=== PATIENT | female | born 2000 | race Caucasian/White ===

== ENCOUNTER 2023-08-06 16:26 | Emergency (ER) | payer SELFPAY ==
[2023-08-06 16:30] VITALS: BP 117/66; PULSE 103; RESP 18; TEMP 37.1; O2SAT 97; BMI 21.5
--- NOTE | 2023-08-06 16:36 | XR_ITS ---
PROCEDURE INFORMATION: Exam: XR Right Hand Exam date and time: 08/06/2023 4:33 PM Age: 23 years old Clinical indication: Injury or trauma; Other: Metal in anterior pad of thumb-distal phalanx; Other: Metal in thumb; Additional info: Metal in thumb. Pain, swelling, discoloration. TECHNIQUE: Imaging protocol: Radiologic exam of the right hand. Views: 3 or more views. COMPARISON: CR [id number] XR hand RT min 3V 11/26/2018 8:42 PM FINDINGS: Bones/joints: Normal. Soft tissues: Normal. IMPRESSION: 1. No acute findings. 2. No radiopaque foreign bodies in the hand.
--- NOTE | 2023-08-06 16:40 | PC.NURSE ---
Pt went to RAD
--- NOTE | 2023-08-06 16:47 | ED_ITS ---
Discharge Plan Disposition Patient Disposition: Home, Self-Care Condition: Good Prescriptions Prescriptions: New cephalexin [cephalexin] 500 mg tablet 500 mg PO BID 7 Days Qty: 14 0RF Referrals Follow up/Referrals: Provider,Referral, MD [Primary Care Provider] - See instructions Activity Restrictions/Add. Instructions Additional Instructions/Restrictions: keep area clean and dry antibiotics as ordered return if no improvement follow up with pcp Clinical Impressions Clinical Impression: Cellulitis Qualifiers: Site of cellulitis: extremity Site of cellulitis of extremity: finger Laterality: right Qualified Code(s): L03.011 - Cellulitis of right finger Instructions Patient Instructions: Cellulitis Discharge ED Provider: Amarjit ([facility] [place] Stated complaint: poss metal shard in RT thumb Mode of Arrival: Ambulatory Source of Information: Patient Limitations: No Limitations Time Seen by Provider: 08/06/23 16:47 Description of Symptoms (Recalled from Triage Doc. by RN): Pt stated that she was working on her bike. She stated that 2 weeks ago a metal shard in her right thumb. HEENT Symptoms (Recalled from RN notes): No Resp Symptoms (Recalled from RN notes): No Skin Symptoms (Recalled from RN notes): Yes MS Symptoms (Recalled from RN notes): No Functional Status (Recalled from RN notes): n/a History of Present Illness Provider Complaint: 23 yr old female presents for pain and swelling to rt thumb. pt states she was working on her bike and thinks it might have metal in it. Related Data Previous Rx's Medication Instructions Recorded cephalexin 500 mg tablet 500 mg PO BID 7 days #14 tabs 08/06/23 Allergies Allergy/AdvReac Type Severity Reaction Status Date / Time No Known Allergies Allergy Verified 08/06/23 16:45 Worker's Comp Is this a Worker's Comp case?: No [facility] Disclaimer: The information contained in this section may have been updated after the patient was seen, as this information can be updated by other users. Social History , BUSINESS ANALYST CONSULTANT) Smoking Status: Smoker, status unknown alcohol intake: never current occupational status: student Travel in the last 8 weeks: None ROS Obtained: Yes All systems reviewed & no additional complaints except as documented Constitutional Constitutional: Reports system reviewed and no additional complaints, except as documented Eyes Eyes: Reports system reviewed and no additional complaints, except as documented ENT Ears, Nose, Mouth, and Throat: Reports system reviewed and no additional complaints, except as documented Cardiovascular Cardiovascular: Reports system reviewed and no additional complaints, except as documented Respiratory Respiratory: Reports system reviewed and no additional complaints, except as documented Gastrointestinal Gastrointestingal: Reports system reviewed and no additional complaints, except as documented Musculoskeletal Musculoskeletal: Reports system reviewed and no additional complaints, except as documented Integumentary/Breasts Skin/Breast: Reports system reviewed and no additional complaints, except as documented, Reports as per HPI and Reports other (fb) Neurologic Neurologic: Reports system reviewed and no additional complaints, except as documented Endocrine Endocrine: Reports system reviewed and no additional complaints, except as documented Hematologic/Lymphatic Henatologic/Lymphatic: Reports system reviewed and no additional complaints, except as documented Physical Exam General General appearance: alert and in no apparent distress Head Head exam: atraumatic Eye Eye exam: Present normal appearance and PERRL ENT ENT exam: Present normal exam, normal oropharynx, mucous membranes moist and TM's normal bilaterally Respiratory Respiratory exam: Present normal lung sounds bilaterally Cardiovascular Cardiovascular exam: Present regular rate and normal rhythm Expanded Upper Extremity Exam Right: Hand L/R front image: 1. foreign body Neurological Exam Neurological exam: Present alert Skin Skin exam: Present warm Medical Decision Making Medical Records Medical records reviewed: Yes I reviewed the patient's medical records. Shawn Inquiry Pt receiving controlled substance: No Shawn was queried for this patient: No Vital Signs: 08/06/23 16:30 Temperature 98.7 F Temperature Source Oral Pulse Rate [Right Radial] 103 H Respiratory Rate 18 Blood Pressure [Right Arm] 117/66 Blood Pressure Mean [Right Arm] 83 Blood Pressure Source [Right Arm] Automatic Cuff Blood Pressure Position [Right Arm] Sitting 02 Sat by Pulse Oximetry 97 Oxygen Delivery Method Room Air Orders (Tests/Meds): ORDERS Category Date Time Status Hand XR right minimum 3 views [XR hand RT min 3V] Stat Exams 08/06/23 16:36 Taken
[2023-08-06] MEDS: TET/DIPHTH/PERT-ADULT 0.5ML SYRINGE 0.5 ML IM (17:05)
[2023-08-06 17:21] VITALS: BP 117/66; PULSE 103; RESP 18; TEMP 37.1; O2SAT 97
== END 2023-08-06 17:21 | disposition home or self-care (01) ==
PROVIDERS: Emergency Provider Nurse Practitioner Family
DX: L03.011 Cellulitis of right finger (principal); M79.644 Pain in right finger(s); Z23 Encounter for immunization
CPT/HCPCS: 73130; 90471; 90715; 99204; 99212; G0463

== ENCOUNTER 2023-09-18 14:31 | Emergency (ER) | payer MEDICAID, SELFPAY ==
[2023-09-18 14:34] VITALS: BP 107/65; PULSE 74; RESP 16; TEMP 36.7; O2SAT 98; BMI 23.1
--- NOTE | 2023-09-18 14:54 | ED_ITS ---
<Statement entered by Leigh Cooper MD - 09/18/23 18:08> I was consulted by the ERICA, and we discussed the complexity of the problems being addressed. I approved the treatment and management plan for this patient's care in the emergency department, thus performing a substantive portion of the medical decision making. Leigh Cooper MD, TUAN, FACEP Discharge Plan Disposition Patient Disposition: Home, Self-Care Prescriptions Prescriptions: New amoxicillin-pot clavulanate 875-125 mg tablet 1 tab PO BID Qty: 20 0RF No Action cephalexin [cephalexin] 500 mg tablet 500 mg PO BID 7 Days Qty: 14 0RF Referrals Follow up/Referrals: Provider,Vesna, [Primary Care Provider] - See instructions Clinical Impressions Clinical Impression: Infected dental caries Headache Qualifiers: Headache type: unspecified Discharge ED Provider: Leigh Cooper General Adult HPI General Chief complaint: Headache Stated complaint: migrane 4days jaw pain fever vomiting Time Seen by Provider: 09/18/23 14:40 History of Present Illness HPI narrative: Patient presents for headache for more than 24 hours sore throat neck and back pain and a fever of 102. Patient reportedly has a history of migraines but has never been formally diagnosed and is prescribed propranolol for her headaches. Patient states that she is taken Tylenol and Aleve in the last 24 hours with no relief of her headache. Patient reports that she started having constitutional symptoms of myalgias and malaise along with a fever of 102 last night. Patient denies vision or sensory changes but does report photophobia and nausea with 1 episode of vomiting. Patient has been exposed to a family member who is diagnosed with strep. Related Data Previous Rx's Medication Instructions Recorded cephalexin 500 mg tablet 500 mg PO BID 7 days #14 tabs 08/06/23 amoxicillin 875 mg-potassium 1 tab PO BID #20 tabs 09/18/23 clavulanate 125 mg tablet Allergies Allergy/AdvReac Type Severity Reaction Status Date / Time No Known Allergies Allergy Verified 08/06/23 16:45 [facility] Disclaimer: The information contained in this section may have been updated after the patient was seen, as this information can be updated by other users. Social History (Updated 08/06/23 @ 17:00 by Atif Ocasio ([facility]), [employer]) Smoking Status: Current every day smoker alcohol intake: never current occupational status: student Travel in the last 8 weeks: None ROS Obtained: Yes Systems reviewed as appropriate & no additional complaints except as documented Physical Exam General General appearance: alert and in no apparent distress Head Head exam: atraumatic and normal inspection Eye Eye exam: Present normal appearance, PERRL and EOMI ENT ENT exam: Present normal oropharynx, mucous membranes moist and other (Patient has significant dental caries in the molars left side worse than right with dental necrosis visible however no evidence of visible abscess or palpable abscess on exam along with no cervical lymphadenopathy.) Neck Neck exam: Present normal inspection, full ROM, trachea midline and tenderness (Tender to palpation in the posterior cervical musculature however she has no meningeal signs no nuchal rigidity.); Absent lymphadenopathy Chest Chest inspection: Present normal inspection and symmetric chest wall rise Respiratory Respiratory exam: Present normal lung sounds bilaterally; Absent respiratory distress, wheezes or accessory muscle use Cardiovascular Cardiovascular exam: Present regular rate, normal rhythm, normal heart sounds, +S1 and +S2 Abdominal Exam Abdominal exam: Present soft and normal bowel sounds; Absent tenderness, guarding or rebound Extremities Exam Extremities exam: Present normal inspection and full ROM Back Exam Back exam: Present normal inspection and full ROM Neurological Exam Neurological exam: Present alert, oriented X3, CN II-XII intact, normal gait and reflexes normal; Absent motor sensory deficit Psychiatric Psychiatric exam: Present normal affect and normal mood Skin Skin exam: Present warm, dry and normal color Medical Decision Making Medical Records Medical records reviewed: Yes I reviewed the patient's medical records. Shawn Inquiry Pt receiving controlled substance: No Vital Signs: 09/18/23 14:34 09/18/23 15:00 09/18/23 15:31 Temperature 98.1 F Temperature Source Oral Pulse Rate 63 69 Pulse Rate [Right] 74 Respiratory Rate 16 18 16 Blood Pressure 93/49 L 98/47 L Blood Pressure [Right Arm] 107/65 L Blood Pressure Mean 63 59 Blood Pressure Mean [Right Arm] 79 Blood Pressure Source [Right Arm] Automatic Cuff 02 Sat by Pulse Oximetry 98 97 98 Oxygen Delivery Method Room Air 09/18/23 15:45 Temperature Temperature Source Pulse Rate 66 Pulse Rate [Right] Respiratory Rate 18 Blood Pressure 94/55 L Blood Pressure [Right Arm] Blood Pressure Mean 66 Blood Pressure Mean [Right Arm] Blood Pressure Source [Right Arm] 02 Sat by Pulse Oximetry 98 Oxygen Delivery Method Lab Data Lab results reviewed: Yes I reviewed the patient's lab results. Lab Results 09/18/23 14:50: Group A Strep Rapid Negative Orders (Tests/Meds): ED MEDICATIONS Discontinued Medications Generic Name Dose Route Start Last Admin Trade Name Kathy PRN Reason Stop Dose Admin Acetaminophen 1,000 mg 09/18/23 14:50 09/18/23 15:22 Acetaminophen 500mg Tab PO 09/18/23 14:51 1,000 mg ONCE ONE Administration Lactated Ringer's 1,000 mls @ 999 mls/hr 09/18/23 15:08 09/18/23 15:22 Lactated Ringer's 1000 Ml Bag IV 09/18/23 16:08 999 mls/hr .Q1H1M ONE Administration Ketorolac Tromethamine 30 mg 09/18/23 14:50 09/18/23 15:22 Ketorolac 30mg/Ml Vial IM 09/18/23 14:51 30 mg ONCE ONE Administration Ondansetron HCl 4 mg 09/18/23 14:57 09/18/23 15:23 Ondansetron 4mg Odt SL 09/18/23 14:58 4 mg ONCE ONE Administration ORDERS Category Date Time Status Full Resp Panel w/COVID ([facility]) Routine Lab 09/18/23 15:30 Received Rapid Strep Scrn Group A [Strep Scrn Group A (Rapid)] Lab 09/18/23 14:50 Completed Stat Strep Screen Confirmation Stat Micro 09/18/23 14:50 Received Medical Decision Narrative: In summary patient is a 23-year-old female who presents to the emergency department for evaluation of headache and fever. Patient is hemodynamically stable upon arrival, and afebrile on arrival here. Physical exam shows tender posterior cervical musculature but no evidence of neurologic signs, meningiomas or nuchal rigidity.. Differential diagnosis includes daily headache versus infectious upper respiratory tract infection versus dental infection with dental abscess versus possible intracranial abnormality. Initial workup will be conducted with respiratory swab flu COVID and strep. Initial interventions include crystalloid bolus Toradol and Tylenol. Initial workup reviewed by me shows that she is group A strep negative. Upon repeat evaluation patient reports some resolution of her symptoms after fluid and anti-inflammatories specifically her headache and nausea however her teeth pain persists. Given this she is appropriate for discharge home with a prescription for this Augmentin and continue taking alternating Tylenol alternating with Motrin [id number] and following up with her dentist as soon as possible for evaluation. Critical Care Critical Care Time Critical Care Time: No
[2023-09-18 15:00] VITALS: BP 93/49; PULSE 63; RESP 18; O2SAT 97
[2023-09-18 15:13] LABS: Strep Scrn Group A (Rapid) Negative (Negative)
[2023-09-18] MEDS: LACTATED RINGERS 1000ML 1,000 ML 999 ML IV (15:22)
[2023-09-18] MEDS: KETOROLAC 30MG/ML VIAL 30 MG IM (15:22)
[2023-09-18] MEDS: ACETAMINOPHEN 500MG TAB 1000 MG PO (15:22)
[2023-09-18] MEDS: ONDANSETRON 4MG ODT 4 MG SL (15:23)
[2023-09-18 15:31] VITALS: BP 98/47; PULSE 69; RESP 16; O2SAT 98
[2023-09-18 15:45] VITALS: BP 94/55; PULSE 66; RESP 18; O2SAT 98
[2023-09-18 15:58] LABS: Adenovirus,PCR Not Detected (NotDetected); Coronavirus 19, PCR Not Detected (NotDetected); Coronavirus 229E Not Detected (NotDetected); Coronavirus NL63 Not Detected (NotDetected); Coronavirus OC43 Not Detected (NotDetected); Coronovirus HKU1,PCR Not Detected (NotDetected); Human Metapneumovirus Not Detected (NotDetected); Influenza A, PCR Not Detected (NotDetected); Influenza AH1, 2009 Not Detected (NotDetected); Influenza AH1, PCR Not Detected (NotDetected); Influenza AH3,PCR Not Detected (NotDetected); Influenza B, PCR Not Detected (NotDetected); Parainfluenza 1, PCR Not Detected (NotDetected); Parainfluenza 2, PCR Not Detected (NotDetected); Parainfluenza 3, PCR Not Detected (NotDetected); Parainfluenza 4, PCR Not Detected (NotDetected); Respiratory Syncytial Virus Not Detected (NotDetected); Rhinovirus/Enterovirus Not Detected (NotDetected)
[2023-09-18 16:00] VITALS: BP 94/55; PULSE 77; RESP 18; O2SAT 98
[2023-09-18 16:38] VITALS: BP 100/63; PULSE 74; RESP 16; TEMP 37; O2SAT 99
== END 2023-09-18 16:46 | disposition home or self-care (01) ==
PROVIDERS: Physician Assistant; Emergency Provider Student in an Organized Health Care Education/Training Program
DX: R51.9 Headache, unspecified (principal); R68.84 Jaw pain; R11.2 Nausea with vomiting, unspecified; K02.9 Dental caries, unspecified; F17.210 Nicotine dependence, cigarettes, uncomplicated
CPT/HCPCS: 87430; 87632; 87635; 96360; 96372; 99284

== ENCOUNTER 2023-09-23 10:49 | Emergency (ER) | payer SELFPAY ==
[2023-09-23] VITALS (10 sets, daily range): BP systolic 91–131; BP diastolic 51–78; PULSE 39–67; RESP 16–17; TEMP 36.7–36.9; O2SAT 97–100; BMI 23.3
--- NOTE | 2023-09-23 11:08 | ED_ITS ---
Discharge Plan Disposition Patient Disposition: Home, Self-Care Condition: Good Prescriptions Prescriptions: No Action cephalexin [cephalexin] 500 mg tablet 500 mg PO BID 7 Days Qty: 14 0RF amoxicillin-pot clavulanate 875-125 mg tablet 1 tab PO BID Qty: 20 0RF Referrals Follow up/Referrals: Provider,Referral, [Primary Care Provider] - See instructions Clinical Impressions Clinical Impression: Headache Qualifiers: Headache type: unspecified Headache chronicity pattern: acute headache I ntractability: not intractable Qualified Code(s): R51.9 - Headache, unspecified Instructions Patient Instructions: DI for Diarrhea and Traveler's Diarrhea -- Adult, DI for Diarrhea and Traveler's Diarrhea -- Child, DI for Nausea -- Adult, DI for Nausea -- Child Discharge ED Provider: Piter Davis Adult HPI General Chief complaint: Nausea/Vomiting/Diarrhea Stated complaint: headache, lower back pain vomiting Time Seen by Provider: 09/23/23 10:55 Mode of Arrival: Ambulatory Source of Information: Patient Limitations: No Limitations Description of Symptoms (Recalled from ER Triage Doc. by RN): pt presents to ED with c/o nausea, vomitting, headache. pt reports symptoms ongoing for 1 week. History of Present Illness HPI narrative: Patient presents with severe diffuse nonradiating headache, reports history of migraine but states symptoms are different than in the past, is unable to describe further how symptoms are different, associated symptoms include nausea and vomiting, denies any vision changes, denies any recreational drug use, reports recent antibiotics for dental caries and has been compliant with this therapy. She does describe dental pain in her mandibular molars bilaterally. Denies any chronic medical issues, denies any nuchal rigidity, denies any personal or family history of DVT or other thrombotic risk factors. Denies any pain elsewhere. Of note, history difficult to obtain due to limited recollection of HPI, severity of patient's symptoms. Symptoms were gradual in onset starting 1 week ago however worsening over the past 24 hours. Previous therapies include [id number] analgesia with minimal effect. Please note that above description of symptoms, in this electronic medical record under categorization of recalled from ER triage doctor by RN are reflective of an initial nursing assessment, however, is not reflective of my full history and physical exam that was personally taken and clarified. Consequentially, this preceding description of symptoms, which may include the patient's categorized chief complaint in the EMR, do not reflect my personal clinical impression, and the ultimate description of history of present illness and patient stated complaints should be deferred to this section of the note. Unless stated otherwise or congruent with this section of the note, additional signs, symptoms, or incongruence should be interpreted as inaccurate with my clinical impression. Related Data Previous Rx's Medication Instructions Recorded cephalexin 500 mg tablet 500 mg PO BID 7 days #14 tabs 08/06/23 amoxicillin 875 mg-potassium 1 tab PO BID #20 tabs 09/18/23 clavulanate 125 mg tablet Allergies Allergy/AdvReac Type Severity Reaction Status Date / Time No Known Allergies Allergy Verified 08/06/23 16:45 [facility] Disclaimer: The information contained in this section may have been updated after the patient was seen, as this information can be updated by other users. Social History (Updated 08/06/23 @ 17:00 by Atif Ocasio ([facility]), TELETYPEWR[employer]ST[employer]ER) Smoking Status: Current every day smoker alcohol intake: never current occupational status: student Travel in the last 8 weeks: None ROS Obtained: Yes Systems reviewed as appropriate & no additional complaints except as documented As per HPI Physical Exam General General appearance: alert and in distress Head Head exam: atraumatic and normocephalic Eye Eye exam: Present normal appearance Neck Neck exam: Present normal inspection Chest Chest inspection: Present normal inspection and symmetric chest wall rise Respiratory Respiratory exam: Present normal lung sounds bilaterally; Absent respiratory distress Cardiovascular Cardiovascular exam: Present regular rate and normal rhythm Abdominal Exam Abdominal exam: Present soft Neurological Exam Neurological exam: Present alert, oriented X3 and CN II-XII intact Psychiatric Psychiatric exam: Present agitated and anxious Skin Skin exam: Present warm and dry Medical Decision Making Medical Records Medical records reviewed: Yes I reviewed the patient's medical records. Shawn Inquiry Pt receiving controlled substance: No Vital Signs: 09/23/23 10:50 09/23/23 11:30 09/23/23 11:45 Temperature 98.4 F Temperature Source Oral Pulse Rate 64 39 L Pulse Rate [Left Radial] 67 Respiratory Rate 16 Blood Pressure 115/73 101/60 L Blood Pressure [Right Arm] 131/71 Blood Pressure Mean Blood Pressure Mean [Right Arm] 91 02 Sat by Pulse Oximetry 100 99 98 Oxygen Delivery Method Room Air Room Air 09/23/23 12:01 09/23/23 12:30 09/23/23 12:45 Temperature Temperature Source Pulse Rate 53 L 52 L 55 L Pulse Rate [Left Radial] Respiratory Rate Blood Pressure 96/62 L 98/78 L 101/62 L Blood Pressure [Right Arm] Blood Pressure Mean Blood Pressure Mean [Right Arm] 02 Sat by Pulse Oximetry 100 99 99 Oxygen Delivery Method Room Air 09/23/23 13:14 09/23/23 13:30 09/23/23 13:45 Temperature Temperature Source Pulse Rate 55 L 66 65 Pulse Rate [Left Radial] Respiratory Rate Blood Pressure 98/55 L 92/55 L 91/51 L Blood Pressure [Right Arm] Blood Pressure Mean 65 60 Blood Pressure Mean [Right Arm] 02 Sat by Pulse Oximetry 100 98 100 Oxygen Delivery Method Room Air Room Air Room Air 09/23/23 14:03 Temperature 98.0 F Temperature Source Pulse Rate 67 Pulse Rate [Left Radial] Respiratory Rate 17 Blood Pressure 101/57 L Blood Pressure [Right Arm] Blood Pressure Mean Blood Pressure Mean [Right Arm] 02 Sat by Pulse Oximetry Oxygen Delivery Method Room Air Lab Data Lab Results 09/23/23 10:54: Urine Opiates Screen Negative, Urine Methadone Screen Negative, Ur Barbituates Screen Negative, Ur Phencyclidine Scrn Negative, Ur Amphetamines Screen Negative, U Benzodiazepines Scrn Negative, Urine Cocaine Screen Negative, U Marijuana (THC) Screen Negative 09/23/23 10:55: WBC 6.4, RBC 4.59, Hgb 13.7, Hct 42.3, MCV 92.2, MCH 29.9, MCHC 32.4, RDW 13.6, Plt Count 240, MPV 9.0, Neut % (Auto) 73.6, Lymph % (Auto) 20.3, [place] % (Auto) 4.7, Eos % (Auto) 0.6, Baso % (Auto) 0.8, Neut # (Auto) 4.7, Lymph # (Auto) 1.3, [place] # (Auto) 0.3, Eos # (Auto) 0.0, Baso # (Auto) 0.1, Sodium 138, Potassium 3.8, Chloride 107, Carbon Dioxide 27, Anion Gap 7.8, BUN 21 H, Creatinine 0.70, Estimated Creat Clear 123, Estimated GFR 105, Est GFR ( Amer) 127, Glucose 114 H, Calcium 8.8, Total Bilirubin 0.4, AST 23, ALT 16, Alkaline Phosphatase 60, Total Protein 7.2, Albumin 4.4, Globulin 2.8, Albumin/Globulin Ratio 1.6, Serum HCG, Qual Negative, Plasma/Serum Alcohol < 10, SARS-CoV-2 (PCR) Not detected, Influenza A Untype (PCR) Not detected, Influenza Type B (PCR) Not detected 09/23/23 10:55 09/23/23 10:55 Orders (Tests/Meds): ED MEDICATIONS Discontinued Medications Generic Name Dose Route Start Last Admin Trade Name Davidq PRN Reason Stop Dose Admin Dexamethasone 10 mg 09/23/23 11:24 09/23/23 11:44 Dexamethasone 4mg Tablet PO 09/23/23 11:25 10 mg ONCE ONE Administration Diphenhydramine HCl 25 mg 09/23/23 11:24 09/23/23 11:43 Diphenhydramine 50mg/Ml Vial IV 09/23/23 11:25 25 mg ONCE ONE Administration Sodium Chloride 1,000 mls @ 999 mls/hr 09/23/23 11:24 09/23/23 11:44 Sod Chlor 0.9% 1000ml Bag IV 09/23/23 12:24 999 mls/hr .Q1H1M ONE Administration Iopamidol 100 ml 09/23/23 12:13 09/23/23 12:14 Iopamidol-370 (76%);100ml Bottle IV 09/23/23 12:14 100 ml ONCE ONE Administration Ketorolac Tromethamine 15 mg 09/23/23 11:24 09/23/23 11:43 Ketorolac 30mg/Ml Vial IV 09/23/23 11:25 15 mg ONCE ONE Administration Prochlorperazine Edisylate 10 mg 09/23/23 11:24 09/23/23 11:43 Prochlorperazine 10mg/2ml Vial IM 09/23/23 11:25 10 mg ONCE ONE Administration Sodium Chloride 10 ml 09/23/23 12:13 09/23/23 12:14 Sodium Chloride 0.9% 10ml Syr (Rad Only) IV 09/23/23 12:14 10 ml ONCE ONE Administration ORDERS Category Date Time Status CT head/brain wo con Stat Cat Scan 09/23/23 11:[address] sinus w con Stat Cat Scan 09/23/23 11:33 Completed CBC w/Auto Diff [Complete Blood Count Auto Diff] Stat Lab 09/23/23 10:55 Completed CMP [Comprehensive Metabolic Panel] Stat Lab 09/23/23 10:55 Completed Drug Screen,Urine Stat Lab 09/23/23 10:54 Completed Ethanol [Ethyl Alcohol] Stat Lab 09/23/23 10:55 Completed HCG Qualitative, Serum Stat Lab 09/23/23 10:55 Completed Rapid PCR Covid and Flu A/B Stat Lab 09/23/23 10:55 Completed Medical Decision Narrative: Patient with history and exam per above presenting for evaluation of headache, nausea, vomiting Diagnoses considered include Meningitis, encephalitis, sinusitis, venous sinus thrombosis, IIH,, migraine, tension headache, cluster headache, trigeminal neuralgia, posttraumatic, hypertension, referred pain from dental caries. Due to acuity of patient's condition, limited information patient provides, and reported history of migraines although different from today differential diagnosis remains broad, although patient exhibits minimal evidence suggestive of meningitis, no reported trauma, and no VTE risk factors, no thunderclap onset to suggest subarachnoid hemorrhage ED workup and treatment included: ED MEDICATIONS Discontinued Medications Generic Name Dose Route Start Last Admin Trade Name Freq PRN Reason Stop Dose Admin Dexamethasone 10 mg 09/23/23 11:24 09/23/23 11:44 Dexamethasone 4mg Tablet PO 09/23/23 11:25 10 mg ONCE ONE Administration Diphenhydramine HCl 25 mg 09/23/23 11:24 09/23/23 11:43 Diphenhydramine 50mg/Ml Vial IV 09/23/23 11:25 25 mg ONCE ONE Administration Sodium Chloride 1,000 mls @ 999 mls/hr 09/23/23 11:24 09/23/23 11:44 Sod Chlor 0.9% 1000ml Bag IV 09/23/23 12:24 999 mls/hr .Q1H1M ONE Administration Iopamidol 100 ml 09/23/23 12:13 09/23/23 12:14 Iopamidol-370 (76%);100ml Bottle IV 09/23/23 12:14 100 ml ONCE ONE Administration Ketorolac Tromethamine 15 mg 09/23/23 11:24 09/23/23 11:43 Ketorolac 30mg/Ml Vial IV 09/23/23 11:25 15 mg ONCE ONE Administration Prochlorperazine Edisylate 10 mg 09/23/23 11:24 09/23/23 11:43 Prochlorperazine 10mg/2ml Vial IM 09/23/23 11:25 10 mg ONCE ONE Administration Sodium Chloride 10 ml 09/23/23 12:13 09/23/23 12:14 Sodium Chloride 0.9% 10ml Syr (Rad Only) IV 09/23/23 12:14 10 ml ONCE ONE Administration ORDERS Category Date Time Status CT head/brain wo con Stat Cat Scan 09/23/23 11:[address] sinus w con Stat Cat Scan 09/23/23 11:33 Completed CBC w/Auto Diff [Complete Blood Count Auto Diff] Stat Lab 09/23/23 10:55 Completed CMP [Comprehensive Metabolic Panel] Stat Lab 09/23/23 10:55 Completed Drug Screen,Urine Stat Lab 09/23/23 10:54 Completed Ethanol [Ethyl Alcohol] Stat Lab 09/23/23 10:55 Completed HCG Qualitative, Serum Stat Lab 09/23/23 10:55 Completed Rapid PCR Covid and Flu A/B Stat Lab 09/23/23 10:55 Completed Labs were independently interpreted by me, significant for no acute findings Imaging was independently visualized and interpreted by me, significant for multiple dental caries however no. intracranial abnormality Please refer to radiology report for full details. Patient reports marked improvement of symptoms upon repeat evaluation, is alert oriented and in much less distress and is requesting to be discharged at this time. My clinical impression at this time is most consistent with likely complicated migrainous headache that is not intractable I discussed my clinical impression with patient and answered all questions. At this time, the evidence for any other entities in the differential is insufficient to warrant any further testing or ED observation. This was explained to the patient. The patient was advised that persistent or worsening symptoms require further evaluation. I confirmed the patient's understanding of this discussion. Critical Care Critical Care Time Critical Care Time: No
--- NOTE | 2023-09-23 11:33 | CT_ITS ---
FINAL REPORT TECHNIQUE: Multiple axial CT sections were performed through the face with IV contrast. Coronal and sagittal reconstruction images were performed. This study was performed with techniques to keep radiation doses as low as reasonably achievable (ALARA). Individualized dose reduction techniques using automated exposure control or adjustment of mA and/or kV according to the patient's size were employed. CLINICAL HISTORY: dental pain, TELLO, ams COMPARISON: None FINDINGS: CT FACIAL BONES/SINUSES WITH CONTRAST: There is mild mucosal thickening of the floors of the maxillary sinuses. The remainder of the paranasal sinuses are unremarkable in appearance. There are multiple carious teeth noted. There is lucency around the root of the second molar, right maxillary, that may represent a periapical abscess. No acute fracture or dislocation is identified. There are several small erosions in the left mandibular condyle, a finding of uncertain chronicity. The tonsils and adenoids are prominent, likely related to the patient's age. IMPRESSION: Multiple carious teeth, with a lucency around the root of the right maxillary second molar that may represent a periapical abscess. There is soft tissue thickening in the floor of the adjacent right maxillary sinus as well as in the left maxillary sinus. There are several small erosions in the left mandibular condyle, of uncertain chronicity.. Tonsils and adenoids are prominent, likely related to the patient's age. Reviewed, Interpreted and Dictated by Huey Ayers III, MD Transcribed by Claudette Lucero Authenticated and [facility]
--- NOTE | 2023-09-23 11:34 | CT_ITS ---
FINAL REPORT CLINICAL HISTORY: headache, ams COMPARISON: None FINDINGS: Axial images of the head were obtained without contrast. Coronal and sagittal reformatted images were also obtained.This study was performed with techniques to keep radiation doses as low as reasonably achievable (ALARA). Individualized dose reduction techniques using automated exposure control or adjustment of mA and/or kV according to the patient's size were employed. There is no evidence of intracranial hemorrhage or mass. The ventricular size is within normal limits. There is no evidence of shift of the midline structures. No abnormal extra axial fluid collection is identified. No skull abnormality is seen on the bone window images. IMPRESSION: No acute intracranial abnormality. Reviewed, Interpreted and Dictated by Huey Ayers III, MD Transcribed by Claudette Lucero Authenticated and [facility]
[2023-09-23 11:42] LABS: Basophils # 0.1 K/mm3 (0-0.2); Basophils % 0.8 % (0.1-2.0); Eosinophils % 0.6 % (0.1-12.0); Hematocrit 42.3 % (37.0-47.0); Hemoglobin 13.7 g/dL (12.2-16.2); Lymphocytes # 1.3 K/mm3 (0.7-4.5); Lymphocytes % 20.3 % (10-50); Mean Corpuscular HGB Conc 32.4 g/dL (31.8-35.4); Mean Corpuscular Hemoglobin 29.9 pg (27.0-31.2); Mean Corpuscular Volume 92.2 fl (81-99); Monocytes # 0.3 K/mm3 (0.1-1.0); Monocytes % 4.7 % (1.7-9.3); Neutrophils # 4.7 K/mm3 (1.8-7.8); Neutrophils % 73.6 % (37.0-80.0); Platelet Count 240 K/mm3 (142-424); Red Blood Count 4.59 M/mm3 (4.20-5.40); Red Cell Distribution Width 13.6 % (11.5-17.5); White Blood Count 6.4 K/mm3 (4.8-10.8)
[2023-09-23] MEDS: KETOROLAC 30MG/ML VIAL 15 MG IV (11:43)
[2023-09-23] MEDS: PROCHLORPERAZINE 10MG/2ML VIAL 10 MG IM (11:43)
[2023-09-23] MEDS: diphenhydrAMINE 50MG/ML VIAL 25 MG IV (11:43)
[2023-09-23] MEDS: DEXAMETHASONE 4MG TABLET 10 MG PO (11:44)
[2023-09-23] MEDS: 0.9 % SODIUM CHLORIDE 1000ML 1,000 ML 999 ML IV (11:44)
[2023-09-23 11:56] LABS: HCG Qualitative, Serum Negative (Negative)
[2023-09-23 12:06] LABS: Alanine Aminotransferase 16 U/L (12-78); Albumin Level 4.4 g/dl (3.5-5.0); Albumin/Globulin Ratio 1.6 (1.1-1.8); Alkaline Phosphatase 60 U/L (38-126); Anion Gap 7.8 mEq/L (5-15); Aspartate Amino Transferase 23 U/L (14-36); Bilirubin,Total 0.4 mg/dl (0.2-1.3); Blood Urea Nitrogen 21 mg/dl (7-17); Calcium 8.8 mg/dl (8.4-10.2); Carbon Dioxide 27 mmol/L (22.0-30.0); Chloride 107 mmol/L (98-107); Creatinine Clearance Estimated 123 mL/min (50-200); Estimated Glomerular Filt Rate 105 ml/min (>60); GFR (African American) 127 ML/MIN (>60); Globulin 2.8 g/dL (1.3-3.2); Glucose 114 mg/dl (74-100); Potassium 3.8 mmoL/L (3.5-5.1); Sodium 138 mmol/L (136-145); Total Protein,Serum 7.2 g/dl (6.3-8.2)
[2023-09-23] MEDS: SODIUM CHLORIDE 0.9% 10ML SYR (RAD ONLY) 10 ML IV (12:14)
[2023-09-23] MEDS: IOPAMIDOL-370 (76%);100ML BOTTLE 100 ML IV (12:14)
[2023-09-23 12:15] LABS: Amphetamine/Metha Screen,Urine Negative ng/ml (<1000)
[2023-09-23 12:16] LABS: Barbiturates Screen,Urine Negative ng/ml (<200)
[2023-09-23 12:17] LABS: Benzodiazepines Screen,Urine Negative ng/ml (<200); Cannabinoid Screen,Urine Negative ng/ml (<50)
[2023-09-23 12:18] LABS: Cocaine Screen,Urine Negative ng/ml (<300); Methadone Screen,Urine Negative ng/ml (<300)
[2023-09-23 12:19] LABS: Opiate Screen,Urine Negative ng/ml (<300)
[2023-09-23 12:20] LABS: Phencyclidine Screen,Urine Negative ng/ml (<25)
[2023-09-23 12:23] LABS: Ethyl Alcohol < 10 mg/dl (0-10)
[2023-09-23 12:26] LABS: Coronavirus 19, PCR Not Detected (NotDetected); Influenza A, PCR Not Detected (NotDetected); Influenza B, PCR Not Detected (NotDetected)
--- NOTE | 2023-09-23 13:15 | PC.NURSE ---
PT IS SLEEPING IN BED NO NEEDS AND CALL LIGHT IN REACH
== END 2023-09-23 14:05 | disposition home or self-care (01) ==
PROVIDERS: Emergency Provider Emergency Medicine
DX: R51.9 Headache, unspecified (principal); M54.50 Low back pain, unspecified; R11.2 Nausea with vomiting, unspecified; F17.200 Nicotine dependence, unspecified, uncomplicated
CPT/HCPCS: 70450; 70487; 80053; 80307; 84703; 85025; 87636; 96361; 96372; 96374; 96375; 99285; Q9967

== ENCOUNTER 2023-12-26 18:00 | Outpatient (CLI) | payer OTHER, SELFPAY ==
[2023-12-26 18:23] LABS: Chol/HDL Ratio 3.4 (1-3.5); Cholesterol 151 mg/dl (140-200); HDL Cholesterol 44 mg/dl (40-60); Triglycerides 75 mg/dl (30-150); VLDL Cholesterol 15 mg/dL (0-40)
[2023-12-26 18:34] LABS: Direct LDL Cholesterol 87.97 mg/dL (100-129)
[2023-12-26 18:45] LABS: 25-OH Vitamin D, Total 23.7 ng/mL (30-100)
[2023-12-26 18:57] LABS: Thyroid Stimulating Hormone 2.55 uIU/mL (0.465-4.68)
[2023-12-27 08:47] LABS: HIV (1&2) Antibody Rapid NON REACTIVE
[2023-12-28 08:56] LABS: HCV Ab Non Reactive (Non Reactive)
== END 2023-12-26 23:59 | disposition home or self-care (01) ==
LOC: LAB.DROPOF 12-27 08:19
PROVIDERS: Visit Provider Family Medicine
DX: F19.11 Other psychoactive substance abuse, in remission (principal); Z68.22 Body mass index [BMI] 22.0-22.9, adult; E55.9 Vitamin D deficiency, unspecified; G40.509 Epileptic seizures related to external causes, not intractable, without status epilepticus
CPT/HCPCS: 80061; 82306; 84443

== ENCOUNTER 2024-03-02 20:58 | Emergency (ER) | payer OTHER, SELFPAY ==
[2024-03-02 21:00] VITALS: BP 113/65; PULSE 69; RESP 20; TEMP 37.1; O2SAT 100; BMI 26.2
[2024-03-02 21:34] LABS: Microscopic, Urine URINE MICROSCOPIC (MICROSCOPIC)
[2024-03-02 21:36] LABS: Appearance,Urine CLEAR (Clear); Bilirubin,Urine Negative (Negative); Blood, Urine 2+ (Negative); Color,Urine YELLOW (Yellow); Glucose,Urine (UA) Negative (Negative); Ketones,Urine Negative (Negative); Leukocyte Esterase,Urine Negative (Negative); Nitrate,Urine Negative (Negative); PH,Urine 6.5 (5.0-8.5); Protein,Urine Negative (Negative); Urobilinogen,Urine 0.2 EU/dl (0.2)
[2024-03-02 21:41] LABS: Squamous Epithelial Cell,Urine Occasional #/hpf (0-5)
--- NOTE | 2024-03-02 22:07 | CT_ITS ---
PROCEDURE INFORMATION: Exam: CT Abdomen And Pelvis With Contrast Exam date and time: 03/02/2024 11:02 PM Age: 23 years old Clinical indication: Abdominal pain; Additional info: Severe llq pain TECHNIQUE: Imaging protocol: Computed tomography of the abdomen and pelvis with contrast. Radiation optimization: All CT scans at this facility use at least one of these dose optimization techniques: automated exposure control; mA and/or kV adjustment per patient size (includes targeted exams where dose is matched to clinical indication); or iterative reconstruction. Contrast material: ISOVUE; Contrast volume: 75 ml; Contrast route: IV; COMPARISON: CT ABDOMEN PELVIS W CON 02/17/2024 9:19 PM FINDINGS: Liver: Normal. Gallbladder and biliary ducts: No acute process. Pancreas: Normal. Spleen: Normal. Adrenal glands: The adrenal glands appear normal. Kidneys and ureters: There are no soft tissue renal masses or hydronephrosis. Stomach and bowel: The stomach, small bowel, and colon are well-distended and show no evidence of wall thickening, masses, or obstruction. Appendix: No evidence of appendicitis. Intraperitoneal space: Unremarkable. Vasculature: The abdominal aorta and its major branches appear normal without evidence of aneurysm or stenosis. There are pelvic phleboliths. Lymph nodes: No lymphadenopathy. Urinary bladder: There is moderate distention of the urinary bladder. Reproductive: 1 cm left adnexal cyst may reflect a dominant follicle. Bones/joints: The visualized osseous structures of the abdomen and pelvis appear normal for patient age. Soft tissues: There is a small fat containing umbilical hernia. IMPRESSION: No acute inflammatory or obstructive process is identified. Incidental findings are described within the findings section.
--- NOTE | 2024-03-02 22:16 | HMH.EDGENADL ---
Discharge Plan Disposition Patient Disposition: Home, Self-Care Prescriptions Prescriptions: New acetaminophen [Tylenol] 325 mg capsule 650 mg PO Q6H PRN (Reason: fever or pain) Qty: 60 0RF No Action escitalopram oxalate 20 mg tablet 20 mg PO DAILY aripiprazole 2 mg tablet 2 mg PO DAILY Patient Comments: TAKE 1 TABLET BY MOUTH DAILY propranolol 40 mg tablet 40 mg PO BID Qty: 60 2RF Nurtec ODT 75 mg tablet,disintegrating 75 mg PO Q OTHER DAY MDD 75 mg PRN (Reason: migraine headache) Qty: 10 1RF nitrofurantoin monohyd/m-cryst [Macrobid] 100 mg capsule 100 mg PO BID 5 Days Qty: 10 0RF Rx Instructions: must administer with a meal/food ondansetron 4 mg tablet,disintegrating 4 mg PO Q8H PRN (Reason: nausea and vomiting) 4 Days Qty: 12 0RF ibuprofen 800 mg tablet 800 mg PO Q8H PRN (Reason: pain) Qty: 12 0RF dicyclomine 10 mg capsule 20 mg PO TID PRN (Reason: abdominal pain) Qty: 18 0RF Referrals Follow up/Referrals: Atif Ocasio APRN [Primary Care Provider] - See instructions Activity Restrictions/Add. Instructions Additional Instructions/Restrictions: Please contact the provider that is removing her Nexplanon on Tuesday to find out if you are able to be seen sooner given the prolonged menstruation you are experiencing. Alternate Tylenol and ibuprofen every 3 hours or take both medications together every 6 hours. You can also attempt ice or heat packs in the area of tenderness. Please return to ED if your symptoms worsen, change in location, change in severity, new symptoms develop or if you become concerned for your health. Clinical Impressions Clinical Impression: Abdominal pain, LLQ Instructions Patient Instructions: DI for Urinary Tract Infection (UTI), DI for Urinary Tract Infection in Children Print Language Print Language: Khmer Discharge ED Provider: Jennyfer Bhat General Adult HPI <Jonel Kim MD - Last Filed: 03/02/24 23:28> General Chief complaint: Urogenital-Female Stated complaint: AO 03/02/24 1930 Injury lower left side Time Seen by Provider: 03/02/24 21:39 Mode of Arrival: Wheelchair Source of Information: Patient Limitations: No Limitations Description of Symptoms (Recalled from ER Triage Doc. by RN): Patient to ED in wheelchair with complaints of left lower quad pain that has increased since fall on concrete step approx . She states that she was dx with UTI one week ago, finished abx but is still experiencing generalized sharp lower abd pain, and urinary frequency. LMP 8 and currently still experiencing vaginal bleeding History of Present Illness HPI narrative: Please note that above description of symptoms, in this electronic medical record under categorization of recalled from ER triage doctor by RN are reflective of an initial nursing assessment, however, is not reflective of my full history and physical exam that was personally taken and clarified. Consequentially, this preceding description of symptoms, which may include the patient's categorized chief complaint in the EMR, do not reflect my personal clinical impression, and the ultimate description of history of present illness and patient stated complaints should be deferred to this section of the note. Unless stated otherwise or congruent with this section of the note, additional signs, symptoms, or incongruence should be interpreted as inaccurate with my clinical impression. Related Data Home Medications ?Medication ?Instructions ?Recorded ?Confirmed aripiprazole 2 mg tablet 2 mg PO DAILY 12/26/23 02/14/24 escitalopram oxalate 20 mg tablet 20 mg PO DAILY 12/26/23 02/14/24 Previous Rx's ?Medication ?Instructions ?Recorded propranolol 40 mg tablet 40 mg PO BID #60 tabs 02/14/24 rimegepant 75 mg disintegrating 75 mg PO Q OTHER DAY PRN migraine 02/14/24 tablet (Nurtec ODT) headache #10 tabs dicyclomine 10 mg capsule 20 mg (2 x 10 mg) PO TID PRN
[2024-03-02 22:23] LABS: Basophils # 0.1 K/mm3 (0-0.2); Basophils % 0.8 % (0.1-2.0); Eosinophils # 0.1 K/mm3 (0.0-0.4); Hematocrit 40.4 % (37.0-47.0); Lymphocytes # 3.3 K/mm3 (0.7-4.5); Lymphocytes % 41.9 % (10-50); Mean Corpuscular HGB Conc 32.3 g/dL (31.8-35.4); Mean Corpuscular Hemoglobin 29.2 pg (27.0-31.2); Mean Corpuscular Volume 90.5 fl (81-99); Mean Platelet Volume 9.6 fl (7.4-10.4); Monocytes # 0.5 K/mm3 (0.1-1.0); Monocytes % 6.4 % (1.7-9.3); Neutrophils # 3.9 K/mm3 (1.8-7.8); Neutrophils % 49.8 % (37.0-80.0); Platelet Count 214 K/mm3 (142-424); Red Blood Count 4.46 M/mm3 (4.20-5.40); Red Cell Distribution Width 14.3 % (11.5-17.5); White Blood Count 7.8 K/mm3 (4.8-10.8)
[2024-03-02 22:41] LABS: Alanine Aminotransferase 17 U/L (12-78); Albumin Level 3.9 g/dl (3.5-5.0); Albumin/Globulin Ratio 1.3 (1.1-1.8); Alkaline Phosphatase 50 U/L (38-126); Anion Gap 8.8 mEq/L (5-15); Aspartate Amino Transferase 25 U/L (14-36); Bilirubin,Total 0.4 mg/dl (0.2-1.3); Blood Urea Nitrogen 13 mg/dl (7-17); Calcium 9.2 mg/dl (8.4-10.2); Carbon Dioxide 22 mmol/L (22.0-30.0); Chloride 111 mmol/L (98-107); Creatinine Clearance Estimated 138 mL/min (50-200); Estimated Glomerular Filt Rate 105 ml/min (>60); GFR (African American) 127 ML/MIN (>60); Glucose 93 mg/dl (74-100); Lipase 77 U/L (23-300); Potassium 3.8 mmoL/L (3.5-5.1); Sodium 138 mmol/L (136-145); Total Protein,Serum 6.9 g/dl (6.3-8.2)
[2024-03-02 22:42] LABS: Lactic Acid 0.7 mmol/L (0.7-2.1)
[2024-03-02 22:58] LABS: HCG,Quantitative < 2 mIU/ml (0-5.42)
[2024-03-03 01:03] VITALS: BP 106/63; PULSE 63; RESP 16; TEMP 36.7; O2SAT 100
[2024-03-05 20:09] LABS: Neisseria gonorrhoeae, NAA Negative (Negative)
== END 2024-03-03 01:05 | disposition home or self-care (01) ==
PROVIDERS: Emergency Medicine; Emergency Provider Student in an Organized Health Care Education/Training Program; PCP Nurse Practitioner Family
DX: R10.32 Left lower quadrant pain (principal); F17.210 Nicotine dependence, cigarettes, uncomplicated
CPT/HCPCS: 74177; 80053; 81001; 83605; 83690; 84702; 85025; 87491; 87591; 96374; 96375; 96376; 99285; J1885; J2270; Q9967

== ENCOUNTER 2024-05-01 16:34 | Emergency (ER) | payer OTHER, SELFPAY ==
[2024-05-01 16:36] VITALS: BP 104/62; PULSE 62; RESP 18; TEMP 36.9; O2SAT 99; BMI 23.3
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
[2024-05-01] MEDS: IBUPROFEN 400 MG TABLET 800 MG PO (17:07)
[2024-05-01] MEDS: ACETAMINOPHEN 500MG TAB 1000 MG PO (17:08)
--- NOTE | 2024-05-01 17:35 | PC.NURSE ---
PT RETURNED FROM XR
[2024-05-01 19:30] VITALS: BP 110/60; PULSE 60; RESP 16; TEMP 36.9; O2SAT 98
== END 2024-05-01 19:31 | disposition home or self-care (01) ==
PROVIDERS: Emergency Provider Emergency Medicine
DX: S60.221A Contusion of right hand, initial encounter (principal); M79.641 Pain in right hand; W22.8XXA Striking against or struck by other objects, initial encounter; Y93.89 Activity, other specified; Y92.9 Unspecified place or not applicable
CPT/HCPCS: 73100; 73130; 99283

== ENCOUNTER 2024-05-30 19:11 | Emergency (ER) | payer OTHER, SELFPAY ==
[2024-05-30] VITALS (10 sets, daily range): BP systolic 101–126; BP diastolic 39–75; PULSE 68–101; RESP 16–20; TEMP 36.6–36.8; O2SAT 97–100; BMI 24.0
[2024-05-30 19:24] LABS: Microscopic, Urine URINE MICROSCOPIC (MICROSCOPIC)
--- NOTE | 2024-05-30 19:28 | HMH.EDGENADL ---
Discharge Plan Disposition Patient Disposition: Home, Self-Care Condition: Good Prescriptions Prescriptions: New ondansetron 4 mg tablet,disintegrating 4 mg PO Q8H PRN (Reason: nausea and vomiting) 4 Days Qty: 12 0RF No Action escitalopram oxalate 20 mg tablet 20 mg PO DAILY aripiprazole 2 mg tablet 2 mg PO DAILY Patient Comments: TAKE 1 TABLET BY MOUTH DAILY propranolol 40 mg tablet 40 mg PO BID Qty: 60 2RF Nurtec ODT 75 mg tablet,disintegrating 75 mg PO Q OTHER DAY MDD 75 mg PRN (Reason: migraine headache) Qty: 10 1RF nitrofurantoin monohyd/m-cryst [Macrobid] 100 mg capsule 100 mg PO BID 5 Days Qty: 10 0RF Rx Instructions: must administer with a meal/food ondansetron 4 mg tablet,disintegrating 4 mg PO Q8H PRN (Reason: nausea and vomiting) 4 Days Qty: 12 0RF ibuprofen 800 mg tablet 800 mg PO Q8H PRN (Reason: pain) Qty: 12 0RF dicyclomine 10 mg capsule 20 mg PO TID PRN (Reason: abdominal pain) Qty: 18 0RF acetaminophen [Tylenol] 325 mg capsule 650 mg PO Q6H PRN (Reason: fever or pain) Qty: 60 0RF Referrals Follow up/Referrals: Ruth Jansen DO [Staff Physician] - See instructions Nilo Webber MD [Staff Physician] - See instructions Cata Heller DO [Staff Physician] - See instructions Provider,MD Vesna [Primary Care Provider] - See instructions Activity Restrictions/Add. Instructions Additional Instructions/Restrictions: You were evaluated in the emergency department today. Please follow-up over the next 24 to 48 hours with gynecology. Use the Tylenol with codeine take-home pack at home as needed for severe pain. Return to the emergency department right away for new or worsening symptoms. Clinical Impressions Clinical Impression: Vaginitis, Pelvic pain affecting , Nausea and vomiting during , Hypokalemia, Cyst of right ovary Stand Alone Forms Stand Alone Forms: Work/School Release Instructions Patient Instructions: DI for -- Discomforts and Remedies, DI for Abdominal Pain -- Early , DI for Pelvic Pain Print Language Print Language: Monegasque Discharge ED Provider: Kaye Layton General Adult HPI General Chief complaint: Abdominal Pain Stated complaint: RT lower abd pain, 5 wks , N/D Time Seen by Provider: 05/30/24 19:18 Mode of Arrival: Ambulatory Source of Information: Patient Limitations: No Limitations Description of Symptoms (Recalled from ER Triage Doc. by RN): Pt states she is 5 weeks no vaginal bleeding Has 2 day HX of RLQ pain Pain with urination and vomiting and diarrhea Smells of ETOH History of Present Illness HPI narrative: This patient is a 24-year-old G4, P3 female with a history of PNES, migraines, borderline personality disorder presenting to the emergency department for evaluation with concern for right lower quadrant pain, abnormal vaginal discharge, vaginal itching, and dysuria that been going on for several weeks. She also notes that she has had nausea, vomiting, and diarrhea. She also notes pain with intercourse. she states she has had a positive test at home with last menstrual period started on 04/25/2024. She has not yet seen a physician with regards to this. She denies any fevers, chills, anorexia, hematochezia, melena, or other concerns. Related Data Home Medications ?Medication ?Instructions ?Recorded ?Confirmed aripiprazole 2 mg tablet 2 mg PO DAILY 12/26/23 02/14/24 escitalopram oxalate 20 mg tablet 20 mg PO DAILY 12/26/23 02/14/24 Previous Rx's ?Medication ?Instructions ?Recorded propranolol 40 mg tablet 40 mg PO BID #60 tabs 02/14/24 rimegepant 75 mg disintegrating 75 mg PO Q OTHER DAY PRN migraine 02/14/24 tablet (Nurtec ODT) headache #10 tabs dicyclomine 10 mg capsule 20 mg (2 x 10 mg) PO TID PRN 02/17/24 abdominal pain #18 caps ibuprofen 800 mg tablet 800 mg PO Q8H PRN pain #12 tabs 02/17/24 nitrofurantoin 100 mg PO BID 5 days #10 caps 02/17/24 monohydrate/macrocrystals 100 mg capsule (Macrobid) ondansetron 4 mg disintegrating 4 mg PO Q8H PRN nausea and 02/17/24 tablet vomiting 4 days #12 tabs acetaminophen 325 mg capsule 650 mg (2 x 325 mg) PO Q6H PRN 03/03/24 (Tylenol) fever or pain #60 caps ondansetron 4 mg disintegrating 4 mg PO Q8H PRN nausea and 05/30/24 tablet vomiting 4 days #12 tabs Allergies Allergy/AdvReac Type Severity Reaction Status Date / Time buspirone Allergy Verified 02/17/24 20:23 tramadol Allergy Verified 02/17/24 20:23 [facility] Disclaimer: The information contained in this section may have been updated after the patient was seen, as this information can be updated by other users. Medical History Infected dental caries Hand sprain Cellulitis delivery delivered Borderline personality disorder Depression Anxiety Substance abuse Surgical History History of Family History Other COPD (chronic obstructive pulmonary disease) Coronary artery disease Diabetes FHx: mental illness Migraines Social History Smoking Status: Current every day smoker alcohol intake: former substance use type: denies use current occupational status: employed Travel in the last 8 weeks: None marital status: single number of children: 3 Other Medical History Have you received the Pneumonia Vaccine: No ROS Obtained: Yes All systems reviewed & no additional complaints except as documented Physical Exam General General appearance: alert and in no apparent distress Head Head exam: atraumatic and normocephalic Eye Eye exam: Present normal appearance, PERRL and EOMI ENT ENT exam: Present normal exam, normal oropharynx, mucous membranes moist and normal external ear exam Neck Neck exam: Present normal inspection, full ROM and trachea midline; Absent tenderness Chest Chest inspection: Present normal inspection and symmetric chest wall rise; Absent tenderness Respiratory Respiratory exam: Present normal lung sounds bilaterally; Absent respiratory distress, wheezes, stridor or accessory muscle use Cardiovascular Cardiovascular exam: Present regular rate and normal rhythm Abdominal Exam Abdominal exam: Present soft, tenderness (Lower abdomen) and normal bowel sounds; Absent distention, guarding, rebound or rigidity External exam: Present tenderness (out of proportion to exam); Absent erythema, swelling, lesions, lacerations or ecchymosis Speculum exam: Present vaginal discharge (small amount of thick white discharge, no bleeding) and other (cervical os closed); Absent erythema, vaginal bleeding, foreign body or laceration Bimanual exam: Present cervical motion tenderness Extremities Exam Extremities exam: Present normal inspection, full ROM and normal capillary refill; Absent tenderness or edema Back Exam Back exam: Present normal inspection and full ROM; Absent tenderness Neurological Exam Neurological exam: Present alert, oriented X3, CN II-XII intact and normal gait; Absent motor sensory deficit Psychiatric Psychiatric exam: Present normal affect and normal mood Skin Skin exam: Present warm and dry Medical Decision Making Medical Records Medical records reviewed: Yes I reviewed the patient's medical records. Screening: Per USPSTF and CDC recommendations, given the prevalence of disease in our region, it is our hospital?s policy to screen for HIV and viral Hepatitis for all patients aged 18 and over and those with ongoing risk factors. Shawn Inquiry Pt receiving controlled substance: No Vital Signs: 05/30/24 19:19 05/30/24 19:20 05/30/24 19:25 Temperature 98.2 F Temperature Source Oral Pulse Rate 86 88 Pulse Rate [Right Brachial] 101 H Respiratory Rate 16 20 Blood Pressure 126/68 115/69 Blood Pressure [Right Arm] 120/75 Blood Pressure Mean [Right Arm] 90 Blood Pressure Source [Right Arm] Automatic Cuff 02 Sat by Pulse Oximetry 98 100 99 Oxygen Delivery Method Room Air Room Air 05/30/24 20:58 05/30/24 21:00 05/30/24 21:47 Temperature Temperature Source Pulse Rate 84 85 82 Pulse Rate [Right Brachial] Respiratory Rate Blood Pressure 115/69 113/61 107/61 L Blood Pressure [Right Arm] Blood Pressure Mean [Right Arm] Blood Pressure Source [Right Arm] 02 Sat by Pulse Oximetry 99 100 99 Oxygen Delivery Method 05/30/24 22:00 05/30/24 22:30 Temperature Temperature Source Pulse Rate 68 75 Pulse Rate [Right Brachial] Respiratory Rate Blood Pressure 105/39 L 108/59 L Blood Pressure [Right Arm] Blood Pressure Mean [Right Arm] Blood Pressure Source [Right Arm] 02 Sat by Pulse Oximetry 100 98 Oxygen Delivery Method Lab Data Lab results reviewed: Yes I reviewed the patient's lab results. Lab Results 05/30/24 19:15: Urine Color Yellow, Urine Appearance Clear, Urine pH 6.5, Ur Specific [place] <= 1.005, Urine Protein Negative, Urine Glucose (UA) Negative, Urine Ketones Negative, Urine Blood Negative, Urine Nitrate Negative, Urine Bilirubin Negative, Urine Urobilinogen 0.2, Ur Leukocyte Esterase Negative, Urine RBC Occasional, Urine WBC 3-5, Ur Squamous Epith Cells 3-5, Urine Bacteria 4+, Urine HCG, Qual Positive 05/30/24 19:27: WBC 8.2, RBC 4.24, Hgb 12.7, Hct 37.9, MCV 89.2, MCH 29.8, MCHC 33.4, RDW 13.8, Plt Count 211, MPV 9.2, Neut % (Auto) 59.9, Lymph % (Auto) 31.7, [place] % (Auto) 6.7, Eos % (Auto) 1.2, Baso % (Auto) 0.5, Neut # (Auto) 4.9, Lymph # (Auto) 2.6, [place] # (Auto) 0.6, Eos # (Auto) 0.1, Baso # (Auto) 0.0, Sodium 138, Potassium 3.0 L, Chloride 107, Carbon Dioxide 22, Anion Gap 12.0, BUN 6 L, Creatinine 0.70, Estimated Creat Clear 125, Estimated GFR 104, Est GFR ( Amer) 125, Glucose 82, Calcium 8.6, Total Bilirubin 0.7, AST 20, ALT 14, Alkaline Phosphatase 47, Total Protein 6.3, Albumin 4.0, Globulin 2.3, Albumin/Globulin Ratio 1.7, HCG, Quant 3019 H, Plasma/Serum Alcohol < 10 05/30/24 19:28: Blood Type A Positive 05/30/24 : C-Reactive Protein 0.8 05/30/24 19:27 05/30/24 19:27 Orders (Tests/Meds): ED MEDICATIONS Discontinued Medications Generic Name Dose Route Start Last Admin Trade Name Davidq PRN Reason Stop Dose Admin Acetaminophen 1,000 mg 05/30/24 20:05 05/30/24 20:14 Acetaminophen 1,000mg/100ml Vial IV 05/30/24 20:06 1,000 mg ONCE ONE Administration Acetaminophen/Codeine Phosphate 1 packet 05/30/24 22:45 05/30/24 22:57 Acetaminophen 300mg W/Codeine 30mg Take Home Pack (6) PO 05/30/24 22:46 1 packet ONCE ONE Administration Ceftriaxone Sodium 500 mg 05/30/24 22:45 05/30/24 22:55 Ceftriaxone 500mg Vial IM 05/30/24 22:46 500 mg ONCE ONE Administration Diphenhydramine HCl 25 mg 05/30/24 20:46 05/30/24 21:04 Diphenhydramine 50mg/Ml Vial IV 05/30/24 20:47 25 mg ONCE ONE Administration Diphenhydramine HCl 25 mg 05/30/24 22:53 05/30/24 22:57 Diphenhydramine 50mg/Ml Vial IV 05/30/24 22:54 25 mg ONCE ONE Administration Lactated Ringer's 1,000 mls @ 999 mls/hr 05/30/24 20:05 05/30/24 20:14 Lactated Ringer's 1000 Ml Bag IV 05/30/24 21:05 999 mls/hr .Q1H1M ONE Administration Lidocaine HCl 0 ml 05/30/24 22:45 05/30/24 22:55 Lidocaine 1% 5ml Pf Vial IM 05/30/24 22:46 5 ml ONCE ONE Administration Metoclopramide HCl 5 mg 05/30/24 20:46 05/30/24 21:03 Metoclopramide Hcl 10mg/2ml Vial IVP 05/30/24 20:47 5 mg ONCE ONE Administration Ondansetron HCl 4 mg 05/30/24 19:34 05/30/24 19:38 Ondansetron 4mg/2ml Vial IV 05/30/24 19:35 4 mg ONCE ONE Administration Potassium Chloride 40 meq 05/30/24 20:05 05/30/24 20:15 Potassium Chloride 20meq Tab PO 05/30/24 20:06 40 meq ONCE ONE Administration ORDERS Category Date Time Status ABO/RH Type Stat BBK 05/30/24 19:28 Completed CRP [C-Reactive Protein] Stat Lab 05/30/24 Completed Complete Blood Count Auto Diff Stat Lab 05/30/24 19:27 Completed Comprehensive Metabolic Panel Stat Lab 05/30/24 19:27 Completed Diarrhea 23 Panel, PCR Stat Lab 05/30/24 20:05 Ordered Ethyl Alcohol Stat Lab 05/30/24 19:27 Completed HCG,Quantitative Stat Lab 05/30/24 19:27 Completed Hep C Ab with Reflex to RNA Stat Lab 05/30/24 19:27 Received UA [Urinalysis and Microscopic] Stat Lab 05/30/24 19:15 Completed Urine , HCG Qual. Stat Lab 05/30/24 19:15 Completed Urine Culture Stat Micro 05/30/24 19:15 Received US OB transvaginal Stat Ultrasound 05/30/24 20:49 Completed Medical Decision Narrative: In summary, this patient is a 24-year-old female presenting to the Emergency Department for evaluation of pelvic pain, abnormal vaginal discharge, vaginal itching, dysuria, nausea, vomiting, and diarrhea. She notes positive test at home. Differential diagnoses considered include but are not limited to gastroenteritis, , cystitis, candidiasis, sexual transmitted infection, PID, ectopic , ovarian cyst, appendicitis. Ruling out the most morbid conditions drove assessment. It should be noted patient's history includes PNES, migraines, borderline personality disorder which may or may not be at goal therapy. This complicates all aspects of care by increasing patient's risk for morbidity. On exam, the patient has lower abdominal tenderness but no rebound or guarding. She is nontoxic-appearing. Workup included CBC, CMP, lipase, quantitative hCG, urinalysis, gonorrhea chlamydia testing, wet prep, type and screen. Patient was given IV Zofran for symptomatic improvement of nausea and vomiting. I considered diagnosis of appendicitis, however feel this is less likely given the symptoms have been progressing over the last several weeks and she has had no fevers. If this were appendicitis, I feel she likely would have significant decompensation at this point. Based on her vaginal discharge and itching, favor vaginitis versus sexual transmitted disease as a more likely cause. I performed a pelvic exam which demonstrated tenderness to palpation of the vagina out of proportion to exam. No significant redness or swelling noted on external exam, but she had very exquisite tenderness to even the lightest of palpation. She has small amount of white, thick vaginal discharge with no obvious active discharge from the cervix. Cervical os closed with no bleeding. No lesions, lacerations, or other concerns noted on exam. Given her significant pain, she was given IV Tylenol. Labs demonstrated mild hypokalemia, for which oral replacement was ordered. She was also given a bolus of IV fluids. On multiple subsequent reassessments, the patient complains of continued severe pain. She was given IV Benadryl and Reglan with some improvement. She states she is also having vaginal itching. Wet prep came back negative for yeast, clue cells, trichomoniasis. Gonorrhea and Chlamydia are pending. Urinalysis is not concerning for infection. Patient has no leukocytosis and CRP is negative, which is reassuring against appendicitis. She has mild hypokalemia for which oral replacement was ordered. Otherwise, labs are reassuring. test was positive with a beta-hCG greater than 3000. Transvaginal ultrasound was ordered to further evaluate and demonstrated an intrauterine gestational sac with no obvious embryo/yolk sac. She did have some debris in the uterus. She also has a right ovarian cyst. I called and discussed the case with Dr. Rivas with gynecology who advised close follow-up in their clinic over the next 24 to 48 hours. I did recommend this to the patient. He also advised treating for PID just to be on the safe side based on the patient's constellation of symptoms while gonorrhea and Chlamydia are pending. He recommended IM Rocephin, which the patient was given. She was also given acetaminophen with codeine take-home pack after risk versus benefit was explained given her continued severe pain. She was given prescription for Zofran as well. Strict return precautions were given as well as very close follow-up instructions with gynecology. Patient was discharged after all questions were answered. Critical Care Critical Care Time Critical Care Time: No
[2024-05-30 19:33] LABS: Appearance,Urine CLEAR (Clear); Bilirubin,Urine Negative (Negative); Blood, Urine Negative (Negative); Color,Urine YELLOW (Yellow); Glucose,Urine (UA) Negative (Negative); Ketones,Urine Negative (Negative); Leukocyte Esterase,Urine Negative (Negative); Nitrate,Urine Negative (Negative); PH,Urine 6.5 (5.0-8.5); Protein,Urine Negative (Negative); Specific Gravity, Urine <= 1.005 (1.005-1.030); Urobilinogen,Urine 0.2 EU/dl (0.2)
[2024-05-30] MEDS: ONDANSETRON 4MG/2ML VIAL 4 MG IV (19:38)
[2024-05-30 19:50] LABS: Basophils % 0.5 % (0.1-2.0); Eosinophils # 0.1 K/mm3 (0.0-0.4); Eosinophils % 1.2 % (0.1-12.0); Hematocrit 37.9 % (37.0-47.0); Hemoglobin 12.7 g/dL (12.2-16.2); Lymphocytes # 2.6 K/mm3 (0.7-4.5); Lymphocytes % 31.7 % (10-50); Mean Corpuscular HGB Conc 33.4 g/dL (31.8-35.4); Mean Corpuscular Hemoglobin 29.8 pg (27.0-31.2); Mean Corpuscular Volume 89.2 fl (81-99); Mean Platelet Volume 9.2 fl (7.4-10.4); Monocytes # 0.6 K/mm3 (0.1-1.0); Monocytes % 6.7 % (1.7-9.3); Neutrophils # 4.9 K/mm3 (1.8-7.8); Neutrophils % 59.9 % (37.0-80.0); Platelet Count 211 K/mm3 (142-424); Red Blood Count 4.24 M/mm3 (4.20-5.40); Red Cell Distribution Width 13.8 % (11.5-17.5); White Blood Count 8.2 K/mm3 (4.8-10.8)
--- NOTE | 2024-05-30 19:53 | PC.NURSE ---
MD at bedside to do pelvic exam with Rn accompaniment.
[2024-05-30 20:00] LABS: Alanine Aminotransferase 14 U/L (12-78); Albumin/Globulin Ratio 1.7 (1.1-1.8); Alkaline Phosphatase 47 U/L (38-126); Aspartate Amino Transferase 20 U/L (14-36); Bilirubin,Total 0.7 mg/dl (0.2-1.3); Blood Urea Nitrogen 6 mg/dl (7-17); Calcium 8.6 mg/dl (8.4-10.2); Carbon Dioxide 22 mmol/L (22.0-30.0); Chloride 107 mmol/L (98-107); Creatinine Clearance Estimated 125 mL/min (50-200); Estimated Glomerular Filt Rate 104 ml/min (>60); GFR (African American) 125 ML/MIN (>60); Globulin 2.3 g/dL (1.3-3.2); Glucose 82 mg/dl (74-100); Sodium 138 mmol/L (136-145); Total Protein,Serum 6.3 g/dl (6.3-8.2)
--- NOTE | 2024-05-30 20:03 | PC.NURSE ---
This RN recieved critical value via phone from lab. reports K+ is 3.0 per blood work. notified, orders recieved
[2024-05-30] MEDS: ACETAMINOPHEN 1,000MG/100ML VIAL 1000 MG IV (20:14)
[2024-05-30] MEDS: LACTATED RINGERS 1000ML 1,000 ML 999 ML IV (20:14)
[2024-05-30] MEDS: POTASSIUM CHLORIDE 20MEQ TAB 40 MEQ PO (20:15)
[2024-05-30 20:17] LABS: Bacteria,Urine 4+ /lpf; RBC,Urine Occasional #/hpf (0-3)
[2024-05-30 20:45] LABS: HCG,Quantitative 3019 mIU/ml (0-5.42)
[2024-05-30 20:46] LABS: Ethyl Alcohol < 10 mg/dl (0-10)
[2024-05-30 20:47] LABS: Urine Pregnancy, HCG Qual. Positive (Negative)
--- NOTE | 2024-05-30 20:49 | US_ITS ---
PROCEDURE INFORMATION: Exam: US , Transvaginal and US Duplex Artery and Vein, Ovaries, Complete Exam date and time: 05/30/2024 9:13 PM Age: 24 years old Clinical indication: complicated by abdominal or pelvic pain; Right lower quadrant; First trimester (<14 weeks 0 days); Gestational age or lmp: 04/25/24; ; Additional info: Positive test, pelvic pain LABS AND CLINICAL REPORTS: Last menstrual period start date: 04/25/2024 Gestational age (Established): 5 w 0 d Estimated due date (Established): 01/30/2025 TECHNIQUE: Imaging protocol: Real-time transvaginal obstetrical ultrasound of the maternal pelvis and a first trimester with image documentation. Transvaginal imaging was used for better evaluation of the fetus, adnexa, and/or cervix. Real-time duplex ultrasound scan of the arterial and venous flow of the ovaries with B-mode, color Doppler flow and spectral waveform analysis, Complete Duplex. Duplex exam was performed to evaluate for torsion and other vascular conditions. Total images: 509 COMPARISON: CT ABDOMEN PELVIS W CON 03/02/2024 11:02 PM FINDINGS: Other findings: Color and spectral Doppler flow is present to both ovaries with arterial and venous waveforms. No torsion. GESTATION: Gestation: Intrauterine cystic structure with intraluminal debris and average diameter of 1.9 cm, question blood product in the endometrial cavity rather than true gestational sac. No pole. No yolk sac. Additional 5 mm sac-like structure in the endometrium. MATERNAL: Uterus: Anteverted uterus. Homogeneous myometrium. No myometrial mass. Right ovary/adnexa: Right ovary measures 2.5 cm x 2.49 cm x 3.03 cm. Right ovarian volume is 9.88 mL. 2.2 cm hemorrhagic right ovarian corpus luteal cyst. Left ovary/adnexa: Left ovary measures 2.2 cm x 1.33 cm x 1.03 cm. Left ovarian volume is 1.58 mL. Normal appearance. Intraperitoneal space: No intraperitoneal free fluid. No adnexal mass. IMPRESSION: 1. 1.9 cm debris-filled fluid collection in the endometrial cavity, likely reflecting blood product versus abnormal gestational sac. 2. Additional 5 mm intrauterine sac-like structure, possibly gestational sac or pseudo sac. 3. No pole or heart rate. 4. 2.2 cm right ovarian corpus luteal cyst. 5. Normal left ovary. 6. Recommend follow-up serial beta HCG values and repeat ultrasound.
--- NOTE | 2024-05-30 20:54 | PC.NURSE ---
Ultrasound called for client's transvaginal ultrasound to r/o ectopic
[2024-05-30] MEDS: METOCLOPRAMIDE HCL 10MG/2ML VIAL 5 MG IVP (21:03)
[2024-05-30] MEDS: diphenhydrAMINE 50MG/ML VIAL 25 MG IV ×2 (21:04→22:57)
--- NOTE | 2024-05-30 21:17 | PC.NURSE ---
Us here at bedside, taking pt to US via wheelchair.
--- NOTE | 2024-05-30 21:44 | PC.NURSE ---
Pt back from ultrasound via wheelchair
--- NOTE | 2024-05-30 21:47 | PC.NURSE ---
Pt back from ultrasound and denies any complaints at this time, placed back on monitor. awaiting results. call light within reach
[2024-05-30 22:14] LABS: C-Reactive Protein 0.8 mg/L (0-4)
[2024-05-30] MEDS: LIDOCAINE 1% 5ML PF VIAL IM (22:55)
[2024-05-30] MEDS: cefTRIAXone 500MG VIAL 500 MG IM (22:55)
[2024-05-30] MEDS: ACETAMINOPHEN 300MG W/CODEINE 30MG TAKE HOME PACK (6) 1 PACKET PO (22:57)
[2024-06-01 05:24] LABS: HCV Ab Non Reactive (Non Reactive)
[2024-06-01 21:08] LABS: Neisseria gonorrhoeae, NAA Negative (Negative)
== END 2024-05-30 23:15 | disposition home or self-care (01) ==
PROVIDERS: Emergency Provider Emergency Medicine
DX: N83.201 Unspecified ovarian cyst, right side (principal); E87.6 Hypokalemia; O21.9 Vomiting of pregnancy, unspecified; N76.0 Acute vaginitis; O26.899 Other specified pregnancy related conditions, unspecified trimester; R10.31 Right lower quadrant pain; R30.0 Dysuria; R19.7 Diarrhea, unspecified; L29.2 Pruritus vulvae
CPT/HCPCS: 76817; 80053; 80320; 81001; 81025; 84702; 85025; 86140; 86803; 86900; 86901; 87086; 87210; 87491; 87591; 96361; 96372; 96374; 96375; 99283; G0480; J0131; J0696; J1200; J2405; J2765; J7120

== ENCOUNTER 2024-07-23 12:38 | Emergency (ER) | payer OTHER, SELFPAY ==
[2024-07-23 12:39] VITALS: BP 117/63; PULSE 85; RESP 16; TEMP 36.8; O2SAT 98; BMI 24.0
--- NOTE | 2024-07-23 12:43 | ECG_ITS ---
APPROVED REPORT Exam: Resting ECG HR:70 bpm ECG Measurements Heart Rate 70 AXES SD 142 P 58 QRSd 87 QRS 73 QT 382 T 53 QTc 402 Conclusion SINUS RHYTHM POSSIBLE RIGHT VENTRICULAR CONDUCTION DELAY [RSR (QR) IN V1/V2] BORDERLINE ECG UNCONFIRMED REPORT Electronically signed by : JEFFREY OWEN, 07/23/2024 23:03:58
--- NOTE | 2024-07-23 12:47 | ED_ITS ---
Discharge Plan Disposition Patient Disposition: Home, Self-Care Condition: Good Prescriptions Prescriptions: New Nurtec ODT 75 mg tablet,disintegrating 75 mg PO .every other day PRN (Reason: migraine) 30 Days Qty: 14 0RF No Action escitalopram oxalate 20 mg tablet 20 mg PO DAILY aripiprazole 2 mg tablet 2 mg PO DAILY Patient Comments: TAKE 1 TABLET BY MOUTH DAILY propranolol 40 mg tablet 40 mg PO BID Qty: 60 2RF Nurtec ODT 75 mg tablet,disintegrating 75 mg PO Q OTHER DAY MDD 75 mg PRN (Reason: migraine headache) Qty: 10 1RF nitrofurantoin monohyd/m-cryst [Macrobid] 100 mg capsule 100 mg PO BID 5 Days Qty: 10 0RF Rx Instructions: must administer with a meal/food ondansetron 4 mg tablet,disintegrating 4 mg PO Q8H PRN (Reason: nausea and vomiting) 4 Days Qty: 12 0RF ibuprofen 800 mg tablet 800 mg PO Q8H PRN (Reason: pain) Qty: 12 0RF dicyclomine 10 mg capsule 20 mg PO TID PRN (Reason: abdominal pain) Qty: 18 0RF acetaminophen [Tylenol] 325 mg capsule 650 mg PO Q6H PRN (Reason: fever or pain) Qty: 60 0RF ondansetron 4 mg tablet,disintegrating 4 mg PO Q8H PRN (Reason: nausea and vomiting) 4 Days Qty: 12 0RF Referrals Follow up/Referrals: Dipesh Jansen, [Staff Physician] - See instructions Activity Restrictions/Add. Instructions Additional Instructions/Restrictions: As we discussed please follow-up with Dr. Mack for your migraine and psychogenic seizures. I have referred you to Dr. Dipesh Jansen for PCP. You also need to establish care for ongoing care with a primary care provider as well. I have sent a prescription in for your Nurtec. Follow-up with your PCP for no improvement or worsening signs or symptoms or return to the ER as needed. Clinical Impressions Clinical Impression: Psychogenic nonepileptic seizure Migraine Qualifiers: Migraine type: unspecified Status migrainosus presence: without status migrainosus Intractability: not intractable Qualified Code(s): G43.909 - Migraine, unspecified, not intractable, without status migrainosus Stand Alone Forms Stand Alone Forms: Work/School Release Instructions Patient Instructions: DI for Seizure (Not Epilepsy/Seizure Disorder) Print Language Print Language: Palestinian Discharge ED Provider: Jonel Kim General Adult HPI <MICKEY Hudson - Last Filed: 07/23/24 15:15> General Chief complaint: Seizure Stated complaint: Seizure Time Seen by Provider: 07/23/24 12:47 History of Present Illness HPI narrative: Patient presents for evaluation of a psychogenic seizure. Patient has a well- established history of migraines and pseudoseizure and follows with Dr. Mack. Patient has been well maintained for almost 2 years with control of her migraines and her psychogenic seizures. She has a well-established link between her migraine frequency intensity and her pseudoseizure frequency. Patient reports that she has been out of her Nurtec and has not been taking it regularly and her headache frequency has been increasing. She has not however had a psychogenic seizure associated with it as she is usually able to abort the headache with the Nurtec prior to that occurring. Patient woke up today with a headache but did not take her Nurtec. She was at work and reports that she was feeling fuzzy with headache pain. She had psychogenic seizure x 4 and at one point fell backwards striking her head on the edge of a chair. She did not however lose consciousness and denies any other injury. She currently reports headache but no loss of vision midline cervical tenderness focal neurologic deficits chest pain shortness of breath fever chills hemoptysis hematochezia melena nausea vomiting diarrhea. Related Data Home Medications ?Medication ?Instructions ?Recorded ?Confirmed aripiprazole 2 mg tablet 2 mg PO DAILY 12/26/23 02/14/24 escitalopram oxalate 20 mg tablet 20 mg PO DAILY 12/26/23 02/14/24 Previous Rx's ?Medication ?Instructions ?Recorded propranolol 40 mg tablet 40 mg PO BID #60 tabs 02/14/24 rimegepant 75 mg disintegrating 75 mg PO Q OTHER DAY PRN migraine 02/14/24 tablet (Nurtec ODT) headache #10 tabs dicyclomine 10 mg capsule 20 mg (2 x 10 mg) PO TID PRN 02/17/24 abdominal pain #18 caps ibuprofen 800 mg tablet 800 mg PO Q8H PRN pain #12 tabs 02/17/24 nitrofurantoin 100 mg PO BID 5 days #10 caps 02/17/24 monohydrate/macrocrystals 100 mg capsule (Macrobid) ondansetron 4 mg disintegrating 4 mg PO Q8H PRN nausea and 02/17/24 tablet vomiting 4 days #12 tabs acetaminophen 325 mg capsule 650 mg (2 x 325 mg) PO Q6H PRN 03/03/24 (Tylenol) fever or pain #60 caps ondansetron 4 mg disintegrating 4 mg PO Q8H PRN nausea and 05/30/24 tablet vomiting 4 days #12 tabs rimegepant 75 mg disintegrating 75 mg PO .every other day PRN 07/23/24 tablet (Nurtec ODT) migraine 1 month #14 tabs Allergies Allergy/AdvReac Type Severity Reaction Status Date / Time buspirone Allergy Verified 02/17/24 20:23 tramadol Allergy Verified 02/17/24 20:23 PFS <MICKEY Hudson - Last Filed: 07/23/24 15:15> [facility] Disclaimer: The information contained in this section may have been updated after the patient was seen, as this information can be updated by other users. Medical History Infected dental caries Hand sprain Cellulitis delivery delivered Borderline personality disorder Depression Anxiety Substance abuse Surgical History History of Family History Other COPD (chronic obstructive pulmonary disease) Coronary artery disease Diabetes FHx: mental illness Migraines Social History Smoking Status: Current every day smoker alcohol intake: former substance use type: denies use current occupational status: employed Travel in the last 8 weeks: None marital status: single number of children: 3 Have you lived/traveled outside [place] in past 30 days?: No Contact w/someone who lives/traveled outside US past 30 days?: No Exposure to someone with infectious disease in past 14 days?: No Do you have a fever (greater than 100.4 F or 38 C)?: No Have you tested positive for COVID-19: No Exposed to someone with COVID-19 in past 14 days?: No Do you have a sore throat?: No Do you have a cough?: No Do you have any weakness?: No Do you have any diarrhea?: No Are you experiencing any unusual bleeding?: No Do you have any muscle aches/pain?: No Do you have any abdominal pain?: No Are you experiencing loss of taste or smell?: No Other Medical History Have you received the Pneumonia Vaccine: No <MICKEY Hudson - Last Filed: 07/23/24 15:15> ROS Obtained: Yes Systems reviewed as appropriate & no additional complaints except as documented Physical Exam <MICKEY Hudson - Last Filed: 07/23/24 15:15> General General appearance: alert and in no apparent distress Eye Eye exam: Present normal appearance, PERRL and EOMI ENT ENT exam: Present normal exam, normal oropharynx, TM's normal bilaterally and normal external ear exam Neck Neck exam: Present normal inspection, full ROM and trachea midline Respiratory Respiratory exam: Present normal lung sounds bilaterally Cardiovascular Cardiovascular exam: Present regular rate Neurological Exam Neurological exam: Present alert, oriented X3, CN II-XII intact, normal gait and reflexes normal; Absent motor sensory deficit Psychiatric Psychiatric exam: Present normal affect and normal mood Medical Decision Making <MICKEY Hudson - Last Filed: 07/23/24 15:15> Medical Records Medical records reviewed: Yes I reviewed the patient's medical records. Screening: Per USPSTF and CDC recommendations, given the prevalence of disease in our region, it is our hospital?s policy to screen for HIV and viral Hepatitis for all patients aged 18 and over and those with ongoing risk factors. Shawn Inquiry Pt receiving controlled substance: No Vital Signs: 07/23/24 12:39 07/23/24 13:00 07/23/24 13:30 Temperature 98.2 F Temperature Source Oral Pulse Rate 73 72 Pulse Rate [Right] 85 Respiratory Rate 16 20 19 Blood Pressure 107/68 L 103/56 L Blood Pressure [Left Arm] 117/63 Blood Pressure Mean [Left Arm] 81 Blood Pressure Source Blood Pressure Source [Left Arm] Automatic Cuff 02 Sat by Pulse Oximetry 98 97 100 Oxygen Delivery Method Room Air Room Air Room Air 07/23/24 14:00 07/23/24 14:51 Temperature 97.7 F Temperature Source Oral Pulse Rate 71 58 L Pulse Rate [Right] Respiratory Rate 12 15 Blood Pressure 106/66 L 115/74 Blood Pressure [Left Arm] Blood Pressure Mean [Left Arm] Blood Pressure Source Automatic Cuff Blood Pressure Source [Left Arm] 02 Sat by Pulse Oximetry 100 Oxygen Delivery Method Room Air Room Air Lab Data Lab results reviewed: Yes I reviewed the patient's lab results. Lab Results 07/23/24 12:41: WBC 8.4, RBC 4.16 L, Hgb 12.1 L, Hct 37.2, MCV 89.4, MCH 29.1, MCHC 32.5, RDW 12.5, Plt Count 233, MPV 11.6 H, Neut % (Auto) 52.7, Lymph % (Auto) 38.7, [place] % (Auto) 6.4, Eos % (Auto) 1.4, Baso % (Auto) 0.6, Neut # (Auto) 4.4, Lymph # (Auto) 3.3, [place] # (Auto) 0.5, Eos # (Auto) 0.1, Baso # (Auto) 0.1, PT 10.4, INR 0.92, Sodium 135 L, Potassium 4.1, Chloride 105, Carbon Dioxide 22, Anion Gap 12.1, BUN 7, Creatinine 0.70, Estimated GFR 104, Est GFR ( Amer) 125, Glucose 89, Calcium 9.0, Phosphorus 4.1, Magnesium 1.7, T otal Bilirubin 0.1 L, AST 34, ALT 18, Alkaline Phosphatase 51, Total Creatine Kinase 59, Total Protein 6.6, Albumin 4.1, Globulin 2.5, Albumin/Globulin Ratio 1.6, TSH 3.67, Free T4 Index 3.0 L, Thyroxine (T4) 9.3, T3 Uptake 32, Serum HCG, Qual Negative, HCV Ab TESS w/Rflx PCR Qn Negative, HIV Ag/Ab Combo Qual Negative 07/23/24 12:41 07/23/24 12:41 Orders (Tests/Meds): ED MEDICATIONS Discontinued Medications Generic Name Dose Route Start Last Admin Trade Name Freq PRN Reason Stop Dose Admin Acetaminophen 1,000 mg 07/23/24 13:04 07/23/24 13:11 Acetaminophen 500mg Tab PO 07/23/24 13:05 1,000 mg ONCE ONE Administration Dexamethasone Sodium Phosphate 10 mg 07/23/24 14:06 07/23/24 14:21 Dexamethasone 4mg/Ml 5ml Mdv IV 07/23/24 14:07 10 mg ONCE ONE Administration Diphenhydramine HCl 50 mg 07/23/24 14:06 07/23/24 14:22 Diphenhydramine 50mg/Ml Vial IV 07/23/24 14:07 50 mg ONCE ONE Administration Methocarbamol 500 mg 07/23/24 14:06 07/23/24 14:21 Methocarbamol 500mg Tablet PO 07/23/24 14:07 500 mg ONCE ONE Administration Prochlorperazine Edisylate 5 mg 07/23/24 14:06 07/23/24 14:22 Prochlorperazine 10mg/2ml Vial IV 07/23/24 14:07 5 mg ONCE ONE Administration ORDERS Category Date Time Status CT cervical spine wo con Stat Cat Scan 07/23/24 13:[address] head/brain wo con Stat Cat Scan 07/23/24 13:03 Completed CBC w/Auto Diff [Complete Blood Count Auto Diff] Stat Lab 07/23/24 12:41 Completed CK [Creatine Kinase] Stat Lab 07/23/24 12:41 Completed CMP [Comprehensive Metabolic Panel] Stat Lab 07/23/24 12:41 Completed HCG Qualitative, Serum Stat Lab 07/23/24 12:41 Completed HIV Combo Stat Lab 07/23/24 12:41 Completed Hepatitis C Ab Qual. W/ RFX Stat Lab 07/23/24 12:41 Completed INR [Prothrombin Time INR] Stat Lab 07/23/24 12:41 Completed Magnesium Stat Lab 07/23/24 12:41 Completed Phosphorous Stat Lab 07/23/24 12:41 Completed Thyroid Panel Stat Lab 07/23/24 12:41 Completed Medical Decision Narrative: In summary patient is a 24-year-old female who presents to the emergency department for evaluation of psychogenic seizure and head injury. Patient is hemodynamically stable upon arrival, afebrile. Physical exam is remarkable for tenderness to palpation at the left occiput however there is no evidence of hematoma laceration contusion abrasion bony deformity. Patient has no midline C-spine tenderness. Pupils are equal round reactive to light, [place] Coma Score is 15 and cranial nerves II through XII are intact grossly to exam. There is no focal neurologic deficits the patient is ambulatory in the ER. Differential diagnosis includes contusion versus C-spine injury versus cranial injury versus psychogenic seizure versus migraine headache etc. Initial workup will be conducted with hematologic labs CT scan of the head without contrast CT scan of the C-spine without contrast. Initial interventions include Tylenol and a migraine cocktail. Initial workup reviewed by me shows her hematologic labs are nonactionable and my informal interpretation of her imaging shows no evidence of acute intracranial injury bony injury or C-spine injury. Upon repeat evaluation patient reported that her headache was better after initial intervention. Given this patient is appropriate for discharge with follow-up with Dr. Mack, I have refilled her Nurtec for 1 month only. She was given instructions for close head injury. <Jonel Kim MD - Last Filed: 07/24/24 06:54> Vital Signs: 07/23/24 12:39 07/23/24 13:00 07/23/24 13:30 Temperature 98.2 F Temperature Source Oral Pulse Rate 73 72 Pulse Rate [Right] 85 Respiratory Rate 16 20 19 Blood Pressure 107/68 L 103/56 L Blood Pressure [Left Arm] 117/63 Blood Pressure Mean [Left Arm] 81 Blood Pressure Source Blood Pressure Source [Left Arm] Automatic Cuff 02 Sat by Pulse Oximetry 98 97 100 Oxygen Delivery Method Room Air Room Air Room Air 07/23/24 14:00 07/23/24 14:51 Temperature 97.7 F Temperature Source Oral Pulse Rate 71 58 L Pulse Rate [Right] Respiratory Rate 12 15 Blood Pressure 106/66 L 115/74 Blood Pressure [Left Arm] Blood Pressure Mean [Left Arm] Blood Pressure Source Automatic Cuff Blood Pressure Source [Left Arm] 02 Sat by Pulse Oximetry 100 Oxygen Delivery Method Room Air Room Air Lab Data Lab Results 07/23/24 12:41: WBC 8.4, RBC 4.16 L, Hgb 12.1 L, Hct 37.2, MCV 89.4, MCH 29.1, MCHC 32.5, RDW 12.5, Plt Count 233, MPV 11.6 H, Neut % (Auto) 52.7, Lymph % (Auto) 38.7, [place] % (Auto) 6.4, Eos % (Auto) 1.4, Baso % (Auto) 0.6, Neut # (Auto) 4.4, Lymph # (Auto) 3.3, [place] # (Auto) 0.5, Eos # (Auto) 0.1, Baso # (Auto) 0.1, PT 10.4, INR 0.92, Sodium 135 L, Potassium 4.1, Chloride 105, Carbon Dioxide 22, Anion Gap 12.1, BUN 7, Creatinine 0.70, Estimated GFR 104, Est GFR ( Amer) 125, Glucose 89, Calcium 9.0, Phosphorus 4.1, Magnesium 1.7, T otal Bilirubin 0.1 L, AST 34, ALT 18, Alkaline Phosphatase 51, Total Creatine Kinase 59, Total Protein 6.6, Albumin 4.1, Globulin 2.5, Albumin/Globulin Ratio 1.6, TSH 3.67, Free T4 Index 3.0 L, Thyroxine (T4) 9.3, T3 Uptake 32, Serum HCG, Qual Negative, HCV Ab TESS w/Rflx PCR Qn Negative, HIV Ag/Ab Combo Qual Negative Orders (Tests/Meds): ED MEDICATIONS Discontinued Medications Generic Name Dose Route Start Last Admin Trade Name Freq PRN Reason Stop Dose Admin Acetaminophen 1,000 mg 07/23/24 13:04 07/23/24 13:11 Acetaminophen 500mg Tab PO 07/23/24 13:05 1,000 mg ONCE ONE Administration Dexamethasone Sodium Phosphate 10 mg 07/23/24 14:06 07/23/24 14:21 Dexamethasone 4mg/Ml 5ml Mdv IV 07/23/24 14:07 10 mg ONCE ONE Administration Diphenhydramine HCl 50 mg 07/23/24 14:06 07/23/24 14:22 Diphenhydramine 50mg/Ml Vial IV 07/23/24 14:07 50 mg ONCE ONE Administration Methocarbamol 500 mg 07/23/24 14:06 07/23/24 14:21 Methocarbamol 500mg Tablet PO 07/23/24 14:07 500 mg ONCE ONE Administration Prochlorperazine Edisylate 5 mg 07/23/24 14:06 07/23/24 14:22 Prochlorperazine 10mg/2ml Vial IV 07/23/24 14:07 5 mg ONCE ONE Administration ORDERS Category Date Time Status CT cervical spine wo con Stat Cat Scan 07/23/24 13:[address] head/brain wo con Stat Cat Scan 07/23/24 13:03 Completed CBC w/Auto Diff [Complete Blood Count Auto Diff] Stat Lab 07/23/24 12:41 Completed CK [Creatine Kinase] Stat Lab 07/23/24 12:41 Completed CMP [Comprehensive Metabolic Panel] Stat Lab 07/23/24 12:41 Completed HCG Qualitative, Serum Stat Lab 07/23/24 12:41 Completed HIV Combo Stat Lab 07/23/24 12:41 Completed Hepatitis C Ab Qual. W/ RFX Stat Lab 07/23/24 12:41 Completed INR [Prothrombin Time INR] Stat Lab 07/23/24 12:41 Completed Magnesium Stat Lab 07/23/24 12:41 Completed Phosphorous Stat Lab 07/23/24 12:41 Completed Thyroid Panel Stat Lab 07/23/24 12:41 Completed ECG Data Tracing #1: I reviewed this ECG and interpreted as documented below: (Sinus rhythm 70 bpm with T wave inversions V2 and V3 consistent with repolarization changes. Patient has no reciprocal change. SD 142, QRS 87, QTc 4 2) Medical Decision Narrative: In summary patient is a 24-year-old female who presents to the emergency department for evaluation of psychogenic seizure and head injury. Patient is hemodynamically stable upon arrival, afebrile. Physical exam is remarkable for tenderness to palpation at the left occiput however there is no evidence of hematoma laceration contusion abrasion bony deformity. Patient has no midline C-spine tenderness. Pupils are equal round reactive to light, [place] Coma Score is 15 and cranial nerves II through XII are intact grossly to exam. There is no focal neurologic deficits the patient is ambulatory in the ER. Differential diagnosis includes contusion versus C-spine injury versus cranial injury versus psychogenic seizure versus migraine headache etc. Initial workup will be conducted with hematologic labs CT scan of the head without contrast CT scan of the C-spine without contrast. Initial interventions include Tylenol and a migraine cocktail. Initial workup reviewed by me shows her hematologic labs are nonactionable and my informal interpretation of her imaging shows no evidence of acute intracranial injury bony injury or C-spine injury. Upon repeat evaluation patient reported that her headache was better after initial intervention. Given this patient is appropriate for discharge with follow-up with Dr. Mack, I have refilled her Nurtec for 1 month only. She was given instructions for close head injury. I was consulted by the ERICA, and we discussed the complexity of the problems being addressed. I approved the treatment and management plan for this patient's care in the Emergency Department, thus performing a substantive portion of the medical decision making. Jonel Kim MD Critical Care <MICKEY Hudson - Last Filed: 07/23/24 15:15> Critical Care Time Critical Care Time: No
--- NOTE | 2024-07-23 12:52 | PC.NURSE ---
Sukhjinder Stewart PAC at bedside. Pt's fiance at bedside.
--- NOTE | 2024-07-23 12:55 | PC.NURSE ---
SEIZURE PADS PLACED AT ARRIVAL
[2024-07-23 13:00] VITALS: BP 107/68; PULSE 73; RESP 20; O2SAT 97
--- NOTE | 2024-07-23 13:03 | CT_ITS ---
FINAL REPORT TECHNIQUE: Thin section axial CT with sagittal reconstruction without contrast. This study was performed with techniques to keep radiation doses as low as reasonably achievable, (ALARA). Individualized dose reduction techniques using automated exposure control or adjustment of mA and/or kV according to the patient''s size were employed. CLINICAL HISTORY: Trauma hit left side of occiput FINDINGS: No fracture is seen. Alignment is normal. No obvious bony spinal canal stenosis is present. No gross disk abnormalities are seen. IMPRESSION: No fracture or malalignment Reviewed, Interpreted and Dictated by Holley Nieto MD Transcribed by Morena Carter Authenticated and [facility]
--- NOTE | 2024-07-23 13:03 | CT_ITS ---
FINAL REPORT TECHNIQUE: Noncontrast exam This study was performed with techniques to keep radiation doses as low as reasonably achievable, (ALARA). Individualized dose reduction techniques using automated exposure control or adjustment of mA and/or kV according to the patient''s size were employed. CLINICAL HISTORY: Trauma hit left side occiput COMPARISON: 09/23/2023 FINDINGS: No abnormal density is seen. Ventricles are normal. There is no hemorrhage. No mass effect is seen. Bone windows show no evidence of fracture. There is a small mucous retention cyst or area of focal mucosal thickening in the bilateral maxillary sinuses. IMPRESSION: No acute findings Reviewed, Interpreted and Dictated by Holley Nieto MD Transcribed by Morena Carter Authenticated and [facility]
[2024-07-23 13:11] LABS: Basophils # 0.1 K/mm3 (0-0.2); Basophils % 0.6 % (0.1-2.0); Eosinophils # 0.1 K/mm3 (0.0-0.4); Eosinophils % 1.4 % (0.1-12.0); Hematocrit 37.2 % (37.0-47.0); Hemoglobin 12.1 g/dL (12.2-16.2); Lymphocytes # 3.3 K/mm3 (0.7-4.5); Lymphocytes % 38.7 % (10-50); Mean Corpuscular HGB Conc 32.5 g/dL (31.8-35.4); Mean Corpuscular Hemoglobin 29.1 pg (27.0-31.2); Mean Corpuscular Volume 89.4 fl (81-99); Mean Platelet Volume 11.6 fl (7.4-10.4); Monocytes # 0.5 K/mm3 (0.1-1.0); Monocytes % 6.4 % (1.7-9.3); Neutrophils # 4.4 K/mm3 (1.8-7.8); Neutrophils % 52.7 % (37.0-80.0); Platelet Count 233 K/mm3 (142-424); Red Blood Count 4.16 M/mm3 (4.20-5.40); Red Cell Distribution Width 12.5 % (11.5-17.5); White Blood Count 8.4 K/mm3 (4.8-10.8)
[2024-07-23] MEDS: ACETAMINOPHEN 500MG TAB 1000 MG PO (13:11)
[2024-07-23 13:18] LABS: INR 0.92 (0.9-1.1); Prothrombin Time 10.4 seconds (10.1-12.5)
[2024-07-23 13:27] LABS: Albumin Level 4.1 g/dl (3.5-5.0); Chloride 105 mmol/L (98-107); Potassium 4.1 mmoL/L (3.5-5.1); Sodium 135 mmol/L (136-145)
[2024-07-23 13:29] LABS: Blood Urea Nitrogen 7 mg/dl (7-17); Estimated Glomerular Filt Rate 104 ml/min (>60); GFR (African American) 125 ML/MIN (>60)
[2024-07-23 13:30] VITALS: BP 103/56; PULSE 72; RESP 19; O2SAT 100
[2024-07-23 13:30] LABS: Alanine Aminotransferase 18 U/L (12-78); Albumin/Globulin Ratio 1.6 (1.1-1.8); Alkaline Phosphatase 51 U/L (38-126); Anion Gap 12.1 mEq/L (5-15); Aspartate Amino Transferase 34 U/L (14-36); Carbon Dioxide 22 mmol/L (22.0-30.0); Creatine Kinase 59 U/L (30-135); Globulin 2.5 g/dL (1.3-3.2); Phosphorous 4.1 mg/dl (2.5-4.5); Total Protein,Serum 6.6 g/dl (6.3-8.2)
[2024-07-23 13:31] LABS: Bilirubin,Total 0.1 mg/dl (0.2-1.3); Glucose 89 mg/dl (74-100); Magnesium 1.7 mg/dl (1.6-2.3)
[2024-07-23 13:47] LABS: Triiodothryronine (T3) Uptake 32 % (23.5-40.5)
[2024-07-23 13:48] LABS: T4 (Thyroxine) 9.3 ug/dl (5.53-11.0)
[2024-07-23 14:00] VITALS: BP 106/66; PULSE 71; RESP 12; O2SAT 100
[2024-07-23 14:01] LABS: Thyroid Stimulating Hormone 3.67 uIU/mL (0.465-4.68)
[2024-07-23 14:07] LABS: HCG Qualitative, Serum Negative (Negative)
[2024-07-23] MEDS: DEXAMETHASONE 4MG/ML 5ML MDV 10 MG IV (14:21)
[2024-07-23] MEDS: METHOCARBAMOL 500MG TABLET 500 MG PO (14:21)
[2024-07-23] MEDS: diphenhydrAMINE 50MG/ML VIAL 50 MG IV (14:22)
[2024-07-23] MEDS: PROCHLORPERAZINE 10MG/2ML VIAL 5 MG IV (14:22)
[2024-07-23 14:51] VITALS: BP 115/74; PULSE 58; RESP 15; TEMP 36.5; O2SAT 97
[2024-07-23 16:55] LABS: Hepatitis C Ab Qual. W/ RFX NEGATIVE (Negative)
[2024-07-23 18:02] LABS: HIV Combo NEGATIVE (Negative)
== END 2024-07-23 15:18 | disposition home or self-care (01) ==
PROVIDERS: Physician Assistant; Emergency Provider Emergency Medicine
DX: F44.5 Conversion disorder with seizures or convulsions (principal); G43.909 Migraine, unspecified, not intractable, without status migrainosus
CPT/HCPCS: 70450; 72125; 80053; 82550; 83735; 84100; 84436; 84443; 84479; 84703; 85025; 85610; 86803; 87389; 93005; 96374; 96375; 99284; J0780; J1100; J1200

== ENCOUNTER 2024-08-10 12:28 | Emergency (ER) | payer OTHER, SELFPAY ==
[2024-08-10] VITALS (8 sets, daily range): BP systolic 99–110; BP diastolic 55–62; PULSE 56–72; RESP 16; TEMP 36.7; O2SAT 97–100; BMI 25.2
[2024-08-10 12:46] LABS: Microscopic, Urine URINE MICROSCOPIC (MICROSCOPIC)
[2024-08-10 12:51] LABS: Appearance,Urine CLEAR (Clear); Bilirubin,Urine Negative (Negative); Blood, Urine Negative (Negative); Color,Urine YELLOW (Yellow); Glucose,Urine (UA) Negative (Negative); Ketones,Urine Negative (Negative); Leukocyte Esterase,Urine Negative (Negative); Nitrate,Urine Negative (Negative); Protein,Urine Negative (Negative); Urobilinogen,Urine 0.2 EU/dl (0.2)
[2024-08-10 12:52] LABS: Urine Pregnancy, HCG Qual. Negative (Negative)
[2024-08-10 12:57] LABS: Bacteria,Urine Trace /lpf
--- NOTE | 2024-08-10 13:05 | HMH.EDGENADL ---
Discharge Plan Disposition Patient Disposition: Home, Self-Care Condition: Good Prescriptions Prescriptions: No Action No Known Home Medications Referrals Follow up/Referrals: Malka Espinal APRN [Primary Care Provider] - See instructions Activity Restrictions/Add. Instructions Additional Instructions/Restrictions: You were evaluated in the emergency department today. Please follow-up closely with your primary care provider as well as with neurology. Return to the emergency department for new or worsening symptoms. Clinical Impressions Clinical Impression: Headache Stand Alone Forms Stand Alone Forms: Work/School Release Instructions Patient Instructions: DI for Headache Print Language Print Language: Swedish Discharge ED Provider: Kaye Layton General Adult HPI <Jennyfer Bhat MD - Last Filed: 08/10/24 15:44> General Chief complaint: Upper Respiratory Infection Stated complaint: body aches, vomiting, poss preg and abd pain Time Seen by Provider: 08/10/24 12:34 Mode of Arrival: Ambulatory Source of Information: Patient Limitations: No Limitations Description of Symptoms (Recalled from ER Triage Doc. by RN): Patient reports sore throat, cough, body aches, diarrhea and vomiting that started this morning. States that she had a D&C on Jun 29, bled for two weeks and has yet to have a period since. History of Present Illness HPI narrative: Patient is a 24-year-old female presenting with multiple complaints. Patient states she has not been feeling well for approximately 3 days. Patient has had migraine headaches, body aches, cough. Today she started experiencing diarrhea and vomiting which is nonbloody. Patient also complains of nasal congestion and sore throat. Patient states she gets seizures from migraine headaches but does not take seizure medication. Patient smokes approximately half a pack of cigarettes per day, does not drink alcohol, has used IV drugs in the past. Related Data Home Medications ?Medication ?Instructions ?Recorded ?Confirmed No Known Home Medications 08/10/24 08/10/24 Allergies Allergy/AdvReac Type Severity Reaction Status Date / Time buspirone Allergy Verified 02/17/24 20:23 tramadol Allergy Verified 02/17/24 20:23 PFSH <Jennyfer Bhat MD - Last Filed: 08/10/24 15:44> PFS Disclaimer: The information contained in this section may have been updated after the patient was seen, as this information can be updated by other users. Medical History Infected dental caries Hand sprain Cellulitis delivery delivered Borderline personality disorder Depression Anxiety Substance abuse Surgical History History of Family History Other COPD (chronic obstructive pulmonary disease) Coronary artery disease Diabetes FHx: mental illness Migraines Social History Smoking Status: Current every day smoker alcohol intake: former substance use type: denies use current occupational status: employed Travel in the last 8 weeks: None marital status: single number of children: 3 Have you lived/traveled outside [place] in past 30 days?: No Contact w/someone who lives/traveled outside US past 30 days?: No Exposure to someone with infectious disease in past 14 days?: No Do you have a fever (greater than 100.4 F or 38 C)?: No Have you tested positive for COVID-19: No Exposed to someone with COVID-19 in past 14 days?: No Do you have a sore throat?: Yes Do you have a cough?: Yes Do you have any weakness?: No Do you have any diarrhea?: No Are you experiencing any unusual bleeding?: No Do you have any muscle aches/pain?: Yes Do you have any abdominal pain?: Yes Are you experiencing loss of taste or smell?: No Other Medical History Have you received the Pneumonia Vaccine: No <Jennyfer Bhat MD - Last Filed: 08/10/24 15:44> ROS Obtained: Yes All systems reviewed & no additional complaints except as documented Physical Exam <Jnenyfer Bhat MD - Last Filed: 08/10/24 15:44> General General appearance: alert and in no apparent distress Head Head exam: atraumatic, normocephalic and normal inspection Eye Eye exam: Present normal appearance, PERRL and EOMI ENT ENT exam: Present normal exam, normal oropharynx, mucous membranes moist and normal external ear exam Neck Neck exam: Present normal inspection, full ROM and trachea midline; Absent meningismus or lymphadenopathy Chest Chest inspection: Present normal inspection and symmetric chest wall rise; Absent tenderness Respiratory Respiratory exam: Present normal lung sounds bilaterally; Absent respiratory distress Cardiovascular Cardiovascular exam: Present regular rate and normal rhythm; Absent JVD Abdominal Exam Abdominal exam: Present soft; Absent distention, tenderness or guarding Extremities Exam Extremities exam: Present normal inspection, full ROM and normal capillary refill Back Exam Back exam: Present normal inspection; Absent tenderness Neurological Exam Neurological exam: Present alert and oriented X3 Psychiatric Psychiatric exam: Present normal affect, normal mood and agitated Skin Skin exam: Present warm, dry, intact and normal color Lymphatic Lymphatic Findings: no adenopathy Medical Decision Making <Jennyfer Bhat MD - Last Filed: 08/10/24 15:44> Medical Records Medical records reviewed: Yes I reviewed the patient's medical records. Screening: Per USPSTF and CDC recommendations, given the prevalence of disease in our region, it is our hospital?s policy to screen for HIV and viral Hepatitis for all patients aged 18 and over and those with ongoing risk factors. Shawn Inquiry Pt receiving controlled substance: No Vital Signs: 08/10/24 12:31 08/10/24 13:01 08/10/24 13:30 Temperature 98.0 F Temperature Source Oral Pulse Rate 58 L 56 L Pulse Rate [Radial] 59 L Respiratory Rate 16 Blood Pressure 108/60 L 103/56 L Blood Pressure [Right Arm] 110/61 Blood Pressure Mean Blood Pressure Mean [Right Arm] 77 Blood Pressure Source Blood Pressure Source [Right Arm] Automatic Cuff Blood Pressure Position Blood Pressure Position [Right Arm] Sitting 02 Sat by Pulse Oximetry 100 100 100 Oxygen Delivery Method Room Air Room Air Room Air 08/10/24 15:01 08/10/24 15:30 08/10/24 16:00 Temperature Temperature Source Pulse Rate 62 58 L 61 Pulse Rate [Radial] Respiratory Rate Blood Pressure 99/55 L 106/62 L 102/55 L Blood Pressure [Right Arm] Blood Pressure Mean 68 Blood Pressure Mean [Right Arm] Blood Pressure Source Blood Pressure Source [Right Arm] Blood Pressure Position Blood Pressure Position [Right Arm] 02 Sat by Pulse Oximetry 98 98 100 Oxygen Delivery Method Room Air Room Air Room Air 08/10/24 16:30 08/10/24 17:03 Temperature 98.0 F Temperature Source Oral Pulse Rate 61 72 Pulse Rate [Radial] Respiratory Rate 16 Blood Pressure 102/59 L 102/59 L Blood Pressure [Right Arm] Blood Pressure Mean 67 Blood Pressure Mean [Right Arm] Blood Pressure Source Automatic Cuff Blood Pressure Source [Right Arm] Blood Pressure Position Sitting Blood Pressure Position [Right Arm] 02 Sat by Pulse Oximetry 97 Oxygen Delivery Method Room Air Room Air Lab Data Lab results reviewed: Yes I reviewed the patient's lab results. Lab Results 08/10/24 12:35: Urine Color Yellow, Urine Appearance Clear, Urine pH 7.0, Ur Specific [place] 1.010, Urine Protein Negative, Urine Glucose (UA) Negative, Urine Ketones Negative, Urine Blood Negative, Urine Nitrate Negative, Urine Bilirubin Negative, Urine Urobilinogen 0.2, Ur Leukocyte Esterase Negative, Urine RBC None, Urine WBC None, Ur Squamous Epith Cells 3-5, Urine Bacteria Trace, Urine HCG, Qual Negative 08/10/24 12:55: SARS-CoV-2 (PCR) Not detected, Influenza A Untype (PCR) Not detected, Influenza Type B (PCR) Not detected Orders (Tests/Meds): ED MEDICATIONS Discontinued Medications Generic Name Dose Route Start Last Admin Trade Name Freq PRN Reason Stop Dose Admin Diphenhydramine HCl 25 mg 08/10/24 13:05 08/10/24 13:11 Diphenhydramine 50mg/Ml Vial IV 08/10/24 13:06 25 mg ONCE ONE Administration Droperidol 2.5 mg 08/10/24 14:37 08/10/24 14:43 Droperidol 5mg/2ml Vial IV 08/10/24 14:38 2.5 mg ONCE ONE Administration Ketorolac Tromethamine 15 mg 08/10/24 13:05 08/10/24 13:11 Ketorolac 30mg/Ml Vial IV 08/10/24 13:06 15 mg ONCE ONE Administration Prochlorperazine Edisylate 10 mg 08/10/24 13:05 08/10/24 13:11 Prochlorperazine 10mg/2ml Vial IV 08/10/24 13:06 10 mg ONCE ONE Administration ORDERS Category Date Time Status Rapid PCR Covid and Flu A/B Stat Lab 08/10/24 12:55 Completed Urinalysis and Microscopic Stat Lab 08/10/24 12:35 Completed Urine , HCG Qual. Stat Lab 08/10/24 12:35 Completed ECG Data Tracing #1: Normal sinus rhythm with a rate of 62, no QTc prolongation, no evidence of arrhythmia. ECG initial impression date: 08/10/24 ECG initial impression time: 14:48 Medical Decision Narrative: In summary, this is a 24-year-old female presenting with multiple complaints. Over the past few days, patient has developed multiple symptoms to include, generalized bodyaches, sore throat, cough, nasal congestion, vomiting and diarrhea. Patient denies fevers at home. Patient has taken ucov-[id number]-ldmyykd cold and sinus medication today. Patient primarily complaining of her headache. Differential diagnosis includes but is not limited to, influenza/COVID, viral URI, dehydration, electrolyte abnormality, UTI, gastroenteritis, among others. Patient will be evaluated with urinalysis, urine , COVID/flu swab and treated medically with, Benadryl, Compazine. Urine negative and urinalysis negative for evidence of acute cystitis. COVID/flu swab negative. After treatment with initial migraine cocktail, patient still complaining of a headache. EKG performed which did not demonstrate any abnormalities such as QTc prolongation, therefore droperidol was given. Patient placed into observation status due to the 2-hour requirement after droperidol administration. Patient signed out to oncoming physician pending completion of the observation time. <Kaye Layton, DO - Last Filed: 08/10/24 17:50> Vital Signs: 08/10/24 12:31 08/10/24 13:01 08/10/24 13:30 Temperature 98.0 F Temperature Source Oral Pulse Rate 58 L 56 L Pulse Rate [Radial] 59 L Respiratory Rate 16 Blood Pressure 108/60 L 103/56 L Blood Pressure [Right Arm] 110/61 Blood Pressure Mean Blood Pressure Mean [Right Arm] 77 Blood Pressure Source Blood Pressure Source [Right Arm] Automatic Cuff Blood Pressure Position Blood Pressure Position [Right Arm] Sitting 02 Sat by Pulse Oximetry 100 100 100 Oxygen Delivery Method Room Air Room Air Room Air 08/10/24 15:01 08/10/24 15:30 08/10/24 16:00 Temperature Temperature Source Pulse Rate 62 58 L 61 Pulse Rate [Radial] Respiratory Rate Blood Pressure 99/55 L 106/62 L 102/55 L Blood Pressure [Right Arm] Blood Pressure Mean 68 Blood Pressure Mean [Right Arm] Blood Pressure Source Blood Pressure Source [Right Arm] Blood Pressure Position Blood Pressure Position [Right Arm] 02 Sat by Pulse Oximetry 98 98 100 Oxygen Delivery Method Room Air Room Air Room Air 08/10/24 16:30 08/10/24 17:03 Temperature 98.0 F Temperature Source Oral Pulse Rate 61 72 Pulse Rate [Radial] Respiratory Rate 16 Blood Pressure 102/59 L 102/59 L Blood Pressure [Right Arm] Blood Pressure Mean 67 Blood Pressure Mean [Right Arm] Blood Pressure Source Automatic Cuff Blood Pressure Source [Right Arm] Blood Pressure Position Sitting Blood Pressure Position [Right Arm] 02 Sat by Pulse Oximetry 97 Oxygen Delivery Method Room Air Room Air Lab Data Lab Results 08/10/24 12:35: Urine Color Yellow, Urine Appearance Clear, Urine pH 7.0, Ur Specific [place] 1.010, Urine Protein Negative, Urine Glucose (UA) Negative, Urine Ketones Negative, Urine Blood Negative, Urine Nitrate Negative, Urine Bilirubin Negative, Urine Urobilinogen 0.2, Ur Leukocyte Esterase Negative, Urine RBC None, Urine WBC None, Ur Squamous Epith Cells 3-5, Urine Bacteria Trace, Urine HCG, Qual Negative 08/10/24 12:55: SARS-CoV-2 (PCR) Not detected, Influenza A Untype (PCR) Not detected, Influenza Type B (PCR) Not detected Orders (Tests/Meds): ED MEDICATIONS Discontinued Medications Generic Name Dose Route Start Last Admin Trade Name Freq PRN Reason Stop Dose Admin Diphenhydramine HCl 25 mg 08/10/24 13:05 08/10/24 13:11 Diphenhydramine 50mg/Ml Vial IV 08/10/24 13:06 25 mg ONCE ONE Administration Droperidol 2.5 mg 08/10/24 14:37 08/10/24 14:43 Droperidol 5mg/2ml Vial IV 08/10/24 14:38 2.5 mg ONCE ONE Administration Ketorolac Tromethamine 15 mg 08/10/24 13:05 08/10/24 13:11 Ketorolac 30mg/Ml Vial IV 08/10/24 13:06 15 mg ONCE ONE Administration Prochlorperazine Edisylate 10 mg 08/10/24 13:05 08/10/24 13:11 Prochlorperazine 10mg/2ml Vial IV 08/10/24 13:06 10 mg ONCE ONE Administration ORDERS Category Date Time Status Rapid PCR Covid and Flu A/B Stat Lab 08/10/24 12:55 Completed Urinalysis and Microscopic Stat Lab 08/10/24 12:35 Completed Urine , HCG Qual. Stat Lab 08/10/24 12:35 Completed Medical Decision Narrative: In summary, this is a 24-year-old female presenting with multiple complaints. Over the past few days, patient has developed multiple symptoms to include, generalized bodyaches, sore throat, cough, nasal congestion, vomiting and diarrhea. Patient denies fevers at home. Patient has taken qwbi-afh-tyqvlvr cold and sinus medication today. Patient primarily complaining of her headache. Differential diagnosis includes but is not limited to, influenza/COVID, viral URI, dehydration, electrolyte abnormality, UTI, gastroenteritis, among others. Patient will be evaluated with urinalysis, urine , COVID/flu swab and treated medically with, Benadryl, Compazine. Urine negative and urinalysis negative for evidence of acute cystitis. COVID/flu swab negative. After treatment with initial migraine cocktail, patient still complaining of a headache. EKG performed which did not demonstrate any abnormalities such as QTc prolongation, therefore droperidol was given. Patient placed into observation status due to the 2-hour requirement after droperidol administration. Patient signed out to oncoming physician pending completion of the observation time. DO Calin: I assumed care of the patient at 1500 after administration of droperidol. At 1500, patient was placed in ED observation status pending continued monitoring after receiving droperidol to determine whether or not the patient would be appropriate for discharge versus admission. The patient was provided serial reevaluations and cardiac monitoring while awaiting ultimate disposition. On multiple subsequent reassessments, she is feeling better and is neurologically intact. She states she is ready to go home and hungry and ready to get something to eat. She is neurologically intact. Given reassuring workup and exam, it is felt that the patient is appropriate for discharge at 1700. Total ED observation time was 2 hours. She was given strict return precautions and instructions for close outpatient follow-up. I had a [id number] visit with the patient when providing discharge instructions. The total time involved in discharging this patient was less than 30 minutes. Critical Care <Jennyfer Bhat MD - Last Filed: 08/10/24 15:44> Critical Care Time Critical Care Time: No
[2024-08-10 13:08] LABS: Coronavirus 19, PCR Not Detected (NotDetected); Influenza A, PCR Not Detected (NotDetected); Influenza B, PCR Not Detected (NotDetected)
[2024-08-10] MEDS: KETOROLAC 30MG/ML VIAL 15 MG IV (13:11)
[2024-08-10] MEDS: diphenhydrAMINE 50MG/ML VIAL 25 MG IV (13:11)
[2024-08-10] MEDS: PROCHLORPERAZINE 10MG/2ML VIAL 10 MG IV (13:11)
--- NOTE | 2024-08-10 13:41 | PC.NURSE ---
ROUNDED ON PT SHE STATES HER HEAD STILL HURTS RELAYED MESSAGE TO ER MD NURSES AND MD AT THIS TIME
[2024-08-10] MEDS: droPERidol 5MG/2ML VIAL 2.5 MG IV (14:43)
--- NOTE | 2024-08-10 14:44 | ECG_ITS ---
APPROVED REPORT Exam: Resting ECG HR:62 bpm ECG Measurements Heart Rate 62 AXES MD 135 P 43 QRSd 82 QRS 68 QT 410 T 57 QTc 416 Conclusion SINUS RHYTHM NORMAL ECG Electronically signed by : MYAH LINDA, 08/11/2024 00:17:08
--- NOTE | 2024-08-10 16:59 | PC.NURSE ---
DR LINDA AT BEDSIDE TO UPDATE PT AND FAMILY ON POC
== END 2024-08-10 17:03 | disposition home or self-care (01) ==
PROVIDERS: Student in an Organized Health Care Education/Training Program; Emergency Provider Emergency Medicine; PCP Family Medicine
DX: R51.9 Headache, unspecified (principal); R05.9 Cough, unspecified; R06.9 Unspecified abnormalities of breathing; M79.10 Myalgia, unspecified site; R19.7 Diarrhea, unspecified; R11.10 Vomiting, unspecified; R09.81 Nasal congestion; F17.210 Nicotine dependence, cigarettes, uncomplicated
CPT/HCPCS: 81001; 81025; 87636; 93005; 96374; 96375; 99283; J0780; J1200; J1790; J1885

== ENCOUNTER 2024-08-19 17:31 | Emergency (ER) | payer OTHER, SELFPAY ==
--- NOTE | 2024-08-19 18:07 | ED_ITS ---
Discharge Plan Disposition Patient Disposition: Home, Self-Care Condition: Good Prescriptions Prescriptions: New amoxicillin 500 mg tablet 500 mg PO TID 10 Days Qty: 30 0RF promethazine 25 mg tablet 25 mg PO TID PRN (Reason: nausea and vomiting) Qty: 12 0RF [id number]-[id number] [Bromfed DM] 2-30-10 mg/5 mL Syrup 5 ml PO Q6H PRN (Reason: Cough) Qty: 240 0RF Referrals Follow up/Referrals: Malka Espinal APRN [Primary Care Provider] - See instructions Activity Restrictions/Add. Instructions Additional Instructions/Restrictions: Drink plenty of fluids. Take tylenol or ibuprofen for pain or fever. Take the medications as directed. Follow up with your regular doctor. GO TO THE ER FOR ANY WORSENING SYMPTOMS Clinical Impressions Clinical Impression: Pharyngitis, Acute viral syndrome Stand Alone Forms Stand Alone Forms: Work/School Release Instructions Patient Instructions: DI for Viral Syndrome, Promethazine Print Language Print Language: Yakut Discharge ED Provider: Malcom Cotter [facility] [place] General Stated complaint: sore throat,congestion,cough,vomiting Time Seen by Provider: 08/19/24 18:07 Related Data Previous Rx's ?Medication ?Instructions ?Recorded amoxicillin 500 mg tablet 500 mg PO TID 10 days #30 tabs 08/19/24 ysvagvvjfcntndg-rpkmjypigxflevw-UU 5 ml PO Q6H PRN Cough #240 mL 08/19/24 2 mg-30 mg-10 mg/5 mL oral syrup (Bromfed DM) promethazine 25 mg tablet 25 mg PO TID PRN nausea and 08/19/24 vomiting #12 tabs Allergies Allergy/AdvReac Type Severity Reaction Status Date / Time tramadol Allergy Mild Unknown Verified 08/19/24 18:16 allergy reaction buspirone Allergy Unknown Verified 08/19/24 18:16 allergy reaction ondansetron (From Zofran) AdvReac Vomiting Verified 08/19/24 18:16 [facility] Disclaimer: The information contained in this section may have been updated after the patient was seen, as this information can be updated by other users. Medical History Infected dental caries Hand sprain Cellulitis delivery delivered Borderline personality disorder Depression Anxiety Substance abuse Surgical History History of Family History Other COPD (chronic obstructive pulmonary disease) Coronary artery disease Diabetes FHx: mental illness Migraines Social History Smoking Status: Current every day smoker alcohol intake: former substance use type: denies use current occupational status: employed Travel in the last 8 weeks: None marital status: single number of children: 3 Have you lived/traveled outside [place] in past 30 days?: No Contact w/someone who lives/traveled outside US past 30 days?: No Exposure to someone with infectious disease in past 14 days?: No Do you have a fever (greater than 100.4 F or 38 C)?: No Have you tested positive for COVID-19: No Exposed to someone with COVID-19 in past 14 days?: No Do you have a sore throat?: Yes Do you have a cough?: Yes Do you have any weakness?: Yes Do you have any diarrhea?: Yes Are you experiencing any unusual bleeding?: No Do you have any muscle aches/pain?: No Do you have any abdominal pain?: No Are you experiencing loss of taste or smell?: No ROS Obtained: Yes All systems reviewed & no additional complaints except as documented Constitutional Constitutional: Reports chills and Reports fever(s) Eyes Eyes: Denies eye discharge ENT Ears, Nose, Mouth, and Throat: Reports as per HPI Cardiovascular Cardiovascular: Denies chest pain Respiratory Respiratory: Denies chest congestion and Reports cough Gastrointestinal Gastrointestingal: Reports nausea; Denies abdominal pain, constipation, cramping, diarrhea or vomiting Musculoskeletal Musculoskeletal: Denies arthralgias Integumentary/Breasts Skin/Breast: Denies rash Neurologic Neurologic: Denies paresthesias Physical Exam General General appearance: alert and in no apparent distress Head Head exam: atraumatic, normocephalic and normal inspection Eye Eye exam: Present normal appearance, PERRL and EOMI ENT ENT exam: Present normal exam, normal oropharynx, mucous membranes moist, TM's normal bilaterally and normal external ear exam Neck Neck exam: Present normal inspection, full ROM and trachea midline; Absent meningismus or lymphadenopathy Chest Chest inspection: Present normal inspection and symmetric chest wall rise; Absent tenderness Respiratory Respiratory exam: Present normal lung sounds bilaterally; Absent respiratory distress Cardiovascular Cardiovascular exam: Present regular rate and normal rhythm; Absent JVD Abdominal Exam Abdominal exam: Present soft and normal bowel sounds; Absent distention, tenderness or guarding Extremities Exam Extremities exam: Present normal inspection, full ROM and normal capillary refill; Absent calf tenderness Back Exam Back exam: Present normal inspection; Absent tenderness Neurological Exam Neurological exam: Present alert and oriented X3 Psychiatric Psychiatric exam: Present normal affect and normal mood Skin Skin exam: Present warm, dry, intact and normal color Lymphatic Lymphatic Findings: no adenopathy Medical Decision Making Medical Records Medical records reviewed: No I reviewed the patient's medical records. Screening: Per USPSTF and CDC recommendations, given the prevalence of disease in our region, it is our hospital?s policy to screen for HIV and viral Hepatitis for all patients aged 18 and over and those with ongoing risk factors. Shawn Inquiry Pt receiving controlled substance: No
[2024-08-19 18:13] VITALS: BP 113/76; PULSE 79; RESP 18; TEMP 36.8; O2SAT 98; BMI 27.1
[2024-08-19] MEDS: PROMETHAZINE 25MG TABLET 25 MG PO (18:19)
[2024-08-19 18:39] LABS: UTC Influenza A Antigen Negative (Negative); UTC Strep Screen (Rapid) Negative (Negative)
[2024-08-19 18:40] LABS: UTC Influenza B Antigen Negative (Negative)
[2024-08-19 18:58] VITALS: BP 113/76; PULSE 79; RESP 18; TEMP 36.8
[2024-08-19 19:46] LABS: Coronavirus 19, PCR Not Detected (NotDetected); Influenza A, PCR Not Detected (NotDetected); Influenza B, PCR Not Detected (NotDetected)
== END 2024-08-19 19:06 | disposition home or self-care (01) ==
PROVIDERS: Emergency Provider Nurse Practitioner Family; PCP Family Medicine
DX: J20.9 Acute bronchitis, unspecified (principal); B34.9 Viral infection, unspecified
CPT/HCPCS: 87636; 87804; 87880; 99212; G0381

== ENCOUNTER 2024-10-09 19:29 | Emergency (ER) | payer OTHER, SELFPAY ==
[2024-10-09 19:39] VITALS: BP 118/59; PULSE 94; RESP 16; TEMP 38.1; O2SAT 100; BMI 24.0
--- NOTE | 2024-10-09 19:59 | ED_ITS ---
Discharge Plan Disposition Patient Disposition: Home, Self-Care Condition: Good Prescriptions Prescriptions: New amoxicillin-pot clavulanate 875-125 mg tablet 1 tab PO BID Qty: 20 0RF No Action amoxicillin 500 mg tablet 500 mg PO TID 10 Days Qty: 30 0RF promethazine 25 mg tablet 25 mg PO TID PRN (Reason: nausea and vomiting) Qty: 12 0RF qsedonxdupunrvb-zydxhnxpi-DO [Bromfed DM] 2-30-10 mg/5 mL Syrup 5 ml PO Q6H PRN (Reason: Cough) Qty: 240 0RF Referrals Follow up/Referrals: Malka Espinal APRN [Primary Care Provider] - See instructions Activity Restrictions/Add. Instructions Additional Instructions/Restrictions: Recommend taking Tylenol alternating with Motrin for symptoms. I have sent a prescription into your pharmacy. Please take your antibiotic till its all gone. If you have continued new or worsening signs or symptoms follow-up with your PCP return to the ER as needed. Clinical Impressions Clinical Impression: Strep pharyngitis Stand Alone Forms Stand Alone Forms: Work/School Release Print Language Print Language: Slovak Discharge ED Provider: Piter Davis General Adult HPI <MICKEY Hudson - Last Filed: 10/09/24 20:44> General Chief complaint: Upper Respiratory Infection Stated complaint: body aches,fever,sore throat,vomiting Time Seen by Provider: 10/09/24 19:59 Mode of Arrival: Ambulatory Source of Information: Patient Description of Symptoms (Recalled from ER Triage Doc. by RN): patient states since yesterday she has had sore throat, bodyaches, fever, chills, and vomiting. History of Present Illness HPI narrative: Patient presents for evaluation of sore throat body aches fever. Symptoms began yesterday. She denies cough shortness of breath hemoptysis hematochezia melena nausea vomiting diarrhea. Related Data Previous Rx's ?Medication ?Instructions ?Recorded amoxicillin 500 mg tablet 500 mg PO TID 10 days #30 tabs 08/19/24 ukpunkydymbytsl-czvgdvzirfsqfqo-UB 5 ml PO Q6H PRN Cough #240 mL 08/19/24 2 mg-30 mg-10 mg/5 mL oral syrup (Bromfed DM) promethazine 25 mg tablet 25 mg PO TID PRN nausea and 08/19/24 vomiting #12 tabs amoxicillin 875 mg-potassium 1 tab PO BID #20 tabs 10/09/24 clavulanate 125 mg tablet Allergies Allergy/AdvReac Type Severity Reaction Status Date / Time tramadol Allergy Mild Unknown Verified 08/19/24 18:16 allergy reaction buspirone Allergy Unknown Verified 08/19/24 18:16 allergy reaction ondansetron (From Zofran) AdvReac Vomiting Verified 08/19/24 18:16 [facility] <MICKEY Hudson - Last Filed: 10/09/24 20:44> [facility] Disclaimer: The information contained in this section may have been updated after the patient was seen, as this information can be updated by other users. Medical History Infected dental caries Hand sprain Cellulitis delivery delivered Borderline personality disorder Depression Anxiety Substance abuse Surgical History History of Family History Other COPD (chronic obstructive pulmonary disease) Coronary artery disease Diabetes FHx: mental illness Migraines Social History Smoking Status: Unknown if ever smoked alcohol intake: former substance use type: denies use current occupational status: employed Travel in the last 8 weeks: None marital status: single number of children: 3 Have you lived/traveled outside [place] in past 30 days?: No Contact w/someone who lives/traveled outside US past 30 days?: No Exposure to someone with infectious disease in past 14 days?: No Do you have a fever (greater than 100.4 F or 38 C)?: Yes Have you tested positive for COVID-19: No Exposed to someone with COVID-19 in past 14 days?: No Do you have a sore throat?: Yes Do you have a cough?: No Do you have any weakness?: No Do you have any diarrhea?: No Are you experiencing any unusual bleeding?: No Do you have any muscle aches/pain?: Yes Do you have any abdominal pain?: No Are you experiencing loss of taste or smell?: Yes Other Medical History Have you received the Pneumonia Vaccine: No <MICKEY Hudson - Last Filed: 10/09/24 20:44> ROS Obtained: Yes Systems reviewed as appropriate & no additional complaints except as documented Physical Exam <MICKEY Hudson - Last Filed: 10/09/24 20:44> General General appearance: alert and in no apparent distress Respiratory Respiratory exam: Present normal lung sounds bilaterally Cardiovascular Cardiovascular exam: Present regular rate Neurological Exam Neurological exam: Present alert and oriented X3 Medical Decision Making <MICKEY Hudson - Last Filed: 10/09/24 20:44> Medical Records Medical records reviewed: Yes I reviewed the patient's medical records. Screening: Per USPSTF and CDC recommendations, given the prevalence of disease in our region, it is our hospital?s policy to screen for HIV and viral Hepatitis for all patients aged 18 and over and those with ongoing risk factors. Shawn Inquiry Pt receiving controlled substance: No Vital Signs: 10/09/24 19:39 10/09/24 20:47 Temperature 100.5 F H 98.5 F Temperature Source Oral Pulse Rate 87 Pulse Rate [Right] 94 H Respiratory Rate 16 16 Blood Pressure 110/62 Blood Pressure [Right Arm] 118/59 L Blood Pressure Mean [Right Arm] 78 Blood Pressure Source [Right Arm] Automatic Cuff Blood Pressure Position [Right Arm] Sitting 02 Sat by Pulse Oximetry 100 Oxygen Delivery Method Room Air Room Air Lab Data Lab results reviewed: Yes I reviewed the patient's lab results. Lab Results 10/09/24 19:38: SARS-CoV-2 (PCR) Not detected, Influenza A Untype (PCR) Not detected, Influenza Type B (PCR) Not detected 10/09/24 20:00: Group A Strep Rapid Positive A Orders (Tests/Meds): ED MEDICATIONS Discontinued Medications Generic Name Dose Route Start Last Admin Trade Name Freq PRN Reason Stop Dose Admin Acetaminophen 1,000 mg 10/09/24 20:04 10/09/24 20:14 Acetaminophen 500mg Tab PO 10/09/24 20:05 1,000 mg ONCE ONE Administration Amoxicillin/Clavulanate Potassium 1 each 10/09/24 20:37 10/09/24 20:42 Amoxicillin/Clavulanate Potassium 875/125mg Tablet PO 10/09/24 20:38 1 each ONCE ONE Administration Ibuprofen 800 mg 10/09/24 20:04 10/09/24 20:15 Ibuprofen 400 Mg Tablet PO 10/09/24 20:05 800 mg ONCE ONE Administration ORDERS Category Date Time Status Rapid PCR Covid and Flu A/B Stat Lab 10/09/24 19:38 Completed Rapid Strep Scrn Group A [Strep Scrn Group A (Rapid)] Lab 10/09/24 20:00 Completed Stat Medical Decision Narrative: In summary patient is a 24-year-old female who presents to the emergency department for evaluation of sore throat body aches fever. Patient is initially normotensive at 118/59 with a pulse of 94 normal sinus rhythm on bedside monitor breathing 16 times a minute upon arrival, febrile at 100.5. Physical exam is remarkable for an erythematous posterior pharynx with tonsillar exudate, moustapha ateral cervical lymphadenopathy, clear breath sounds with no increased work of breathing adventitious sounds abdomen soft nontender no rebound or guarding no rigidity.. Differential diagnosis includes upper or lower respiratory tract infection. Initial workup will be conducted with respiratory swabs strep swab. Initial interventions include Tylenol and ibuprofen. Initial workup reviewed by me shows that her COVID and flu swabs are negative however strep test is positive.. Upon repeat evaluation patient reports modest improvement after Tylenol Motrin and she is tolerating oral intake. Given this patient is appropriate for discharge with prescription for Augmentin with first dose given here and strict return precautions close follow-up with her PCP. <Piter Davis MD - Last Filed: 10/10/24 16:50> Vital Signs: 10/09/24 19:39 10/09/24 20:47 Temperature 100.5 F H 98.5 F Temperature Source Oral Pulse Rate 87 Pulse Rate [Right] 94 H Respiratory Rate 16 16 Blood Pressure 110/62 Blood Pressure [Right Arm] 118/59 L Blood Pressure Mean [Right Arm] 78 Blood Pressure Source [Right Arm] Automatic Cuff Blood Pressure Position [Right Arm] Sitting 02 Sat by Pulse Oximetry 100 Oxygen Delivery Method Room Air Room Air Lab Data Lab Results 10/09/24 19:38: SARS-CoV-2 (PCR) Not detected, Influenza A Untype (PCR) Not detected, Influenza Type B (PCR) Not detected 10/09/24 20:00: Group A Strep Rapid Positive A Orders (Tests/Meds): ED MEDICATIONS Discontinued Medications Generic Name Dose Route Start Last Admin Trade Name Freq PRN Reason Stop Dose Admin Acetaminophen 1,000 mg 10/09/24 20:04 10/09/24 20:14 Acetaminophen 500mg Tab PO 10/09/24 20:05 1,000 mg ONCE ONE Administration Amoxicillin/Clavulanate Potassium 1 each 10/09/24 20:37 10/09/24 20:42 Amoxicillin/Clavulanate Potassium 875/125mg Tablet PO 10/09/24 20:38 1 each ONCE ONE Administration Ibuprofen 800 mg 10/09/24 20:04 10/09/24 20:15 Ibuprofen 400 Mg Tablet PO 10/09/24 20:05 800 mg ONCE ONE Administration ORDERS Category Date Time Status Rapid PCR Covid and Flu A/B Stat Lab 10/09/24 19:38 Completed Rapid Strep Scrn Group A [Strep Scrn Group A (Rapid)] Lab 10/09/24 20:00 Completed Stat Medical Decision Narrative: In summary patient is a 24-year-old female who presents to the emergency department for evaluation of sore throat body aches fever. Patient is initially normotensive at 118/59 with a pulse of 94 normal sinus rhythm on bedside monitor breathing 16 times a minute upon arrival, febrile at 100.5. Physical exam is remarkable for an erythematous posterior pharynx with tonsillar exudate, bilateral cervical lymphadenopathy, clear breath sounds with no increased work of breathing adventitious sounds abdomen soft nontender no rebound or guarding no rigidity.. Differential diagnosis includes upper or lower respiratory tract infection. Initial workup will be conducted with respiratory swabs strep swab. Initial interventions include Tylenol and ibuprofen. Initial workup reviewed by me shows that her COVID and flu swabs are negative however strep test is positive.. Upon repeat evaluation patient reports modest improvement after Tylenol Motrin and she is tolerating oral intake. Given this patient is appropriate for discharge with prescription for Augmentin with first dose given here and strict return precautions close follow-up with her PCP. I was consulted by the ERICA, and we discussed the complexity of the problems being addressed.I approved the treatment and management plan for this patient?s care in the Emergency Department, thus performing a substantive portion of the medical decision making.Signed, Piter Davis MD [facility] <MICKEY Hudson - Last Filed: 10/09/24 20:44> Critical Care Time Critical Care Time: No
[2024-10-09 20:06] LABS: Coronavirus 19, PCR Not Detected (NotDetected); Influenza A, PCR Not Detected (NotDetected); Influenza B, PCR Not Detected (NotDetected)
[2024-10-09] MEDS: ACETAMINOPHEN 500MG TAB 1000 MG PO (20:14)
[2024-10-09] MEDS: IBUPROFEN 400 MG TABLET 800 MG PO (20:15)
[2024-10-09 20:23] LABS: Strep Scrn Group A (Rapid) Positive (Negative)
[2024-10-09] MEDS: AMOXICILLIN/CLAVULANATE POTASSIUM 875/125MG TABLET 1 EACH PO (20:42)
[2024-10-09 20:47] VITALS: BP 110/62; PULSE 87; RESP 16; TEMP 36.9; O2SAT 98
== END 2024-10-09 20:49 | disposition home or self-care (01) ==
PROVIDERS: Physician Assistant; Emergency Provider Emergency Medicine; PCP Family Medicine
DX: J02.0 Streptococcal pharyngitis (principal)
CPT/HCPCS: 87430; 87636; 99283

== ENCOUNTER 2024-11-10 17:59 | Emergency (ER) | payer OTHER, SELFPAY ==
[2024-11-10 18:08] VITALS: BP 108/63; PULSE 68; RESP 16; TEMP 36.6; O2SAT 100; BMI 25.7
[2024-11-10 18:21] LABS: Microscopic, Urine URINE MICROSCOPIC (MICROSCOPIC)
[2024-11-10 18:29] LABS: Urine Pregnancy, HCG Qual. Positive (Negative)
[2024-11-10 18:30] LABS: Appearance,Urine CLEAR (Clear); Bilirubin,Urine Negative (Negative); Blood, Urine Negative (Negative); Color,Urine YELLOW (Yellow); Glucose,Urine (UA) Negative (Negative); Ketones,Urine Negative (Negative); Leukocyte Esterase,Urine Negative (Negative); Nitrate,Urine Negative (Negative); PH,Urine 6.5 (5.0-8.5); Protein,Urine Negative (Negative); Specific Gravity, Urine 1.015 (1.005-1.030); Urobilinogen,Urine 0.2 EU/dl (0.2)
[2024-11-10 18:39] LABS: Bacteria,Urine Trace /lpf; Squamous Epithelial Cell,Urine Occasional #/hpf (0-5)
[2024-11-10 18:45] VITALS: BP 110/75; PULSE 66; RESP 15; TEMP 36.7; O2SAT 96
--- NOTE | 2024-11-10 18:45 | HMH.EDGENADL ---
Discharge Plan Disposition Patient Disposition: Home, Self-Care Prescriptions Prescriptions: New cephalexin 500 mg capsule 500 mg PO Q8 7 Days Qty: 21 0RF No Action ZIV-pqab-RL-omega 3-fat com #1 27-1-300 mg capsule PO escitalopram oxalate [Lexapro] 20 mg tablet 20 mg PO DAILY aripiprazole [Abilify] 5 mg tablet 5 mg PO DAILY propranolol 10 mg tablet 10 mg PO BID Qty: 60 0RF Referrals Follow up/Referrals: Malka Espinal APRN [Primary Care Provider] - See instructions Activity Restrictions/Add. Instructions Additional Instructions/Restrictions: As discussed you have a single living intrauterine consistent with your dates with a normal heart rate he also had a subchorionic hematoma as discussed. Please return with any concerns as discussed otherwise follow-up closely with your [facility] doctor. You may continue to take Tylenol as needed for any lower abdominal discomfort that you are feeling if your pain significantly worsens you may return to the emergency department. Clinical Impressions Clinical Impression: , threatened, Subchorionic hematoma, Asymptomatic bacteriuria Instructions Patient Instructions: DI for Acute Abdominal Pain Print Language Print Language: Spanish Discharge ED Provider: Leigh Cooper General Adult HPI General Chief complaint: Abdominal Pain Stated complaint: spotting,abdominal pain , seven weeks preg Time Seen by Provider: 11/10/24 18:06 Mode of Arrival: Ambulatory Source of Information: Patient Description of Symptoms (Recalled from ER Triage Doc. by RN): patient states she is 7 weeks , has had lower abdominal pain that is cramping, nausea and vomiting for 4 days with bright red spotting for 2 days History of Present Illness HPI narrative: Patient is a G 6P 3A2 at 7 weeks gestational age presenting today with spotting and lower abdominal discomfort. No large passage of tissue. No loss of fluid no urinary symptoms such as frequency urgency or dysuria. Related Data Home Medications ?Medication ?Instructions ?Recorded ?Confirmed UPT-uywh-AZ-omega 3-fat com #1 27 cap PO 11/09/24 11/09/24 mg-1 mg-300 mg capsule aripiprazole 5 mg tablet (Abilify) 5 mg PO DAILY 11/09/24 11/09/24 escitalopram oxalate 20 mg tablet 20 mg PO DAILY 11/09/24 11/09/24 (Lexapro) Previous Rx's ?Medication ?Instructions ?Recorded propranolol 10 mg tablet 10 mg PO BID #60 tabs 11/09/24 cephalexin 500 mg capsule 500 mg PO Q8 7 days #21 caps 11/10/24 Allergies Allergy/AdvReac Type Severity Reaction Status Date / Time tramadol Allergy Mild Unknown Verified 11/09/24 09:57 allergy reaction buspirone Allergy Unknown Verified 11/09/24 09:57 allergy reaction ondansetron (From Zofran) AdvReac Vomiting Verified 11/09/24 09:57 [facility] Disclaimer: The information contained in this section may have been updated after the patient was seen, as this information can be updated by other users. Medical History (Updated 11/10/24 @ 18:49 by Lin Serrano RN) Hypokalemia Pelvic pain affecting Vaginitis Contusion of hand, right UTI (urinary tract infection) Pharyngitis Acute viral syndrome Strep pharyngitis Infected dental caries Hand sprain Cellulitis delivery delivered Borderline personality disorder Depression Anxiety Substance abuse Surgical History History of Family History Other COPD (chronic obstructive pulmonary disease) Coronary artery disease Diabetes FHx: mental illness Migraines Social History (Updated 11/09/24 @ 10:02 by Gauri Fonseca MA) Smoking Status: Current every day smoker tobacco type: cigarettes alcohol intake: former substance use type: denies use current occupational status: employed Travel in the last 8 weeks?: None marital status: single number of children: 3 Have you lived/traveled outside US in past 30 days?: No Contact w/someone who lives/traveled outside US past 30 days?: No Exposure to someone with infectious disease in past 14 days?: No Do you have a fever (greater than 100.4 F or 38 C)?: No Have you tested positive for COVID-19?: No Exposed to someone with COVID-19 in past 14 days?: No Do you have a sore throat?: No Do you have a cough?: No Do you have any weakness?: No Do you have any diarrhea?: No Are you experiencing any unusual bleeding?: Yes Do you have any muscle aches/pain?: No Do you have any abdominal pain?: Yes Are you experiencing loss of taste or smell?: No Other Medical History Have you received the Pneumonia Vaccine: No ROS Obtained: Yes All systems reviewed & no additional complaints except as documented Physical Exam General General appearance: alert and in no apparent distress Respiratory Respiratory exam: Present normal lung sounds bilaterally Cardiovascular Cardiovascular exam: Present regular rate Abdominal Exam Abdominal exam: Present soft; Absent distention or tenderness Neurological Exam Neurological exam: Present alert and oriented X3 Medical Decision Making Medical Records Screening: Per USPSTF and CDC recommendations, given the prevalence of disease in our region, it is our hospital?s policy to screen for HIV and viral Hepatitis for all patients aged 18 and over and those with ongoing risk factors. Shawn Inquiry Pt receiving controlled substance: No Vital Signs: 11/10/24 18:08 11/10/24 18:45 Temperature 98 F 98.1 F Temperature Source Oral Oral Pulse Rate 66 Pulse Rate [Right Radial] 68 Respiratory Rate 16 15 Blood Pressure 110/75 Blood Pressure [Right Arm] 108/63 L Blood Pressure Mean [Right Arm] 78 Blood Pressure Source Automatic Cuff Blood Pressure Source [Right Arm] Automatic Cuff Blood Pressure Position Sitting Blood Pressure Position [Right Arm] Sitting 02 Sat by Pulse Oximetry 100 Oxygen Delivery Method Room Air Room Air Lab Data Lab results reviewed: Yes I reviewed the patient's lab results. Lab Results 11/10/24 18:07: Urine Color Yellow, Urine Appearance Clear, Urine pH 6.5, Ur Specific Vance 1.015, Urine Protein Negative, Urine Glucose (UA) Negative, Urine Ketones Negative, Urine Blood Negative, Urine Nitrate Negative, Urine Bilirubin Negative, Urine Urobilinogen 0.2, Ur Leukocyte Esterase Negative, Urine RBC None, Urine WBC None, Ur Squamous Epith Cells Occasional, Urine Bacteria Trace, Urine HCG, Qual Positive Orders (Tests/Meds): ORDERS Category Date Time Status POCUS Point of Care (ER Only) Stat Exams 11/10/24 18:07 Ordered Urinalysis and Microscopic Stat Lab 11/10/24 18:07 Completed Urine , HCG Qual. Stat Lab 11/10/24 18:07 Completed Medical Decision Narrative: 24-year-old with above history and physical on further questioning patient has a history of a clotting disorder and takes a daily aspirin. On bedside ultrasound there is a confirmed IUP this essentially and functionally rules out an ectopic . This is consistent with her dates had a normal heart rate there was evidence of a subchorionic hemorrhage was almost certainly the cause of her symptoms today. Working diagnosis is a threatened . She has been advised to continue her aspirin and follow-up with her high risk doctor as previously instructed. Patient does have some very mild suprapubic tenderness and had bacteriuria but functionally she is asymptomatic and we will treat this as a possible UTI versus asymptomatic bacteria with Keflex. No further intervention is needed. Patient is known to be a positive RhoGAM is not needed. Patient was discharged in stable condition. Procedures Miscellaneous Procedure Procedure Performed: Limited OB ultrasound Indication: Vaginal bleeding Identified structures: [-Uterus -Left adnexa -Right adnexa -Pouch of [place]] Findings: Uterus: Definitive IUP FHR: Normal Right adnexa: No free fluid Left adnexa: No free fluid [place]: No free fluid Impression: Single living IUP consistent with dates with normal heart rate no evidence of ectopic or free fluid there was evidence of a subchorionic hemorrhage Images were saved to permanent archive The study was technically adequate CPT Transabdominal: 53251-58 This study was performed by me, and I personally interpreted all images/videos. Based on my clinical judgement, these images were adequate and did not necessitate further imaging. Critical Care Critical Care Time Critical Care Time: No
== END 2024-11-10 18:55 | disposition home or self-care (01) ==
PROVIDERS: Emergency Provider Student in an Organized Health Care Education/Training Program; PCP Family Medicine
DX: O26.891 Other specified pregnancy related conditions, first trimester (principal); R10.9 Unspecified abdominal pain; O20.0 Threatened abortion; R82.71 Bacteriuria; Z3A.01 Less than 8 weeks gestation of pregnancy
CPT/HCPCS: 81001; 81025; 99284

== ENCOUNTER 2024-11-21 15:10 | Emergency (ER) | payer OTHER, SELFPAY ==
[2024-11-21] VITALS (7 sets, daily range): BP systolic 101–116; BP diastolic 55–69; PULSE 51–78; RESP 15–20; TEMP 36.5–37.1; O2SAT 98–100; BMI 25.7
--- NOTE | 2024-11-21 15:46 | ED_ITS ---
<Statement entered by Kaye Layton DO - 11/21/24 21:21> I was consulted by the ERICA, and we discussed the complexity of the problems being addressed. I approved the treatment and management plan for this patient's care in the emergency department, thus performing a substantive portion of the medical decision making. Kaye Layton DO Discharge Plan Disposition Patient Disposition: Home, Self-Care Condition: Good Prescriptions Prescriptions: New promethazine 12.5 mg tablet 12.5 mg PO TID PRN (Reason: allergy symptoms) Qty: 20 0RF Rx Instructions: 3 doses during day; last dose no later than 4 hr before bedtime No Action [id number] 3-fat com #1 27-1-300 mg capsule PO escitalopram oxalate [Lexapro] 20 mg tablet 20 mg PO DAILY aripiprazole [Abilify] 5 mg tablet 5 mg PO DAILY propranolol 10 mg tablet 10 mg PO BID Qty: 60 0RF cephalexin 500 mg capsule 500 mg PO Q8 7 Days Qty: 21 0RF Referrals Follow up/Referrals: Malka Espinal APRN [Primary Care Provider] - See instructions Activity Restrictions/Add. Instructions Additional Instructions/Restrictions: Please continue take all medications as prescribed, return to the emergency department any worsening signs or symptoms, recommend good oral intake with solids and fluids. Please follow-up with your REGULATORY ASSISTANT in the upcoming days. Clinical Impressions Clinical Impression: Hyperemesis arising during Instructions Patient Instructions: DI for Hyperemesis Gravidarum Print Language Print Language: Chadian Discharge ED Provider: Kaye Layton General Adult HPI <MICKEY Flores - Last Filed: 11/21/24 17:51> General Chief complaint: Nausea/Vomiting/Diarrhea Stated complaint: vomitting, 9 weeks , Time Seen by Provider: 11/21/24 15:24 Mode of Arrival: Ambulatory Source of Information: Patient Limitations: No Limitations History of Present Illness HPI narrative: 24-year-old G7, female, at approximately 9 weeks gestation presents to the emergency department accompanied by her for a 1 to 2-day history of persistent nausea and vomiting, she has had nausea and vomiting/morning sickness throughout this , worsened over the last couple of days, she admits to poor p.o. intake, she attempted to eat solid food today but was unable to keep it down , she endorses a cough, denies any fever chills denies any real abdominal pain chest pain shortness of breath, denies constipation diarrhea no urinary type symptomatology, no vaginal type symptomatology to include vaginal bleeding or vaginal discharge, she has had uncomplicated thus far, and had documented ultrasound last week by her REGULATORY ASSISTANT physician in [facility]. Patient does endorse headache for the last 5 days, does have a history of migraine type headaches, on propranolol previously on Nurtec prior to becoming , other past medical history consistent with Wil/depression, she is a current everyday smoker, denies any alcohol or other drug use. Discharge vitals unremarkable. Also of note, recent sick contact being daughter who had strep , diagnosed several days ago. Patient's states that they attempted to call their REGULATORY ASSISTANT office today, who instructed them to come to the emergency department with concerns of dehydration . Also of note, patient takes aspirin daily for unknown coagulation disorder, patient states it is to keep my blood thin . Onset (ago): day(s) Related Data Home Medications ?Medication ?Instructions ?Recorded ?Confirmed [id number] 3-fat com #1 27 cap PO 11/09/24 11/09/24 mg-1 mg-300 mg capsule aripiprazole 5 mg tablet (Abilify) 5 mg PO DAILY 11/09/24 11/09/24 escitalopram oxalate 20 mg tablet 20 mg PO DAILY 11/09/24 11/09/24 (Lexapro) Previous Rx's ?Medication ?Instructions ?Recorded propranolol 10 mg tablet 10 mg PO BID #60 tabs 11/09/24 cephalexin 500 mg capsule 500 mg PO Q8 7 days #21 caps 11/10/24 promethazine 12.5 mg tablet 12.5 mg PO TID PRN allergy 11/21/24 symptoms #20 tabs Allergies Allergy/AdvReac Type Severity Reaction Status Date / Time tramadol Allergy Mild Unknown Verified 11/09/24 09:57 allergy reaction buspirone Allergy Unknown Verified 11/09/24 09:57 allergy reaction ondansetron (From Zofran) AdvReac Vomiting Verified 11/09/24 09:57 [facility] <MICKEY Flores - Last Filed: 11/21/24 17:51> [facility] Disclaimer: The information contained in this section may have been updated after the patient was seen, as this information can be updated by other users. Medical History (Updated 11/21/24 @ 17:51 by MICKEY Flores) Hypokalemia Pelvic pain affecting Vaginitis Contusion of hand, right UTI (urinary tract infection) Pharyngitis Acute viral syndrome Strep pharyngitis Infected dental caries Hand sprain Cellulitis delivery delivered Borderline personality disorder Depression Anxiety Substance abuse Surgical History History of Family History Other COPD (chronic obstructive pulmonary disease) Coronary artery disease Diabetes FHx: mental illness Migraines Social History (Updated 11/09/24 @ 10:02 by Gauri Fonseca MA) Smoking Status: Current every day smoker tobacco type: cigarettes alcohol intake: former substance use type: denies use current occupational status: employed Travel in the last 8 weeks?: None marital status: single number of children: 3 Have you lived/traveled outside [place] in past 30 days?: No Contact w/someone who lives/traveled outside US past 30 days?: No Exposure to someone with infectious disease in past 14 days?: No Do you have a fever (greater than 100.4 F or 38 C)?: No Have you tested positive for COVID-19?: No Exposed to someone with COVID-19 in past 14 days?: No Do you have a sore throat?: No Do you have a cough?: No Do you have any weakness?: No Do you have any diarrhea?: No Are you experiencing any unusual bleeding?: No Do you have any muscle aches/pain?: No Do you have any abdominal pain?: No Are you experiencing loss of taste or smell?: No Other Medical History Have you received the Pneumonia Vaccine: No <MICKEY Flores - Last Filed: 11/21/24 17:51> ROS Obtained: Yes All systems reviewed & no additional complaints except as documented Physical Exam <MICKEY Flores - Last Filed: 11/21/24 17:51> General General appearance: alert and in no apparent distress Head Head exam: atraumatic and normocephalic Eye Eye exam: Present PERRL and EOMI ENT ENT exam: Present mucous membranes moist and other (No tonsillar exudate, no posterior oropharyngeal edema or erythema, uvula is midline) Neck Neck exam: Present normal inspection Chest Chest inspection: Present normal inspection and symmetric chest wall rise Respiratory Respiratory exam: Present normal lung sounds bilaterally; Absent respiratory distress Cardiovascular Cardiovascular exam: Present regular rate and normal rhythm Abdominal Exam Abdominal exam: Present soft; Absent tenderness Extremities Exam Extremities exam: Present normal inspection Neurological Exam Neurological exam: Present alert and oriented X3 Psychiatric Psychiatric exam: Present normal affect Skin Skin exam: Present warm and dry Medical Decision Making <MICKEY Flores - Last Filed: 11/21/24 17:51> Medical Records Medical records reviewed: Yes I reviewed the patient's medical records. Screening: Per USPSTF and CDC recommendations, given the prevalence of disease in our region, it is our hospital?s policy to screen for HIV and viral Hepatitis for all patients aged 18 and over and those with ongoing risk factors. Shawn Inquiry Pt receiving controlled substance: No Shawn was queried for this patient: No Vital Signs: 11/21/24 15:20 11/21/24 15:30 11/21/24 16:12 Temperature 97.7 F Temperature Source Oral Pulse Rate 62 57 L Pulse Rate [Right] 78 Respiratory Rate 20 Blood Pressure 107/69 L 108/58 L Blood Pressure [Right Arm] 116/66 Blood Pressure Mean [Right Arm] 82 Blood Pressure Source [Right Arm] Automatic Cuff 02 Sat by Pulse Oximetry 98 100 100 Oxygen Delivery Method Room Air Room Air Room Air 11/21/24 16:30 Temperature Temperature Source Pulse Rate 51 L Pulse Rate [Right] Respiratory Rate Blood Pressure 106/56 L Blood Pressure [Right Arm] Blood Pressure Mean [Right Arm] Blood Pressure Source [Right Arm] 02 Sat by Pulse Oximetry 100 Oxygen Delivery Method Room Air Lab Data Lab Results 11/21/24 15:48: SARS-CoV-2 (PCR) Not detected, Influenza A Untype (PCR) Not detected, Influenza Type B (PCR) Not detected 11/21/24 15:53: WBC 11.3 H, RBC 4.19 L, Hgb 12.4, Hct 37.0, MCV 88.3, MCH 29.6, MCHC 33.5, RDW 14.3, Plt Count 200, MPV 10.6 H, Neut % (Auto) 73.7, Lymph % (Auto) 19.4, [place] % (Auto) 5.8, Eos % (Auto) 0.5, Baso % (Auto) 0.3, Neut # (Auto) 8.3 H, Lymph # (Auto) 2.2, Preston # (Auto) 0.7, Eos # (Auto) 0.1, Baso # (Auto) 0.0, Sodium 135 L, Potassium 4.3, Chloride 107, Carbon Dioxide 24, Anion Gap 8.3, BUN 10, Creatinine 0.70, Estimated Creat Clear 134, Estimated GFR 104, Est GFR ( Amer) 125, Glucose 82, Calcium 9.1, Magnesium 1.8, Total Bilirubin 0.3, AST 20, ALT 12, Alkaline Phosphatase 44, Total Protein 6.7, Albumin 4.1, Globulin 2.6, Albumin/Globulin Ratio 1.6, Lipase 53, HCG, Quant [id number] H 11/21/24 16:07: Urine Color Yellow, Urine Appearance Clear, Urine pH 7.0, Ur Specific [place] 1.010, Urine Protein Negative, Urine Glucose (UA) Negative, Urine Ketones Negative, Urine Blood Negative, Urine Nitrate Negative, Urine Bilirubin Negative, Urine Urobilinogen 0.2, Ur Leukocyte Esterase Trace, Urine RBC None, Urine WBC 5-10, Ur Squamous Epith Cells 10-20, Urine Bacteria 2+ 11/21/24 16:15: Group A Strep Rapid Negative 11/21/24 15:53 11/21/24 15:53 Orders (Tests/Meds): ED MEDICATIONS Discontinued Medications Generic Name Dose Route Start Last Admin Trade Name Freq PRN Reason Stop Dose Admin Lactated Ringer's 1,000 mls @ 999 mls/hr 11/21/24 15:36 11/21/24 15:58 Lactated Ringer's 1000 Ml Bag IV 11/21/24 16:36 999 mls/hr .Q1H1M ONE Administration Promethazine HCl 12.5 mg 11/21/24 15:44 11/21/24 15:57 Promethazine Hcl 25mg/Ml 1ml Vial IV 11/21/24 15:45 12.5 mg ONCE ONE Administration Pyridoxine HCl 50 mg 11/21/24 15:38 11/21/24 16:06 Pyridoxine (Vitamin B6) 50mg Tablet PO 11/21/24 15:39 50 mg ONCE ONE Administration Sodium Chloride 25 ml 11/21/24 15:44 11/21/24 15:59 Sodium Chloride 0.9% 25ml Bag IV 11/21/24 15:45 25 ml ONCE ONE Administration ORDERS Category Date Time Status Complete Blood Count Auto Diff Stat Lab 11/21/24 15:53 Completed Comprehensive Metabolic Panel Stat Lab 11/21/24 15:53 Completed HCG,Quantitative Stat Lab 11/21/24 15:53 Completed Lipase Stat Lab 11/21/24 15:53 Completed Magnesium Stat Lab 11/21/24 15:53 Completed Rapid PCR Covid and Flu A/B Stat Lab 11/21/24 15:48 Completed Rapid Strep Scrn Group A [Strep Scrn Group A (Rapid)] Lab 11/21/24 16:15 Completed Stat Urinalysis and Microscopic Stat Lab 11/21/24 16:07 Completed Strep Screen Confirmation Stat Micro 11/21/24 16:15 Received Urine Culture Stat Micro 11/21/24 16:07 Received Medical Decision Narrative: 24-year-old female presents the emergency department with nausea vomiting, differential diagnose include but not limited to, hyperemesis gravidarum, psychogenic nausea vomiting, gastroenteritis, acute URI, among others. Discussed patient case with attending physician Dr. Layton Will obtain basic laboratory studies, hCG quant, lipase magnesium level PCR COVID and flu, rapid strep, urinalysis, will give vitamin B6 p.o. 50 mg, and 12 mg IV Phenergan. For hyperemesis gravidarum. Will also give 1 L LR IV. CBC is notable for leukocytosis 11.3., Otherwise unremarkable CBC Urinalysis is unremarkable, negative ketonuria, negative hematuria, negative nitrites, leukocyte esterase. Group A rapid strep negative CMP unremarkable COVID 19 is negative influenza A and B are negative Urine microscopic analysis is notable for trace leukocyte esterase, 5-10 WBCs, 10-20 squamous epithelial cells and 2+ bacteria. hCG quant is 104,999 Reexamination of the patient at approximately 5:45 PM, patient is feeling better as far as her nausea goes, still has headache, blood pressures remain stable, low concern for preeclampsia at this time, patient does have history of migraine headaches, states it feels similar to her normal migraine headaches, she has not been able to take her Nurtec that she is normally prescribed because of . Will give patient Phenergan p.o. as needed for nausea vomiting. Patient will follow-up with REGULATORY ASSISTANT, patient had documented IUP last week with REGULATORY ASSISTANT in [place], on ultrasound, hCG quant within normal limits, no vaginal bleeding, low concern for spontaneous at this time, this most likely corresponds with her normal hyperemesis gravidarum that she is being experiencing throughout this . I recommend good intake with p.o. fluids and p.o. solids, patient will return to emergency with any worsening signs or symptoms. Patient family voiced understand agree with current treatment plan/discharge plan. <Kaye Layton, DO - Last Filed: 11/21/24 16:11> Vital Signs: 11/21/24 15:20 11/21/24 15:30 11/21/24 16:12 Temperature 97.7 F Temperature Source Oral Pulse Rate 62 57 L Pulse Rate [Right] 78 Respiratory Rate 20 Blood Pressure 107/69 L 108/58 L Blood Pressure [Right Arm] 116/66 Blood Pressure Mean [Right Arm] 82 Blood Pressure Source [Right Arm] Automatic Cuff 02 Sat by Pulse Oximetry 98 100 100 Oxygen Delivery Method Room Air Room Air Room Air 11/21/24 16:30 Temperature Temperature Source Pulse Rate 51 L Pulse Rate [Right] Respiratory Rate Blood Pressure 106/56 L Blood Pressure [Right Arm] Blood Pressure Mean [Right Arm] Blood Pressure Source [Right Arm] 02 Sat by Pulse Oximetry 100 Oxygen Delivery Method Room Air Lab Data Lab Results 11/21/24 15:48: SARS-CoV-2 (PCR) Not detected, Influenza A Untype (PCR) Not detected, Influenza Type B (PCR) Not detected 11/21/24 15:53: WBC 11.3 H, RBC 4.19 L, Hgb 12.4, Hct 37.0, MCV 88.3, MCH 29.6, MCHC 33.5, RDW 14.3, Plt Count 200, MPV 10.6 H, Neut % (Auto) 73.7, Lymph % (Auto) 19.4, [place] % (Auto) 5.8, Eos % (Auto) 0.5, Baso % (Auto) 0.3, Neut # (Auto) 8.3 H, Lymph # (Auto) 2.2, [place] # (Auto) 0.7, Eos # (Auto) 0.1, Baso # (Auto) 0.0, Sodium 135 L, Potassium 4.3, Chloride 107, Carbon Dioxide 24, Anion Gap 8.3, BUN 10, Creatinine 0.70, Estimated Creat Clear 134, Estimated GFR 104, Est GFR ( Amer) 125, Glucose 82, Calcium 9.1, Magnesium 1.8, Total Bilirubin 0.3, AST 20, ALT 12, Alkaline Phosphatase 44, Total Protein 6.7, Albumin 4.1, Globulin 2.6, Albumin/Globulin Ratio 1.6, Lipase 53, HCG, Quant [id number] H 11/21/24 16:07: Urine Color Yellow, Urine Appearance Clear, Urine pH 7.0, Ur Specific [place] 1.010, Urine Protein Negative, Urine Glucose (UA) Negative, Urine Ketones Negative, Urine Blood Negative, Urine Nitrate Negative, Urine Bilirubin Negative, Urine Urobilinogen 0.2, Ur Leukocyte Esterase Trace, Urine RBC None, Urine WBC 5-10, Ur Squamous Epith Cells 10-20, Urine Bacteria 2+ 11/21/24 16:15: Group A Strep Rapid Negative Orders (Tests/Meds): ED MEDICATIONS Discontinued Medications Generic Name Dose Route Start Last Admin Trade Name Freq PRN Reason Stop Dose Admin Lactated Ringer's 1,000 mls @ 999 mls/hr 11/21/24 15:36 11/21/24 15:58 Lactated Ringer's 1000 Ml Bag IV 11/21/24 16:36 999 mls/hr .Q1H1M ONE Administration Promethazine HCl 12.5 mg 11/21/24 15:44 11/21/24 15:57 Promethazine Hcl 25mg/Ml 1ml Vial IV 11/21/24 15:45 12.5 mg ONCE ONE Administration Pyridoxine HCl 50 mg 11/21/24 15:38 11/21/24 16:06 Pyridoxine (Vitamin B6) 50mg Tablet PO 11/21/24 15:39 50 mg ONCE ONE Administration Sodium Chloride 25 ml 11/21/24 15:44 11/21/24 15:59 Sodium Chloride 0.9% 25ml Bag IV 11/21/24 15:45 25 ml ONCE ONE Administration ORDERS Category Date Time Status Complete Blood Count Auto Diff Stat Lab 11/21/24 15:53 Completed Comprehensive Metabolic Panel Stat Lab 11/21/24 15:53 Completed HCG,Quantitative Stat Lab 11/21/24 15:53 Completed Lipase Stat Lab 11/21/24 15:53 Completed Magnesium Stat Lab 11/21/24 15:53 Completed Rapid PCR Covid and Flu A/B Stat Lab 11/21/24 15:48 Completed Rapid Strep Scrn Group A [Strep Scrn Group A (Rapid)] Lab 11/21/24 16:15 Completed Stat Urinalysis and Microscopic Stat Lab 11/21/24 16:07 Completed Strep Screen Confirmation Stat Micro 11/21/24 16:15 Received Urine Culture Stat Micro 11/21/24 16:07 Received ECG Data Tracing #1: I reviewed this ECG and interpreted as documented below: Sinus bradycardia with ventricular rate of [address] changes concerning for ischemia. Normal intervals ECG initial impression date: 11/21/24 ECG initial impression time: 15:59 Critical Care <MICKEY Flores - Last Filed: 11/21/24 17:51> Critical Care Time Critical Care Time: No
[2024-11-21 15:50] LABS: Coronavirus 19, PCR Not Detected (NotDetected); Influenza A, PCR Not Detected (NotDetected); Influenza B, PCR Not Detected (NotDetected)
[2024-11-21] MEDS: PROMETHAZINE HCL 25MG/ML 1ML VIAL 12.5 MG IV (15:57)
[2024-11-21] MEDS: LACTATED RINGERS 1000ML 1,000 ML 999 ML IV (15:58)
--- NOTE | 2024-11-21 15:58 | ECG_ITS ---
APPROVED REPORT Exam: Resting ECG HR:58 bpm ECG Measurements Heart Rate 58 AXES OH 139 P 55 QRSd 82 QRS 79 QT 422 T 64 QTc 420 Conclusion SINUS BRADYCARDIA No STEMI Electronically signed by : MYAH LINDA, 11/21/2024 23:26:48
[2024-11-21] MEDS: SODIUM CHLORIDE 0.9% 25ML BAG 25 ML IV (15:59)
[2024-11-21] MEDS: PYRIDOXINE (VITAMIN B6) 50MG TABLET 50 MG PO (16:06)
[2024-11-21 16:07] LABS: Basophils % 0.3 % (0.1-2.0); Eosinophils # 0.1 Kmm3 (0.0-0.4); Eosinophils % 0.5 % (0.1-12.0); Hemoglobin 12.4 g/dL (12.2-16.2); Immature Granulocytes # 0.03 10^3uL; Immature Granulocytes % 0.3 %; Lymphocytes # 2.2 K/mm3 (0.7-4.5); Lymphocytes % 19.4 % (10-50); Mean Corpuscular HGB Conc 33.5 g/dL (31.8-35.4); Mean Corpuscular Hemoglobin 29.6 pg (27.0-31.2); Mean Corpuscular Volume 88.3 fl (81-99); Mean Platelet Volume 10.6 fl (7.4-10.4); Monocytes # 0.7 K/mm3 (0.1-1.0); Monocytes % 5.8 % (1.7-9.3); Neutrophils # 8.3 K/mm3 (1.8-7.8); Neutrophils % 73.7 % (37.0-80.0); Nucleated Red Blood Cells # 0 10^3/uL; Nucleated Red Blood Cells % 0 %; Platelet Count 200 K/mm3 (142-424); Red Blood Count 4.19 M/mm3 (4.20-5.40); Red Cell Distribution Width 14.3 % (11.5-17.5); Red Cell Distribution Width-SD 46.2 fL; White Blood Count 11.3 K/mm3 (4.8-10.8)
[2024-11-21 16:14] LABS: Microscopic, Urine URINE MICROSCOPIC (MICROSCOPIC)
[2024-11-21 16:22] LABS: Appearance,Urine CLEAR (Clear); Bilirubin,Urine Negative (Negative); Blood, Urine Negative (Negative); Color,Urine YELLOW (Yellow); Glucose,Urine (UA) Negative (Negative); Ketones,Urine Negative (Negative); Leukocyte Esterase,Urine TRACE (Negative); Nitrate,Urine Negative (Negative); Protein,Urine Negative (Negative); Urobilinogen,Urine 0.2 EU/dl (0.2)
[2024-11-21 16:28] LABS: Albumin Level 4.1 g/dl (3.5-5.0); Chloride 107 mmol/L (98-107); Potassium 4.3 mmoL/L (3.5-5.1); Sodium 135 mmol/L (136-145)
[2024-11-21 16:30] LABS: Blood Urea Nitrogen 10 mg/dl (7-17); Creatinine Clearance Estimated 134 mL/min (50-200); Estimated Glomerular Filt Rate 104 ml/min (>60); GFR (African American) 125 ML/MIN (>60)
[2024-11-21 16:31] LABS: Alanine Aminotransferase 12 U/L (12-78); Albumin/Globulin Ratio 1.6 (1.1-1.8); Alkaline Phosphatase 44 U/L (38-126); Anion Gap 8.3 mEq/L (5-15); Aspartate Amino Transferase 20 U/L (14-36); Bilirubin,Total 0.3 mg/dl (0.2-1.3); Calcium 9.1 mg/dl (8.4-10.2); Carbon Dioxide 24 mmol/L (22.0-30.0); Globulin 2.6 g/dL (1.3-3.2); Glucose 82 mg/dl (74-100); Lipase 53 U/L (23-300); Magnesium 1.8 mg/dl (1.6-2.3); Total Protein,Serum 6.7 g/dl (6.3-8.2)
[2024-11-21 16:37] LABS: Strep Scrn Group A (Rapid) Negative (Negative)
[2024-11-21 17:24] LABS: Bacteria,Urine 2+ /lpf
[2024-11-21 17:31] LABS: HCG,Quantitative 104990 mIU/ml (0-5.42)
== END 2024-11-21 18:25 | disposition home or self-care (01) ==
PROVIDERS: Physician Assistant; Emergency Provider Emergency Medicine; PCP Family Medicine
DX: O21.0 Mild hyperemesis gravidarum (principal); O99.331 Smoking (tobacco) complicating pregnancy, first trimester; F17.210 Nicotine dependence, cigarettes, uncomplicated; Z3A.09 9 weeks gestation of pregnancy
CPT/HCPCS: 80053; 81001; 83690; 83735; 84702; 85025; 87086; 87430; 87636; 93005; 96361; 96374; 99284; J2550; J7120

== ENCOUNTER 2024-12-19 02:02 | Emergency (ER) | payer OTHER, SELFPAY ==
--- NOTE | 2024-12-19 02:07 | ED_ITS ---
Discharge Plan Disposition Patient Disposition: Home, Self-Care Prescriptions Prescriptions: No Action escitalopram oxalate [Lexapro] 20 mg tablet 20 mg PO DAILY aripiprazole [Abilify] 5 mg tablet 5 mg PO DAILY propranolol 10 mg tablet 10 mg PO BID Qty: 60 0RF promethazine 12.5 mg tablet 12.5 mg PO TID PRN (Reason: allergy symptoms) Qty: 20 0RF Rx Instructions: 3 doses during day; last dose no later than 4 hr before bedtime Referrals Follow up/Referrals: Malka Espinal APRN [Primary Care Provider, Family Practice] - See instructions Activity Restrictions/Add. Instructions Additional Instructions/Restrictions: Please follow-up with your ROUNDING AND BACKING MACHINE OPERATOR. Please return to the emergency department if you develop any new or worsening symptoms or become concerned for your health. Clinical Impressions Clinical Impression: Vaginal bleeding during Print Language Print Language: Mongolian Discharge ED Provider: Howard Sahu General Adult HPI General Chief complaint: Vaginal Bleeding Stated complaint: 13 wks ante, migraine, vomiting, cramps, bleeding Time Seen by Provider: 12/19/24 02:07 History of Present Illness HPI narrative: 24-year-old female with history of 3 live children, 3 miscarriages, currently 13 weeks presents for multiple complaints. She reports she has had a headache and some abdominal cramping and constipation of the last couple of days. She presents to the ER because she has been having some vaginal bleeding today. Reports relatively small volume. She has not required a tampon or pad. She has a history of preeclampsia, presents abruption and subchorionic hemor rhage. He denies any urinary symptoms, fever chills neurologic symptoms etc. Related Data Home Medications ?Medication ?Instructions ?Recorded ?Confirmed aripiprazole 5 mg tablet (Abilify) 5 mg PO DAILY 11/0911/27/24 escitalopram oxalate 20 mg tablet 20 mg PO DAILY 11/0911/27/24 (Lexapro) Previous Rx's ?Medication ?Instructions ?Recorded propranolol 10 mg tablet 10 mg PO BID #60 tabs promethazine 12.5 mg tablet 12.5 mg PO TID PRN allergy 11/21/24 symptoms #20 tabs Allergies Allergy/AdvReac Type Severity Reaction Status Date / Time tramadol Allergy Mild Unknown Verified 11/27/24 07:45 allergy reaction buspirone Allergy Unknown Verified 11/27/24 07:45 allergy reaction ondansetron (From Zofran) AdvReac Vomiting Verified 11/27/24 07:45 [facility] Disclaimer: The information contained in this section may have been updated after the patient was seen, as this information can be updated by other users. Medical History Hypokalemia Pelvic pain affecting Vaginitis Contusion of hand, right UTI (urinary tract infection) Pharyngitis Acute viral syndrome Strep pharyngitis Infected dental caries Hand sprain Cellulitis delivery delivered Borderline personality disorder Depression Anxiety Substance abuse Surgical History History of Family History Other COPD (chronic obstructive pulmonary disease) Coronary artery disease Diabetes FHx: mental illness Migraines Social History Smoking Status: Current every day smoker tobacco type: cigarettes alcohol intake: former substance use type: denies use current occupational status: employed Travel in the last 8 weeks?: None marital status: single number of children: 3 Are you experiencing any unusual bleeding?: Yes Do you have any abdominal pain?: Yes Other Medical History Have you received the Pneumonia Vaccine: No ROS Obtained: Yes All systems reviewed & no additional complaints except as documented Physical Exam General General appearance: alert and in no apparent distress Head Head exam: atraumatic and normocephalic Eye Eye exam: Present normal appearance, PERRL and EOMI ENT ENT exam: Present normal oropharynx and normal external ear exam Neck Neck exam: Present normal inspection and full ROM Chest Chest inspection: Present normal inspection and symmetric chest wall rise; Absent tenderness Respiratory Respiratory exam: Present normal lung sounds bilaterally; Absent respiratory distress Cardiovascular Cardiovascular exam: Present regular rate and normal rhythm Abdominal Exam Abdominal exam: Present soft and distention (Gravid uterus); Absent tenderness or guarding Extremities Exam Extremities exam: Present normal inspection; Absent edema or joint swelling Back Exam Back exam: Present normal inspection; Absent tenderness Neurological Exam Neurological exam: Present alert and oriented X3; Absent motor sensory deficit Psychiatric Psychiatric exam: Present normal affect and normal mood Skin Skin exam: Present warm, dry and normal color Lymphatic Lymphatic Findings: no adenopathy Medical Decision Making Medical Records Medical records reviewed: Yes I reviewed the patient's medical records. Screening: Per USPSTF and CDC recommendations, given the prevalence of disease in our region, it is our hospital?s policy to screen for HIV and viral Hepatitis for all patients aged 18 and over and those with ongoing risk factors. Shawn Inquiry Pt receiving controlled substance: No Shawn was queried for this patient: No Vital Signs: 12/19/24 03:03 Temperature 98.1 F Temperature Source Oral Pulse Rate [Right] 76 Respiratory Rate 18 Blood Pressure [Right Arm] 101/60 L Blood Pressure Mean [Right Arm] 73 02 Sat by Pulse Oximetry 99 Lab Data Lab results reviewed: Yes I reviewed the patient's lab results. Orders (Tests/Meds): ED MEDICATIONS Discontinued Medications Generic Name Dose Route Start Last Admin Trade Name Freq PRN Reason Stop Dose Admin Acetaminophen 1,000 mg 12/19/24 03:04 12/19/24 03:20 Acetaminophen 500mg Tab PO 12/19/24 03:05 1,000 mg ONCE ONE Administration Diphenhydramine HCl 25 mg 12/19/24 03:04 12/19/24 03:20 Diphenhydramine 25mg Capsule PO 12/19/24 03:05 25 mg ONCE ONE Administration Metoclopramide HCl 10 mg 12/19/24 03:04 12/19/24 03:20 Metoclopramide 10mg Tablet PO 12/19/24 03:05 10 mg ONCE ONE Administration Medical Decision Narrative: 24-year-old female, G7, P3 at 13 weeks with history of abruption and subchorionic hemorrhage presents for multiple complaints including a couple of days of abdominal cramping, constipation, headache and vaginal spotting.. History was obtained via interactive discussion with patient. On arrival, patient is [afebrile, hemodynamically stable, satting appropriately, alert, oriented x4, GCS 15], moving all extremities spontaneously. Full physical exam performed and significant for no abdominal tenderness. Differential includes but is not limited to tension headache, migraine headache, constipation, subchorionic hemorrhage, abruption, miscarriage. Patient was given Tylenol, Benadryl, meclizine for headache. Bedside ultrasound was performed by me, patient has a live alvarado intrauterine with a heart rate of 161. There is a suggestion of a small fluid collection at the inferior aspect of the uterus which may represent small subchronic hemorrhage. With regards to her constipation, she reports that she was able to have a bowel movement today. Recommend she take MiraLAX and use enemas as needed in addition to the other medications she is using at home. I recommend that she follow-up with her ROUNDING AND BACKING MACHINE OPERATOR shortly for reassessment. Procedures Risk/Benefits of Procedure(s) Were Explained: Yes Limited Ultrasound Indication:: Limited OB ultrasound Indication: Vaginal bleeding in Identified structures: Uterus Findings: Uterus: Definitive IUP FHR: 160 Cul de sac: Absent Impression: Alvarado intrauterine with heart rate of 160. There is a small sliver of hypoechoic fluid in the inferior aspect of the uterus which may represent subchorionic hemorrhage. Images were saved to permanent archive The study was technically adequate CPT Transabdominal: 17660-06 This study was performed by me, and I personally interpreted all images/videos. Critical Care Critical Care Time Critical Care Time: No
[2024-12-19 03:03] VITALS: BP 101/60; PULSE 76; RESP 18; TEMP 36.7; O2SAT 99; BMI 26.9
[2024-12-19] MEDS: ACETAMINOPHEN 500MG TAB 1000 MG PO (03:20)
[2024-12-19] MEDS: METOCLOPRAMIDE 10MG TABLET 10 MG PO (03:20)
[2024-12-19] MEDS: diphenhydrAMINE 25MG CAPSULE 25 MG PO (03:20)
[2024-12-19 03:27] VITALS: BP 111/60; PULSE 61; RESP 16; TEMP 36.6; O2SAT 98
== END 2024-12-19 03:29 | disposition home or self-care (01) ==
PROVIDERS: Emergency Provider Emergency Medicine; PCP Family Medicine
DX: O26.851 Spotting complicating pregnancy, first trimester (principal); R51.9 Headache, unspecified; O99.331 Smoking (tobacco) complicating pregnancy, first trimester; Z3A.13 13 weeks gestation of pregnancy; Z87.59 Personal history of other complications of pregnancy, childbirth and the puerperium; F17.210 Nicotine dependence, cigarettes, uncomplicated
CPT/HCPCS: 99284

== ENCOUNTER 2024-12-27 11:49 | Emergency (ER) | payer OTHER, SELFPAY ==
[2024-12-27] VITALS (8 sets, daily range): BP systolic 100–115; BP diastolic 62–71; PULSE 58–68; RESP 15–20; TEMP 36.2–37; O2SAT 98–100; BMI 27.6
--- NOTE | 2024-12-27 11:51 | ECG_ITS ---
APPROVED REPORT Exam: Resting ECG HR:69 bpm ECG Measurements Heart Rate 69 AXES MT 147 P 58 QRSd 88 QRS 83 QT 382 T 59 QTc 401 Conclusion SINUS RHYTHM POSSIBLE RIGHT VENTRICULAR CONDUCTION DELAY [RSR (QR) IN V1/V2] NONSPECIFIC T-WAVE ABNORMALITY BORDERLINE ECG UNCONFIRMED REPORT Electronically signed by : Malcom Cooper, 12/27/2024 15:38:47
--- NOTE | 2024-12-27 12:05 | [facility].EDGENADL ---
Discharge Plan Disposition Chief Complaint: Seizure Prescriptions Prescriptions: No Action escitalopram oxalate [Lexapro] 20 mg tablet 20 mg PO DAILY aripiprazole [Abilify] 5 mg tablet 5 mg PO DAILY propranolol 10 mg tablet 10 mg PO BID Qty: 60 0RF promethazine 12.5 mg tablet 12.5 mg PO TID PRN (Reason: allergy symptoms) Qty: 20 0RF Rx Instructions: 3 doses during day; last dose no later than 4 hr before bedtime Clinical Impressions Clinical Impression: Psychogenic nonepileptic seizure, Migraine, Intrauterine Instructions Patient Instructions: DI for Seizure Disorder -- Adult, DI for Seizure (Not Epilepsy/Seizure Disorder), DI for Seizure Disorder -- Child Print Language Print Language: Belarusian Discharge ED Provider: Leigh Cooper General Adult HPI General Chief complaint: Seizure Stated complaint: Seizure Time Seen by Provider: 12/27/24 11:54 Mode of Arrival: EMS Source of Information: Patient and EMS Description of Symptoms (Recalled from ER Triage Doc. by RN): PT presents tot he ED for evaluation of seizures. PT had 3 seizures prior to EMS arrival PT unaware the duration, BF witnessed. post EMS arrival PT had 1 seizure, EMS stated lasted about 15-20 seconds. PT stated they are migraine induced. PT took Nurtec prior to seizures, 45 minutes ago. EMS gave Versed in route. EMS placed 22 in L hand. PT has a hickey on left shoulder. PT is 14 weeks , has had 3 miscarriages and 3 full term births. NO visible bites or lacerations to tongue. History of Present Illness HPI narrative: Patient is a 24-year-old female with a known history of psychogenic nonepileptic seizures having been extensively evaluated and worked up by neurology in the past states that she has episodes when she has migraines or stress presents today with some of those episodes. She is not on any antiepileptic medications. Migraine is mild and similar to headaches she has had for many years in the past. Denies any neurologic complaints at the moment. Of note she is 13 weeks has not had any abdominal pain loss of fluid bleeding etc. Related Data Home Medications ?Medication ?Instructions ?Recorded ?Confirmed aripiprazole 5 mg tablet (Abilify) 5 mg PO DAILY 11/09/24 11/27/24 escitalopram oxalate 20 mg tablet 20 mg PO DAILY 11/09/24 11/27/24 (Lexapro) Previous Rx's ?Medication ?Instructions ?Recorded propranolol 10 mg tablet 10 mg PO BID #60 tabs 11/09/24 promethazine 12.5 mg tablet 12.5 mg PO TID PRN allergy 11/21/24 symptoms #20 tabs Allergies Allergy/AdvReac Type Severity Reaction Status Date / Time tramadol Allergy Mild Unknown Verified 11/27/24 07:45 allergy reaction buspirone Allergy Unknown Verified 11/27/24 07:45 allergy reaction ondansetron (From Zofran) AdvReac Vomiting Verified 11/27/24 07:45 [facility] Disclaimer: The information contained in this section may have been updated after the patient was seen, as this information can be updated by other users. Medical History Hypokalemia Pelvic pain affecting Vaginitis Contusion of hand, right UTI (urinary tract infection) Pharyngitis Acute viral syndrome Strep pharyngitis Infected dental caries Hand sprain Cellulitis delivery delivered Borderline personality disorder Depression Anxiety Substance abuse Surgical History History of Family History Other COPD (chronic obstructive pulmonary disease) Coronary artery disease Diabetes FHx: mental illness Migraines Social History Smoking Status: Current every day smoker tobacco type: cigarettes alcohol intake: former substance use type: denies use current occupational status: employed Travel in the last 8 weeks?: None marital status: single number of children: 3 Have you lived/traveled outside [place] in past 30 days?: No Contact w/someone who lives/traveled outside US past 30 days?: No Exposure to someone with infectious disease in past 14 days?: No Do you have a fever (greater than 100.4 F or 38 C)?: No Have you tested positive for COVID-19?: No Exposed to someone with COVID-19 in past 14 days?: No Do you have a sore throat?: No Do you have a cough?: No Do you have any weakness?: No Do you have any diarrhea?: No Are you experiencing any unusual bleeding?: No Do you have any muscle aches/pain?: No Do you have any abdominal pain?: No Are you experiencing loss of taste or smell?: No Other Medical History Have you received the Pneumonia Vaccine: No ROS Obtained: Yes All systems reviewed & no additional complaints except as documented Physical Exam General General appearance: alert and in no apparent distress Respiratory Respiratory exam: Present normal lung sounds bilaterally Cardiovascular Cardiovascular exam: Present regular rate Abdominal Exam Abdominal exam: Present soft; Absent distention or tenderness Neurological Exam Neurological exam: Present alert, oriented X3, CN II-XII intact and normal gait; Absent motor sensory deficit Medical Decision Making Medical Records Screening: Per USPSTF and CDC recommendations, given the prevalence of disease in our region, it is our hospital?s policy to screen for HIV and viral Hepatitis for all patients aged 18 and over and those with ongoing risk factors. Shawn Inquiry Pt receiving controlled substance: No Vital Signs: 12/27/24 11:55 12/27/24 12:00 12/27/24 12:30 Temperature 97.1 F L Temperature Source Tympanic Pulse Rate 60 58 L Pulse Rate [Right] 68 Respiratory Rate 18 20 15 Blood Pressure 115/71 103/62 L Blood Pressure [Right Arm] 115/71 Blood Pressure Mean 79 69 Blood Pressure Mean [Right Arm] 85 02 Sat by Pulse Oximetry 100 100 100 Oxygen Delivery Method Room Air 12/27/24 13:00 Temperature Temperature Source Pulse Rate 58 L Pulse Rate [Right] Respiratory Rate 15 Blood Pressure 102/71 L Blood Pressure [Right Arm] Blood Pressure Mean 77 Blood Pressure Mean [Right Arm] 02 Sat by Pulse Oximetry 100 Oxygen Delivery Method Lab Data Lab results reviewed: Yes I reviewed the patient's lab results. Lab Results 12/27/24 11:59: WBC 9.0, RBC 4.10 L, Hgb 12.0 L, Hct 36.9 L, MCV 90.0, MCH 29.3, MCHC 32.5, RDW 13.2, Plt Count 209, MPV 10.6 H, Neut % (Auto) 66.5, Lymph % (Auto) 24.2, Mckinley % (Auto) 8.0, Eos % (Auto) 0.8, Baso % (Auto) 0.3, Neut # (Auto) 6.0, Lymph # (Auto) 2.2, Mckinley # (Auto) 0.7, Eos # (Auto) 0.1, Baso # (Auto) 0.0, Sodium 137, Potassium 3.8, Chloride 108 H, Carbon Dioxide 25, Anion Gap 7.8, BUN 7, Creatinine 0.70, Estimated Creat Clear 144, Estimated GFR 104, Est GFR ( Amer) 125, Glucose 85, Calcium 9.0, Total Bilirubin 0.3, AST 18, ALT 10 L, Alkaline Phosphatase 50, Total Protein 6.8, Albumin 3.9, Globulin 2.9, Albumin/Globulin Ratio 1.3 12/27/24 13:04: Urine Color Yellow, Urine Appearance Clear, Urine pH 6.5, Ur Specific [place] <= 1.005, Urine Protein Negative, Urine Glucose (UA) Negative, Urine Ketones Negative, Urine Blood Negative, Urine Nitrate Negative, Urine Bilirubin Negative, Urine Urobilinogen 0.2, Ur Leukocyte Esterase Negative, Urine RBC None, Urine WBC None, Ur Squamous Epith Cells None, Urine Bacteria None 12/27/24 13:10: Urine Opiates Screen Negative, Urine Methadone Screen Negative, Ur Barbituates Screen Negative, Ur Phencyclidine Scrn Negative, Ur Amphetamines Screen Negative, U Benzodiazepines Scrn Negative, Urine Cocaine Screen Negative, U Marijuana (THC) Screen Negative 12/27/24 11:59 12/27/24 11:59 Orders (Tests/Meds): ED MEDICATIONS Discontinued Medications Generic Name Dose Route Start Last Admin Trade Name Kathy PRN Reason Stop Dose Admin Acetaminophen 1,000 mg 12/27/24 12:04 12/27/24 12:28 Acetaminophen 1,000mg/100ml Vial IV 12/27/24 12:05 1,000 mg ONCE ONE Administration Diphenhydramine HCl 25 mg 12/27/24 12:04 12/27/24 12:28 Diphenhydramine 50mg/Ml Vial IV 12/27/24 12:05 25 mg ONCE ONE Administration Lactated Ringer's 1,000 mls @ 999 mls/hr 12/27/24 12:15 12/27/24 12:27 Lactated Ringer's 1000 Ml Bag IV 12/27/24 13:15 999 mls/hr .[id number] SEVERINO Administration ORDERS Category Date Time Status POCUS Point of Care (ER Only) Stat Exams 12/27/24 11:54 Completed CBC w/Auto Diff [Complete Blood Count Auto Diff] Stat Lab 12/27/24 11:59 Completed CMP [Comprehensive Metabolic Panel] Stat Lab 12/27/24 11:59 Completed UA [Urinalysis and Microscopic] Stat Lab 12/27/24 13:04 Completed UDS [Drug Screen,Urine] Stat Lab 12/27/24 13:10 Completed Medical Decision Narrative: 24-year-old with above history and physical. Bedside ultrasound confirmed single living IUP consistent with dates no concerns there. Neurologic exam is normal. She has a known history of psychogenic nonepileptic seizures and today's episodes are no different they have been in the past. Neurologically everything appears normal. While seizures in the setting of could be other related conditions with her history will not get any imaging of her brain to rule out venous sinus thrombosis any type of vascular pathology, preE,E etc. Will give her IV Tylenol and Benadryl and IV fluids check basic blood work and reassess. Reassessment 2:12 PM patient very stable feeling much better stable for outpatient management with her primary care doctor and neurologist as well as Critical Care Critical Care Time Critical Care Time: No
[2024-12-27 12:12] LABS: Basophils % 0.3 % (0.1-2.0); Eosinophils # 0.1 Kmm3 (0.0-0.4); Eosinophils % 0.8 % (0.1-12.0); Hematocrit 36.9 % (37.0-47.0); Immature Granulocytes # 0.02 10^3uL; Immature Granulocytes % 0.2 %; Lymphocytes # 2.2 K/mm3 (0.7-4.5); Lymphocytes % 24.2 % (10-50); Mean Corpuscular HGB Conc 32.5 g/dL (31.8-35.4); Mean Corpuscular Hemoglobin 29.3 pg (27.0-31.2); Mean Platelet Volume 10.6 fl (7.4-10.4); Monocytes # 0.7 K/mm3 (0.1-1.0); Neutrophils % 66.5 % (37.0-80.0); Nucleated Red Blood Cells # 0 10^3/uL; Nucleated Red Blood Cells % 0 %; Platelet Count 209 K/mm3 (142-424); Red Cell Distribution Width 13.2 % (11.5-17.5); Red Cell Distribution Width-SD 43.8 fL
[2024-12-27 12:14] LABS: Albumin Level 3.9 g/dl (3.5-5.0); Chloride 108 mmol/L (98-107); Sodium 137 mmol/L (136-145)
[2024-12-27 12:15] LABS: Potassium 3.8 mmoL/L (3.5-5.1)
[2024-12-27 12:17] LABS: Alanine Aminotransferase 10 U/L (12-78); Albumin/Globulin Ratio 1.3 (1.1-1.8); Alkaline Phosphatase 50 U/L (38-126); Anion Gap 7.8 mEq/L (5-15); Aspartate Amino Transferase 18 U/L (14-36); Bilirubin,Total 0.3 mg/dl (0.2-1.3); Blood Urea Nitrogen 7 mg/dl (7-17); Carbon Dioxide 25 mmol/L (22.0-30.0); Creatinine Clearance Estimated 144 mL/min (50-200); Estimated Glomerular Filt Rate 104 ml/min (>60); GFR (African American) 125 ML/MIN (>60); Globulin 2.9 g/dL (1.3-3.2); Total Protein,Serum 6.8 g/dl (6.3-8.2)
[2024-12-27 12:18] LABS: Glucose 85 mg/dl (74-100)
[2024-12-27] MEDS: LACTATED RINGERS 1000ML 1,000 ML 999 ML IV (12:27)
[2024-12-27] MEDS: diphenhydrAMINE 50MG/ML VIAL 25 MG IV (12:28)
[2024-12-27] MEDS: ACETAMINOPHEN 1,000MG/100ML VIAL 1000 MG IV (12:28)
[2024-12-27 13:14] LABS: Microscopic, Urine URINE MICROSCOPIC (MICROSCOPIC)
[2024-12-27 13:20] LABS: Appearance,Urine CLEAR (Clear); Bilirubin,Urine Negative (Negative); Blood, Urine Negative (Negative); Color,Urine YELLOW (Yellow); Glucose,Urine (UA) Negative (Negative); Ketones,Urine Negative (Negative); Leukocyte Esterase,Urine Negative (Negative); Nitrate,Urine Negative (Negative); PH,Urine 6.5 (5.0-8.5); Protein,Urine Negative (Negative); Specific Gravity, Urine <= 1.005 (1.005-1.030); Urobilinogen,Urine 0.2 EU/dl (0.2)
[2024-12-27 13:33] LABS: Amphetamine/Metha Screen,Urine Negative ng/ml (<1000)
[2024-12-27 13:34] LABS: Barbiturates Screen,Urine Negative ng/ml (<200); Benzodiazepines Screen,Urine Negative ng/ml (<200)
[2024-12-27 13:35] LABS: Cannabinoid Screen,Urine Negative ng/ml (<50)
[2024-12-27 13:36] LABS: Cocaine Screen,Urine Negative ng/ml (<300); Methadone Screen,Urine Negative ng/ml (<300)
[2024-12-27 13:37] LABS: Opiate Screen,Urine Negative ng/ml (<300); Phencyclidine Screen,Urine Negative ng/ml (<25)
--- NOTE | 2024-12-27 14:14 | PC.NURSE ---
Provider at bedside.
== END 2024-12-27 14:33 | disposition home or self-care (01) ==
PROVIDERS: Emergency Provider Student in an Organized Health Care Education/Training Program
DX: O99.351 Diseases of the nervous system complicating pregnancy, first trimester (principal); R56.9 Unspecified convulsions; G43.909 Migraine, unspecified, not intractable, without status migrainosus; Z3A.13 13 weeks gestation of pregnancy
CPT/HCPCS: 80053; 80307; 81001; 85025; 93005; 96361; 96374; 96375; 99284; J0131; J1200; J7120

== ENCOUNTER 2025-01-11 08:27 | Outpatient (CLI) | payer OTHER, SELFPAY ==
[2025-01-11] VITALS (7 sets, daily range): BP systolic 103–109; BP diastolic 58–69; PULSE 65–87; RESP 14–20; TEMP 36.6–36.7; O2SAT 98–100; BMI 26.9
[2025-01-11 08:37] LABS: Microscopic, Urine URINE MICROSCOPIC (MICROSCOPIC)
[2025-01-11 08:41] LABS: Bilirubin,Urine Negative (Negative); Color,Urine YELLOW (Yellow); Glucose,Urine (UA) Negative (Negative); Ketones,Urine Negative (Negative); Leukocyte Esterase,Urine Negative (Negative); PH,Urine 7.0 (5.0-8.5); Protein,Urine Negative (Negative); Specific Gravity, Urine 1.020 (1.005-1.030); Urobilinogen,Urine 0.2 EU/dl (0.2)
[2025-01-11 08:50] LABS: Bacteria,Urine Trace /lpf; Squamous Epithelial Cell,Urine Occasional #/hpf (0-5); WBC,Urine Occasional #/hpf (0-3)
--- NOTE | 2025-01-11 09:03 | PC.NURSE ---
heart tone per doppler is 147. Dr Flores at bedside for POCUS
--- NOTE | 2025-01-11 09:06 | HMH.EDGENADL ---
Discharge Plan Disposition Patient Disposition: Admitted Prescriptions Prescriptions: No Action escitalopram oxalate [Lexapro] 20 mg tablet 20 mg PO DAILY aripiprazole [Abilify] 5 mg tablet 5 mg PO DAILY propranolol 10 mg tablet 10 mg PO BID Qty: 60 0RF promethazine 12.5 mg tablet 12.5 mg PO TID PRN (Reason: allergy symptoms) Qty: 20 0RF Rx Instructions: 3 doses during day; last dose no later than 4 hr before bedtime Referrals Follow up/Referrals: Malka Espinal APRN [Primary Care Provider, Family Practice] - See instructions Clinical Impressions Clinical Impression: Trauma during , Abdominal pain Print Language Print Language: [place] Islander Discharge ED Provider: Bruno Flores General Adult HPI General Stated complaint: AO 01/11/25 0700, fell, hit stomach, dizzy,16 wks pr Time Seen by Provider: 01/11/25 08:50 History of Present Illness HPI narrative: Patient is a 24-year-old female G7, P3 EGA 16 weeks who presents emergency department for evaluation of lower abdominal trauma. Patient fell forward inadvertently into a metal cart situated against a wall causing lower abdominal pain with some passage of clots, no passage of tissue. She is concerned and presents here for continued evaluation no other trauma. Please note that above description of symptoms, in this electronic medical record under categorization of recalled from ER triage doctor by RN are reflective of an initial nursing assessment, however, is not reflective of my full history and physical exam that was personally taken and clarified. Consequentially, this preceding description of symptoms, which may include the patient's categorized chief complaint in the EMR, do not reflect my personal clinical impression, and the ultimate description of history of present illness and patient stated complaints should be deferred to this section of the note. Unless stated otherwise or congruent with this section of the note, additional signs, symptoms, or incongruence should be interpreted as inaccurate with my clinical impression. Related Data Home Medications ?Medication ?Instructions ?Recorded ?Confirmed aripiprazole 5 mg tablet (Abilify) 5 mg PO DAILY 11/09/24 11/27/24 escitalopram oxalate 20 mg tablet 20 mg PO DAILY 11/09/24 11/27/24 (Lexapro) aspirin 81 mg chewable tablet 81 mg PO DAILY 01/11/25 01/11/25 Previous Rx's ?Medication ?Instructions ?Recorded promethazine 12.5 mg tablet 12.5 mg PO TID PRN allergy 11/21/24 symptoms #20 tabs propranolol 10 mg tablet 10 mg PO BID #60 tabs 12/28/24 Allergies Allergy/AdvReac Type Severity Reaction Status Date / Time tramadol Allergy Mild Unknown Verified 01/11/25 09:08 allergy reaction buspirone Allergy Unknown Verified 01/11/25 09:08 allergy reaction ondansetron (From Zofran) AdvReac Vomiting Verified 01/11/25 09:08 [facility] Disclaimer: The information contained in this section may have been updated after the patient was seen, as this information can be updated by other users. Medical History Hypokalemia Pelvic pain affecting Vaginitis Contusion of hand, right UTI (urinary tract infection) Pharyngitis Acute viral syndrome Strep pharyngitis Infected dental caries Hand sprain Cellulitis delivery delivered Borderline personality disorder Depression Anxiety Substance abuse Surgical History History of Family History Other COPD (chronic obstructive pulmonary disease) Coronary artery disease Diabetes FHx: mental illness Migraines Social History Smoking Status: Current every day smoker tobacco type: cigarettes alcohol intake: former substance use type: denies use current occupational status: employed Travel in the last 8 weeks?: None marital status: single number of children: 3 Have you lived/traveled outside US in past 30 days?: No Contact w/someone who lives/traveled outside US past 30 days?: No Exposure to someone with infectious disease in past 14 days?: No Do you have a fever (greater than 100.4 F or 38 C)?: No Have you tested positive for COVID-19?: No Exposed to someone with COVID-19 in past 14 days?: No Do you have a sore throat?: No Do you have a cough?: No Do you have any weakness?: No Do you have any diarrhea?: No Are you experiencing any unusual bleeding?: No Do you have any muscle aches/pain?: No Do you have any abdominal pain?: No Are you experiencing loss of taste or smell?: No Other Medical History Have you received the Pneumonia Vaccine: No ROS Obtained: Yes Systems reviewed as appropriate & no additional complaints except as documented Physical Exam General General appearance: alert and anxious Head Head exam: atraumatic and normocephalic Eye Eye exam: Present PERRL and EOMI ENT ENT exam: Present mucous membranes moist Neck Neck exam: Present normal inspection Chest Chest inspection: Present normal inspection and symmetric chest wall rise Respiratory Respiratory exam: Present normal lung sounds bilaterally; Absent respiratory distress Cardiovascular Cardiovascular exam: Present regular rate and normal rhythm Abdominal Exam Abdominal exam: Present soft and tenderness (Suprapubic) Extremities Exam Extremities exam: Present normal inspection Neurological Exam Neurological exam: Present alert Psychiatric Psychiatric exam: Present normal affect Skin Skin exam: Present warm and dry Medical Decision Making Medical Records Screening: Per USPSTF and CDC recommendations, given the prevalence of disease in our region, it is our hospital?s policy to screen for HIV and viral Hepatitis for all patients aged 18 and over and those with ongoing risk factors. Shawn Inquiry Pt receiving controlled substance: No Lab Data Lab Results 01/11/25 08:33: Urine Color Yellow, Urine Appearance Clear, Urine pH 7.0, Ur Specific [place] 1.020, Urine Protein Negative, Urine Glucose (UA) Negative, Urine Ketones Negative, Urine Blood Negative, Urine Nitrate Negative, Urine Bilirubin Negative, Urine Urobilinogen 0.2, Ur Leukocyte Esterase Negative, Urine RBC None, Urine WBC Occasional, Ur Squamous Epith Cells Occasional, Urine Bacteria Trace Orders (Tests/Meds): ORDERS Category Date Time Status POCUS Point of Care (ER Only) Stat Exams 01/11/25 08:55 Ordered UA [Urinalysis and Microscopic] Stat Lab 01/11/25 08:33 Completed Medical Decision Narrative: In summary patient is a 24-year-old female past medical history described above who presents emergency department for evaluation of lower abdominal trauma in the setting of . Patient is hemodynamically stable nontoxic-appearing arrival, afebrile. She is tender in her suprapubic region at the site of trauma. [id number] ultrasound shows no free fluid in the right upper quadrant, viable intrauterine with positive movement and heart rate at bedside conducted by nursing 147 bpm. The placenta is low-lying. This gestational age is not viable at this time. A+ blood type RhoGAM is not indicated. I do not think the mechanism and clinical picture warrants CT imaging to rule out traumatic injuries to mother as it was low mechanism. I discussed case with Dr. Heller regarding management and we will admit the patient for observation at this time. Critical Care Critical Care Time Critical Care Time: No
--- NOTE | 2025-01-11 09:06 | PC.NURSE ---
paged Dr Heller per Dr Flores. Dr Flores is currently on phone with Dr Heller at this time
--- NOTE | 2025-01-11 09:25 | PC.NURSE ---
Gave report to Cornelia VILLALOBOS to OB. States pt will go to [phone]
[2025-01-11] MEDS: LACTATED RINGERS 1000ML 1,000 ML 999 ML IV (11:00)
[2025-01-11 11:25] LABS: Hematocrit 33.5 % (37.0-47.0); Hemoglobin 11.4 g/dL (12.2-16.2); Immature Granulocytes % 0.3 %; Mean Corpuscular HGB Conc 34.0 g/dL (31.8-35.4); Mean Corpuscular Hemoglobin 30.3 pg (27.0-31.2); Mean Corpuscular Volume 89.1 fl (81-99); Nucleated Red Blood Cells % 0 %; Platelet Count 185 K/mm3 (142-424); Red Blood Count 3.76 M/mm3 (4.20-5.40); Red Cell Distribution Width-SD 42.5 fL; White Blood Count 9.3 K/mm3 (4.8-10.8)
[2025-01-11 11:27] LABS: Albumin Level 3.6 g/dl (3.5-5.0); Chloride 103 mmol/L (98-107)
[2025-01-11 11:28] LABS: Potassium 4.4 mmoL/L (3.5-5.1); Sodium 134 mmol/L (136-145)
[2025-01-11 11:30] LABS: Alanine Aminotransferase 10 U/L (12-78); Alkaline Phosphatase 54 U/L (38-126); Anion Gap 10.4 mEq/L (5-15); Aspartate Amino Transferase 16 U/L (14-36); Blood Urea Nitrogen 6 mg/dl (7-17); Carbon Dioxide 25 mmol/L (22.0-30.0); Creatinine Clearance Estimated 164 mL/min (50-200); Creatinine,Serum 0.60 mg/dl (0.52-1.04); Estimated Glomerular Filt Rate 124 ml/min (>60); GFR (African American) 150 ML/MIN (>60)
[2025-01-11] MEDS: MVI, ADULT NO.1 WITH VIT K 10 ML, THIAMINE HCL 100 MG, MAGNESIUM SULFATE 2 GM in LACTAT... 250 ML IV (11:30)
[2025-01-11 11:31] LABS: Albumin/Globulin Ratio 1.2 (1.1-1.8); Calcium 9.3 mg/dl (8.4-10.2); Globulin 3.0 g/dL (1.3-3.2); Glucose 90 mg/dl (74-100); Magnesium 1.9 mg/dl (1.6-2.3); Total Protein,Serum 6.6 g/dl (6.3-8.2)
[2025-01-11 11:37] LABS: Bilirubin,Total 0.1 mg/dl (0.2-1.3)
== END 2025-01-11 14:20 | disposition home or self-care (01) ==
LOC: ER 09:11 → OBOUT 13:04 → OB 13:04
PROVIDERS: Obstetrics & Gynecology; PCP Family Medicine; Visit Provider Emergency Medicine
DX: Z34.92 Encounter for supervision of normal pregnancy, unspecified, second trimester (principal); Z3A.16 16 weeks gestation of pregnancy; W19.XXXA Unspecified fall, initial encounter; Y99.0 Civilian activity done for income or pay
CPT/HCPCS: 80053; 81001; 83735; 85025; 96360; 99212; G0463; J3411; J3475; J7120

== ENCOUNTER 2025-03-09 13:16 | Outpatient (CLI) | payer OTHER, SELFPAY ==
--- OUTSIDE RECORDS SUMMARY | 2025-01-11 20:39 | XMS_ITS | Encounter Summary ---
[facility] Address [address] [place] [id number] Care Team Providers Care Pile Driving Nozzleman Name Role Phone Provider, No Known Primary Care Provider Unavail able Reason for Visit * Reason Comments Fall Vaginal Bleeding Encounter Details Date Type Department Care Team (Late st Contact Info) Description 01/11/2025 8:39 PM EDT - 01/11/2025 9:10 PM EDT Hospital Encounter [facility] DE[facility] [address] [phone] Lalo Jorge MD [address] [place] [address] Arnol Dickey MD [address] [place] [address] Discharge Disposition: Home or Self Care Social History Tobacco Use Types Packs/Day Years Used Date Smoking Tobacco: Every Day Cigarettes 0.5 10 Smokeless Tobacco: Never Alcohol Use Standard Drinks/Week Comments No 0 (1 standard drink = 0.6 oz pur e alcohol) AUDIT-C Answer Date Recorded Q1: How often do you have a drink containing alc ohol? Never 05/15/2020 Average Number of Drinks Not on file 020 Frequency of Binge Drinking Not on file 11/2019 [place] Depression Scale Answer Date Recorded [place] Depression Scale Total 7 02/24/2021 The thought of harming myself has occurred to me . Hardly ever 02/24/2021 Abuse Screen Answer Date Recorded Feels Unsafe at Home or Work/School no 06/29/2024 Feels Threatened by Someone no 06/11 Does Anyone Try to Keep You From Having Contact with Others or Doing Things Outside Your Home? no 06/29/2024 Physical Signs of Abuse Present no 06/29/2024 Disabilities Answer Date Recorded Difficulty Concentrating, Remembering or Making Decisions no 06/29/2024 Difficulty Managing Errands Independently no 06/29/2024 Education Answer Date Recorded What is the highest level of school you have completed or the highest degree you have received? 9th grade 02/23/2021 Estimated Date of Delivery Comme nts Yes 06/26/2025 Based on last me nstrual period of 09/19/2024 (Exact Date) Sex and Gender Information Value Date Recorded Sex Assigned at Not on file Legal Sex Female 11:35 PM EDT Gender Identity Not on file Sexual Orientation Not on file Occupation Industry Job Start Date Job End Date unemployed Not on file Not on file Not on file documented as of this encounter Discharge Instructions * Appointments* Ludy Adam RN - 01/11/2025 9:04 PM EDT Keep scheduled appointment * Attachments The following attachments cannot be sent through Care Everywhere. * Second Trimester of (Tunisian) documented in this encounter Medications at Time of Discharge ARIPiprazole (ABILIFY) 2 MG tablet Take 1 tablet by mouth Daily. 01/05/2024 aspirin 81 MG EC tablet Take 1 tablet by mouth Daily. escitalopram (LEXAPRO) 20 MG tablet Take 1 tablet by mouth Daily. polyethylene glycol (MiraLax) 17 GM/SCOOP powder Take 17 g by mouth Daily. Dissolve in large glass of water and take daily 850 g 1 12/17/2024 vitamin (, CLASSIC, vitamin) tablet Take by mouth Daily. Progesterone (Prometrium) 200 MG capsule Take 1 capsule by mouth Every Night. 30 capsule 11/16/2024 propranolol (INDERAL) 10 MG tablet Take 2 tablets by mouth. traZODone (DESYREL) 50 MG tablet Take 0.5 tablets by mouth Every Night. documented as of this encounter Miscellaneous Notes * GRAYSON Notes - Arnol Dickey MD - 01/11/2025 9:04 PM EDT Kathryn Rasmussen 2000 [phone] CC: fell HPI: Patient is 24 y.o. female currently at 16w2d presents after falling on abdomen at ~0700. Ptspent much of the day in the [facility] ER. Pt with some dark red spotting with wiping. PNC comp by prev michael X 3 and subchorionic bleed this first trimester PMH: Current meds: PNV, P4, baby ASA, lexapro 20mg, abilify, inderal 10mg (migraines) Illnesses: anxiety/depression, migraines (may have assoc seizures) Surgeries: X 3, D and C X 2 Allergies: tramadol- seizure Buspar- goes nutty Past OB History: OB History Para Term AB Living 6 3 2 1 2 2 SAB IAB Ectopic Molar Multiple Live Births 1 0 0 0 0 2 # Outcome Date GA Lbr Shaq/2nd Weight Sex Type Anes PTL Lv 6 Current 5 AB 07/2024 Suction D&C Comments: MAB 4 04/09/22 33w5d 2155 g (4 lb 12 oz) F CS-Unspec Y CHATA Complications: Abruptio Placenta 3 Term 02/23/21 38w3d 3260 g (7 lb 3 oz) F CS-LTranv Spinal N CHATA Name: MICHELE RASMUSSEN Apgar1: 6 Apgar5: 8 2 SAB 04/17/20 1 Term 01/29/20 39w0d 3289 g (7 lb 4 oz) F CS-Unspec SH: tob >1PPD, neg , EtOH neg, drugs none X 2 yrs General ROS: spotting. All other systems reviewed and are negative. Physical Examination: General appearance - alert, well appearing, and in no distress Vital signs - LMP 09/19/2024 (Exact Date) HEENT: normocephalic, atraumatic,oropharynx clear, appearance of ears and nose normal Neck - supple, no significant adenopathy, no thyromegaly Lymphatics - no palpable lymphadenopathy in the neck or groin, no hepatosplenomegaly Chest - clear to auscultation, no wheezes, rales or rhonchi, respiratory effort non-labored Heart - normal rate, regular rhythm, no murmurs, rubs, clicks or gallops, no JVD, no lower extremity edema Abdomen - soft, nontender, nondistended, no masses, no hepatosplenomegaly no rebound tenderness noted, bowel sounds normal Extremities - no pedal edema noted, no calf tenderness Skin -warm and dry, normal coloration and turgor, no rashes, no suspicious skin lesions noted Radiology US: single fetus, active, normal fluid, low lying ant placenta Assessment 1)IUP 16 2/7 weeks 2)s/p fall- MBT Apos 3)prev michael X 3 Plan 1)pt was examined and exam was unremarkable. US was performed showing Active fetus with no detectable retroplacental clots. Pt reassured and will Be allowed to go home. Pt to keep her next sched appt. Discussed tob Use with patient with counseling. Arnol Dickey MD 01/11/2025 21:05 EDT documented in this encounter Plan of Treatment Upcoming Encounters Date Type Department Care Team (Late st Contact Info) Description 03/18/2025 10:00 AM EDT Ancillary Procedure [facility] OBGYN [address] [place] [address] 03/18/2025 10:30 AM EDT Routine [facility] OBGYN [address] [place] [address] Lalo Jorge MD [address] [facility] [address] [place] [id number] documented as of this encounter Visit Diagnoses Not on filedocumented in this encounter Care Teams Pile Driving Nozzleman Relationship Specialty Start Date End Date Provider, [place] [address] PCP - General 04/16/19 01/20/25 documented as of this encounter
--- OUTSIDE RECORDS SUMMARY | 2025-01-21 15:00 | XMS_ITS | Encounter Summary ---
Author Organization [facility] Address [address] [place] [address] Care Team Providers Care Soil And Plant Scientist Name Role Phone Malka Espinal APRN Primary Care Provider [phone] Reason for Visit * Diagnostic Imaging (Routine) - Closed Specialty Diagnoses / Procedures Referred By Contact Referred To Contact Obstetrics and Gynecology Diagnoses Subchorionic hematoma, antepartum, single or unspecified fetus Procedures US Ob Limited 1 + Fetuses Lalo Bond MD [address] [address] Phone: tel: fax: [facility] OBGYN [address] [address] Phone: tel: fax: Referral ID Status Reason Start Date Expiration Date Visits Re quested Visits Authorized [id number] Closed 12/21/2024 03/22/2026 1 1 Encounter Details Date Type Department Care Team (Latest Contact Info) Description 01/21/2025 3:00 PM EDT Ancillary Procedure [facility] OBGYN [address] [place] [address] Subchorionic hematoma, antepartum, single or [...] of Binge Drinking Not on file 11/2019 [place] Depression Scale Answer Date Recorded [place] Depression Scale Total 7 02/24/2021 The thought [...] Description 03/18/2025 10:00 AM EDT Ancillary Procedure [facility] OBGYN [place] [address] 03/18/2025 10:30 AM EDT Routine [facility] OBGYN [address] [address] Lalo Bond MD [address] [facility] [address] [place] [address] documented as of this encounter Procedures Procedure [...] EDT PAT NAME: KATHRYN PATEL MED REC#: [id number] DA: 2000 PAT GEND: F PAT TYPE: O EXAM NICOLA: [id number] REF PHYS LALO BOND Shipyard Supervisor Comments Appears to be female. Double check [...] EFW (oz) 7 oz EFW by: Hadlock (ROY-QB-HH-FL) Extremities / Bony Struc FL / BPD [...] in 3-4 weeks to complete anatomical survey Shipyard Supervisor: Brenda Ford, RN, RDMS Physician: Lalo Bond MD, FACOG Electronically signed by: Lalo Bond MD, FACOG at: 16:06 Procedure Note Lalo Bond MD - 01/21/2025 PAT NAME: KATHRYN PATEL [facility] REC#: [id number] DA: [id number] PAT GEND: F PAT TYPE: O EXAM NICOLA: [id number] REF PHYS LALO BOND Shipyard Supervisor Comments Appears to be female. Double check at anatomy scan Indication ======== F/U Placental SEVERINO Comparison Studies The findings of this study are compared to the prior ultrasound studydated , 12/21/24 Method ======= Transabdominal ultrasound examination. View: Adequate view ========= James . Number of fetuses: 1 Dating ====== Method of dating:based on stated JEAN-CLAUDE GA by prior [id number] w + 5 d JEAN-CLAUDE by prior [...] 39% Hadlock HC / AC1.19 52% Hadlock DFW656 g 17w 4d 39% Hadlock EFW (lb)0 lb EFW (oz)7 oz EFW by:Hadlock (WFN-CO-LU-FL) Extremities / Bony Struc FL / BPD0.65 50% Hadlock FL / HC0.18 76% Hadlock FL / AC0.21 56% Hadlock Other Structures PIM070 bpm Anatomy Cavum septi pellucidi:Appears normal Cerebellum:Appears normal Cisterna magna:Appears normal Profile:Appears normal Cord insertion:Appears normal Stomach:Appears normal Kidneys:Appears normal Bladder:Appears normal Cervical spine:Appears normal Thoracic spine:Appears normal Lumbar spine:Appears normal Sacral spine:Appears normal Maternal Structures Uterus / Cervix Cervix:Visualized Approach:Transvaginal Cervical zhsubl61.8 mm Impression Single viable intrauterine with normal cardiac activity andbiometry consistent with clinical dates. No structural abnormalities are seen on today's scan. Anatomicsurvey is incomplete. There is appropriate interval growth & normal amniotic fluidquantity no evidence of SEVERINO on today's exam Recommendation Repeat imaging in 3-4 weeks to complete anatomical survey Shipyard Supervisor: Brenda Ford, RN, RDMS Physician: Lalo Bond MD, FACOG Electronically signed by: Lalo Bond MD, FACOG at: 16:06 us Lalo Bond MD IMG US ORDERABLES Final Result documented in this encounter Visit Diagnoses Diagnosis Subchorionic hematoma, antepartum, single or unspecified fetus documented in this encounter Care Teams Soil And Plant Scientist Relationship Specialty Start Date End Date Malka Espinal APRN [address] [place] [address] PCP - General Family Medicine 01/21/25 documented as of this encounter
--- OUTSIDE RECORDS SUMMARY | 2025-01-21 15:30 | XMS_ITS | Encounter Summary ---
Author Organization [facility] Address [address] [place] [address] Care Team Providers Care Preschool Associate Teacher Name Role Phone TeddyNagiMalka TREVOR Primary Care Provider [phone] Reason for Referral * Diagnostic Imaging (Routine) - Closed Specialty Diagnoses / Procedures Referred By Contact Referred To Contact Obstetrics and Gynecology Diagnoses 17 weeks gestation of Procedures US Ob 14 + Weeks Single or First Gestation Shant Bond MD [address] [facility] [address] [place] [address] Phone: tel: fax: [facility] OBGYN [address] [place] [address] Phone: tel: fax: Referral ID Status Reason Start Date Expiration Date Visits Re quested Visits Authorized [id number] Closed 01/21/2025 04/22/2026 1 1 Reason for Visit * Reason Comments Routine Visit 17w5d Encounter Details Date Type Department Care Team ([facility] Contact Info) Description 01/21/2025 3:30 PM EDT Routine [facility] OBGYN [address] [place] [address] Shant Bond MD [address] [facility] [address] [place] [address] GA: 17w5d Social History Tobacco Use Types Packs/Day Years [...] of Binge Drinking Not on file 11/2019 [place] Depression Scale Answer Date Recorded [place] Depression Scale Total 7 02/24/2021 The thought [...] on file documented as of this encounter Last Filed Vital Signs Vital Sign Reading Time Taken Comments Blood Pressure 94/78 01/21/2025 3:41 PM EDT Pulse - - Temperature - - Respiratory Rate - - Oxygen Saturation - - Inhaled Oxygen Concentration - - Weight 69.9 kg (154 lb) 01/21/2025 3:41 PM EDT Height - - Body Mass Index 26.43 10/19/2024 12:24 PM EDT documented in this encounter Progress Notes * Shant Bond MD - 01/21/2025 3:30 PM EDT Images from the original note were not included. OB FOLLOW UP CC- Here for care of Kathryn Patel is a 24 y.o. 17w5d patient being seen today for her obstetrical follow up visit. Patient reports would like something to stop smoking and having a lot of nausea and vomiting Her care is complicated by (and status) : see below. Patient Active Problem List Diagnosis Seizure Previous section Family planning Depression Constipation Nausea and vomiting during Flu Status: Declines Ultrasound Today: Yes ROS - Patient Denies: leaking of fluid, vaginal bleeding, dysuria, excessive vomiting, and more than 6 contractions per hour Movement: present Other than what is documented in the HPI, all other systems reviewed and are negative. The additional following portions of the patient's history were reviewed and updated as appropriate: allergies and current medications. I have reviewed and agree with the HPI, ROS, and historical information as entered above. Shant Bond MD EXAM: Vitals BP: 94/78 Weight: 69.9 kg (154 lb) Urine Glucose Read-only: Negative Urine Protein Read-only: Negative Assessment and Plan Problem List Items Addressed This Visit - Primary Overview CFDNA-low risk, female Relevant Orders POC Urinalysis Dipstick (Completed) US Ob 14 + Weeks Single or First Gestation Previous section Depression Relevant Medications ARIPiprazole (ABILIFY) 2 MG tablet escitalopram (LEXAPRO) 20 MG tablet traZODone (DESYREL) 50 MG tablet Nausea and vomiting during at 17w5d status reassuring. Counseled on MSAFP alone in relation to OTD and placental issues. Anatomy scan next visit. Activity and Exercise discussed. Medication(s) Ordered U/S ordered at follow up Patient is on vitamins Discussed bASA for PIH prevention from 12 to 36wk Return in about 3 weeks (around 02/11/2025) for Routine care and US. Give note stating can continue psychiatric meds in . Shant Bond MD 01/21/2025 documented in this encounter Plan of Treatment Upcoming Encounters Date Type Department Care Team (Late st Contact Info) Description 03/18/2025 10:00 AM EDT Ancillary Procedure [facility] OBGYN [address] [place] [place] [address] 03/18/2025 10:30 AM EDT Routine [facility] OBGYN [address] [place] [phone] Shant Bond MD [address] [facility] [address] [place] [address] documented as of this encounter Procedures Procedure Name Priority Date/Time Associated Diagnosis Comments POCT URINALYSIS DIPSTICK, MANUAL Routine 01/21/2025 3:16 PM EDT 17 weeks gestation of documented in this encounter Results * US Ob 14 + Weeks Single or First Gestation (02/11/2025 3:31 PM EDT) Anatomical Region Laterality Modality Body Ultrasound 02/11/2025 2:51 PM EDT Narrative 02/11/2025 3:45 PM EDT PAT NAME: KATHRYN PATEL MED REC#: [id number] DA: [id number] PAT GEND: F PAT TYPE: O EXAM NICOLA: [id number] REF PHYS SHANT BOND Digital Production Manager Comments heart and profile suboptimal; needs f/u due to position. Indication ======== anatomy survey Comparison Studies There are no relevant prior studies to which this study is being compared Method ======= Voluson E6, Transabdominal ultrasound examination. View: Sufficient view; positional ========= James . Number of fetuses: 1 Dating ====== Method of dating: based on stated JEAN-CLAUDE GA by prior assessment 20 w + 5 d JEAN-CLAUDE by prior assessment: 06/26/2025 Ultrasound examination on: 02/11/2025 GA by U/S based upon: AC, BPD, Femur, HC GA by U/S 20 w + 2 d JEAN-CLAUDE by U/S: 06/29/2025 Previous dating: based on stated JEAN-CLAUDE, selected on 01/21/2025 Agreed JEAN-CLAUDE of previous datin06/26/2025 Assigned: based on stated JEAN-CLAUDE, selected on 02/11/2025 Assigned GA 20 w + 5 d Assigned JEAN-CLAUDE: 06/26/2025 length 280 d General Evaluation Cardiac activity present. FHR 144 bpm. movements present. Presentation breech. Placenta Placental site: anterior. Umbilical cord Cord vessels: 3 vessel cord. Amniotic fluid Amount of AF: normal. MVP 5.4 cm. Biometry Standard BPD 46.8 mm 20w 1d 26% Hadlock HC 178.5 mm 20w 2d 24% Hadlock Cerebellum tr 20.7 mm 19w 5d 31% Hill Nuchal fold 4.5 mm AC 151.4 mm 20w 3d 32% Hadlock Femur 33.3 mm 20w 3d 31% Hadlock HC / AC 1.18 66% Hadlock EFW 350 g 20w 2d 28% Hadlock EFW (lb) 0 lb EFW (oz) 12 oz EFW by: Hadlock (UUF-AV-MI-FL) Extended [employer] 5.1 mm CM 4.9 mm 41% Nicolaides Extremities / Bony Struc FL / BPD 0.71 45% Hadlock FL / HC 0.19 48% Hadlock FL / AC 0.22 46% Hadlock Other Structures FHR 144 bpm Anatomy Cranium: Appears normal Lateral ventricles: Appears normal Choroid plexus: Appears normal Midline falx: Appears normal Cavum septi pellucidi: Appears normal Cerebellum: Appears normal Cisterna magna: Appears normal Lips: Appear normal Profile: suboptimal Nose: Appears normal 4-chamber view: Appears normal RVOT view: suboptimal LVOT view: Appears normal Heart / Thorax 3-vessel view: suboptimal 7-ndnabr-nbbxmdn view: suboptimal Diaphragm: Appears normal Diaphragm: Intact Cord insertion: Appears normal Stomach: Appears normal Kidneys: Appears normal Bladder: Appears normal Abdomen Abdom. wall: Abdominal wall is intact Stomach: left-sided Cervical spine: Appears normal Thoracic spine: Appears normal Lumbar spine: Appears normal Sacral spine: Appears normal Arms: Appears normal Legs: Appears normal Rt arm: Appears normal Lt arm: Appears normal Rt hand: Appears normal Lt hand: Appears normal Rt leg: Appears normal Lt leg: Appears normal Rt foot: Appears normal Lt foot: Appears normal Gender: female Wants to know gender: yes Maternal Structures Uterus / Cervix Uterus: Visualized Cervix: Visualized Cervical length 31.0 mm Ovaries / Tubes / Adnexa Rt ovary: Visualized Lt ovary: Visualized Impression Single viable intrauterine with normal cardiac activity and biometry consistent with clinical dates. No structural abnormalities are seen on today's scan. Anatomic survey is incomplete. Recommendation Repeat imaging in 1 month to complete anatomical survey Digital Production Manager: Brenda Ford RN, RDMS Physician: Shant Bond MD, FACOG Electronically signed by: Shant Bond MD, FACOG at: 15:45 Procedure Note Shant Bond MD - 02/11/2025 PAT NAME: KATHRYN PATEL MED REC#: [id number] DA: [id number] PAT GEND: F PAT TYPE: O EXAM NICOLA: [id number] REF PHYS SHANT BOND Digital Production Manager Comments heart and profile suboptimal; needs f/u due to position. Indication ======== anatomy survey Comparison Studies There are no relevant prior studies to which this study is beingcompared Method ======= Voluson E6, Transabdominal ultrasound examination. View: Sufficient view;positional ========= James . Number of fetuses: 1 Dating ====== Method of dating:based on stated JEAN-CLAUDE GA by prior elyacvvgrc26 w + 5 d JEAN-CLAUDE by prior assessment:06/26/2025 Ultrasound examination on:02/11/2025 GA by U/S based upon:AC, BPD, Femur, HC GA by U/S20 w + 2 d JEAN-CLAUDE by U/S:06/29/2025 Previous dating:based on stated JEAN-CLAUDE, selected on 01/21/2025 Agreed JEAN-CLAUDE of previous datin06/26/2025 Assigned:based on stated JEAN-CLAUDE, selected on 02/11/2025 Assigned GA20 w + 5 d Assigned JEAN-CLAUDE:06/26/2025 [id number] d General Evaluation Cardiac activity present. FHR 144 bpm. movements present. Presentation breech. Placenta Placental site: anterior. Umbilical cord Cord vessels: 3 vessel cord. Amniotic fluid Amount of AF: normal. MVP 5.4 cm. Biometry Standard BPD46.8 mm 20w 1d 26% Hadlock HC178.5 mm 20w 2d 24% Hadlock Cerebellum tr20.7 mm 19w 5d 31% Hill Nuchal fold4.5 mm AC151.4 mm 20w 3d 32% Hadlock Femur33.3 mm 20w 3d 31% Hadlock HC / AC1.18 66% Hadlock VLW293 g 20w 2d 28% Hadlock EFW (lb)0 lb EFW (oz)12 oz EFW by:Hadlock (ODB-FP-WK-FL) Extended Vp5.1 mm CM4.9 mm 41% Nicolaides Extremities / Bony Struc FL / BPD0.71 45% Hadlock FL / HC0.19 48% Hadlock FL / AC0.22 46% Hadlock Other Structures TEB535 bpm Anatomy Cranium:Appears normal Lateral ventricles:Appears normal Choroid plexus:Appears normal Midline falx:Appears normal Cavum septi pellucidi:Appears normal Cerebellum:Appears normal Cisterna magna:Appears normal Lips:Appear normal Profile:suboptimal Nose:Appears normal 4-chamber view:Appears normal RVOT view:suboptimal LVOT view:Appears normal Heart / Thorax 3-vessel view:suboptimal 9-hlhitk-eouqqnu view:suboptimal Diaphragm:Appears normal Diaphragm:Intact Cord insertion:Appears normal Stomach:Appears normal Kidneys:Appears normal Bladder:Appears normal Abdomen Abdom. wall:Abdominal wall is intact Stomach:left-sided Cervical spine:Appears normal Thoracic spine:Appears normal Lumbar spine:Appears normal Sacral spine:Appears normal Arms:Appears normal Legs:Appears normal Rt arm:Appears normal Lt arm:Appears normal Rt hand:Appears normal Lt hand:Appears normal Rt leg:Appears normal Lt leg:Appears normal Rt foot:Appears normal Lt foot:Appears normal Gender:female Wants to know gender:yes Maternal Structures Uterus / Cervix Uterus:Visualized Cervix:Visualized Cervical fuzsvs39.0 mm Ovaries / Tubes / Adnexa Rt ovary:Visualized Lt ovary:Visualized Impression Single viable intrauterine with normal cardiac activity andbiometry consistent with clinical dates. No structural abnormalities are seen on today's scan. Anatomicsurvey is incomplete. Recommendation Repeat imaging in 1 month to complete anatomical survey Digital Production Manager: Brenda Ford RN, RDMS Physician: Shant Bond MD, FACOG Electronically signed by: Shant Bond MD, FACOG at: 15:[address] [facility] ORDERABLES Final Result * POC Urinalysis Dipstick (01/21/2025 3:16 PM EDT) Glucose, UA Negative Negative mg/dL [facility] Protein, POC Negative Negative mg/dL [facility] Urine 01/21/2025 3:16 PM EDT Shant Bond MD POINT OF CARE TEST ORDER MICHELLE Final Result [facility]
[address] [place] [address], documented in this encounter Visit Diagnoses Diagnosis 17 weeks gestation of - Primary Previous section Other postprocedural status Depression, unspecified depression type Nausea and vomiting during 17 weeks gestation of documented in this encounter Care Teams Preschool Associate Teacher Relationship Specialty Start Date End Date Malka Espinal APRN [address] [place] [address] PCP - General Family Medicine 01/21/25 documented as of this encounter
--- OUTSIDE RECORDS SUMMARY | 2025-02-11 15:00 | XMS_ITS | Encounter Summary ---
[facility] Address [address] [place] [address] Care Team Providers Care Coke Production Heater Name Role Phone Malka Espinal APRN Primary Care Provider [phone] Reason for Visit * Diagnostic Imaging (Routine) - Closed Specialty Diagnoses / Procedures Referred By Contact Referred To Contact Obstetrics and Gynecology Diagnoses 17 weeks gestation of Procedures US Ob 14 + Weeks Single or First Gestation Shant Bond MD 1700 [facility] [address] [place] [address] Phone: tel: fax: [facility] [place] [address] Phone: tel: fax: Referral ID Status Reason Start Date Expiration Date Visits Re quested Visits Authorized [id number] Closed 01/21/2025 04/22/2026 1 1 Encounter Details Date Type Department Care Team (Latest Contact Info) Description 02/11/2025 3:00 PM EDT Ancillary Procedure [facility] [place] [address] 17 weeks gestation of Social [...] of Binge Drinking Not on file 11/2019 [place] Depression Scale Answer Date Recorded [place] Depression Scale Total 7 02/24/2021 The thought [...] Description 03/18/2025 10:00 AM EDT Ancillary Procedure [facility] [address] [place] [address] 03/18/2025 10:30 AM EDT Routine [facility]BG[facility] [address] [place] [address] Shant Bond MD [address] [facility] [address] [place] [address] documented as of this encounter Procedures Procedure [...] EDT PAT NAME: KATHRYN PATEL MED REC#: [id number] DA: 2000 PAT GEND: F PAT TYPE: O EXAM NICOLA: [id number] REF PHYS SHANT BOND Blacktop Spreader Comments heart and profile suboptimal; needs f/u [...] EFW (oz) 12 oz EFW by: Hadlock ([id number]-FL) Extended Production Shift Supervisor 5.1 mm CM 4.9 mm 41% Nicolaides [...] normal Heart / Thorax 3-vessel view: suboptimal 8-exbqih-hnfpvls view: suboptimal Diaphragm: Appears normal Diaphragm: Intact [...] in 1 month to complete anatomical survey Blacktop Spreader: Brenda Ford RN, RDMS Physician: Shant Bond MD, FACOG Electronically signed by: Shant Bond MD, FACOG at: 15:45 Procedure Note Shant Bond MD - 02/11/2025 PAT NAME: KATHRYN PATEL MED REC#: [id number] DA: 2000 PAT GEND: F PAT TYPE: O EXAM NICOLA: [id number] REF PHYS SHANT BOND Blacktop Spreader Comments heart and profile suboptimal; needs f/u [...] GA20 w + 5 d Assigned JEAN-CLAUDE:06/26/2025 [id number] d General Evaluation Cardiac activity present. FHR [...] 31% Hadlock HC / AC1.18 66% Hadlock EAT752 g 20w 2d 28% Hadlock EFW (lb)0 lb EFW (oz)12 oz EFW by:Hadlock (NSL-XP-HB-FL) Extended Vp5.1 mm CM4.9 mm 41% Nicolaides Extremities / Bony Struc FL / BPD0.71 45% Hadlock [place] / HC0.19 48% Hadlock [place] / AC0.22 46% Hadlock Other Structures NWO660 bpm Anatomy Cranium:Appears normal Lateral ventricles:Appears normal Choroid plexus:Appears normal Midline falx:Appears normal Cavum septi pellucidi:Appears normal Cerebellum:Appears normal Cisterna magna:Appears normal Lips:Appear normal Profile:suboptimal Nose:Appears normal 4-chamber view:Appears normal RVOT view:suboptimal LVOT view:Appears normal Heart / Thorax 3-vessel view:suboptimal 0-sdsesz-gjqykxb view:suboptimal Diaphragm:Appears normal Diaphragm:Intact Cord insertion:Appears normal [...] Structures Uterus / Cervix Uterus:Visualized Cervix:Visualized Cervical .0 mm Ovaries / Tubes / Adnexa Rt ovary:Visualized Lt ovary:Visualized Impression Single viable intrauterine with normal cardiac activity andbiometry consistent with clinical dates. No structural abnormalities are seen on today's scan. Anatomicsurvey is incomplete. Recommendation Repeat imaging in 1 month to complete anatomical survey Blacktop Spreader: Brenda Ford, RN, RDMS Physician: Shant Bond MD, FACOG Electronically signed by: Shant Bond MD, FACOG at: 15:45 Shant Bond MD [facility] [place] US ORDERABLES Final Result documented in this encounter Visit Diagnoses Diagnosis 17 weeks gestation of documented in this encounter Care Teams Coke Production Heater Relationship Specialty Start Date End Date Malka Espinal APRN [address] [place] [address] PCP - General Family Medicine 01/21/25 documented as of this encounter
--- OUTSIDE RECORDS SUMMARY | 2025-02-11 15:40 | XMS_ITS | Encounter Summary ---
[facility] Address [address] [place] [id number] Care Team Providers Care Health Plan Manager Name Role Phone TeddyNagiMalka TREVOR Primary Care Provider [phone] Reason for Referral * Diagnostic Imaging (Routine) - Authorized Specialty Diagnoses / Procedures Referred By Contac t Referred To Contact Obstetrics and Gynecology Diagnoses 20 weeks gestation of Procedures US Ob Follow Up Transabdominal Approach Lalo Jorge MD [address] [facility] [address] [place] [address] Phone: tel: fax: [facility] [address] [place] [address] Phone: tel:[phone] fax:[phone] Referral ID Status Reason Start Date Expiration Date V isits Requested Visits Authorized [id number] Authorized 02/11/2025 05/13/2026 1 1 Reason for Visit * Reason Comments Routine Visit 20w5d Encounter Details Date Type Department Care Team ([facility] Contact Info) Description 02/11/2025 3:40 PM EDT Routine [facility] [address] [place] [address] Lalo Jorge MD [address] [facility] [address] [place] [address] GA: 20w5d Social History Tobacco Use Types Packs/Day Years [...] of Binge Drinking Not on file 11/2019 [place] Depression Scale Answer Date Recorded [place] Depression Scale Total 7 02/24/2021 The thought [...] Sign Reading Time Taken Comments Blood Pressure 108/60 02/11/2025 3:45 PM EDT Pulse - - Temperature - - Respiratory Rate - - Oxygen Saturation - - Inhaled Oxygen Concentration - - Weight 71.2 kg (157 lb) 02/11/2025 3:45 PM EDT Height - - Body Mass Index 26.95 10/19/2024 12:24 PM EDT documented in this encounter Patient Instructions * Patient Instructions* Lalo Jorge MD - 02/11/2025 3:40 PM EDT Images from the original note were not included. Care care is health care you get when . It helps you and your unborn baby stay as healthy as possible. Start care early in your and continue to go to visits during yourpregnancy. care may be given by a chips screen tender, a family practice doctor, a nurse practitioner, physician facility assistant, or a childbirth and doctor. What are the benefits of care? In care, your health care provider will get to know your medical history. You'll be checked for conditions that might affect you and your baby. care will: Lower the risk for problems as your child grows. Lower certain risks for your baby, especially the risk that: Your child may be born early. Your child will have a low weight at . What can I expect at the first care visit? Your first visit will likely be the longest. You should ask to be seen as soon as you know you're . The first visit is a good time to talk about any questions or concerns. Make a list of questions to ask your provider at your visits. Medical history At your visit, you and your provider will talk about your medical history, including: Your family's medical history and the medical history of the baby's father. Any past pregnancies and long-term (chronic) health conditions. Any surgeries or procedures you have had. All medicines you're taking. Tell them if you're taking herbs or supplements too. Any tobacco, alcohol, or drug use. Other problems that may harm you and your baby. Tell them if: You need food or housing. You have been around chemicals or radiation. Your partner yells at you, hits you, or hurts you. Tests and screenings Your provider will: Do a physical exam, including a pelvic and breast exam. Do tests to check for: Urinary tract infection (UTI). Sexually transmitted infections (STIs). Low iron levels in your blood. This is called anemia. Blood type and certain proteins on red blood cells called Rh antibodies. Infections and immunity to viruses, such as hepatitis B and rubella. HIV. Ask your provider if you need to be checked for genetic diseases. Tips about staying healthy Your provider will also give you information about how to keep yourself and your baby healthy, including: Nutrition, vitamins, and food safety. Physical activity. How to treat some problems, such as morning sickness. How to avoid infections and substances that may harm your baby. Caring for your teeth. Work and travel. Problems that require you to call your provider. How often will I have care visits? After your first care visit, you will have regular visits throughout your . You may visit your provider as follows: Up to week 28 of : once every 4 weeks. 28-36 weeks: once every 2 weeks. After 36 weeks: every week until delivery. Some people may have more visits. Others may have fewer. It all depends on your health and that of your baby. Keep all visits. This is one way for you and your baby to stay as healthy as possible. What happens during routine care visits? Your provider will: Check your weight and blood pressure. Check your baby's heart sounds. Ask questions about your diet, exercise, sleeping patterns, and whether you can feel the baby move. Ask about any symptoms you're having and how you're dealing with them. Tell your providerif: You throw up or feel like you may throw up. You have discharge or you bleed from your vagina. You have trouble pooping (constipation). You have swelling, headaches, or trouble seeing. You are very tired, or you feel sad and anxious all the time. You have discomfort, including back pain or pain in the pelvis. Tell you problems to watch for during your , including signs of labor. Measure the height of your uterus in your belly. This is called fundal height. What tests might I have during care visits? You may have blood, urine, and imaging tests. These may include: Urine tests to check for blood sugar, protein, or signs of infection. Genetic testing. Ultrasounds to check your baby's growth, development, and well-being. Your baby may also be checkedfor congenital conditions. Glucose tests to check for gestational diabetes. This is a form of diabetes that a person can get when . A test to check for group B strep (GBS) infection. What else can I expect during care visits? Your provider may give you some vaccines. Getting certain vaccines during can protect your baby after . These may include: A flu shot. Tdap (tetanus, diphtheria, pertussis) vaccine. A COVID-19 vaccine. A RSV vaccine. Later in your , your provider may talk to you about: Childbirth and childbirth classes. and classes. control after your baby is born. Where to find more information Office on Women's Health: womenshealth.gov [place] Association: americanpregnancy.org March of Dimes: marchofdimes.org This information is not intended to replace advice given to you by your health care provider. Make sure you discuss any questions you have with your health care provider. Document Revised: 10/31/2023 Document Reviewed: 10/31/2023 [employer] Patient Education ?? 2023 [employer] documented in this encounter Progress Notes * Lalo Jorge MD - 02/11/2025 3:40 PM EDT Images from the original note were not included. OB FOLLOW UP CC- Here for care of Kathryn Mckeon is a 24 y.o. 20w5d patient being seen today for her obstetrical follow up visit. Patient reports no complaints. Her care is complicated by (and status) : see below. Patient Active Problem List Diagnosis Seizure Previous section Family planning Depression Constipation Nausea and vomiting during Factor V Leiden mutation complicating Flu Status: Declines Ultrasound Today: yes ROS - Patient Denies: leaking of fluid, vaginal bleeding, dysuria, excessive vomiting, and more than 6 contractions per hour Movement : Yes Other than what is documented in the HPI, all other systems reviewed and are negative. The additional following portions of the patient's history were reviewed and updated as appropriate: allergies and current medications. I have reviewed and agree with the HPI, ROS, and historical information as entered above. Lalo Jorge MD BP 108/60 Wt 71.2 kg (157 lb) LMP 09/19/2024 (Exact Date) BMI 26.95 kg/m?? EXAM: Vitals BP: 108/60 Weight: 71.2 kg (157 lb) Heart Rate: US Urine Glucose Read-only: Negative Urine Protein Read-only: Negative Assessment and Plan Problem List Items Addressed This Visit - Primary Overview CFDNA-low risk, female Relevant Medications ARIPiprazole (ABILIFY) 2 MG tablet escitalopram (LEXAPRO) 20 MG tablet propranolol (INDERAL) 10 MG tablet traZODone (DESYREL) 50 MG tablet aspirin 81 MG EC tablet Other Relevant Orders POC Urinalysis Dipstick (Completed) US Ob Follow Up Transabdominal Approach Previous section Relevant Medications ARIPiprazole (ABILIFY) 2 MG tablet escitalopram (LEXAPRO) 20 MG tablet propranolol (INDERAL) 10 MG tablet traZODone (DESYREL) 50 MG tablet aspirin 81 MG EC tablet Factor V Leiden mutation complicating Relevant Medications ARIPiprazole (ABILIFY) 2 MG tablet escitalopram (LEXAPRO) 20 MG tablet propranolol (INDERAL) 10 MG tablet traZODone (DESYREL) 50 MG tablet aspirin 81 MG EC tablet at 20w5d Anatomy scan today is incomplete, follow up in 4 weeks for additional views. Anatomy that was visualized was within normal limits. status reassuring. Activity and Exercise discussed. U/S ordered at follow up Patient is on vitamins Baby ASA daily Return in about 4 weeks (around 03/11/2025) for Routine care and US. Lalo Jorge MD 02/11/2025 documented in this encounter Plan of Treatment Upcoming Encounters Date Type Department Care Team (Late st Contact Info) Description 03/18/2025 10:00 AM EDT Ancillary Procedure [facility] [address] [place] [address] 03/18/2025 10:30 AM EDT Routine [facility] [address] [place] [address] [place] [address] [place] [address] [address] [place] [address] Scheduled Orders Name Type Priority Associated Diagnoses Orde r Schedule US Ob Follow Up Transabdominal Approach Imaging Routine 20 weeks gestation of Expected: 03/14/2025, Expires: 05/14/2026 documented as of this encounter Procedures Procedure Name Priority Date/Time Associated Diagnosis Comments POCT URINALYSIS DIPSTICK, MANUAL Routine 02/11/2025 3:11 PM EDT 20 weeks gestation of documented in this encounter Results * POC Urinalysis Dipstick (02/11/2025 3:11 PM EDT) Glucose, UA Negative Negative mg/dL [facility] Protein, POC Negative Negative mg/dL [facility] Urine 02/11/2025 3:11 PM EDT Lalo Jorge MD POINT OF CARE TEST ORDER MICHELLE Final Result [facility]
[address] [place] [address], documented in this encounter Visit Diagnoses Diagnosis 20 weeks gestation of - Primary Previous section Other postprocedural status Factor V Leiden mutation complicating Other current maternal conditions classifiable elsewhere, complicating , childbirth, or the puerperium, unspecified as to episode of care documented in this encounter Care Teams Health Plan Manager Relationship Specialty Start Date End Date Malka Espinal APRN [address] [place] [address] PCP - General Family Medicine 01/21/25 documented as of this encounter
--- OUTSIDE RECORDS SUMMARY | 2025-03-09 13:20 | XMS_ITS | Encounter Summary ---
Author Organization [facility] Address [address] [place] [address] Care Team Providers Care Safety Assistant Name Role Phone Malka Espinal APRN Primary Care Provider [phone] Encounter Details Date Type Department Care Team (Latest Contact Info) Description 01/21/2025 Travel Social History Tobacco Use Types Packs/Day Years [...] of Binge Drinking Not on file 11/2019 [place] Depression Scale Answer Date Recorded [place] Depression Scale Total 7 02/24/2021 The thought [...] Description 03/18/2025 10:00 AM EDT Ancillary Procedure [facility] [address] [place] [address] 03/18/2025 10:30 AM EDT Routine [facility] [address] [place] [address] Lalo Jorge MD [address] [facility] [address] [place] [phone] documented as of this encounter Visit Diagnoses Not on filedocumented in this encounter Care Teams Safety Assistant Relationship Specialty Start Date End Date Malka Espinal APRN [address] [place] [id number] PCP - General Family Medicine 01/21/25 documented as of this encounter
--- OUTSIDE RECORDS SUMMARY | 2025-03-09 13:20 | XMS_ITS | Clinical Summary ---
[facility] Address [address] [place] [address] Care Team Providers Care Research Coordinator Name Role Phone Malka Espinal PRAWN TRAWLER HAND Primary Care Provider [phone] Allergies Active Allergy Reactions Criticality Noted Date Comments Buspirone Other (See Comments) High 06/27/2022 Suicidality Tramadol Rash,Other (See Comments) High 04/18/2019 possible seizure like activity Medications ARIPiprazole (ABILIFY) 2 MG tablet Take 1 tablet by mouth Daily. 01/05/2024 Active escitalopram (LEXAPRO) 20 MG tablet Take 1 tablet by mouth Daily. Active propranolol (INDERAL) 10 MG tablet Take 2 tablets by mouth. Active traZODone (DESYREL) 50 MG tablet Take 0.5 tablets by mouth Every Night. Active aspirin 81 MG EC tablet Take 1 tablet by mouth Daily. Active vitamin (, CLASSIC, vitamin) tablet Take by mouth Daily. Active Progesterone (Prometrium) 200 MG capsule Take 1 capsule by mouth Every Night. 30 capsule 11/16/2024 Active polyethylene glycol (MiraLax) 17 GM/SCOOP powder Take 17 g by mouth Daily. Dissolve in large glass of water and take daily 850 g 1 12/17/2024 Active promethazine (PHENERGAN) 25 MG tablet Take 1 tablet by mouth Every 6 (Six) Hours As Needed for Nausea or Vomiting. 30 tablet 01/21/2025 Active promethazine (PHENERGAN) 12.5 MG tablet Take 1 tablet by mouth Every 6 (Six) Hours As Needed for Nausea. 30 tablet 3 01/21/2025 Active Active Problems Problem Noted Date Diagnosed Date Factor V Leiden mutation complicating 02/11/2025 Nausea and vomiting during 01/21/2025 Constipation 12/17/2024 Depression 06/22/2024 Family planning 01/23/2024 Previous section 01/13/2021 Seizure 05/15/2020 01/28/2020 Overview (12/21/2024): CFDNA-low risk, female Estimated Date of Delivery Comme nts Yes 06/26/2025 Based on last me nstrual period of 09/19/2024 (Exact Date) Resolved Problems Problem Noted Date Diagnosed Date Resolved Date Subchorionic hematoma, antepartum 12/21/2024 01/21/2025 Missed 06/25/2024 12/17/2024 Abnormal heart rate or rhythm affecting management of mother 02/23/2021 12/17/2024 uterine contractions, antepartum 02/04/2021 02/25/2021 Decreased movements in third trimester 12/17/2024 Spells of decreased attentiveness 05/16/2020 05/16/2020 Generalized anxiety disorder 05/16/2020 05/16/2020 Seizures 05/15/2020 05/16/2020 Right leg numbness 05/15/2020 0 Arrested active phase of labor 01/29/2020 02/25/2021 Encounters Date Type Department Care Team Description 03/05/2025 Patient Outreach [facility] DEL[facility] [address] [place] [address] Paola Vanegas RN 02/11/2025 3:40 PM EDT Routine [facility] OBGYN [address] [address] Shant Bond MD GA: 20w5d 02/11/2025 3:00 PM EDT Ancillary Procedure [facility] OBGYN [address] [address] 17 weeks gestation of 02/11/2025 Travel 01/25/2025 Telephone [facility] OBGYN [address] [facility] [address] [place] [address] Shant Bond MD RETURN TO WORK NOTE 01/21/2025 3:30 PM EDT Routine [facility] OBGYN [address] [place] [address] Shant Bond MD GA: 17w5d 01/21/2025 3:00 PM EDT Ancillary Procedure [facility] [place] [address] Subchorionic hematoma, antepartum, single or unspecified fetus 01/21/2025 Travel 01/16/2025 Referral Triage [facility] [address] [place] [address] Paola Vanegas RN 01/11/2025 8:39 PM EDT - 01/11/2025 9:10 PM EDT Hospital Encounter [facility]PART[facility] [address] [place] [address] Shant Bond MD High, Curtis L, MD Discharge Disposition: Home or Self Care 01/11/2025 Travel 12/21/2024 9:30 AM EDT Routine [facility] OBGYN [address] [address] Shant Bond MD GA: 13w2d 12/21/2024 9:00 AM EDT Ancillary Procedure [facility] OBGYN [address] [address] First trimester 12/21/2024 Travel 12/17/2024 3:40 PM EDT Routine [facility] OBGYN [address] [place] [address] Shant Bond MD GA: 12w5d 12/17/2024 Travel from Last 3 Months Family History Medical History Relation Name Comments Diabetes Maternal Grandmother Ovarian cancer Paternal Grandmother Breast cancer Neg Hx Colon cancer Neg Hx Uterine cancer Neg Hx Relation Name Status Comments Maternal Grandmother Paternal Grandmother Social History Tobacco Use Types Packs/Day Years Used Date Smoking Tobacco: Every Day Cigarettes 0.5 10 Smokeless Tobacco: Never Tobacco Cessation:Ready to Q uit: Not Asked; Counseling Given: Not Answered Alcohol Use Standard Drinks/Week Comments No 0 (1 standard drink = 0.6 oz pur e alcohol) AUDIT-C Answer Date Recorded Q1: How often do you have a drink containing alc ohol? Never 05/15/2020 Average Number of Drinks Not on file 020 Frequency of Binge Drinking Not on file 11/2019 [place] Depression Scale Answer Date Recorded [place] Depression Scale Total 7 02/24/2021 The thought [...] file Not on file Not on file Last Filed Vital Signs Vital Sign Reading Time Taken Comments Blood Pressure 108/60 02/11/2025 3:45 PM EDT Pulse 68 06/29/2024 5:00 PM EST Temperature 36.7 C (98 F) 06/29/2024 5:00 PM EST Respiratory Rate 12 06/29/2024 5:00 PM EST Oxygen Saturation 97% 06/29/2024 5:00 PM EST Inhaled Oxygen Concentration - - Weight 71.2 kg (157 lb) 02/11/2025 3:45 PM EDT Height 162.6 cm (5' 4 ) 10/19/2024 12:24 PM EDT Body Mass Index 26.95 10/19/2024 12:24 PM EDT Plan of Treatment Upcoming Encounters Date Type Department Care Team (Late st Contact Info) Description 03/18/2025 10:00 AM EDT Ancillary Procedure [facility] OBGYN [address] [place] [address] 03/18/2025 10:30 AM EDT Routine [facility] OBGYN [address] [place] [address] Shant Bond MD [address] [facility] [address] [place] [address] Health Maintenance Due Date Last Done Comments HPV VACCINES (2 - 2-dose series) 08/14/2014 02/12/20 14 MENINGOCOCCAL B VACCINE (1 o f 2 - Standard) 2017 ANNUAL PHYSICAL 01/21/2020 Pneumococcal Vaccine 0-49 (1 of 2 - PCV) 2020 COVID-19 Vaccine (1 - 2023-2 5 season) 2024 INFLUENZA VACCINE 04/10/2025 05/12/2020 RSV Vaccine - Adults (1 - Ri sk 1-dose series) 05/01/2025 MOST FORM 10/19/2025 10/19/2024 Annual Gynecologic Pelvic an d Breast Exam 10/20/2025 10/19/2024 CHLAMYDIA SCREENING 11/16/2025 11/16/2024, 10/19/2024, 01/23/2024 PAP SMEAR 01/22/2027 01/23/2024 TDAP/TD VACCINES (5 - Td or Tdap) 08/06/2033 08/06/2023, 03/05/2022, 12/23/2020, Additional history exists HEPATITIS C SCREENING Completed 11/16/2024 , 04/09/2022, 04/09/2022, Additional history exists Procedures Procedure Name Priority Date/Time Associated Diagnosis Comments US OB 14 + WEEKS SINGLE OR FIRST GESTATION Routine 02/11/2025 3:31 PM EDT 17 weeks gestation of POCT URINALYSIS DIPSTICK, MANUAL Routine 02/11/2025 3:11 PM EDT 20 weeks gestation of US OB LIMITED 1 + FETUSES Routine 01/21/2025 3:25 PM EDT Subchorionic hematoma, antepartum, single or unspecified fetus POCT URINALYSIS DIPSTICK, MANUAL Routine 01/21/2025 3:16 PM EDT 17 weeks gestation of POCT URINALYSIS DIPSTICK, MANUAL Routine 12/21/2024 9:57 AM EDT care in first trimester, unspecified US OB TRANSVAGINAL Routine 12/21/2024 9: 48 AM EDT First trimester POCT URINALYSIS DIPSTICK, MANUAL Routine 12/17/2024 3:48 PM EDT 12 weeks gestation of CHLAMYDIA TRACHOMATIS, NEISSERIA GONORRHOEAE, PCR Routine 11/16/2024 11:42 AM EDT care in first trimester, unspecified OBSTETRIC PANEL Routine 11/16/2024 11:42 AM EDT care in first trimester, unspecified LIQUID-BASED PAP SMEAR WITH HPV GENOTYPING IF ASCUS, [facility] ([facility]E,[facility]) Routine 01/23/2024 3:06 PM EDT Cervical cancer screening from Last 3 Months or Most Recently Relevant to Health Maintenance Results * US Ob 14 + Weeks Single or First Gestation (02/11/2025 3:31 PM EDT) Anatomical Region Laterality Modality Body Ultrasound 02/11/2025 2:51 PM EDT Narrative 02/11/2025 3:45 PM EDT PAT NAME: DIOMEDES MCKEON MED REC#: [id number] DA: 2000 PAT GEND: F PAT TYPE: O EXAM NICOLA: [id number] REF PHYS SHANT BOND Tape Machine Tailer Comments heart and profile suboptimal; needs f/u [...] EFW (oz) 12 oz EFW by: Hadlock (PPB-WJ-OW-FL) Extended Applications Support Specialist 5.1 mm CM 4.9 mm 41% Nicolaides [...] normal Heart / Thorax 3-vessel view: suboptimal 0-xumxhp-tckkpvi view: suboptimal Diaphragm: Appears normal Diaphragm: Intact [...] in 1 month to complete anatomical survey Tape Machine Tailer: Brenda Ford RN, RDMS Physician: Shant Bond MD, FACOG Electronically signed by: Shant Bond MD, FACOG at: 15:45 Procedure Note Shant Bond MD - 02/11/2025 PAT NAME: DIOMEDES MCKEON [facility] REC#: [id number] DA: [id number] PAT GEND: F PAT TYPE: O EXAM NICOLA: [id number] REF PHYS SHANT BOND Tape Machine Tailer Comments heart and profile suboptimal; needs f/u due to position. Indication ======== anatomy survey Comparison Studies There are no relevant prior studies to which this study is beingcompared Method ======= Voluson E6, Transabdominal ultrasound examination. View: Sufficient view;positional ========= James . Number of fetuses: 1 Dating ====== Method of dating:based on stated JEAN-CLAUDE GA by prior [id number] w + 5 d JEAN-CLAUDE by prior assessment:06/26/2025 Ultrasound examination on:02/11/2025 GA by U/S based upon:AC, BPD, Femur, HC GA by U/S20 w + 2 d JEAN-CLAUDE by U/S:06/29/2025 Previous dating:based on stated JEAN-CLAUDE, selected on 01/21/2025 Agreed JEAN-CLAUDE of previous datin06/26/2025 Assigned:based on stated JEAN-CLAUDE, selected on 02/11/2025 Assigned GA20 w + 5 d Assigned JEAN-CLAUDE:06/26/2025 [id number] d General Evaluation Cardiac activity present. FHR [...] 31% Hadlock HC / AC1.18 66% Hadlock LOG409 g 20w 2d 28% Hadlock EFW (lb)0 lb EFW (oz)12 oz EFW by:Hadlock (SKJ-FD-GO-FL) Extended Vp5.1 mm CM4.9 mm 41% Nicolaides Extremities / Bony Struc FL / BPD0.71 45% Hadlock FL / HC0.19 48% Hadlock FL / AC0.22 46% Hadlock Other Structures [id number] bpm Anatomy Cranium:Appears normal Lateral ventricles:Appears normal Choroid plexus:Appears normal Midline falx:Appears normal Cavum septi pellucidi:Appears normal Cerebellum:Appears normal Cisterna magna:Appears normal Lips:Appear normal Profile:suboptimal Nose:Appears normal 4-chamber view:Appears normal RVOT view:suboptimal LVOT view:Appears normal Heart / Thorax 3-vessel view:suboptimal 4-xmvyph-yqweseq view:suboptimal Diaphragm:Appears normal Diaphragm:Intact Cord insertion:Appears normal [...] Structures Uterus / Cervix Uterus:Visualized Cervix:Visualized Cervical hdmtyc25.0 mm Ovaries / Tubes / Adnexa Rt ovary:Visualized Lt ovary:Visualized Impression Single viable intrauterine with normal cardiac activity andbiometry consistent with clinical dates. No structural abnormalities are seen on today's scan. Anatomicsurvey is incomplete. Recommendation Repeat imaging in 1 month to complete anatomical survey Tape Machine Tailer: Rbenda Logan, RN, RDMS Physician: Shant Bond MD, FACOG Electronically signed by: Shant Bond MD, FACOG at: 15:45 Shant Bond MD IMG US ORDERABLES Final Result * POC Urinalysis Dipstick (02/11/2025 3:11 PM EDT) Only the most recent of4 resultswithin the time period is included. Glucose, UA Negative Negative mg/dL [facility] Protein, POC Negative Negative mg/dL [facility] Urine 02/11/2025 3:11 PM EDT Shant Bond MD POINT OF CARE TEST ORDER MICHELLE Final Result [facility]
[address] [place] [address], * US Ob Limited 1 + Fetuses (01/21/2025 3:25 PM EDT) Anatomical Region Laterality Modality Body Ultrasound 01/21/2025 2:58 PM EDT Narrative 01/21/2025 4:06 PM EDT PAT NAME: DIOMEDES MCKEON MED REC#: [id number] DA: [id number] PAT GEND: F PAT TYPE: O EXAM NICOLA: [id number] REF PHYS SHANT BOND Tape Machine Tailer Comments Appears to be female. Double check [...] EFW (oz) 7 oz EFW by: Hadlock (FYD-PM-WL-FL) Extremities / Bony Struc FL / BPD [...] in 3-4 weeks to complete anatomical survey Tape Machine Tailer: Brenda Ford RN, RDMS Physician: Shant Bond MD, FACOG Electronically signed by: Shant Bond MD, FACOG at: 16:06 Procedure Note Shant Bond MD - 01/21/2025 PAT NAME: DIOMEDES MCKEON MED REC#: [id number] DA: [id number] PAT GEND: F PAT TYPE: O EXAM NICOLA: [id number] REF PHYS SHANT BOND Tape Machine Tailer Comments Appears to be female. Double check at anatomy scan Indication ======== F/U Placental SEVERINO Comparison Studies The findings of this study are compared to the prior ultrasound studydated , 12/21/24 Method ======= Transabdominal ultrasound examination. View: Adequate view ========= James . Number of fetuses: 1 Dating ====== Method of dating:based on stated JEAN-CLAUDE GA by prior [id number] w + 5 d JEAN-CLAUDE by prior [...] 39% Hadlock HC / AC1.19 52% Hadlock AZF475 g 17w 4d 39% Hadlock EFW (lb)0 lb EFW (oz)7 oz EFW by:Hadlock (TGY-SB-DH-FL) Extremities / Bony Struc FL / BPD0.65 50% Hadlock FL / HC0.18 76% Hadlock FL / AC0.21 56% Hadlock Other Structures BZP118 bpm Anatomy Cavum septi pellucidi:Appears normal Cerebellum:Appears normal Cisterna magna:Appears normal Profile:Appears normal Cord insertion:Appears normal Stomach:Appears normal Kidneys:Appears normal Bladder:Appears normal Cervical spine:Appears normal Thoracic spine:Appears normal Lumbar spine:Appears normal Sacral spine:Appears normal Maternal Structures Uterus / Cervix Cervix:Visualized Approach:Transvaginal Cervical .8 mm Impression Single viable intrauterine with normal cardiac activity andbiometry consistent with clinical dates. No structural abnormalities are seen on today's scan. Anatomicsurvey is incomplete. There is appropriate interval growth & normal amniotic fluidquantity no evidence of SEVERINO on today's exam Recommendation Repeat imaging in 3-4 weeks to complete anatomical survey Tape Machine Tailer: Brenda Ford RN, RDMS Physician: Shant Bond MD, FACOG Electronically signed by: Shant Bond MD, FACOG at: 16:06 us Shant Bond MD IMG US ORDERABLES Final Result * US Ob Transvaginal (12/21/2024 9:48 AM EDT) Anatomical Region Laterality Modality Body Ultrasound 12/21/2024 10:2 3 AM EDT Narrative 12/21/2024 1:07 PM EDT PAT NAME: DIOMEDES RASMUSSEN MED REC#: [id number] DA: 2000 PAT GEND: F PAT TYPE: O EXAM NICOLA: [id number] REF PHYS FORESTER SHANT Tape Machine Tailer Comments 2 areas seen today, first area toward the fundus of the UT [id number], second area in the HIRAM [id number] suggestive of SEVERINO. Indication ======== f/u from ER- vaginal bleeding,Dating Comparison Studies There are no relevant prior studies to which this study is being compared Method ======= Voluson E6, Transabdominal ultrasound examination. View: Adequate view ========= James . Number of fetuses: 1 Single intrauterine present Dating ====== Method of dating: based on stated JEAN-CLAUDE GA by prior assessment 13 w + 2 d JEAN-CLAUDE by prior assessment: 06/26/2025 Ultrasound examination on: 12/21/2024 GA by U/S based upon: CRL GA by U/S 13 w + 1 d JEAN-CLAUDE by U/S: 06/27/2025 Assigned: based on stated JEAN-CLAUDE, selected on 12/21/2024 Assigned GA 13 w + 2 d Assigned JEAN-CLAUDE: 06/26/2025 length 280 d Biometry Standard FHR 153 bpm 21% Nicolaides CRL 69.6 mm 13w 1d 39% Hadlock Extended MVP 2.7 cm General Evaluation Cardiac activity present. Placenta anterior. Cord vessels 3 vessel cord. Amniotic fluid normal. Maternal Structures Uterus / Cervix Uterus: Visualized Cervix: Visualized Cervical length 39.8 mm Ovaries / Tubes / Adnexa Rt ovary: Visualized Lt ovary: Visualized Impression Single viable intrauterine with normal cardiac activity and biometry consistent with clinical dates. Findings are consistent with a subchorionic hemorrhage Recommendation correlate with clinical presentation and repeat imaging in 1 month for reevaluation of subchorionic hemorrhage Tape Machine Tailer: Aleyda Townsend RDMS Physician: Shant Bond MD, FACOG Electronically signed by: Shant Bond MD, FACOG at: 13:07 Procedure Note Shant Bond MD - 12/21/2024 PAT NAME: DIOMEDES RASMUSSEN MED REC#: [id number] DA: 2000 PAT GEND: F PAT TYPE: O EXAM NICOLA: [id number] REF PHYS SHANT BOND Tape Machine Tailer Comments 2 areas seen today, first area toward the fundus of the UT [id number],second area in the HIRAM [id number] suggestive of SEVERINO. Indication ======== f/u from ER- vaginal bleeding,Dating Comparison Studies There are no relevant prior studies to which this study is beingcompared Method ======= Voluson E6, Transabdominal ultrasound examination. View: Adequate view ========= James . Number of fetuses: 1 Single intrauterine present Dating ====== Method of dating:based on stated JEAN-CLAUDE GA by prior [id number] w + 2 d JEAN-CLAUDE by prior assessment:06/26/2025 Ultrasound examination on:12/21/2024 GA by U/S based upon:CRL GA by U/S13 w + 1 d JEAN-CLAUDE by U/S:06/27/2025 Assigned:based on stated JEAN-CLAUDE, selected on 12/21/2024 Assigned GA13 w + 2 d Assigned JEAN-CLAUDE:06/26/2025 d Biometry Standard VBJ859 bpm 21% Nicolaides CRL69.6 mm 13w 1d 39% Hadlock Extended MVP2.7 cm General Evaluation Cardiac activity present. Placenta anterior. Cord vessels 3 vessel cord. Amniotic fluid normal. Maternal Structures Uterus / Cervix Uterus:Visualized Cervix:Visualized Cervical .8 mm Ovaries / Tubes / Adnexa Rt ovary:Visualized Lt ovary:Visualized Impression Single viable intrauterine with normal cardiac activity andbiometry consistent with clinical dates. Findings are consistent with a subchorionic hemorrhage Recommendation correlate with clinical presentation and repeat imaging in 1 month forreevaluation of subchorionic hemorrhage Tape Machine Tailer: Aleyda Townsend RDDC Physician: Shant Bond MD, FACOG Electronically signed by: Shant Bond MD, FACOG at: 13:07 Shant Bond MD [facility] ORDERABLES Final Result * Chlamydia trachomatis, Neisseria gonorrhoeae, PCR - Urine, Urine, Clean Catch (11/16/2024 11:42 AM EDT) Chlamydia trachomatis, AMADA Negative Negative [facility] Neisseria gonorrhoeae, AMADA Negative Negative [facility] Urine Urine specimen obtained by clean catch procedure / Unknown 11/16/2024 11:42 AM EDT 11/16/2024 Comment: CD- [id number] Narrative [facility] ([facility]) - 11/19/2024 8:09 PM EDT Performed at: [facility] [id number] Pump Station Operator: Leidy Bejarano MD, Phone: [phone] Shant Bond MD MICROBIOLOGY - GENERAL O RDERABLES Final Result [facility] ([facility]) [address] [place] [address], [facility] [address] [place] [address], [place] [phone] * Obstetric Panel (11/16/2024 11:42 AM EDT) Hepatitis B Surface Ag Negative Negative [facility] Hep C Virus Ab Non Reactive Non Reactive [facility] Comment: HCV antibody alone does not differentiate between previously resolved infection and active infection. Equivocal and Reactive HCV antibody results should be followed up with an HCV RNA test to support the diagnosis of active HCV infection. RPR Non Reactive Non Reactive [facility] Rubella Antibodies, IgG 4.64 Immune >0.99 index [facility] Comment: Non-immune <0.90 Equivocal 0.90 - 0.99 Immune >0.99 ABO Type A [facility] Rh Factor Positive [facility] Comment: Please note: Prior records for this patient's ABO / Rh type are not available for additional verification. Antibody Screen Negative Negative [facility] WBC 10.7 3.4 - 10.8 x10E3/uL [facility] RBC 4.14 3.77 - 5.28 x10E6/uL [facility] Hemoglobin 12.1 11.1 - 15.9 g/dL [facility] Hematocrit 38.2 34.0 - 46.6 % [facility] MCV 92 79 - 97 fL [facility] MCH 29.2 26.6 - 33.0 pg [facility] MCHC 31.7 31.5 - 35.7 g/dL [facility] RDW 14.5 11.7 - 15.4 % [facility] Platelets 216 150 - 450 x10E3/uL [facility] Neutrophil Rel % 63 Not Estab. % [facility] Lymphocyte Rel % 28 Not Estab. % [facility] Monocyte Rel % 8 Not Estab. % [facility] Eosinophil Rel % 1 Not Estab. % [facility] Basophil Rel % 0 Not Estab. % [facility] Neutrophils Absolute 6.7 1.4 - 7.0 x10E3/uL [facility] Lymphocytes Absolute 3.0 0.7 - 3.1 x10E3/uL [facility] Monocytes Absolute 0.8 0.1 - 0.9 x10E3/uL [facility] Eosinophils Absolute 0.1 0.0 - 0.4 x10E3/uL [facility] Basophils Absolute 0.0 0.0 - 0.2 x10E3/uL [facility] Immature Granulocyte Rel % 0 Not Estab. % [facility] Immature Grans Absolute 0.0 0.0 - 0.1 x10E3/uL [facility] Blood 11/16/2024 11:4 2 AM EDT 11/16/2024 Narrative [facility] ([facility]) - 11/17/2024 9:10 AM EDT Performed at: - [facility] [id number] Pump Station Operator: Sabino Valentin PhD, Phone: [phone] Shant Bond MD LAB BLOOD ORDERABLES Fin al Result [facility] ([facility]) [address] [place] [address], [facility] [address] [place] [address], * LIQUID-BASED PAP SMEAR WITH HPV GENOTYPING IF ASCUS ([facility]) (01/23/2024 3:06 PM EDT) Reference Lab Report [facility] [address] [place] [address] or [phone] Fly Magana M.D., [employer] PATIENT NAME LABORATORY NO. DIOMEDES THOMAS [id number] AGE SEX SSN CLIENT REF # [facility] 2000 F [id number] Jasmina GRANADOS REQUESTING Michael [place]ENDING [place] [address] SHANT BOND DATE COLLECTED DATE RECEIVED DATE REPORTED 01/23/2024 01/23/2024 01/31/2024 ThinPrep Pap with Cytyc Imaging DIAGNOSIS: Negative for intraepithelial lesion or malignancy Multiple factors can influence accuracy of Pap tests; therefore, screening at regular intervals is necessary for early cancer detection. Professional interpretation rendered by Fly Magana M.D., F.C.A.P. at [employer], [facility], [address] [place] [address]. RECOMMENDATION: Follow up as clinically appropriate SPECIMEN ADEQUACY: SATISFACTORY FOR EVALUATION Transformation zone is absent or insufficient. Partially obscuring blood and inflammation are present. Sparse cellularity, minimal number of squamous cells available for evaluation. SOURCE OF SPECIMEN: CERVICAL/ENDOCERV ICAL SLIDES: 1 CLINICAL HISTORY: Cervical cancer screening Abnormal bleeding Chlamydia / Gonorrhea CHLAMYDIA TRACHOMATIS: Negative NEISSERIA GONORRHOEAE: Negative The Aptima Combo 2 assay is a target amplification nucleic acid probe test that utilizes target capture for the in vitro qualitative detection and differentiation of ribosomal RNA from Chlamydia trachomatis and Neisseria gonorrhoeae to aid in the diagnosis of chlamydial and gonococcal disease using the [place] system. FITNESS DIRECTOR: JOSE RUSS (ASCP) REVIEWED, DIAGNOSED AND ELECTRONICALLY SIGNED BY: Fly Magana M.D., F.C.A.P. CPT CODES: [id number], [id number], [id number], [id number] 01/31/2024 9:01 AM EDT [facility] ThinPrep Vial Collection / Unknown 01/23/2024 3:06 PM EDT 01/23/2024 3:06 PM EDT Shant Bond MD PATHOLOGY/CYTOLOGY ORDER MICHELLE Final Result [facility]
[address] [place] [address], from Last 3 Months or Most Recently Relevant to Health Maintenance Insurance [facility] Advance Directives * CPR (Attempt to Resuscitate) (Latest Code Status on File) Date Activated Date Inactivated Comments 02/23/2021 10:23 PM 02/25/2021 2:34 PM Question Answer Comments Code Status (Patient has no pulse and is not breathing): CPR (Attempt to Resuscitate) Medical Interventions (Patie nt has pulse or is breathing): Full * CPR (Attempt to Resuscitate) Date Activated Date Inactivated Comments 02/23/2021 8:53 PM 02/23/2021 10:23 PM Question Answer Comments Code Status (Patient has no pulse and is not breathing): CPR (Attempt to Resuscitate) Medical Interventions (Patie nt has pulse or is breathing): Full Level Of Support Discussed With: Patient * CPR (Attempt to Resuscitate) Date Activated Date Inactivated Comments 05/15/2020 5:34 AM 05/16/2020 6:14 PM Question Answer Comments Code Status (Patient has no pulse and is not breathing): CPR (Attempt to Resuscitate) Medical Interventions (Patie nt has pulse or is breathing): Full Level Of Support Discussed With: Patient * CPR (Attempt to Resuscitate) Date Activated Date Inactivated Comments 01/29/2020 7:10 PM 02/01/2020 2:23 PM Question Answer Comments Code Status (Patient has no pulse and is not breathing): CPR (Attempt to Resuscitate) Medical Interventions (Patie nt has pulse or is breathing): Full * CPR (Attempt to Resuscitate) Date Activated Date Inactivated Comments 01/28/2020 6:27 PM 01/29/2020 7:10 PM Question Answer Comments Code Status (Patient has no pulse and is not breathing): CPR (Attempt to Resuscitate) Medical Interventions (Patie nt has pulse or is breathing): Full Care Teams Research Coordinator Relationship Specialty Start Date End Date Malka Espinal, PRAWN TRAWLER HAND [address] [place] [address] PCP - General Family Medicine 01/21/25
--- OUTSIDE RECORDS SUMMARY | 2025-03-09 13:20 | XMS_ITS | Encounter Summary ---
Author Organization [facility] Address [address] [place] [address] Care Team Providers Care Liquor Clerk Name Role Phone Malka Espinal APRN Primary Care Provider [phone] Encounter Details Date Type Department Care Team (Latest Contact Info) Description 02/11/2025 Travel Social History Tobacco Use Types Packs/Day [...] of Binge Drinking Not on file 11/2019 [place] Depression Scale Answer Date Recorded [place] Depression Scale Total 7 02/24/2021 The thought [...] Ancillary Procedure [facility] OBGYN [address] [place] [address] 03/18/2025 10:30 AM EDT Routine [facility] OBGYN [address] [place] [address] Lalo Jorge MD [address] [facility] [address] [place] [address] documented as of this encounter Visit Diagnoses Not on filedocumented in this encounter Care Teams Liquor Clerk Relationship Specialty Start Date End Date Malka Espinal APRN [address] [place] [address] PCP - General Family Medicine 01/21/25 documented as of this encounter
--- OUTSIDE RECORDS SUMMARY | 2025-03-09 13:20 | XMS_ITS | Encounter Summary ---
[facility] Address [address] [place] [id number] Care Team Providers Care Stock Counter Name Role Phone Malka Espinal APRN Primary Care Provider [phone] Reason for Visit * Reason Onset Date Comments RETURN TO WORK NOTE 01/25/2025 Encounter Details Date Type Department Care Team (Late st Contact Info) Description 01/25/2025 Telephone [facility] OBGYN [address] [address] Lalo Jorge MD [address] [place] [id number] RETURN TO WORK NOTE Social History Tobacco Use Types Packs/Day Years [...] of Binge Drinking Not on file 11/2019 [place] Depression Scale Answer Date Recorded [place] Depression Scale Total 7 02/24/2021 The thought [...] on file documented as of this encounter Miscellaneous Notes * Telephone Encounter - Anny Murrieta MA - 01/28/2025 8:02 AM EDT Note uploaded onto [employer] and patient notified. * Telephone Encounter - Lois Erazo - 01/25/2025 10:19 AM EDT Caller: Kathryn Mckeon Relationship: Self Best call back number: [phone] What form or medical record are you requesting: RETURN TO WORK NOTE Who is requesting this form or medical record from you: EMPLOYER - [employer] How would you like to receive the form or medical records (pick-up, mail, fax): THERMOMETER TESTER AT [facility] LOCATION Timeframe paperwork needed: KARO Additional notes: TRYING TO RETURN TO WORK KARO - PREFERABLY TUESDAY. documented in this encounter Plan of Treatment Upcoming Encounters Date Type Department Care Team (Late st Contact Info) Description 03/18/2025 10:00 AM EDT Ancillary Procedure [facility] OBGYN [address] [place] [address] 03/18/2025 10:30 AM EDT Routine [facility] OBGYN [address] [place] [address] Lalo Jorge MD 1700 [facility] [address] [place] [address] documented as of this encounter Visit Diagnoses Not on filedocumented in this encounter Care Teams Stock Counter Relationship Specialty Start Date End Date Malka Espinal APRN [address] [place] [address] PCP - General Family Medicine 01/21/25 documented as of this encounter
--- OUTSIDE RECORDS SUMMARY | 2025-03-09 13:20 | XMS_ITS | Encounter Summary ---
[facility] Address [address] [place] [address] Care Team Providers Care Reverberatory Furnace Supervisor Name Role Phone Provider, No Known Primary Care Provider Unavail able Encounter Details Date Type Department Care Team (Late st Contact Info) Description 01/16/2025 Referral Triage [facility] DELIVERY [address] [place] [address] Paola Vanegas, RN Social History Tobacco Use Types Packs/Day Years [...] of Binge Drinking Not on file 11/2019 [place] Depression Scale Answer Date Recorded [place]a Depression Scale Total 7 02/24/2021 The thought [...] 03/18/2025 10:00 AM EDT Ancillary Procedure [facility] [place] [address] [address] 03/18/2025 10:30 AM EDT Routine [facility] OBGYN [address] [place] [address] Lalo Jorge MD 1700 [facility] [address] [place] [id number] documented as of this encounter Visit Diagnoses Not on filedocumented in this encounter Care Teams Reverberatory Furnace Supervisor Relationship Specialty Start Date End Date Provider, No Known [facility] [place] [address] PCP - General 04/16/19 01/20/25 documented as of this encounter
--- OUTSIDE RECORDS SUMMARY | 2025-03-09 13:20 | XMS_ITS | Encounter Summary ---
Author Organization [facility] Address [address] [place] [address] Care Team Providers Care Floral Designer Salesperson Name Role Phone Malka Espinal APRN Primary Care Provider [phone] Encounter Details Date Type Department Care Team (Late st Contact Info) Description 03/05/2025 Patient Outreach [facility] DELIVERY [address] [facility] [place] [id number] Eduardo Vanegas, RN Social History Tobacco Use Types [...] of Binge Drinking Not on file 11/2019 [place] Depression Scale Answer Date Recorded [place] Depression Scale Total 7 02/24/2021 The thought [...] as of this encounter Miscellaneous Notes * Outreach Note - Eduardo Vanegas, RN - 03/05/2025 3:45 PM EDTSummary: Motherhood Connection Motherhood Connection Unable to Reach Questions/Answers Flowsheet Row Responses Pending Outreach Confirm Patient Interest Call Attempt First Outcome Missing or invalid number, [employer] message sent to patient Next Call Attempt Date 03/13/25 Confirmation of interest letter sent via [employer] message. Contact information provided. Response requested. EDUARDO Hussein RNcomputer tester Nurse Navigator 03/05/2025, 15:48 EDT documented in this encounter Plan of Treatment Upcoming Encounters Date Type Department Care Team (Late st Contact Info) Description 03/18/2025 10:00 AM EDT Ancillary Procedure [facility] OBGYN [address] [place] [address] 03/18/2025 10:30 AM EDT Routine [facility] OBGYN [address] [place] [address] Lalo Jorge MD [facility] [address] [address] documented as of this encounter Visit Diagnoses Not on filedocumented in this encounter Care Teams Floral Designer Salesperson Relationship Specialty Start Date End Date Malka Espinal APRN [address] [place] [address] PCP - General Family Medicine 01/21/25 documented as of this encounter
--- OUTSIDE RECORDS SUMMARY | 2025-03-09 13:20 | XMS_ITS | Encounter Summary ---
Author Organization [facility] Address [address] [place] [address] Care Team Providers Care Watch Parts Inspector Name Role Phone Provider, No Known Primary Care Provider Unavail able Encounter Details Date Type Department Care Team (Latest Contact Info) Description 01/11/2025 Travel Social History Tobacco Use Types Packs/Day [...] of Binge Drinking Not on file 11/2019 [place] Depression Scale Answer Date Recorded [place] Depression Scale Total 7 02/24/2021 The thought [...] Description 03/18/2025 10:00 AM EDT Ancillary Procedure [facility] [place] [address] [place] [address] 03/18/2025 10:30 AM EDT Routine [facility] OBGYN [address] [address] Lalo Jorge MD [address]00 [facility] [address] [place] [address] documented as of this encounter Visit Diagnoses Not on filedocumented in this encounter Care Teams Watch Parts Inspector Relationship Specialty Start Date End Date Provider, No Known [facility] [place] [address] PCP - General 04/16/19 01/20/25 documented as of this encounter
--- OUTSIDE RECORDS SUMMARY | 2025-03-09 13:20 | XMS_ITS ---
Author Organization [facility] Address [address] [place] [address] Care Team Providers Care Warehouse Associate Name Role Phone Malka Espinal APRN Primary Care Provider [phone] Motherhood Connection Status:Ready to Contact (Enrolling) Start date:01/16/2025 Case Team Name Relationship Phone Paola Vanegas RN(Responsible Staff) Nurse Shashank puri Continued Care and Services Coordination
--- OUTSIDE RECORDS SUMMARY | 2025-03-09 13:20 | XMS_ITS | Encounter Summary ---
[facility] Address [address] [place] [address] Care Team Providers Care Transport Rn Name Role Phone Malka Espinal APRN Primary Care Provider [phone] Encounter Details Date Type Department Care Team (Late st Contact Info) Description 11/28/2024 Results Follow-Up [facility] OBGYN [address] [address] Lalo Jorge MD [address] [place] [address] Social History Tobacco Use Types Packs/Day Years [...] of Binge Drinking Not on file 11/2019 [place] Depression Scale Answer Date Recorded [place] Depression Scale Total 7 02/24/2021 The thought [...] Description 03/18/2025 10:00 AM EDT Ancillary Procedure [facility] OBGYN [address] [place] [address] 03/18/2025 10:30 AM EDT Routine [facility] OBGYN [address] [place] [address] [place] [address] [place] [address] [place] [address] documented as of this encounter Visit Diagnoses Not on filedocumented in this encounter Care Teams Transport Rn Relationship Specialty Start Date End Date Malka Espinal APRN [address] [place] [address] PCP - General Family Medicine 01/21/25 documented as of this encounter
[2025-03-09 13:22] VITALS: BMI 27.8
[2025-03-09 13:43] VITALS: BP 108/63; PULSE 105; RESP 18; TEMP 37.2; O2SAT 95; BMI 27.8
[2025-03-09 13:52] LABS: Microscopic, Urine URINE MICROSCOPIC (MICROSCOPIC)
--- NOTE | 2025-03-09 14:10 | US_ITS ---
PROCEDURE INFORMATION: Exam: US , Follow up Exam date and time: 03/09/2025 2:25 PM Age: 24 years old Clinical indication: Lmp or gestational age (in weeks): 24w3d; Antepartum complications; Bleeding; ; Spotting and pain; Additional info: Check placenta bpp LABS AND CLINICAL REPORTS: Last menstrual period start date: Unknown Gestational age (Established): 24 w 3 d Estimated due date (Established): 06/26/2025 TECHNIQUE: Imaging protocol: Transabdominal ultrasound of the uterus, real time with image documentation. Follow-up (eg, re-evaluation of size by measuring standard growth parameters and amniotic fluid volume, re-evaluation of organ system(s) suspected or confirmed to be abnormal on a previous scan). COMPARISON: US OB TRANSVAGINAL 05/30/2024 9:13 PM FINDINGS: Gestation: Intrauterine gestation. heart rate: Heart rate 150 bpm presentation and position: Cephalic presentation Placenta: Anterior placenta . No evidence of abruption ANATOMY: choroid plexus: Normal choroid plexus face: Normal nose and lips heart four-chamber view, heart size and position: Normal four-chamber heart heart three-vessel view: Normal three-vessel view heart right ventricular outflow tract: Normal right ventricular outflow tract stomach: Normal stomach urinary bladder: Normal bladder Umbilical cord and insertion: Normal cord insertion into the abdomen. Normal three-vessel cord. BIOMETRY: Estimated weight: Estimated weight 685 g 35% Biparietal diameter (BPD): BPD 25 weeks 1 day 68% Head circumference (HC): Head circumference 24 weeks 6 days 44% Abdominal circumference (AC): Abdominal circumference 24 weeks 3 days 37% Femur length (FL): Femur length 24 weeks 2 days 28% MATERNAL: Cervix: Cervix measures 2.8 cm -3.4.. IMPRESSION: Normal 2nd trimester
[2025-03-09] MEDS: DEXTROSE 5%-LACTATED RINGERS 1,000 ML 999 ML IV (14:29)
[2025-03-09 14:45] LABS: Bilirubin,Urine Negative (Negative); Color,Urine YELLOW (Yellow); Glucose,Urine (UA) Negative (Negative); Ketones,Urine Negative (Negative); Leukocyte Esterase,Urine Negative (Negative); PH,Urine 6.5 (5.0-8.5); Protein,Urine Negative (Negative); Specific Gravity, Urine 1.020 (1.005-1.030); Urobilinogen,Urine 0.2 EU/dl (0.2)
[2025-03-09 14:54] LABS: Barbiturates Screen,Urine Negative ng/ml (<200)
[2025-03-09 14:55] LABS: Benzodiazepines Screen,Urine Negative ng/ml (<200)
[2025-03-09 14:56] LABS: Amphetamine/Metha Screen,Urine Negative ng/ml (<1000); Methadone Screen,Urine Negative ng/ml (<300)
[2025-03-09 14:59] LABS: Opiate Screen,Urine Negative ng/ml (<300); Phencyclidine Screen,Urine Negative ng/ml (<25)
[2025-03-09 15:25] LABS: Bacteria,Urine Trace /lpf; RBC,Urine Occasional #/hpf (0-3)
[2025-03-09] MEDS: ACETAMINOPHEN 1,000MG/100ML VIAL 1000 MG IV (16:19)
[2025-03-09 16:26] LABS: Hematocrit 30.6 % (37.0-47.0); Hemoglobin 10.7 g/dL (12.2-16.2); Immature Granulocytes % 0.6 %; Mean Corpuscular HGB Conc 35.0 g/dL (31.8-35.4); Mean Corpuscular Hemoglobin 31.7 pg (27.0-31.2); Mean Corpuscular Volume 90.5 fl (81-99); Nucleated Red Blood Cells % 0 %; Platelet Count 165 K/mm3 (142-424); Red Blood Count 3.38 M/mm3 (4.20-5.40); Red Cell Distribution Width-SD 43.3 fL; White Blood Count 12.9 K/mm3 (4.8-10.8)
[2025-03-09 16:33] LABS: Chloride 113 mmol/L (98-107)
[2025-03-09 16:34] LABS: Albumin Level 3.2 g/dl (3.5-5.0); Potassium 3.5 mmoL/L (3.5-5.1); Sodium 136 mmol/L (136-145)
[2025-03-09 16:36] LABS: Blood Urea Nitrogen 7 mg/dl (7-17); Creatinine Clearance Estimated 169 mL/min (50-200); Creatinine,Serum 0.60 mg/dl (0.52-1.04); Estimated Glomerular Filt Rate 124 ml/min (>60); GFR (African American) 150 ML/MIN (>60)
[2025-03-09 16:37] LABS: Alanine Aminotransferase 8 U/L (12-78); Albumin/Globulin Ratio 1.1 (1.1-1.8); Alkaline Phosphatase 52 U/L (38-126); Anion Gap 6.5 mEq/L (5-15); Aspartate Amino Transferase 15 U/L (14-36); Calcium 8.5 mg/dl (8.4-10.2); Carbon Dioxide 20 mmol/L (22.0-30.0); Globulin 3.0 g/dL (1.3-3.2); Glucose 52 mg/dl (74-100); Total Protein,Serum 6.2 g/dl (6.3-8.2)
[2025-03-09] MEDS: LACTATED RINGERS 1000ML 1,000 ML 999 ML IV (16:39)
[2025-03-09 16:41] LABS: Bilirubin,Total 0.1 mg/dl (0.2-1.3)
[2025-03-09 16:43] LABS: Fetal Fibronectin (Rapid) Negative (Negative)
== END 2025-03-09 18:01 | disposition home or self-care (01) ==
LOC: OBOUT 13:18 → OB 13:19
PROVIDERS: PCP Family Medicine; Visit Provider Obstetrics & Gynecology
DX: O36.8120 Decreased fetal movements, second trimester, not applicable or unspecified (principal); O26.852 Spotting complicating pregnancy, second trimester; Z3A.24 24 weeks gestation of pregnancy
CPT/HCPCS: 76805; 80053; 80307; 81001; 82731; 85025; 96360; 96361; 96372; 99212; G0463; J0131; J7120; J7121

== ENCOUNTER 2025-03-15 13:12 | Outpatient (CLI) | payer OTHER, SELFPAY ==
--- OUTSIDE RECORDS SUMMARY | 2025-01-21 15:00 | XMS_ITS | Encounter Summary ---
[facility] [address] [place] [address] Care Team Providers Care Top And Seat Cover Fitter Name Role Phone Malka Espinal APRN Primary Care Provider [phone] Reason for Visit * Diagnostic Imaging (Routine) - Closed Specialty Diagnoses / Procedures Referred By Contact Referred To Contact Obstetrics and Gynecology Diagnoses Subchorionic hematoma, antepartum, single or unspecified fetus Procedures US Ob Limited 1 + Fetuses Shant Bond MD [address] [address] Phone: tel: fax: [facility] OBGYN [address] [address] Phone: tel: fax: Referral ID Status Reason Start Date Expiration Date Visits Re quested Visits Authorized [id number] Closed 12/21/2024 03/22/2026 1 1 Encounter Details Date Type Department Care Team (Latest Contact Info) Description 01/21/2025 3:00 PM EDT Ancillary Procedure [facility] OBGYN [address] [place] [address] Subchorionic hematoma, antepartum, single or unspecified fetus Social History Tobacco Use Types Packs/Day Years [...] of Binge Drinking Not on file 11/2019 [place] Depression Scale Answer Date Recorded [place] Depression Scale Total 7 02/24/2021 The thought [...] on file documented as of this encounter Plan of Treatment Upcoming Encounters Date Type Department Care Team (Late st Contact Info) Description 03/18/2025 10:00 AM EDT Ancillary Procedure [facility] OBGYN [address] [place] [address] 03/18/2025 10:30 AM EDT Routine [facility] OBGYN [address] [place] [address] Shatn Bond MD [address] [facility] [address] [place] [address] documented as of this encounter Procedures Procedure Name Priority Date/Time Associated Diagnosis Comments US OB LIMITED 1 + FETUSES Routine 01/21/2025 3:25 PM EDT Subchorionic hematoma, antepartum, single or unspecified fetus documented in this encounter Results * US Ob Limited 1 + Fetuses (01/21/2025 3:25 PM EDT) Anatomical Region Laterality Modality Body Ultrasound 01/21/2025 2:58 PM EDT Narrative 01/21/2025 4:06 PM EDT PAT NAME: KATHRYN PATEL MED REC#: [id number] DA: [id number] PAT GEND: F PAT TYPE: O EXAM NICOLA: [id number] REF PHYS SHANT BOND Nurse Emergency Room Comments Appears to be female. Double check at anatomy scan Indication ======== F/U Placental SEVERINO Comparison Studies The findings of this study are compared to the prior ultrasound study dated , 12/21/24 Method ======= Transabdominal ultrasound examination. View: Adequate view ========= James . Number of fetuses: 1 Dating ====== Method of dating: based on stated JEAN-CLAUDE GA by prior assessment 17 w + 5 d JEAN-CLAUDE by prior assessment: 06/26/2025 Ultrasound examination on: 01/21/2025 GA by U/S based upon: AC, BPD, Femur, HC GA by U/S 17 w + 5 d JEAN-CLAUDE by U/S: 06/26/2025 Previous dating: based on stated JEAN-CLAUDE, selected on 12/21/2024 Agreed JEAN-CLAUDE of previous datin06/26/2025 Assigned: based on stated JEAN-CLAUDE, selected on 01/21/2025 Assigned GA 17 w + 5 d Assigned JEAN-CLAUDE: 06/26/2025 length 280 d General Evaluation Cardiac activity present. FHR 154 bpm. movements visualized. Presentation breech. Placenta Placental site: anterior. No evidence of SEVERINO today. Umbilical cord Cord vessels: 3 vessel cord. Amniotic fluid Amount of AF: normal. MVP 5.2 cm. Biometry Standard BPD 38.6 mm 17w 5d 52% Hadlock HC 142.7 mm 17w 4d 32% Hadlock AC 120.3 mm 17w 5d 48% Hadlock Femur 25.0 mm 17w 4d 39% Hadlock HC / AC 1.19 52% Hadlock EFW 203 g 17w 4d 39% Hadlock EFW (lb) 0 lb EFW (oz) 7 oz EFW by: Hadlock ([id number]) Extremities / Bony Struc FL / BPD 0.65 50% Hadlock FL / HC 0.18 76% Hadlock FL / AC 0.21 56% Hadlock Other Structures FHR 154 bpm Anatomy Cavum septi pellucidi: Appears normal Cerebellum: Appears normal Cisterna magna: Appears normal Profile: Appears normal Cord insertion: Appears normal Stomach: Appears normal Kidneys: Appears normal Bladder: Appears normal Cervical spine: Appears normal Thoracic spine: Appears normal Lumbar spine: Appears normal Sacral spine: Appears normal Maternal Structures Uterus / Cervix Cervix: Visualized Approach: Transvaginal Cervical length 36.8 mm Impression Single viable intrauterine with normal cardiac activity and biometry consistent with clinical dates. No structural abnormalities are seen on today's scan. Anatomic survey is incomplete. There is appropriate interval growth & normal amniotic fluid quantity no evidence of SEVERINO on today's exam Recommendation Repeat imaging in 3-4 weeks to complete anatomical survey Nurse Emergency Room: Brenda Ford, RN, RDMS Physician: Shant Bond MD, FACOG Electronically signed by: Shant Bond MD, FACOG at: 16:06 Procedure Note Shant Bond MD - 01/21/2025 PAT NAME: KATHRYN PATEL [facility] REC#: [id number] DA: [id number] PAT GEND: F PAT TYPE: O EXAM NICOLA: [id number] REF PHYS SHANT BOND Nurse Emergency Room Comments Appears to be female. Double check at anatomy scan Indication ======== F/U Placental SEVERINO Comparison Studies The findings of this study are compared to the prior ultrasound studydated , 12/21/24 Method ======= Transabdominal ultrasound examination. View: Adequate view ========= James . Number of fetuses: 1 Dating ====== Method of dating:based on stated JEAN-CLAUDE GA by prior [id number] w + 5 d JEAN-CLAUDE by prior assessment:06/26/2025 Ultrasound examination on:01/21/2025 GA by U/S based upon:AC, BPD, Femur, HC GA by U/S17 w + 5 d JEAN-CLAUDE by U/S:06/26/2025 Previous dating:based on stated JEAN-CLAUDE, selected on 12/21/2024 Agreed JEAN-CLAUDE of previous datin06/26/2025 Assigned:based on stated JEAN-CLAUDE, selected on 01/21/2025 Assigned GA17 w + 5 d Assigned JEAN-CLAUDE:06/26/2025 d General Evaluation Cardiac activity present. FHR 154 bpm. movements visualized. Presentation breech. Placenta Placental site: anterior. No evidence of SEVERINO today. Umbilical cord Cord vessels: 3 vessel cord. Amniotic fluid Amount of AF: normal. MVP 5.2 cm. Biometry Standard BPD38.6 mm 17w 5d 52% Hadlock HC142.7 mm 17w 4d 32% Hadlock AC120.3 mm 17w 5d 48% Hadlock Femur25.0 mm 17w 4d 39% Hadlock HC / AC1.19 52% Hadlock UEZ109 g 17w 4d 39% Hadlock EFW (lb)0 lb EFW (oz)7 oz EFW by:Hadlock ([id number]) Extremities / Bony Struc FL / BPD0.65 50% Hadlock FL / HC0.18 76% Hadlock FL / AC0.21 56% Hadlock Other Structures PTS206 bpm Anatomy Cavum septi pellucidi:Appears normal Cerebellum:Appears normal Cisterna magna:Appears normal Profile:Appears normal Cord insertion:Appears normal Stomach:Appears normal Kidneys:Appears normal Bladder:Appears normal Cervical spine:Appears normal Thoracic spine:Appears normal Lumbar spine:Appears normal Sacral spine:Appears normal Maternal Structures Uterus / Cervix Cervix:Visualized Approach:Transvaginal Cervical stpott65.8 mm Impression Single viable intrauterine with normal cardiac activity andbiometry consistent with clinical dates. No structural abnormalities are seen on today's scan. Anatomicsurvey is incomplete. There is appropriate interval growth & normal amniotic fluidquantity no evidence of SEVERINO on today's exam Recommendation Repeat imaging in 3-4 weeks to complete anatomical survey Nurse Emergency Room: Brenda Ford, RN, RDMS Physician: Shant Bond MD, FACOG Electronically signed by: Shant Bond MD, FACOG at: 16:06 us Shant Bond MD IMG US ORDERABLES Final Result documented in this encounter Visit Diagnoses Diagnosis Subchorionic hematoma, antepartum, single or unspecified fetus documented in this encounter Care Teams Top And Seat Cover Fitter Relationship Specialty Start Date End Date Malka Espinal APRN [address] [place] [address] PCP - General Family Medicine 01/21/25 documented as of this encounter
--- OUTSIDE RECORDS SUMMARY | 2025-01-21 15:30 | XMS_ITS | Encounter Summary ---
Author Organization [facility] Address [address] [place] [address] Care Team Providers Care Press Tender Smoke Signal Name Role Phone TeddyNagiMalka TREVOR Primary Care Provider [phone] Reason for Referral * Diagnostic Imaging (Routine) - Closed Specialty Diagnoses / Procedures Referred By Contact Referred To Contact Obstetrics and Gynecology Diagnoses 17 weeks gestation of Procedures US Ob 14 + Weeks Single or First Gestation Shant Bond MD [address] [facility] [address] [place] [address] Phone: tel: fax: [facility] OBGYN [address] [place] [address] Phone: tel: fax: Referral ID Status Reason Start Date Expiration Date Visits Re quested Visits Authorized [id number] Closed 01/21/2025 04/22/2026 1 1 Reason for Visit * Reason Comments Routine Visit 17w5d Encounter Details Date Type Department Care Team ([facility] Contact Info) Description 01/21/2025 3:30 PM EDT Routine [facility] OBGYN [address] [place] [address] Shant Bond MD [address] [facility] [address] [place] [address] GA: 17w5d Social History Tobacco Use Types [...] of Binge Drinking Not on file 11/2019 [place] Depression Scale Answer Date Recorded [place] Depression Scale Total 7 02/24/2021 The thought [...] Description 03/18/2025 10:00 AM EDT Ancillary Procedure [facility] OBGYN [address] [place] [address] 03/18/2025 10:30 AM EDT Routine [facility] OBGYN [address] [place] [address] Shant Bond MD 1700 [facility] [address] [place] [address] documented as of this encounter Procedures Procedure [...] EDT PAT NAME: KATHRYN PATEL MED REC#: [id number] DA: [id number] PAT GEND: F PAT TYPE: O EXAM NICOLA: [id number] REF PHYS SHANT BOND Concrete Paving Machine Operator Comments heart and profile suboptimal; needs f/u [...] EFW (oz) 12 oz EFW by: Hadlock (PDF-IY-PO-FL) Extended Disease Management Nurse 5.1 mm CM 4.9 mm 41% Nicolaides [...] normal Heart / Thorax 3-vessel view: suboptimal 5-otrhfl-ejnepua view: suboptimal Diaphragm: Appears normal Diaphragm: Intact [...] in 1 month to complete anatomical survey Concrete Paving Machine Operator: Brenda Ford RN, RDMS Physician: Shant Bond MD, FACOG Electronically signed by: Shant Bond MD, FACOG at: 15:45 Procedure Note Shant Bond MD - 02/11/2025 PAT NAME: KATHRYN PATEL MED REC#: [id number] DA: [id number] PAT GEND: F PAT TYPE: O EXAM NICOLA: [id number] REF PHYS SHANT BOND Concrete Paving Machine Operator Comments heart and profile suboptimal; needs f/u due to position. Indication ======== anatomy survey Comparison Studies There are no relevant prior studies to which this study is beingcompared Method ======= Voluson E6, Transabdominal ultrasound examination. View: Sufficient view;positional ========= James . Number of fetuses: 1 Dating ====== Method of dating:based on stated JEAN-CLAUDE GA by prior w + 5 d JEAN-CLAUDE by prior assessment:06/26/2025 Ultrasound examination on:02/11/2025 GA by U/S based upon:AC, BPD, Femur, HC GA by U/S20 w + 2 d JEAN-CLAUDE by U/S:06/29/2025 Previous dating:based on stated JEAN-CLAUDE, selected on 01/21/2025 Agreed JEAN-CLAUDE of previous datin06/26/2025 Assigned:based on stated JEAN-CLAUDE, selected on 02/11/2025 Assigned GA20 w + 5 d Assigned JEAN-CLAUDE:06/26/2025 d [...] 31% Hadlock HC / AC1.18 66% Hadlock LUV315 g 20w 2d 28% Hadlock EFW (lb)0 lb EFW (oz)12 oz EFW by:Hadlock (PLY-EV-KP-FL) Extended Vp5.1 mm CM4.9 mm 41% Nicolaides Extremities / Bony Struc FL / BPD0.71 45% Hadlock FL / HC0.19 48% Hadlock FL / AC0.22 46% Hadlock Other Structures UFZ266 bpm Anatomy Cranium:Appears normal Lateral ventricles:Appears normal Choroid plexus:Appears normal Midline falx:Appears normal Cavum septi pellucidi:Appears normal Cerebellum:Appears normal Cisterna magna:Appears normal Lips:Appear normal Profile:suboptimal Nose:Appears normal 4-chamber view:Appears normal RVOT view:suboptimal LVOT view:Appears normal Heart / Thorax 3-vessel view:suboptimal 1-lxflbf-vdzexve view:suboptimal Diaphragm:Appears normal Diaphragm:Intact Cord insertion:Appears normal [...] Structures Uterus / Cervix Uterus:Visualized Cervix:Visualized Cervical lcezzs03.0 mm Ovaries / Tubes / Adnexa Rt ovary:Visualized Lt ovary:Visualized Impression Single viable intrauterine with normal cardiac activity andbiometry consistent with clinical dates. No structural abnormalities are seen on today's scan. Anatomicsurvey is incomplete. Recommendation Repeat imaging in 1 month to complete anatomical survey Concrete Paving Machine Operator: Brenda Ford RN, RDMS Physician: Shant Bond MD, FACOG Electronically signed by: Shant Bond MD, FACOG at: 15:45 Shant Bond MD [facility] ORDERABLES Final Result * POC Urinalysis Dipstick (01/21/2025 3:16 PM EDT) Glucose, UA Negative Negative mg/dL [facility] Protein, POC Negative Negative mg/dL [facility] Urine 01/21/2025 3:16 PM EDT Shant Bond MD POINT OF CARE TEST ORDER MICHELLE Final Result [facility]
[address] [place] [address], documented in this encounter Visit Diagnoses Diagnosis 17 weeks gestation of - Primary Previous section Other postprocedural status Depression, unspecified depression type Nausea and vomiting during 17 weeks gestation of documented in this encounter Care Teams Press Tender Smoke Signal Relationship Specialty Start Date End Date Malka Espinal APRN [address] [place] [address] PCP - General Family Medicine 01/21/25 documented as of this encounter
--- OUTSIDE RECORDS SUMMARY | 2025-02-11 15:00 | XMS_ITS | Encounter Summary ---
[facility] [address] [place] [address] Care Team Providers Care Real Estate Agent Name Role Phone Malka Espinal APRN Primary Care Provider [phone] Reason for Visit * Diagnostic Imaging (Routine) - Closed Specialty Diagnoses / Procedures Referred By Contact Referred To Contact Obstetrics and Gynecology Diagnoses 17 weeks gestation of Procedures US Ob 14 + Weeks Single or First Gestation Shant Bond MD [address] [facility] [address] [place] [address] Phone: tel: fax: [facility] [place] [address] Phone: tel: fax: Referral ID Status Reason Start Date Expiration Date Visits Re quested Visits Authorized [id number] Closed 01/21/2025 04/22/2026 1 1 Encounter Details Date Type Department Care Team (Latest Contact Info) Description 02/11/2025 3:00 PM EDT Ancillary Procedure [facility] [place] [address] 17 weeks gestation of Social [...] of Binge Drinking Not on file 11/2019 [place] Depression Scale Answer Date Recorded [place] Depression Scale Total 7 02/24/2021 The thought [...] Description 03/18/2025 10:00 AM EDT Ancillary Procedure [facility] OBGYN [address] [place] [address] 03/18/2025 10:30 AM EDT Routine [facility] OBGYN [address] [place] [address] Shant Bond MD [address] [facility] [address] [place] [address] documented as of this encounter Procedures Procedure [...] EDT PAT NAME: KATHRYN PATEL MED REC#: [id number] DA: [id number] PAT GEND: F PAT TYPE: O EXAM NICOLA: [id number] REF PHYS SHANT BOND Customer Care Consultant Comments heart and profile suboptimal; needs f/u [...] EFW (oz) 12 oz EFW by: Hadlock (ZHI-DW-QL-FL) Extended Sr. Payroll Manager 5.1 mm CM 4.9 mm 41% Nicolaides [...] normal Heart / Thorax 3-vessel view: suboptimal 4-tahavw-mvehgmv view: suboptimal Diaphragm: Appears normal Diaphragm: Intact [...] in 1 month to complete anatomical survey Customer Care Consultant: Brenda Ford RN, RDMS Physician: Shant Bond MD, FACOG Electronically signed by: Shant Bond MD, FACOG at: 15:45 Procedure Note Shant Bond MD - 02/11/2025 PAT NAME: KATHRYN PATEL MED REC#: [id number] DA: 2000 PAT GEND: F PAT TYPE: O EXAM NICOLA: [id number] REF PHYS SHANT BOND Customer Care Consultant Comments heart and profile suboptimal; needs f/u due to position. Indication ======== anatomy survey Comparison Studies There are no relevant prior studies to which this study is beingcompared Method ======= Voluson E6, Transabdominal ultrasound examination. View: Sufficient view;positional ========= James . Number of fetuses: 1 Dating ====== Method of dating:based on stated JEAN-CLAUDE GA by prior [id number] w + 5 d JEAN-CLAUDE by prior assessment:06/26/2025 Ultrasound examination on:02/11/2025 GA by U/S based upon:AC, BPD, Femur, HC GA by U/S20 w + 2 d JEAN-CLAUDE by U/S:06/29/2025 Previous dating:based on stated JEAN-CLAUDE, selected on 01/21/2025 Agreed JEAN-CLAUDE of previous datin06/26/2025 Assigned:based on stated JEAN-CLAUDE, selected on 02/11/2025 Assigned GA20 w + 5 d Assigned JEAN-CLAUDE:06/26/2025 [id number] d General Evaluation Cardiac activity present. FHR [...] 31% Hadlock HC / AC1.18 66% Hadlock [id number] g 20w 2d 28% Hadlock EFW (lb)0 lb EFW (oz)12 oz EFW by:Hadlock ([id number]-[id number]-FL) Extended Vp5.1 mm CM4.9 mm 41% Nicolaides Extremities / Bony Struc FL / BPD0.71 45% Hadlock FL / HC0.19 48% Hadlock FL / AC0.22 46% Hadlock Other Structures HNE246 bpm Anatomy Cranium:Appears normal Lateral ventricles:Appears normal Choroid plexus:Appears normal Midline falx:Appears normal Cavum septi pellucidi:Appears normal Cerebellum:Appears normal Cisterna magna:Appears normal Lips:Appear normal Profile:suboptimal Nose:Appears normal 4-chamber view:Appears normal RVOT view:suboptimal LVOT view:Appears normal Heart / Thorax 3-vessel view:suboptimal 5-kupgiy-paaxjwm view:suboptimal Diaphragm:Appears normal Diaphragm:Intact Cord insertion:Appears normal [...] Structures Uterus / Cervix Uterus:Visualized Cervix:Visualized Cervical elotxg12.0 mm Ovaries / Tubes / Adnexa Rt ovary:Visualized Lt ovary:Visualized Impression Single viable intrauterine with normal cardiac activity andbiometry consistent with clinical dates. No structural abnormalities are seen on today's scan. Anatomicsurvey is incomplete. Recommendation Repeat imaging in 1 month to complete anatomical survey Customer Care Consultant: Brenda Ford, RN, RDMS Physician: Shant Bond MD, FACOG Electronically signed by: Shant Bond MD, JORDYOG at: 15:45 us Shant Bond MD [facility] [place] ORDERABLES Final Result documented in this encounter Visit Diagnoses Diagnosis 17 weeks gestation of documented in this encounter Care Teams Real Estate Agent Relationship Specialty Start Date End Date Malka Espinal APRN [address] [place] [address] PCP - General Family Medicine 01/21/25 documented as of this encounter
--- OUTSIDE RECORDS SUMMARY | 2025-02-11 15:40 | XMS_ITS | Encounter Summary ---
Author Organization [facility] Address [address] [place] [address] Care Team Providers Care Brake Operator Name Role Phone TeddyNagiMalka TREVOR Primary Care Provider [phone] Reason for Referral * Diagnostic Imaging (Routine) - Authorized Specialty Diagnoses / Procedures Referred By Contac t Referred To Contact Obstetrics and Gynecology Diagnoses 20 weeks gestation of Procedures US Ob Follow Up Transabdominal Approach Lalo Jorge MD [address] [facility] [address] [place] [address] Phone: tel: fax: [facility] [address] [place] [address] Phone: tel:[phone] fax:[phone] Referral ID Status Reason Start Date Expiration Date V isits Requested Visits Authorized [id number] Authorized 02/11/2025 05/13/2026 1 1 Reason for Visit * Reason Comments Routine Visit 20w5d Encounter Details Date Type Department Care Team ([facility] st Contact Info) Description 02/11/2025 3:40 PM EDT Routine [facility] [address] [place] [address] Lalo Jorge MD [facility] [facility] [address] [place] [address] GA: 20w5d Social History Tobacco Use Types [...] of Binge Drinking Not on file 11/2019 [place] Depression Scale Answer Date Recorded [place] Depression Scale Total 7 02/24/2021 The thought [...] yourpregnancy. care may be given by a boilermaker's assistant, a family practice doctor, a nurse practitioner, physician surveyor's assistant, or a childbirth and doctor. What [...] more information Office on Women's Health: womenshealth.gov [place] Association: americanpregnancy.org March of Dimes: marchofdimes.org This information is not intended to replace advice given to you by your health care provider. Make sure you discuss any questions you have with your health care provider. Document Revised: 10/31/2023 Document Reviewed: 10/31/2023 [employer] Patient Education ?? 2023 [employer] documented in this encounter Progress Notes [...] 10:00 AM EDT Ancillary Procedure [facility] [address] [place] [address] 03/18/2025 10:30 AM EDT Routine [facility] [address] [place] [address] [place] [address] [place] [address] [address] [place] [address] Scheduled Orders Name Type Priority Associated Diagnoses [...] PM EDT) Glucose, UA Negative Negative mg/dL [facility] Protein, POC Negative Negative mg/dL [facility] Urine 02/11/2025 3:11 PM EDT Lalo Jorge MD POINT OF CARE TEST ORDER MICHELLE Final Result [facility]
[address] [place] [address], documented in this encounter Visit Diagnoses Diagnosis 20 weeks gestation of - Primary Previous section Other postprocedural status Factor V Leiden mutation complicating Other current maternal conditions classifiable elsewhere, complicating , childbirth, or the puerperium, unspecified as to episode of care documented in this encounter Care Teams Brake Operator Relationship Specialty Start Date End Date Malka Espinal APRN [address] [place] [address] PCP - General Family Medicine 01/21/25 documented as of this encounter
--- OUTSIDE RECORDS SUMMARY | 2025-03-15 13:15 | XMS_ITS | Clinical Summary ---
[facility] Address [address] [place] [address] Care Team Providers Care Security Guard Supervisor Name Role Phone Malka Espinal APRN Primary Care Provider [phone] Allergies Active Allergy Reactions Criticality Noted Date [...] Encounters Date Type Department Care Team Description 03/13/2025 Telephone [facility] OBGYN [address] [place] [address] FORESTER - MEDICAL CONCERN 03/12/2025 Patient Outreach [facility] DELIVERY [address] [place] [address] Paola Vanegas RN 03/05/2025 Patient Outreach [facility] [address] [place] [address] Paola Vanegas RN 02/11/2025 3:40 PM EDT Routine [facility] OBGYN [address] [place] [address] Shant Bond MD GA: 20w5d 02/11/2025 3:00 PM EDT Ancillary Procedure [facility] [place] [address] 17 weeks gestation of 02/11/2025 Travel 01/25/2025 Telephone [facility] OBGYN 17[address] [facility] [address] [place] [address] Shant Bond MD RETURN TO WORK NOTE 01/21/2025 3:30 PM EDT Routine [facility] [place] [address] Shant Bond MD GA: 17w5d 01/21/2025 3:00 PM EDT Ancillary Procedure [facility] [place] [address] Subchorionic hematoma, antepartum, single or unspecified fetus 01/21/2025 Travel 01/16/2025 Referral Triage [facility] DEL[facility] [address] [place] [address] Paola Vanegas RN 01/11/2025 8:39 PM EDT - 01/11/2025 9:10 PM EDT Hospital Encounter [facility] OBSTETRIC EMERGENCY DEPARTMENT [address] [place] [address] Shant Bond MD High, Curtis L, MD Discharge Disposition: Home or Self Care 01/11/2025 Travel 12/21/2024 9:30 AM EDT Routine [facility] OBGYN [address] [facility] [address] [place] [address] Shant Bond MD GA: 13w2d 12/21/2024 9:00 AM EDT Ancillary Procedure [facility] OBGYN [address] [place] [address] First trimester 12/21/2024 Travel 12/17/2024 3:40 PM EDT Routine [facility] OBGYN [address] [place] [address] Shant Bond MD GA: 12w5d 12/17/2024 Travel [...] of Binge Drinking Not on file 11/2019 [place] Depression Scale Answer Date Recorded [place] Depression Scale Total 7 02/24/2021 The thought [...] 03/18/2025 10:00 AM EDT Ancillary Procedure [facility] OBGYN [address] [place] [address] 03/18/2025 10:30 AM EDT Routine [facility] OBGYN [address] [place] [address] Shant Bond MD [address] [place] [address] Health Maintenance Due Date Last Done Comments HPV VACCINES (2 - 2-dose series) 08/14/2014 02/12/20 14 MENINGOCOCCAL B VACCINE (1 o f 2 - Standard) 2017 ANNUAL PHYSICAL 01/21/2020 Pneumococcal Vaccine 0-49 (1 of 2 - PCV) 2020 COVID-19 Vaccine (1 - 2023-2 5 season) 2025 INFLUENZA VACCINE 04/10/2025 05/12/2020 RSV Vaccine - Adults (1 - Ri sk 1-dose series) 05/01/2025 Annual Gynecologic Pelvic an d Breast Exam [...] EDT PAT NAME: DIOMEDES MCKEON MED REC#: [id number] DA: [id number] PAT GEND: F PAT TYPE: O EXAM NICOLA: [id number] REF PHYS SHANT BOND Patient Account Analyst Comments heart and profile suboptimal; needs f/u [...] EFW (oz) 12 oz EFW by: Hadlock (FYQ-FF-UP-FL) Extended Inspector Plating 5.1 mm CM 4.9 mm 41% Nicolaides [...] normal Heart / Thorax 3-vessel view: suboptimal 1-qidebx-wuywqfm view: suboptimal Diaphragm: Appears normal Diaphragm: Intact [...] in 1 month to complete anatomical survey Patient Account Analyst: Brenda Ford RN, RDMS Physician: Shant Bond MD, FACOG Electronically signed by: Shant Bond MD, FACOG at: 15:45 Procedure Note Shant Bond MD - 02/11/2025 PAT NAME: DIOMEDES MCKEON MED REC#: [id number] DA: 2000 PAT GEND: F PAT TYPE: O EXAM NICOLA: [id number] REF PHYS SHANT BOND Patient Account Analyst Comments heart and profile suboptimal; needs f/u due to position. Indication ======== anatomy survey Comparison Studies There are no relevant prior studies to which this study is beingcompared Method ======= Voluson E6, Transabdominal ultrasound examination. View: Sufficient view;positional ========= James . Number of fetuses: 1 Dating ====== Method of dating:based on stated JEAN-CLAUDE GA by prior [id number] w + 5 d JEAN-CLAUDE by prior assessment:06/26/2025 Ultrasound examination on:02/11/2025 GA by U/S based upon:AC, BPD, Femur, HC GA by U/S20 w + 2 d JEAN-CLAUDE by U/S:06/29/2025 Previous dating:based on stated JEAN-CLAUDE, selected on 01/21/2025 Agreed JEAN-CLAUDE of previous datin06/26/2025 Assigned:based on stated JEAN-CLAUDE, selected on 02/11/2025 Assigned GA20 w + 5 d Assigned JEAN-CLAUDE:06/26/2025 [id number] d General Evaluation Cardiac activity present. FHR [...] 31% Hadlock HC / AC1.18 66% Hadlock DXL715 g 20w 2d 28% Hadlock EFW (lb)0 lb EFW (oz)12 oz EFW by:Hadlock (CYL-QB-PL-FL) Extended Vp5.1 mm CM4.9 mm 41% Nicolaides Extremities / Bony Struc FL / BPD0.71 45% Hadlock FL / HC0.19 48% Hadlock FL / AC0.22 46% Hadlock Other Structures CVZ654 bpm Anatomy Cranium:Appears normal Lateral ventricles:Appears normal Choroid plexus:Appears normal Midline falx:Appears normal Cavum septi pellucidi:Appears normal Cerebellum:Appears normal Cisterna magna:Appears normal Lips:Appear normal Profile:suboptimal Nose:Appears normal 4-chamber view:Appears normal RVOT view:suboptimal LVOT view:Appears normal Heart / Thorax 3-vessel view:suboptimal 0-pvohmi-usuuhpi view:suboptimal Diaphragm:Appears normal Diaphragm:Intact Cord insertion:Appears normal [...] Structures Uterus / Cervix Uterus:Visualized Cervix:Visualized Cervical fsnzar08.0 mm Ovaries / Tubes / Adnexa Rt ovary:Visualized Lt ovary:Visualized Impression Single viable intrauterine with normal cardiac activity andbiometry consistent with clinical dates. No structural abnormalities are seen on today's scan. Anatomicsurvey is incomplete. Recommendation Repeat imaging in 1 month to complete anatomical survey Patient Account Analyst: Brenda Ford RN, RDMS Physician: Shant Bond MD, FACOG Electronically signed by: Shant Bond MD, FACOG at: 15:45 Shant Bond MD IMG US ORDERABLES Final Result * POC Urinalysis Dipstick (02/11/2025 3:11 PM EDT) Only the most recent of4 resultswithin the time period is included. Glucose, UA Negative Negative mg/dL [facility] Protein, POC Negative Negative mg/dL [facility] Urine 02/11/2025 3:11 PM EDT Shant Bond MD POINT OF CARE TEST ORDER MICHELLE Final Result [facility]
[address] [place] [address], * US Ob Limited 1 + Fetuses (01/21/2025 3:25 PM EDT) Anatomical Region Laterality Modality Body Ultrasound 01/21/2025 2:58 PM EDT Narrative 01/21/2025 4:06 PM EDT PAT NAME: DIOMEDES MCKEON MED REC#: [id number] DA: 2000 PAT GEND: F PAT TYPE: O EXAM NICOLA: [id number] REF PHYS SHANT BOND Patient Account Analyst Comments Appears to be female. Double check [...] EFW (oz) 7 oz EFW by: Hadlock (BUJ-TE-FV-FL) Extremities / Bony Struc FL / BPD [...] in 3-4 weeks to complete anatomical survey Patient Account Analyst: Brenda Ford RN, RDMS Physician: Shant Bond MD, FACOG Electronically signed by: Shant Bond MD, FACOG at: 16:06 Procedure Note Shant Bond MD - 01/21/2025 PAT NAME: DIOMEDES MCKEON MED REC#: [id number] DA: [id number] PAT GEND: F PAT TYPE: O EXAM NICOLA: [id number] REF PHYS SHANT BOND Patient Account Analyst Comments Appears to be female. Double check at anatomy scan Indication ======== F/U Placental SEVERINO Comparison Studies The findings of this study are compared to the prior ultrasound studydated , 12/21/24 Method ======= Transabdominal ultrasound examination. View: Adequate view ========= James . Number of fetuses: 1 Dating ====== Method of dating:based on stated JEAN-CLAUDE GA by prior uudtgnsbjy34 w + 5 d JEAN-CLAUDE by prior assessment:06/26/2025 Ultrasound examination on:01/21/2025 GA by U/S based upon:AC, BPD, Femur, HC GA by U/S17 w + 5 d JEAN-CLAUDE by U/S:06/26/2025 Previous dating:based on stated JEAN-CLAUDE, selected on 12/21/2024 Agreed JEAN-CLAUDE of previous datin06/26/2025 Assigned:based on stated JEAN-CLAUDE, selected on 01/21/2025 Assigned GA17 w + 5 d Assigned JEAN-CLAUDE:06/26/2025 [id number] d General Evaluation Cardiac activity present. FHR [...] 39% Hadlock HC / AC1.19 52% Hadlock UHL174 g 17w 4d 39% Hadlock EFW (lb)0 lb EFW (oz)7 oz EFW by:Hadlock (MAX-WQ-IR-FL) Extremities / Bony Struc FL / BPD0.65 50% Hadlock FL / HC0.18 76% Hadlock FL / AC0.21 56% Hadlock Other Structures CDG308 bpm Anatomy Cavum septi pellucidi:Appears normal Cerebellum:Appears normal Cisterna magna:Appears normal Profile:Appears normal Cord insertion:Appears normal Stomach:Appears normal Kidneys:Appears normal Bladder:Appears normal Cervical spine:Appears normal Thoracic spine:Appears normal Lumbar spine:Appears normal Sacral spine:Appears normal Maternal Structures Uterus / Cervix Cervix:Visualized Approach:Transvaginal Cervical ubccsq30.8 mm Impression Single viable intrauterine with normal cardiac activity andbiometry consistent with clinical dates. No structural abnormalities are seen on today's scan. Anatomicsurvey is incomplete. There is appropriate interval growth & normal amniotic fluidquantity no evidence of SEVERINO on today's exam Recommendation Repeat imaging in 3-4 weeks to complete anatomical survey Patient Account Analyst: Brenda Ford RN, RDMS Physician: Shant Bond MD, FACOG Electronically signed by: Shant Bond MD, FACOG at: 16:06 us Shant Bond MD IMG US ORDERABLES Final Result * US Ob Transvaginal (12/21/2024 9:48 AM EDT) Anatomical Region Laterality Modality Body Ultrasound 12/21/2024 10:2 3 AM EDT Narrative 12/21/2024 1:07 PM EDT PAT NAME: DIOMEDES RASMUSSEN MED REC#: [id number] DA: [id number] PAT GEND: F PAT TYPE: O EXAM NICOLA: [id number] REF PHYS SHANT BOND Patient Account Analyst Comments 2 areas seen today, first area toward the fundus of the UT 44nkq01pxc8ts, second area in the HIRAM 79gst7uhj36ne suggestive of SEVERINO. Indication ======== f/u from [...] 1 month for reevaluation of subchorionic hemorrhage Patient Account Analyst: Aleyda Townsend RDNY Physician: Shant Bond MD, FACOG Electronically signed by: Shant Bond MD, FACOG at: 13:07 Procedure Note Shant Bond MD - 12/21/2024 PAT NAME: DIOMEDES RASMUSSEN MED REC#: [id number] DA: [id number] PAT GEND: F PAT TYPE: O EXAM NICOLA: [id number] REF PHYS SHANT BOND Patient Account Analyst Comments 2 areas seen today, first area toward the fundus of the UT 52qhq10njh0ob,second area in the HIRAM 79fhq1yah29dr suggestive of SEVERINO. Indication ======== f/u from ER- vaginal bleeding,Dating Comparison Studies There are no relevant prior studies to which this study is beingcompared Method ======= Voluson E6, Transabdominal ultrasound examination. View: Adequate view ========= James . Number of fetuses: 1 Single intrauterine present Dating ====== Method of dating:based on stated JEAN-CLAUDE GA by prior ovogwrizen44 w + 2 d JEAN-CLAUDE by prior assessment:06/26/2025 Ultrasound examination on:12/21/2024 GA by U/S based upon:CRL GA by U/S13 w + 1 d JEAN-CLAUDE by U/S:06/27/2025 Assigned:based on stated JEAN-CLAUDE, selected on 12/21/2024 Assigned GA13 w + 2 d Assigned JEAN-CLAUDE:06/26/2025 cozion075 d Biometry Standard DZH570 bpm 21% Nicolaides CRL69.6 mm 13w 1d 39% Hadlock Extended MVP2.7 cm General Evaluation Cardiac activity present. Placenta anterior. Cord vessels 3 vessel cord. Amniotic fluid normal. Maternal Structures Uterus / Cervix Uterus:Visualized Cervix:Visualized Cervical yzfoxh36.8 mm Ovaries / Tubes / Adnexa Rt ovary:Visualized Lt ovary:Visualized Impression Single viable intrauterine with normal cardiac activity andbiometry consistent with clinical dates. Findings are consistent with a subchorionic hemorrhage Recommendation correlate with clinical presentation and repeat imaging in 1 month forreevaluation of subchorionic hemorrhage Patient Account Analyst: Aleyda Townsend RDMS Physician: Shant Bond MD, FACOG Electronically signed by: Shant Bond MD, EFRAIN at: 13:07 us Shant Bond MD [facility] ORDERABLES Final Result * Chlamydia trachomatis, Neisseria gonorrhoeae, PCR - Urine, Urine, Clean Catch (11/16/2024 11:42 AM EDT) Chlamydia trachomatis, AMADA Negative Negative [facility] Neisseria gonorrhoeae, AMADA Negative Negative [facility] Urine Urine specimen obtained by clean catch procedure / Unknown 11/16/2024 11:42 AM EDT 11/16/2024 Comment: CD- [id number] Narrative [facility] (AMBULATORY) - 11/19/2024 8:09 PM EDT Performed at: 01 - [facility] [place] [id number] Pastrycook: Leidy Bejarano MD, Phone: [phone] Shant Bond MD MICROBIOLOGY - GENERAL O RDERABLES Final Result [facility] ([facility]BULATORY) [address] [place] [address], [place] [phone] [facility] [address] [place] [address], [place] [phone] * Obstetric Panel (11/16/2024 11:42 AM EDT) [...] 11/17/2024 9:10 AM EDT Performed at: - [address] [id number] Pastrycook: Sabino Valentin PhD, Phone: [phone] Shant Bond MD LAB BLOOD ORDERABLES Fin al Result [facility] (AMBULATORY) [address] [place] [address], [facility] [address] [id number], * LIQUID-BASED PAP SMEAR WITH HPV GENOTYPING IF ASCUS (COLETTE,COR,MAD) (01/23/2024 3:06 PM EDT) Pathologist [facility] Reference Lab Report [facility] [address] [place] [address] or [phone] Fly Magana M.D., Warehouse Freight Handler PATIENT NAME LABORATORY NO. 6[address] DIOMEDES MCKEON [id number] AGE SEX SSN CLIENT REF # [facility]) 22 2001 F [id number] [address] G[address]OS REQUESTING Michael ATTEND[place] [address] SHANT BOND DATE COLLECTED DATE RECEIVED DATE REPORTED 01/23/2024 01/23/2024 01/31/2024 ThinPrep Pap with Cytyc Imaging DIAGNOSIS: Negative for intraepithelial lesion or malignancy Multiple factors can influence accuracy of Pap tests; therefore, screening at regular intervals is necessary for early cancer detection. Professional interpretation rendered by Fly Magana M.D., F.C.A.P. at [facility], [address] [place] [address]. RECOMMENDATION: Follow up as clinically appropriate SPECIMEN [...] of chlamydial and gonococcal disease using the [place] system. OPTICAL ENGINEERING MANAGER: JOSE RUSS (ASCP) REVIEWED, DIAGNOSED AND ELECTRONICALLY SIGNED BY: Fly Magana M.D., F.C.A.P. CPT CODES: [id number], 47238, 11733, 45447 01/31/2024 9:01 AM EDT [facility] ThinPrep Vial Collection / Unknown 01/23/2024 3:06 PM EDT 01/23/2024 3:06 PM EDT Shant Bond MD PATHOLOGY/CYTOLOGY ORDER MICHELLE Final Result [facility]
[address] [place] [address], from Last 3 Months or Most Recently Relevant to Health Maintenance Insurance [facility] Advance Directives * CPR (Attempt to Resuscitate) [...] pulse or is breathing): Full Care Teams Security Guard Supervisor Relationship Specialty Start Date End Date Malka Espinal APRN [address] [place] [address] PCP - General Family Medicine 01/21/25
--- OUTSIDE RECORDS SUMMARY | 2025-03-15 13:15 | XMS_ITS | Encounter Summary ---
[facility] Address [address] [place] [id number] Care Team Providers Care Crop Scout Name Role Phone Malka Espinal APRN Primary Care Provider Reason for Visit * Reason Onset Date Comments RETURN TO WORK NOTE 01/25/2025 Encounter Details Date Type Department Care Team (Late st Contact Info) Description 01/25/2025 Telephone [facility] OBGYN [address] [address] Lalo Jorge MD [address] [place] [id number] RETURN TO WORK NOTE Social History Tobacco [...] of Binge Drinking Not on file 11/2019 [place] Depression Scale Answer Date Recorded [place] Depression Scale Total 7 02/24/2021 The thought [...] 01/28/2025 8:02 AM EDT Note uploaded onto [employer], and patient notified. * Telephone Encounter - Lois Erazo - 01/25/2025 10:19 AM EDT Caller: Kathryn Mckeon Relationship: Self Best call back number: [phone] What form or medical record are you requesting: RETURN TO WORK NOTE Who is requesting this form or medical record from you: EMPLOYER - [employer] How would you like to receive the form or medical records (pick-up, mail, fax): TABLE TENDER AT [facility] LOCATION Timeframe paperwork needed: KARO Additional notes: TRYING TO RETURN TO WORK KARO - PREFERABLY TUESDAY. documented in this encounter Plan of Treatment Upcoming Encounters Date Type Department Care Team (Late st Contact Info) Description 03/18/2025 10:00 AM EDT Ancillary Procedure [facility] OBGYN [address] [place] [address] 03/18/2025 10:30 AM EDT Routine [facility] OBGYN [address] [place] [address] Lalo Jorge MD 1700 [facility] [address] [place] [address] documented as of this encounter Visit Diagnoses Not on filedocumented in this encounter Care Teams Crop Scout Relationship Specialty Start Date End Date Malka Espinal APRN [address] [place] [address] PCP - General Family Medicine 01/21/25 documented as of this encounter
--- OUTSIDE RECORDS SUMMARY | 2025-03-15 13:15 | XMS_ITS | Encounter Summary ---
Author Organization [facility] Address [address] [place] [address] Care Team Providers Care Accounting Systems Manager Name Role Phone Malka Espinal APRN Primary Care Provider [phone] Encounter Details Date Type Department Care Team [...] of Binge Drinking Not on file 11/2019 [place] Depression Scale Answer Date Recorded [place] Depression Scale Total 7 02/24/2021 The thought [...] Description 03/18/2025 10:00 AM EDT Ancillary Procedure [facility] OBGYN [address] [place] [address] 03/18/2025 10:30 AM EDT Routine [facility] OBGYN [address] [place] [address] Lalo Jorge MD [address] [facility] [address] [place] [address] documented as of this encounter Visit Diagnoses Not on filedocumented in this encounter Care Teams Accounting Systems Manager Relationship Specialty Start Date End Date Malka Espinal APRN [address] [place] [address] PCP - General Family Medicine 01/21/25 documented as of this encounter
--- OUTSIDE RECORDS SUMMARY | 2025-03-15 13:15 | XMS_ITS | Encounter Summary ---
[facility] Address [address] [place] [address] Care Team Providers Care Plastic Molding Operator Name Role Phone Provider, No Known Primary Care Provider Unavail able Encounter Details Date Type Department Care Team (Late st Contact Info) Description 01/16/2025 Referral Triage [facility] DELIVERY [address] [place] [address] Paola Vanegas, RN Social History [...] of Binge Drinking Not on file 11/2019 [place] Depression Scale Answer Date Recorded [place] Depression Scale Total 7 02/24/2021 The thought [...] Description 03/18/2025 10:00 AM EDT Ancillary Procedure [facility] [place] [address] 03/18/2025 10:30 AM EDT Routine [facility] OBGYN [place] [address] Lalo Jorge MD [address]00 [facility] [address] [place] [address] documented as of this encounter Visit Diagnoses Not on filedocumented in this encounter Care Teams Plastic Molding Operator Relationship Specialty Start Date End Date Provider, No Known [facility] [place] [address] PCP - General 04/16/19 01/20/25 documented as of this encounter
--- OUTSIDE RECORDS SUMMARY | 2025-03-15 13:15 | XMS_ITS | Encounter Summary ---
Author Organization [facility] Address [address] [place] [address] Care Team Providers Care Bass Viol Repairer Name Role Phone Malka Espinal APRN Primary Care Provider [phone] Encounter Details Date Type Department Care Team [...] of Binge Drinking Not on file 11/2019 [place] Depression Scale Answer Date Recorded [place] Depression Scale Total 7 02/24/2021 The thought [...] 10:00 AM EDT Ancillary Procedure [facility] OBGYN [address] [place] [address] 03/18/2025 10:30 AM EDT Routine [facility] OBGYN [address] [place] [address] Lalo Jorge MD 1700 [facility] [address] [place] [address] documented as of this encounter Visit Diagnoses Not on filedocumented in this encounter Care Teams Bass Viol Repairer Relationship Specialty Start Date End Date Malka Espinal APRN [address] [place] [address] PCP - General Family Medicine 01/21/25 documented as of this encounter
--- OUTSIDE RECORDS SUMMARY | 2025-03-15 13:15 | XMS_ITS | Encounter Summary ---
Author Organization [facility] Address [address] [place] [address] Care Team Providers Care Student Financial Services Counselor Name Role Phone Malka Espinal APRN Primary Care Provider [phone] Reason for Visit * Reason Onset Date Comments DR. BOND - MEDICAL CONCERN 03/13/2025 Encounter Details Date Type Department Care Team (Late st Contact Info) Description 03/13/2025 Telephone [facility] O[facility]YN [address] [address] Lalo Bond MD [address] [place] [id number] DR. OBND - MEDICAL CONCERN Social History Tobacco Use Types Packs/Day Years [...] of Binge Drinking Not on file 11/2019 [place] Depression Scale Answer Date Recorded [place] Depression Scale Total 7 02/24/2021 The thought [...] encounter Miscellaneous Notes * Telephone Encounter - Aparna Gibbs RN - 03/13/2025 9:26 AM EDT Patient of Dr. Bond; @ 25w 0d. JAY 02/11/25; NOV 03/18/25. Returned patient's call. Reports onset night of 03/10/25 of occasional mild contractions; worsened morning of 03/11/25. She was seen in [facility] morning of 03/11/25 (did not have enough gas to get to [place]); state EFM noted contractions every 3-[address] [facility] spoke with our on-call provider for more information. States her cervix was closed; urine was normal; and FFN was done but she was not informed of results. States she was given Vistaril because she was freaking out ; discharged after about 6 hours. Reports active movement this morning. Has had some spotting since vaginal exam; denies any active bleeding or leaking fluid. Denies any UTI symptoms or abdominal pain. States ucs were about every 10-11 minutes last night; has had about 5 ucs so far today. Having somelower back pain; encouraged to wear support belt. Discussed hydrating well and BRIAN precautions. Keep appointment 03/18/25; call sooner with any concerns. Patient v/u and agreed. * Telephone Encounter - Maureen Moody RegSched Rep - 03/13/2025 8:56 AM EDT Caller: Kathryn Mckeon June Relationship: SELF Best call back number: [phone] - OTHER CELL # What is your medical concern? WENT TO [facility] OVER THE WEEKEND - WAS HAVING CONTRACTIONS EVERY 3 TO 6 MINUTES - PAT IS 25 WKS PREG How long has this issue been going on? SINCE THIS PAST WEEKEND Is your provider already aware of this issue? NO Have you been treated for this issue? PAT WAS GIVEN SOME MEDICATION WHILE AT ED - CAN'T REMEMBER WHAT IT WAS CALLED - WANTS TO LET DR BOND KNOW AND SEE IF SHE NEEDS TO BE SEEN BEFORE NEXT APPT OR WHAT SHE SHOULD BE DOING IN THE MEAN TIME - PLEASE CALL TO ADVISE documented in this encounter Plan of Treatment Upcoming Encounters Date Type Department Care Team (Late st Contact Info) Description 03/18/2025 10:00 AM EDT Ancillary Procedure [facility] O[facility] [address] [place] [address] 03/18/2025 10:30 AM EDT Routine [facility] [address] [place] [address] Lalo Bond MD [address] [place] [address] documented as of this encounter Visit Diagnoses Not on filedocumented in this encounter Care Teams Student Financial Services Counselor Relationship Specialty Start Date End Date Malka Espinal APRN [address] [place] [address] PCP - General Family Medicine 01/21/25 documented as of this encounter
--- OUTSIDE RECORDS SUMMARY | 2025-03-15 13:15 | XMS_ITS ---
Author Organization [facility] Address [address] [place] [id number] Care Team Providers Care Gas Engine Mechanic Name Role Phone Malka Espinal APRN Primary Care Provider [phone] Motherhood Connection Status:Declined (Declined) Start date:01/16/2025 End date:03/12/2025 Decline reason:Unable to reach patient Continued Care and Services Coordination
--- OUTSIDE RECORDS SUMMARY | 2025-03-15 13:15 | XMS_ITS | Encounter Summary ---
Author Organization [facility] yste Address [address] [place] [address] Care Team Providers Care Medical Claims Examiner Name Role Phone Malka Espinal APRN Primary Care Provider [phone] Encounter Details Date Type Department Care Team (Late st Contact Info) Description 11/28/2024 Results Follow-Up [facility] OBGYN [address] [address] Lalo Jorge MD [address] [place] [address] Social History Tobacco Use Types Packs/Day Years [...] of Binge Drinking Not on file 11/2019 [place] Depression Scale Answer Date Recorded [place] Depression Scale Total 7 02/24/2021 The thought [...] 03/18/2025 10:00 AM EDT Ancillary Procedure [facility] O[facility] [address] [place] [address] 03/18/2025 10:30 AM EDT Routine [facility] OBGYN [address] [place] [address] Lalo Jorge MD 1700 [facility] [address] [place] [address] documented as of this encounter Visit Diagnoses Not on filedocumented in this encounter Care Teams Medical Claims Examiner Relationship Specialty Start Date End Date Malka Espinal APRN [address] [place] [address] PCP - General Family Medicine 01/21/25 documented as of this encounter
--- OUTSIDE RECORDS SUMMARY | 2025-03-15 13:15 | XMS_ITS | Encounter Summary ---
Author Organization [facility]stem Address [address] [place] [address] Care Team Providers Care Prizer Hand Name Role Phone Malka Espinal APRN Primary Care Provider [phone] Encounter Details Date Type Department Care Team (Late st Contact Info) Description 03/12/2025 Patient Outreach [facility] [address] [place] [address] Eduardo Vanegas, RN Social History Tobacco Use [...] of Binge Drinking Not on file 11/2019 [place] Depression Scale Answer Date Recorded [place] Depression Scale Total 7 02/24/2021 The thought [...] Outreach Note - Eduardo Vanegas, RN - 03/12/2025 5:16 PM EDTSummary: Motherhood Connection Motherhood Connection Unable to Reach Questions/Answers Flowsheet Row Responses Pending Outreach Confirm Patient Interest Call Attempt Second Outcome Missing or invalid number Unable to reach patient after two phone calls and one TalkPlushart message which appears to have not been read. Contact info provided, encouraged to call if she has any questions, concerns, or needs assistance with resources. EDUARDO Hussein RNunion representative Nurse Navigator 03/12/2025, 17:18 EDT documented in this encounter Plan of Treatment Upcoming Encounters Date Type Department Care Team ([facility] st Contact Info) Description 03/18/2025 10:00 AM EDT Ancillary Procedure [facility] OBGYN [address] [place] [address] 03/18/2025 10:30 AM EDT Routine [facility] OBGYN [address] [place] [address] Lalo Jorge MD [address] [address] documented as of this encounter Visit Diagnoses Not on filedocumented in this encounter Care Teams Prizer Hand Relationship Specialty Start Date End Date Malka Espinal APRN [address] [place] [address] PCP - General Family Medicine 01/21/25 documented as of this encounter
--- OUTSIDE RECORDS SUMMARY | 2025-03-15 13:15 | XMS_ITS | Encounter Summary ---
Author Organization [facility] ystem Address [address] [place] [address] Care Team Providers Care Intake Manager Name Role Phone Malka Espinal APRN Primary Care Provider [phone] Encounter Details Date Type Department Care Team (Late st Contact Info) Description 03/05/2025 Patient Outreach [facility] [address] [place] [address] Eduardo Vanegas, RN Social History Tobacco Use [...] of Binge Drinking Not on file 11/2019 [place] Depression Scale Answer Date Recorded [place] Depression Scale Total 7 02/24/2021 The thought [...] Attempt First Outcome Missing or invalid number, SwiftPayMD(TM) by Iconic Data message sent to patient Next Call Attempt Date 03/13/25 Confirmation of interest letter sent via SwiftPayMD(TM) by Icon[employer] message. Contact information provided. Response requested. EDUARDO Hussein RNevent organizer Nurse Navigator 03/05/2025, 15:48 EDT documented in this encounter Plan of Treatment Upcoming Encounters Date Type Department Care Team (Late st Contact Info) Description 03/18/2025 10:00 AM EDT Ancillary Procedure [facility] OBGYN [address] [place] [address] 03/18/2025 10:30 AM EDT Routine [facility] O[facility]YN [address] [place] [address] Lalo Jorge MD [facility] [address] [address] documented as of this encounter Visit Diagnoses Not on filedocumented in this encounter Care Teams Intake Manager Relationship Specialty Start Date End Date Malka Espinal APRN [address] [place] [address] PCP - General Family Medicine 01/21/25 documented as of this encounter
[2025-03-15 13:30] LABS: Microscopic, Urine URINE MICROSCOPIC (MICROSCOPIC)
[2025-03-15 13:37] LABS: Bilirubin,Urine Negative (Negative); Color,Urine YELLOW (Yellow); Glucose,Urine (UA) Negative (Negative); Ketones,Urine Negative (Negative); Leukocyte Esterase,Urine Negative (Negative); PH,Urine 6.5 (5.0-8.5); Protein,Urine Negative (Negative); Specific Gravity, Urine 1.010 (1.005-1.030); Urobilinogen,Urine 0.2 EU/dl (0.2)
[2025-03-15 13:55] VITALS: BP 106/59; PULSE 105; RESP 18; TEMP 36.8; O2SAT 97; BMI 27.8
[2025-03-15 13:59] LABS: Renal Epithelial Cells,Urine Occasional #/lpf (0); WBC,Urine Occasional #/hpf (0-3)
[2025-03-15 14:18] LABS: Fetal Membrane Rupture (Rapid) Negative (Negative)
== END 2025-03-15 16:19 | disposition home or self-care (01) ==
LOC: OBOUT 13:13 → OB 13:14
PROVIDERS: PCP Family Medicine; Visit Provider Nurse Practitioner Obstetrics & Gynecology
DX: O47.02 False labor before 37 completed weeks of gestation, second trimester (principal); O42.912 Preterm premature rupture of membranes, unspecified as to length of time between rupture and onset of labor, second trimester; O46.92 Antepartum hemorrhage, unspecified, second trimester; O26.892 Other specified pregnancy related conditions, second trimester; M54.50 Low back pain, unspecified; Z3A.25 25 weeks gestation of pregnancy
CPT/HCPCS: 59025; 81001; 84112; 99212; G0463

== ENCOUNTER 2025-04-10 09:59 | Outpatient (CLI) | payer OTHER, SELFPAY ==
--- OUTSIDE RECORDS SUMMARY | 2025-02-11 15:00 | XMS_ITS | Encounter Summary ---
[facility] Address [address] [place] [address] Care Team Providers Care Nursing Program Coordinator Name Role Phone Malka Espinal APRN Primary Care Provider [phone] Reason for Visit * Diagnostic Imaging (Routine) - Closed Specialty Diagnoses / Procedures Referred By Contact Referred To Contact Obstetrics and Gynecology Diagnoses 17 weeks gestation of Procedures US Ob 14 + Weeks Single or First Gestation Shant Bond MD [address] [facility] [address] [place] [address] Phone: tel: fax: [facility] [place] [address] Phone: tel: fax: Referral ID Status Reason Start Date Expiration Date Visits Re quested Visits Authorized [id number] Closed 01/21/2025 04/22/2026 1 1 Encounter Details Date Type Department Care Team (Latest Contact Info) Description 02/11/2025 3:00 PM EDT Ancillary Procedure [facility] [place] [address] 17 weeks gestation of Social History Tobacco Use Types Packs/Day Years [...] of Binge Drinking Not on file 11/2019 [place] Depression Scale Answer Date Recorded [place] Depression Scale Total 7 02/24/2021 The thought [...] Care Team (Late st Contact Info) Description 04/15/2025 4:20 PM EDT Routine [facility] O[facility] [address] [place] [address] Shant Bond MD [address] [facility] [address] [place] [address] documented as of this encounter Procedures Procedure Name Priority Date/Time Associated Diagnosis Comments US OB 14 + WEEKS SINGLE OR FIRST GESTATION Routine 02/11/2025 3:31 PM EDT 17 weeks gestation of documented in this encounter Results * US Ob 14 + Weeks Single or First Gestation (02/11/2025 3:31 PM EDT) Anatomical Region Laterality Modality Body Ultrasound 02/11/2025 2:51 PM EDT Narrative 02/11/2025 3:45 PM EDT PAT NAME: KATHRYN PATEL MED REC#: [id number] DA: 2000 PAT GEND: F PAT TYPE: O EXAM NICOLA: [id number] REF PHYS SHANT BOND [employer] Mission Systems Superintendent Comments heart and profile suboptimal; needs f/u [...] EFW (oz) 12 oz EFW by: Hadlock ([id number]-QW-WD-FL) Extended Making Department Preparer 5.1 mm CM 4.9 mm 41% Nicolaides [...] normal Heart / Thorax 3-vessel view: suboptimal 1-guodpd-fcmuszw view: suboptimal Diaphragm: Appears normal Diaphragm: Intact [...] in 1 month to complete anatomical survey [employer] Superintendent: Brenda Ford RN, RDMS Physician: Shant Bond MD, FACOG Electronically signed by: Shant Bond MD, EFRAIN at: 15:45 Procedure Note Shant Bond MD - 02/11/2025 PAT NAME: KATHRYN PAETL MED REC#: [id number] DA: 2000 PAT GEND: F PAT TYPE: O EXAM NICOLA: [id number] REF PHYS SHANT BOND [employer] Systems Superintendent Comments heart and profile suboptimal; needs f/u due to position. Indication ======== anatomy survey Comparison Studies There are no relevant prior studies to which this study is beingcompared Method ======= Voluson E6, Transabdominal ultrasound examination. View: Sufficient view;positional ========= James . Number of fetuses: 1 Dating ====== Method of dating:based on stated JEAN-CLAUDE GA by prior [id number] w + 5 d JEAN-CLAUDE by prior [...] 31% Hadlock HC / AC1.18 66% Hadlock MNO271 g 20w 2d 28% Hadlock EFW (lb)0 lb EFW (oz)12 oz EFW by:Hadlock ([id number]-FL) Extended Vp5.1 mm CM4.9 mm 41% Nicolaides Extremities / Bony Struc FL / BPD0.71 45% Hadlock FL / HC0.19 48% Hadlock FL / AC0.22 46% Hadlock Other Structures EII233 bpm Anatomy Cranium:Appears normal Lateral ventricles:Appears normal Choroid plexus:Appears normal Midline falx:Appears normal Cavum septi pellucidi:Appears normal Cerebellum:Appears normal Cisterna magna:Appears normal Lips:Appear normal Profile:suboptimal Nose:Appears normal 4-chamber view:Appears normal RVOT view:suboptimal LVOT view:Appears normal Heart / Thorax 3-vessel view:suboptimal 7-qxhqju-liuczoz view:suboptimal Diaphragm:Appears normal Diaphragm:Intact Cord insertion:Appears normal [...] Structures Uterus / Cervix Uterus:Visualized Cervix:Visualized Cervical czyyfx66.0 mm Ovaries / Tubes / Adnexa Rt ovary:Visualized Lt ovary:Visualized Impression Single viable intrauterine with normal cardiac activity andbiometry consistent with clinical dates. No structural abnormalities are seen on today's scan. Anatomicsurvey is incomplete. Recommendation Repeat imaging in 1 month to complete anatomical survey [employer] Superintendent: Brenda Ford, RN, RDMS Physician: Shant Bond MD, EFRAIN Electronically signed by: Shant Bnod MD, EFRAIN at: 15:45 us Shant Bond MD [facility] ORDERABLES Final Result documented in this encounter Visit Diagnoses Diagnosis 17 weeks gestation of documented in this encounter Care Teams Nursing Program Coordinator Relationship Specialty Start Date End Date Malka Espinal APRN [address] [place] [address] PCP - General Family Medicine 01/21/25 documented as of this encounter
--- OUTSIDE RECORDS SUMMARY | 2025-02-11 15:40 | XMS_ITS | Encounter Summary ---
[facility] Address [address] [place] [address] Care Team Providers Care Anthropology Lecturer Name Role Phone Malka Espinal TREVOR Primary Care Provider [phone] Reason for Referral * Diagnostic Imaging (Routine) - Closed Specialty Diagnoses / Procedures Referred By Contac t Referred To Contact Obstetrics and Gynecology Diagnoses 20 weeks gestation of Procedures US Ob Follow Up Transabdominal Approach Shnat Bond MD [address] [facility] [address] [place] [address] Phone: tel: fax: [facility] [address] [place] [address] Phone: tel:[phone] fax:[phone] Referral ID Status Reason Start Date Expiration Date Visits Re quested Visits Authorized [id number] Closed 02/11/2025 05/13/2026 1 1 Reason for Visit * Reason Comments Routine Visit 20w5d Encounter Details Date Type Department Care Team (Late Contact Info) Description 02/11/2025 3:40 PM EDT Routine [facility] [address] [place] [address] Shant Bond MD [address] [facility] [address] [place]: 20w5d Social History Tobacco Use Types [...] of Binge Drinking Not on file 11/2019 [place] Depression Scale Answer Date Recorded [place] Depression Scale Total 7 02/24/2021 The thought [...] this encounter Patient Instructions * Patient Instructions* Shant Bond MD - 02/11/2025 3:40 PM EDT Images from the original note were not included. Care care is health care you get when . It helps you and your unborn baby stay as healthy as possible. Start care early in your and continue to go to visits during yourpregnancy. care may be given by a information systems audit manager, a family practice doctor, a nurse practitioner, physician assistant professor of mathematics, or a childbirth and doctor. What are [...] more information Office on Women's Health: womenshealth.gov [place] Association: americanpregnancy.org September of Dimes: marchofdimes.org This information is not intended to replace advice given to you by your health care provider. Make sure you discuss any questions you have with your health care provider. Document Revised: 10/31/2023 Document Reviewed: 10/31/2023 [employer] Patient Education ?? 2023 [employer] documented in this encounter Progress Notes * Shant Bond MD - 02/11/2025 3:40 PM EDT Images from the original note were not included. OB FOLLOW UP CC- Here for care of Kathryn Patel is a 24 y.o. 20w5d patient being [...] information as entered above. Shant Bond MD BP 108/60 Wt 71.2 kg (157 [...] (around 03/11/2025) for Routine care and US. Shant Bond MD 02/11/2025 documented in this encounter Plan of Treatment Upcoming Encounters Date Type Department Care Team (Late st Contact Info) Description 04/15/2025 4:20 PM EDT Routine [facility] [address] [place] [address] Shant Bond MD [address] [facility] [address] [place] [id number] documented as of this encounter Procedures Procedure Name Priority Date/Time Associated Diagnosis Comments POCT URINALYSIS DIPSTICK, MANUAL Routine 02/11/2025 3:11 PM EDT 20 weeks gestation of documented in this encounter Results * US Ob Follow Up Transabdominal Approach (03/18/2025 10:53 AM EDT) Anatomical Region Laterality Modality Body Ultrasound 03/18/2025 10:2 4 AM EDT Narrative 03/18/2025 11:18 AM EDT PAT NAME: KATHRYN PATEL [facility] REC#: [id number] DA: 2000 PAT GEND: F PAT TYPE: O EXAM NICOLA: [id number] REF PHYS SHANT BOND Indication ======== F/U heart and profile Comparison Studies The findings of this study are compared to the prior ultrasound study dated , 02/11/25 Method ======= Voluson E6, Transabdominal ultrasound examination. View: Suboptimal view: limited by position ========= James . Number of fetuses: 1 Dating ====== Method of dating: based on stated JEAN-CLAUDE GA by prior assessment 25 w + 5 d JEAN-CLAUDE by prior assessment: 06/26/2025 Ultrasound examination on: 03/18/2025 GA by U/S based upon: AC, BPD, Femur, HC GA by U/S 26 w + 1 d JEAN-CLAUDE by U/S: 06/23/2025 Previous dating: based on stated JEAN-CLAUDE, selected on 02/11/2025 Agreed JEAN-CLAUDE of previous datin06/26/2025 Assigned: based on stated JEAN-CLAUDE, selected on 03/18/2025 Assigned GA 25 w + 5 d Assigned JEAN-CLAUDE: 06/26/2025 length 280 d General Evaluation Cardiac activity present. FHR 149 bpm. movements visualized. Presentation breech. Placenta Placental site: anterior. Umbilical cord Cord vessels: 3 vessel cord. Amniotic fluid Amount of AF: normal. MVP 3.8 cm. Biometry Standard BPD 65.2 mm 26w 2d 62% Hadlock HC 244.2 mm 26w 4d 55% Hadlock AC 214.3 mm 26w 0d 48% Hadlock Femur 46.9 mm 25w 4d 33% Hadlock HC / AC 1.14 EFW 867 g 25w 4d 47% Hadlock EFW (lb) 1 lb EFW (oz) 15 oz EFW by: Hadlock ([id number]) Extended Patrol Commander 4.2 mm Extremities / Bony Struc FL / BPD 0.72 FL / HC 0.19 FL / AC 0.22 Other Structures FHR 149 bpm Anatomy Lateral ventricles: Appears normal Choroid plexus: Appears normal Cavum septi pellucidi: Appears normal Lips: Appear normal Profile: Appears normal 4-chamber view: Appears normal RVOT view: Appears normal LVOT view: Appears normal Stomach: Appears normal Kidneys: Appears normal Bladder: Appears normal Cervical spine: Appears normal Thoracic spine: Appears normal Lumbar spine: Appears normal Sacral spine: Appears normal Gender: female Wants to know gender: yes Impression No structural abnormalities are seen on today's scan. Anatomic survey is now complete. There is appropriate interval growth & normal amniotic fluid quantity Recommendation follow up imaging as clinically indicated General Assembler: Brenda Ford RN, RDMS Physician: Shant Bond MD, FACOG Electronically signed by: Shant Bond MD, FACOG at: 11:18 Procedure Note Shant Bond MD - 03/18/2025 PAT NAME: KATHRYN PATEL MED REC#: [id number] DA: [id number] PAT GEND: F PAT TYPE: O EXAM NICOLA: [id number] REF PHYS SHANT BOND Indication ======== F/U heart and profile Comparison Studies The findings of this study are compared to the prior ultrasound studydated , 02/11/25 Method ======= Voluson E6, Transabdominal ultrasound examination. View: Suboptimal view:limited by position ========= James . Number of fetuses: 1 Dating ====== Method of dating:based on stated JEAN-CLAUDE GA by prior w + 5 d JEAN-CLAUDE by prior assessment:06/26/2025 Ultrasound examination on:03/18/2025 GA by U/S based upon:AC, BPD, Femur, HC GA by U/S26 w + 1 d JEAN-CLAUDE by U/S:06/23/2025 Previous dating:based on stated JEAN-CLAUDE, selected on 02/11/2025 Agreed JEAN-CLAUDE of previous datin06/26/2025 Assigned:based on stated JEAN-CLAUDE, selected on 03/18/2025 Assigned GA25 w + 5 d Assigned JEAN-CLAUDE:06/26/2025 [id number] d General Evaluation Cardiac activity present. FHR 149 bpm. movements visualized. Presentation breech. Placenta Placental site: anterior. Umbilical cord Cord vessels: 3 vessel cord. Amniotic fluid Amount of AF: normal. MVP 3.8 cm. Biometry Standard BPD65.2 mm 26w 2d 62% Hadlock HC244.2 mm 26w 4d 55% Hadlock AC214.3 mm 26w 0d 48% Hadlock Femur46.9 mm 25w 4d 33% Hadlock HC / AC1.14 VCS244 g 25w 4d 47% Hadlock EFW (lb)1 lb EFW (oz)15 oz EFW by:Hadlock (TCX-MF-PR-FL) Extended Vp4.2 mm Extremities / Bony Struc FL / BPD0.72 FL / HC0.19 FL / AC0.22 Other Structures [id number] bpm Anatomy Lateral ventricles:Appears normal Choroid plexus:Appears normal Cavum septi pellucidi:Appears normal Lips:Appear normal Profile:Appears normal 4-chamber view:Appears normal RVOT view:Appears normal LVOT view:Appears normal Stomach:Appears normal Kidneys:Appears normal Bladder:Appears normal Cervical spine:Appears normal Thoracic spine:Appears normal Lumbar spine:Appears normal Sacral spine:Appears normal Gender:female Wants to know gender:yes Impression No structural abnormalities are seen on today's scan. Anatomicsurvey is now complete. There is appropriate interval growth & normal amniotic fluidquantity Recommendation follow up imaging as clinically indicated General Assembler: Brenda Ford, RN, RDMS Physician: Shant Bond MD, FACOG Electronically signed by: Shant Bond MD, FACOG at: 11:18 us Shant Bond MD [facility] US ORDERABLES Final Result * POC Urinalysis Dipstick (02/11/2025 3:11 PM EDT) Glucose, UA Negative Negative mg/dL [facility] Protein, POC Negative Negative mg/dL [facility] Urine 02/11/2025 3:11 PM EDT us Shant Bond MD POINT OF CARE TEST ORDER MICHELLE Final Result [facility]
[address] [place] [address], documented in this encounter Visit Diagnoses Diagnosis 20 weeks gestation of - Primary Previous section Other postprocedural status Factor V Leiden mutation complicating Other current maternal conditions classifiable elsewhere, complicating , childbirth, or the puerperium, unspecified as to episode of care 20 weeks gestation of documented in this encounter Care Teams Anthropology Lecturer Relationship Specialty Start Date End Date Malka Espinal APRN [address] [place] [address] PCP - General Family Medicine 01/21/25 documented as of this encounter
--- OUTSIDE RECORDS SUMMARY | 2025-03-16 18:46 | XMS_ITS | Encounter Summary ---
Author Organization [facility] Address [address] [place] [address] Care Team Providers Care Herbarium Worker Name Role Phone Malka Espinal APRN Primary Care Provider [phone] Reason for Visit * Reason Comments Contractions Encounter Details Date Type Department Care Team (Late st Contact Info) Description 03/16/2025 6:46 PM EDT - 03/16/2025 9:45 PM EDT Hospital Encounter [facility]PART[facility] [address] [place] [phone] Lalo Jorge MD [address] [place] [address] Arnol Dickey MD [address] [place] [address] Discharge Disposition: Home or Self Care Social [...] of Binge Drinking Not on file 11/[address] Depression Scale Answer Date Recorded [address] Depression Scale Total 7 02/24/2021 The thought of harming myself has occurred to me . Hardly ever 02/24/2021 Abuse Screen Answer Date Recorded Feels Unsafe at Home or Work/School no 06/29/2024 Feels Threatened by Someone no 06/11 Does Anyone Try to Keep You From Having Contact with Others or Doing Things Outside Your Home? no 06/29/2024 Physical Signs of Abuse Present no 06/29/2024 Employment Answer Date Recorded Do you want help finding or keeping work or a job? I do not need or want help 03/16/2025 Disabilities Answer Date Recorded Difficulty Concentrating, Remembering or Making Decisions no 06/29/2024 Difficulty Managing Errands Independently no 06/29/2024 Education Answer Date Recorded Do you want help with school or training? For example, starting or completing job training or getting a high school diploma, GED or equivalent No 03/16/2025 Preferred Language Not on file 03/16/2025 Education Answer Date Recorded What is the [...] Sign Reading Time Taken Comments Blood Pressure 105/67 03/16/2025 6:59 PM EDT Pulse 112 03/16/2025 6:59 PM EDT Temperature - - Respiratory Rate - - Oxygen Saturation 97% 03/16/2025 6:59 PM EDT Inhaled Oxygen Concentration - - Weight 71.2 kg (157 lb) 03/16/2025 6:59 PM EDT Height 162.6 cm (5' 4 ) 03/16/2025 6:59 PM EDT Body Mass Index 26.95 03/16/2025 6:59 PM EDT documented in this encounter Functional Status * Question Answer Date of Assessment Author 1. Wish to be (Past 1 Month) No 025 6:59 PM EDT Ruth Aquino RN 2. Non-Specific Active Suici roselia Thoughts (Past 1 Month) No 03/16/2025 6:59 PM EDT William Aquino RN * Calculated C-SSRS Risk Score (Lifetime/Recent) Answer Date of Assessment Author No Risk Indicated 03/16/2025 6:59 PM EDRuth Blank RN * Dickey Suicide Severity Rating Scale (Screener/Recent Self-Report) Question Answer Date of Assessment Author 6. Suicidal Behavior (Lifetime) No 6:59 PM EDT Ruth Aquino RN documented as of this encounter Discharge Instructions * Attachments The following attachments cannot be sent through Care Everywhere. * Early Labor (Pre-Term Labor): What to Know [id number] (Citizen [place]) * Second Trimester of ([place]izen [place]) documented in this encounter Medications at Time [...] by mouth Every Night. 30 capsule 11/16/2024 promethazine (PHENERGAN) 12.5 MG tablet Take 1 tablet by mouth Every 6 (Six) Hours As Needed for Nausea. 30 tablet 3 01/21/2025 promethazine (PHENERGAN) 25 MG tablet Take 1 tablet by mouth Every 6 (Six) Hours As Needed for Nausea or Vomiting. 30 tablet 01/21/2025 propranolol (INDERAL) 10 MG tablet Take 2 tablets by mouth. traZODone (DESYREL) 50 MG tablet Take 0.5 tablets by mouth Every Night. documented as of this encounter Miscellaneous Notes * GRAYSON Notes - Arnol Dickey MD - 03/16/2025 9:04 PM EDT aKthryn Mckeon 2001 [id number] CC: contractions HPI: Patient is 24 y.o. female currently at 25w3d presents with c/o contractions, onset 1 1/2 weeks ago. Pt seen last night at [facility] and given procardia 10mg (one dose) that helped. Pt denies bleeding or leaking. Good FM. [place] last night. PNC comp by michael X 3, tob use, and subchorionic bleed first trimester PMH: Current meds: PNV, progesterone, baby ASA, lexapro 20mg/d, abilify Illnesses: anxiety/depression, migraines Surgeries: X 3, D and C X 2 Allergies: tramadol- seizures Buspar- goes nutty Past OB History: OB [...] lb 4 oz) F CS-Unspec SH: tob 1PPD , EtOH neg, drugs neg General ROS: congtractions. All other systems reviewed and are negative. Physical Examination: General appearance - alert, well appearing, and in no distress Vital signs - BP 105/67 Pulse 112 Ht 162.6 cm (64 ) Wt 71.2 kg (157 lb) LMP 09/19/2024 (Exact Date) SpO2 97% BMI 26.95 kg/m?? HEENT: normocephalic, atraumatic,oropharynx clear, appearance of ears [...] no rebound tenderness noted, bowel sounds normal Vaginal Exam: cl/40%/ballot, no blood in vault,external genitalia normal Extremities - no pedal edema noted, no calf tenderness Skin -warm and dry, normal coloration and turgor, no rashes, no suspicious skin lesions noted monitoring: indication contractions, onset 1900, offset 2100, baseline 150, mod BTB variability, multiple accels (15 X 15), no decels, irreg contractions, interpretation reactive NST Radiology Assessment 1)IUP 25 3/7 weeks 2) contractions- no evid labor, ccUA neg 3)prev michael X 3 4)tob use Plan 1)pt was placed on cont EFM showing a reassuring tracing. ccUA showed no UTI and good hydration. Pt given single dose terbutaline and if contractions Space out pt will be sent home. Discussed poss oral procardia prn. Pt to Discuss with Dr. Jorge this Tuesday. All questions answered Arnol Dickey MD 03/16/2025 21:04 EDT documented in this encounter Plan of Treatment Upcoming Encounters Date Type Department Care Team (Late st Contact Info) Description 04/15/2025 4:[address] [facility] OBGYN [address] [place] [address] Lalo Jorge MD 1700 [facility] [address] [place], [place] [phone] documented as of this encounter Procedures Procedure Name Priority Date/Time Associated Diagnosis Comments URINALYSIS, MICROSCOPIC ONLY STAT 03/16/2025 7:05 PM EDT URINALYSIS W/ MICROSCOPIC IF INDICATED (NO CULTURE) STAT 03/16/2025 7:05 PM EDT NONSTRESS TEST Routine 03/16/2025 7:03 PM EDT documented in this encounter Results * (ABNORMAL) Urinalysis, Microscopic Only - Urine, Clean Catch (03/16/2025 7:05 PM EDT) RBC, UA 0-2 None Seen, 0-2 /HPF 03/16/2025 7:29 PM EDT [facility] WBC, UA 3-5(A) None Seen, 0-2 /HPF 03/16/2025 7:29 PM EDT [facility] Bacteria, UA Trace(A) None Seen /HPF 03/16/2025 7:29 PM EDT [facility] Squamous Epithelial Cells, UA 7-12(A) None Seen, 0-2 /HPF 03/16/2025 7:29 PM EDT [facility] Hyaline Casts, UA None Seen None Seen /LPF 03/16/2025 7:29 PM EDT [facility] Methodology Automated Microscopy 03/16/2025 7:29 PM EDT [facility] Urine Urine specimen obtained by clean catch procedure / Unknown Collection / Unknown 03/16/2025 7:05 PM EDT 03/16/2025 7:23 PM EDT Abdelrahman Barragan MD URINE ORDERABLES Final Result [facility]
[address] [place] [address], * (ABNORMAL) Urinalysis With Microscopic If Indicated (No Culture) - Urine, Clean Catch (03/16/2025 7:05 PM EDT) Color, UA Yellow Yellow, Straw 03/16/2025 7:29 PM EDT [facility] Appearance, UA Cloudy(A) Clear 03/16/2025 7:29 PM EDT [facility] pH, UA 7.0 5.0 - 8.0 03/16[facility]2025 7[facility] Specific [place], UA 1.009 1.005 - 1.030 03/16/2025 7:29 PM EDT [facility] Glucose, UA Negative Negative 03/16/2025 7:29 PM EDT [facility] Ketones, UA Negative Negative 03/16/2025 7:29 PM EDT [facility] Bilirubin, UA Negative Negative 03/16/2025 7:29 PM EDT [facility] Blood, UA Negative Negative 03/16/2025 7:29 PM EDT [facility] Protein, UA Negative Negative 03/16/2025 7:29 PM EDT [facility] Leuk Esterase, UA Trace(A) Negative 03/16/2025 7:29 PM EDT [facility] Nitrite, UA Negative Negative 03/16/2025 7:29 PM EDT [facility] Urobilinogen, UA 0.2 E.U./dL 0.2 - 1.0 E.U./dL 03/16/2025 7:29 PM EDT [facility] Urine Urine specimen obtained by clean catch procedure / Unknown Collection / Unknown 03/16/2025 7:05 PM EDT 03/16/2025 7:23 PM EDT us Abdelrahman Barragan MD URINE ORDERABLES Final Result [facility]
[address] [place] [address], documented in this encounter Visit Diagnoses Not on filedocumented in this encounter Administered Medications Inactive Administered Medications - up to 3 most recent administrations Medication Order MAR Action Action Date Dose Rate Site terbutaline (BRETHINE) injection 0.25 mg 0.25 mg, Subcutaneous, Once, On 03/16/25 at 2130, For 1 dose Given 03/16/2025 8:59 PM EDT 0.25 mg Left Arm documented in this encounter Active and Recently Administered Medications Times are shown in EDT. Scheduled Medication Order 03/14/2025 03/15/2025 03/16/2025 terbutaline (BRETHINE) injection 0.25 mg (COMPLETED) 0.25 mg, Subcutaneous, Once, On 03/16/25 at 2130, For 1 dose 2058 (Given - Provid er: Ruth Adam RN) documented in this encounter Care Teams Herbarium Worker Relationship Specialty Start Date End Date Malka Espinal APRN [address] [place] [address] PCP - General Family Medicine 01/21/25 documented as of this encounter
--- OUTSIDE RECORDS SUMMARY | 2025-03-18 10:00 | XMS_ITS | Encounter Summary ---
[facility] Address [address] [place] [address] Care Team Providers Care University Counselor Name Role Phone TeddyNagiMalka TREVOR Primary Care Provider [phone] Reason for Visit * Diagnostic Imaging (Routine) - Closed Specialty Diagnoses / Procedures Referred By Contac t Referred To Contact Obstetrics and Gynecology Diagnoses 20 weeks gestation of Procedures US Ob Follow Up Transabdominal Approach Shant Bond MD [address] [facility] [address] [place] [address] Phone: tel: fax: [facility] [place] [address] Phone: tel:[phone] fax:[phone] Referral ID Status Reason Start Date Expiration Date Visits Re quested Visits Authorized [id number] Closed 02/11/2025 05/13/2026 1 1 Encounter Details Date Type Department Care Team (Latest Contact Info) Description 03/18/2025 10:00 AM EDT Ancillary Procedure [facility] [place] [address] 20 weeks gestation of Social History Tobacco Use [...] of Binge Drinking Not on file 11/2019 [place] Depression Scale Answer Date Recorded [place] Depression Scale Total 7 02/24/2021 The thought [...] Info) Description 04/15/2025 4:20 PM EDT Routine [facility] OBGYN [address] [place] [address] Shant Bond MD [address] [facility] [address] [place] [address] documented as of this encounter Procedures Procedure Name Priority Date/Time Associated Diagnosis Comments US OB FOLLOW UP TRANSABDOMINAL APPROACH Routine 03/18/2025 10:53 AM EDT 20 weeks gestation of documented in this encounter Results * US Ob Follow Up Transabdominal Approach (03/18/2025 10:53 AM EDT) Anatomical Region Laterality Modality Body Ultrasound 03/18/2025 10:2 4 AM EDT Narrative 03/18/2025 11:18 AM EDT PAT NAME: KATHRYN PATEL MED REC#: [id number] DA: 2000 PAT GEND: F PAT TYPE: O EXAM NICOLA: [id number] REF PHYS SHANT BOND Indication ======== F/U [...] on stated JEAN-CLAUDE, selected on 02/11/2025 Agreed JEAN-CALUDE of previous datin06/26/2025 Assigned: based on stated [...] EFW (oz) 15 oz EFW by: Hadlock ([id number]) Extended Records Coordinator 4.2 mm Extremities / Bony Struc FL [...] Recommendation follow up imaging as clinically indicated First Aid Attendant: Brenda Ford RN, RDMS Physician: Shant Bond MD, FACOG Electronically signed by: Shant Bond MD, FACOG at: 11:18 Procedure Note Shant Bond MD - 03/18/2025 PAT NAME: KATHRYN PATEL MED REC#: [id number] DA: 2000 PAT GEND: F PAT TYPE: O EXAM NICOLA: [id number] REF PHYS SHANT BOND Indication ======== F/U heart and profile Comparison Studies The findings of this study are compared to the prior ultrasound studydated , 02/11/25 Method ======= Voluson E6, Transabdominal ultrasound examination. View: Suboptimal view:limited by position ========= James . Number of fetuses: 1 Dating ====== Method of dating:based on stated JEAN-CLAUDE GA by prior [id number] w + 5 d JEAN-CLAUDE by prior assessment:06/26/2025 Ultrasound examination on:03/18/2025 GA by U/S based upon:AC, BPD, Femur, HC GA by U/S26 w + 1 d JEAN-CLAUDE by U/S:06/23/2025 Previous dating:based on stated JEAN-CLAUDE, selected on 02/11/2025 Agreed JEAN-CLAUDE of previous datin06/26/2025 Assigned:based on stated JEAN-CLAUDE, selected on 03/18/2025 Assigned GA25 w + 5 d Assigned JEAN-CLAUDE:06/26/2025 [id number] d General Evaluation Cardiac activity present. FHR 149 bpm. movements visualized. Presentation breech. Placenta Placental site: anterior. Umbilical cord Cord vessels: 3 vessel cord. Amniotic fluid Amount of AF: normal. MVP 3.8 cm. Biometry Standard BPD65.2 mm 26w 2d 62% Hadlock HC244.2 mm 26w 4d 55% Hadlock AC214.3 mm 26w 0d 48% Hadlock Femur46.9 mm 25w 4d 33% Hadlock HC / AC1.14 HVZ413 g 25w 4d 47% Hadlock EFW (lb)1 lb EFW (oz)15 oz EFW by:Hadlock ([id number]) Extended Vp4.2 mm Extremities / Bony Struc FL / BPD0.72 FL / HC0.19 FL / AC0.22 Other Structures ERU633 bpm Anatomy Lateral ventricles:Appears normal Choroid plexus:Appears [...] Recommendation follow up imaging as clinically indicated First Aid Attendant: Brenda Ford, RN, RDMS Physician: Shant Bond MD, FACOG Electronically signed by: Shant Bond MD, FACOG at: 11:18 us Shant Bond MD [facility] US ORDERABLES Final Result documented in this encounter Visit Diagnoses Diagnosis 20 weeks gestation of documented in this encounter Care Teams University Counselor Relationship Specialty Start Date End Date Malka Espinal APRN [address] [place] [address] PCP - General Family Medicine 01/21/25 documented as of this encounter
--- OUTSIDE RECORDS SUMMARY | 2025-03-18 10:30 | XMS_ITS | Encounter Summary ---
[facility] Address [address] [place] [address] Care Team Providers Care Wheel Borer Name Role Phone Malka Espinal APRN Primary Care Provider [phone] Reason for Visit * Reason Comments Routine Visit 25w5d Encounter Details Date Type Department Care Team (Late st Contact Info) Description 03/18/2025 10:30 AM EDT Routine [facility] OBGYN [address] [place] [address] [place] [address] [place] [address] GA: 25w5d Social History Tobacco Use Types Packs/Day Years [...] of Binge Drinking Not on file 11/2019 [place] Depression Scale Answer Date Recorded [place] Depression Scale Total 7 02/24/2021 The thought [...] Sign Reading Time Taken Comments Blood Pressure 98/68 03/18/2025 11:13 AM EDT Pulse - - Temperature - - Respiratory Rate - - Oxygen Saturation - - Inhaled Oxygen Concentration - - Weight 74.8 kg (165 lb) 03/18/2025 11:13 AM EDT Height - - Body Mass Index 28.32 03/16/2025 6:59 PM EDT documented in this encounter Patient Instructions * Patient Instructions* Lalo Jorge MD - 03/18/2025 10:30 AM EDT Images from the original note were not included. Care care is health care you get when . It helps you and your unborn baby stay as healthy as possible. Start care early in your and continue to go to visits during yourpregnancy. care may be given by a senior lead software engineer, a family practice doctor, a nurse practitioner, physician medical support assistant, or a childbirth and doctor. What [...] more information Office on Women's Health: womenshealth.gov Pakistani Association: americanpregnancy.org September Dimes: marchofdimes.org This information is not intended to replace advice given to you by your health care provider. Make sure you discuss any questions you have with your health care provider. Document Revised: 10/31/2023 Document Reviewed: 10/31/2023 [employer] Patient Education ?? 2023 [employer] documented in this encounter Progress Notes * Lalo Jorge MD - 03/18/2025 10:30 AM EDT Images from the original note were not included. OB FOLLOW UP CC- Here for care of Kathryn Mckeon is a 24 y.o. 25w5d patient being seen today for her obstetrical follow up visit. Patient reports patient has been to [facility] and [facility] due to contractions Patient states no dilation but still having contractions. Her care is complicated by (and status) : see below. Patient Active Problem List Diagnosis Seizure Maternal care due to low transverse uterine scar from previous delivery Family planning Depression Constipation Nausea and vomiting during Factor V Leiden mutation complicating Flu Status: Declines Ultrasound Today: Yes Reviewed 1 hr glucose testing and TDAP next visit. ROS - Patient Denies: leaking of fluid, vaginal bleeding, dysuria, and excessive vomiting Movement : normal Other than what is documented in the HPI, all other systems reviewed and are negative. The additional following portions of the patient's history were reviewed and updated as appropriate: allergies and current medications. I have reviewed and agree with the HPI, ROS, and historical information as entered above. Lalo Jorge MD BP 98/68 Wt 74.8 kg (165 lb) LMP 09/19/2024 (Exact Date) BMI 28.32 kg/m?? EXAM: Vitals BP: 98/68 Weight: 74.8 kg (165 lb) Assessment and Plan Problem List Items Addressed This Visit - Primary Overview CFDNA-low risk, female Relevant Medications ARIPiprazole (ABILIFY) 2 MG tablet escitalopram (LEXAPRO) 20 MG tablet propranolol (INDERAL) 10 MG tablet traZODone (DESYREL) 50 MG tablet aspirin 81 MG EC tablet Other Relevant Orders POC Urinalysis Dipstick Maternal care due to low transverse uterine scar from previous delivery Relevant Medications ARIPiprazole (ABILIFY) 2 MG tablet escitalopram (LEXAPRO) 20 MG tablet propranolol (INDERAL) 10 MG tablet traZODone (DESYREL) 50 MG tablet aspirin 81 MG EC tablet at 25w5d status reassuring. Normal anatomy US 1 hour gtt, CBC, Antibody screen, TDAP, and RPR next visit. Instructions given movement/PTL or Labor precautions Reviewed routine care with the office and educational materials given Discussed/encouraged TDAP vaccination after 28 weeks Reviewed Pre-eclampsia signs/symptoms Activity and Exercise discussed. Return in about 4 weeks (around 04/15/2025) for Give note to be off of work due to contrations and she's on modified bedrest. Lalo Jorge MD 03/18/2025 documented in this encounter Plan of Treatment Upcoming Encounters Date Type Department Care Team (Late st Contact Info) Description 04/15/2025 4:20 PM EDT Routine [facility] OBGYN [address] [place] [address] Lalo Jorge MD 17[address] [facility] [address] [place] [address] documented as of this encounter Visit Diagnoses Diagnosis 25 weeks gestation of - Primary Maternal care due to low transverse uterine scar from previous delivery documented in this encounter Care Teams Wheel Borer Relationship Specialty Start Date End Date Malka Espinal APRN [address] [place] [address] PCP - General Family Medicine 01/21/25 documented as of this encounter
--- OUTSIDE RECORDS SUMMARY | 2025-03-23 18:20 | XMS_ITS | Encounter Summary ---
Author Organization [facility] Address [address] [place] [address] Care Team Providers Care Investment Trader Name Role Phone Malka Espinal APRN Primary Care Provider [phone] Reason for Visit * Reason Comments Contractions Encounter Details Date Type Department Care Team (Late st Contact Info) Description 03/23/2025 6:20 PM EDT - 03/23/2025 7:21 PM EDT Hospital Encounter [facility] [address] [id number] Lalo Jorge MD [address] [place] [address] Deyvi Jones DO [address] [place] [address] Discharge Disposition: Home or Self Care Social [...] of Binge Drinking Not on file 11/2019 [place] Depression Scale Answer Date Recorded [place] Depression Scale Total 7 02/24/2021 The thought [...] Sign Reading Time Taken Comments Blood Pressure 103/68 03/23/2025 6:35 PM EDT Pulse - - Temperature 36.6 C (97.8 F) 03/23/2025 6:35 PM EDT Respiratory Rate 18 03/23/2025 6:35 PM EDT Oxygen Saturation - - Inhaled Oxygen Concentration - - Weight 74.8 kg (165 lb) 03/23/2025 6:35 PM EDT Height 162.6 cm (5' 4 ) 03/23/2025 6:35 PM EDT Body Mass Index 28.32 03/23/2025 6:35 PM EDT documented in this encounter Functional Status * Question Answer Date of Assessment Author 1. Wish to be (Past 1 Month) No 025 6:58 PM EDT Gem Flores, GRISELDA 2. Non-Specific Active Suici roselia Thoughts (Past 1 Month) No 03/23/2025 6:58 PM EDT Liu Flores RN * Calculated C-SSRS Risk Score (Lifetime/Recent) Answer Date of Assessment Author No Risk Indicated 03/23/2025 6:58 PM EDT Gem Flores RN * [place] Suicide Severity Rating Scale (Screener/Recent Self-Report) Question Answer Date of Assessment Author 6. Suicidal Behavior (Lifetime) No 6:58 PM EDT Gem Flores, GRISELDA documented as of this encounter Discharge Instructions * Attachments The following attachments cannot be sent through Care Everywhere. * Second Trimester of (Turkish) documented in this encounter Medications at Time of Discharge ARIPiprazole (ABILIFY) 2 MG tablet Take 1 tablet by mouth Daily. 01/05/2024 aspirin 81 MG EC tablet Take 1 tablet by mouth Daily. escitalopram (LEXAPRO) 20 MG tablet Take 1 tablet by mouth Daily. famotidine (Pepcid) 20 MG tablet Take 1 tablet by mouth Daily. 30 tablet 1 03/18/2025 03/18/2026 polyethylene glycol (MiraLax) 17 GM/SCOOP powder Take [...] encounter Miscellaneous Notes * GRAYSON Notes - Deyvi Jones, DO - 03/23/2025 6:49 PM EDT [facility] Obstetric History and Physical Referring Provider: Lalo Jorge MD Chief Complaint Patient presents with Contractions Subjective Patient is a 24 y.o. female currently at 26w3d, who presents with complaints of contractions. Patient reports some mild irregular contractions today without leaking of fluid, vaginal bleeding, recent trauma, fever, or urinary symptoms. course complicated by prior x 3, first trimester subchorionic hemorrhage, OB ED visits for contractions, and factor V Leiden. The following portions of the patients history were reviewed and updated as appropriate: current medications, allergies, past medical history, past surgical history, past family history, past social history, and problem list . Information: Maternal Labs Blood Type No results found for: ABO Rh Status No results found for: RH Antibody Screen No results found for: ABSCRN Gonnorhea No results found for: GCCX Chlamydia No results found for: CLAMYDCU RPR No results found for: RPR Syphilis Antibody No results found for: SYPHILIS Rubella No results found for: RUBELLAIGGIN Hepatitis B Surface Antigen No results found for: HEPBSAG HIV-1 Antibody No results found for: LABHIV1 Hepatitis C Antibody No results found for: HEPCAB Rapid Urin Drug Screen No results found for: AMPMETHU , BARBITSCNUR , LABBENZSCN , LABMETHSCN , LABOPIASCN , THCURSCR , COCAINEUR , AMPHETSCREEN , PROPOXSCN , BUPRENORSCNU , METAMPSCNUR , OXYCODONESCN , TRICYCLICSCN Group B Strep Culture No results found for: GBSANTIGEN External Results Outside Results - Transcribed From Office Records - See Scanned Records For Details Test Value Date Time ABO A 11/16/24 1142 Rh Positive 11/16/24 1142 Antibody Screen Negative 11/16/24 1142 Varicella IgG Rubella 4.64 index 11/16/24 1142 Hgb 12.1 g/dL 11/16/24 1142 Hct 38.2 % 11/16/24 1142 HgB A1c 1h GTT 3h GTT Fasting 3h GTT 1 hour 3h GTT 2 hour 3h GTT 3 hour Gonorrhea (discrete) Negative 11/16/24 1142 Negative 10/19/24 1246 Chlamydia (discrete) Negative 11/16/24 1142 Negative 10/19/24 1246 RPR Non Reactive 11/16/24 1142 Syphils cascade: TP-Ab (FTA) TP-Ab TP-Ab (EIA) TPPA HBsAg Negative 11/16/24 1142 Herpes Simplex Virus PCR Herpes Simplex VIrus Culture HIV Non Reactive 11/16/24 1142 Hep C RNA Quant PCR Hep C Antibody Non Reactive 11/16/24 1142 AFP NIPT Cystic Fibrosis (Estefania) Cystic Fibroisis Spinal Muscular atrophy Fragile X Group B Strep GBS Susceptibility to Clindamycin GBS Susceptibility to Erythromycin Fibronectin Genetic Testing, Maternal Blood Drug Screening Test Value Date Time Urine Drug Screen Amphetamine Screen Negative ng/mL 11/16/24 1142 Barbiturate Screen Negative ng/mL 11/16/24 1142 Benzodiazepine Screen Negative ng/mL 11/16/24 1142 Methadone Screen Negative ng/mL 11/16/24 1142 Phencyclidine Screen Negative ng/mL 11/16/24 1142 Opiates Screen THC Screen Cocaine Screen Propoxyphene Screen Negative ng/mL 11/16/24 1142 Buprenorphine Screen Methamphetamine Screen Oxycodone Screen Tricyclic Antidepressants Screen Legend ^: Historical Past OB History: OB History Para Term [...] g (7 lb 4 oz) F CS-Unspec Past Medical History: Past Medical History: Diagnosis Date Abnormal heart rate or rhythm affecting management of mother 02/23/2021 Decreased movements in third trimester 01/27/2021 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 Migraine everyday Missed 06/25/2024 Potassium (K) deficiency Seizure nonepileptic, Last time was 2024 Subchorionic hematoma, antepartum 12/21/2024 Past Surgical History Past Surgical History: Procedure Laterality Date SECTION N/A 01/29/2020 Procedure: SECTION PRIMARY; Surgeon: Lalo Jorge MD; Location: [facility]; Service: Obstetrics/Gynecology; Laterality: N/A; SECTION N/A 02/23/2021 Procedure: SECTION REPEAT; Surgeon: Lalo Jorge MD; Location: [facility]; Service: Obstetrics/Gynecology; Laterality: N/A; D & C WITH SUCTION N/A 06/29/2024 Procedure: DILATATION AND CURETTAGE WITH SUCTION; Surgeon: Lalo Jorge MD; Location: [facility] OR; Service: Obstetrics/Gynecology; Laterality: N/A; Family History: Family History Problem Relation Age of Onset Ovarian cancer Paternal Grandmother Diabetes Maternal Grandmother Breast cancer Neg Hx Colon cancer Neg Hx Uterine cancer Neg Hx Social History: reports that she has been smoking cigarettes. She has a 5 pack- year smoking history. She has never used smokeless tobacco. reports no history of alcohol use. reports that she does not currently use drugs after having used the following drugs: Marijuana. General ROS Negative Findings:Headaches, Visual Changes, Epigastric pain, Anorexia, Nausia/Vomiting, ROM, and Vaginal Bleeding ROS All other systems have been reviewed and are neg Objective Vital Signs Range for the last 24 hours Temperature: Temp: [97.8 ??F (36.6 ??C)] 97.8 ??F (36.6 ??C) Temp Source: Temp src: Oral BP: BP: (103)/(68) 103/68 Pulse: Respirations: Resp: [18] 18 SPO2: O2 Amount (l/min): O2 Devices Weight: Weight: [74.8 kg (165 lb)] 74.8 kg (165 lb) Physical Examination: General: alert, appears stated age, and cooperative Skin: normal HEENT: Lungs: Heart: Gastrointestinal: Abdomen soft, gravid uterus, nontender. Guarding benign exam Lower Extremities: No edema, no calf tenderness : Musculoskeletal: Neuro: No focal deficits noted. Presentation: vtx Cervix: Exam by: Karen Dilation: Closed Effacement: TH firm Station: _4 No blood noted on glove Heart Rate Assessment Method: Beats/min: Baseline: Varibility: Accels: Decels: Tracing Category: NST-indications contractions, interpretation reactive, moderate variability accelerations present 10 x 10, no deceleration noted, onset 6 endtime 1909 irr ctx Uterine Assessment Method: Frequency (min): Ctx Count in 10 min: Duration: Intensity: Intensity by IUPC: Resting Tone: Resting Tone by IUPC: [place] Units: Laboratory Results: Lab Results (last 24 hours) Procedure Component Value Units Date/Time Urinalysis With Microscopic If Indicated (No Culture) - Urine, Clean Catch [[id number]] Collected: 03/23/251838 Specimen: Urine, Clean Catch Updated: 03/23/251847 Radiology Review: Imaging Results (Last 24 Hours) No results found for the last 24 hours. Other Studies: Assessment & Plan Maternal care due to low transverse uterine scar from previous delivery Factor V Leiden mutation complicating GRAYSON Course / Assessment: 1. All lab and imaging results listed above have been reviewed by me. 2. Intrauterine at 26w3d gestation with reactive status. 3. False labor 4. Prior x 3 Plan: Discharge to home, labor precautions given 2. Follow-up with primary OB provider as scheduled as needed 3. Plan of care has been reviewed with patient. 4. Risks, benefits of treatment plan have been discussed. 5. All questions have been answered. 6. Deyvi Jones DO 03/23/2025 18:49 EDT documented in this encounter Plan of Treatment Upcoming Encounters Date Type Department Care Team (Late st Contact Info) Description 04/15/2025 4:20 PM EDT Routine [facility] OBGYN [address] [place] [address] Lalo Jorge MD [address] [facility] [address] [place] [address] documented as of this encounter Procedures Procedure Name Priority Date/Time Associated Diagnosis Comments URINALYSIS W/ MICROSCOPIC IF INDICATED (NO CULTURE) STAT 03/23/2025 6:39 PM EDT documented in this encounter Results * Urinalysis With Microscopic If Indicated (No Culture) - Urine, Clean Catch (03/23/2025 6:39 PM EDT) Color, UA Yellow Yellow, Straw 03/23/2025 6:53 PM EDT [facility] Appearance, UA Clear Clear 03/23/2025 6:53 PM EDT [facility] pH, UA 7.0 5.0 - 8.0 03/23/2025 6:53 PM EDT [facility] Specific [place], UA 1.006 1.005 - 1.030 03/23/2025 6:53 PM EDT [facility] Glucose, UA Negative Negative 03/23/2025 6:53 PM EDT [facility] Ketones, UA Negative Negative 03/23/2025 6:53 PM EDT [facility] Bilirubin, UA Negative Negative 03/23/2025 6:53 PM EDT [facility] Blood, UA Negative Negative 03/23/2025 6:53 PM EDT [facility] Protein, UA Negative Negative 03/23/2025 6:53 PM EDT [facility] Leuk Esterase, UA Negative Negative 03/23/2025 6:53 PM EDT [facility] Nitrite, UA Negative Negative 03/23/2025 6:53 PM EDT [facility] Urobilinogen, UA 0.2 E.U./dL 0.2 - 1.0 E.U./dL 03/23/2025 6:53 PM EDT [facility] Urine Urine specimen obtained by clean catch procedure / Unknown Collection / Unknown 03/23/2025 6:39 PM EDT 03/23/2025 6:48 PM EDT [facility] - 03/23/2025 6:53 PM EDT Urine microscopic not indicated. Deyvi Jones DO URINE ORDERABLES Final Resu lt [facility]
[address] [place] [address], documented in this encounter Visit Diagnoses Diagnosis Maternal care due to low transverse uterine scar from previous delivery Factor V Leiden mutation complicating Other current maternal conditions classifiable elsewhere, complicating , childbirth, or the puerperium, unspecified as to episode of care documented in this encounter Care Teams Investment Trader Relationship Specialty Start Date End Date Malka Espinal APRN [address] [place] [address] PCP - General Family Medicine 01/21/25 documented as of this encounter
[2025-04-10 10:05] VITALS: BMI 27.6
[2025-04-10 10:14] LABS: Microscopic, Urine URINE MICROSCOPIC (MICROSCOPIC)
--- OUTSIDE RECORDS SUMMARY | 2025-04-10 10:33 | XMS_ITS | Encounter Summary ---
Author Organization [facility] Address [address] [place] [address] Care Team Providers Care Linotype Operator Name Role Phone Malka Espinal APRN Primary Care Provider [phone] Encounter Details Date Type Department Care Team (Latest Contact Info) Description 03/23/2025 Travel Social History Tobacco Use Types Packs/Day [...] of Binge Drinking Not on file 11/2019 [place] Depression Scale Answer Date Recorded [place] Depression Scale Total 7 02/24/2021 The thought [...] on file documented as of this encounter Functional Status * Question Answer Date of Assessment Author 1. Wish to be (Past 1 Month) No 025 6:58 PM EDT Gem Flores, GRISELDA 2. Non-Specific Active Suici roselia Thoughts (Past 1 Month) No 03/23/2025 6:58 PM EDT Liu Flores RN * Calculated C-SSRS Risk Score (Lifetime/Recent) Answer Date of Assessment Author No Risk Indicated 03/23/2025 6:58 PM EDT eGm Flores, GRISELDA * [place] Suicide Severity Rating Scale (Screener/Recent Self-Report) Question Answer Date of Assessment Author 6. Suicidal Behavior (Lifetime) No 6:58 PM EDT Gem Flores, GRISELDA documented as of this encounter Plan of Treatment Upcoming Encounters Date Type Department Care Team (Late st Contact Info) Description 04/15/2025 4:20 PM EDT Routine [facility] OBGYN [address] [place] [address] Lalo Jorge MD [address] [address] documented as of this encounter Visit Diagnoses Not on filedocumented in this encounter Care Teams Linotype Operator Relationship Specialty Start Date End Date Malka Espinal APRN [address] [place] [address] PCP - General Family Medicine 01/21/25 documented as of this encounter
--- OUTSIDE RECORDS SUMMARY | 2025-04-10 10:33 | XMS_ITS | Encounter Summary ---
[facility] [address] [place] [address] Care Team Providers Care Special Forces Weapons Sergeant Name Role Phone Malka Espinal APRN Primary Care Provider Encounter Details Date Type Department Care Team (Late st Contact Info) Description 03/05/2025 Patient Outreach [facility] [address] [place] [id number] Eduardo Vanegas, RN Social History Tobacco Use [...] of Binge Drinking Not on file 11/2019 [place] Depression Scale Answer Date Recorded [place] Depression Scale Total 7 02/24/2021 The thought [...] Attempt First Outcome Missing or invalid number, [place] [employer] message sent to patient Next Call Attempt Date 03/13/25 Confirmation of interest letter sent via [employer] message. Contact information provided. Response requested. EDUARDO Hurst - director instructional material Nurse Navigator 03/05/2025, 15:48 EDT documented in this encounter Plan of Treatment Upcoming Encounters Date Type Department Care Team (Late st Contact Info) Description 04/15/2025 4:20 PM EDT Routine [facility] OBGYN [address] [place] [address] Lalo Jorge MD 1700 [facility] [address] [place] [address] documented as of this encounter Visit Diagnoses Not on filedocumented in this encounter Care Teams Special Forces Weapons Sergeant Relationship Specialty Start Date End Date Malka Espinal APRN [address] [place] [address] PCP - General Family Medicine 01/21/25 documented as of this encounter
--- OUTSIDE RECORDS SUMMARY | 2025-04-10 10:33 | XMS_ITS | Encounter Summary ---
[facility] [address] [place] [address] Care Team Providers Care Locksmith Name Role Phone Malka Espinal APRN Primary Care Provider [phone] Reason for Visit * Reason Onset Date Comments DR. BOND - MEDICAL CONCERN 03/13/2025 Encounter Details Date Type Department Care Team (Late st Contact Info) Description 03/13/2025 Telephone [facility] OBGYN [address] [address] Lalo Bond MD [address] [place] [id number] BOND - MEDICAL CONCERN Social History Tobacco Use [...] of Binge Drinking Not on file 11/2019 [place] Depression Scale Answer Date Recorded [place] Depression Scale Total 7 02/24/2021 The thought [...] of 03/11/25. She was seen in [facility] morning of 03/11/25 (did not have enough gas to get to [place]); state EFM noted contractions every 3-6 minutes. [facility] spoke with our on-call provider for more [...] Rep - 03/13/2025 8:56 AM EDT Caller: MckeonKathryn motley Relationship: SELF Best call back number: [phone] - OTHER CELL # What is your medical concern? [facility]END - WAS HAVING CONTRACTIONS [...] Info) Description 04/15/2025 4:20 PM EDT Routine [facility] OBGYN [address] [place] [address] Lalo Bond MD 1700 [facility] [address] [place] [address] documented as of this encounter Visit Diagnoses Not on filedocumented in this encounter Care Teams Locksmith Relationship Specialty Start Date End Date Malka Espinal APRN [address] [place] [address] PCP - General Family Medicine 01/21/25 documented as of this encounter
--- OUTSIDE RECORDS SUMMARY | 2025-04-10 10:33 | XMS_ITS ---
Author Organization [facility] Address [address] [place] [address] Care Team Providers Care Complex Case Manager Name Role Phone Malka Espinal APRN Primary Care Provider [phone] Motherhood Connection Status:Declined (Declined) Start date:01/16/2025 End date:03/12/2025 Decline reason:Unable to reach patient Continued Care and Services Coordination
--- OUTSIDE RECORDS SUMMARY | 2025-04-10 10:33 | XMS_ITS | Clinical Summary ---
Author Organization [facility] Address [address] [place] [address] Care Team Providers Care Beekeeper Name Role Phone Malka Espinal APRN Primary Care Provider [phone] Allergies Active Allergy Reactions Criticality Noted Date [...] for Nausea. 30 tablet 3 01/21/2025 Active famotidine (Pepcid) 20 MG tablet Take 1 tablet by mouth Daily. 30 tablet 1 03/18/2025 03/18/20 26 Active Active Problems Problem Noted Date Diagnosed Date Factor V Leiden mutation complicating 02/11/2025 Nausea and vomiting during 01/21/2025 Constipation 12/17/2024 Depression 06/22/2024 Family planning 01/23/2024 Maternal care due to low tra nsverse uterine scar from previous delivery 01/13/2021 Seizure 05/15/2020 01/28/2020 Overview (12/21/2024): CFDNA-low [...] Encounters Date Type Department Care Team Description 03/23/2025 6:20 PM EDT - 03/23/2025 7:21 PM EDT Hospital Encounter [facility] [address] [place] [address] Shant Bond MD Lewellen, Thomas L, DO Discharge Disposition: Home or Self Care 03/23/2025 Travel 03/22/2025 Telephone [facility] OBGYN [address] [place] [address] Shant Bond MD 03/18/2025 10:30 AM EDT Routine [facility] [place]BG[facility] [place] [address] Shant Bond MD GA: 25w5d 03/18/2025 10:00 AM EDT Ancillary Procedure [facility] OBGYN [place] [address] 20 weeks gestation of 03/18/2025 Telephone [facility] [address] [place] [address] Shant Bond MD Med Refill 03/18/2025 Travel 03/16/2025 6:46 PM EDT - 03/16/2025 9:45 PM EDT Hospital Encounter [facility] [address] [place] [address] Shant Bond MD High, Curtis L, MD Discharge Disposition: Home or Self Care 03/16/2025 Travel 03/13/2025 Telephone [facility] OBGYN [address] [address] [facility] - MEDICAL CONCERN 03/12/2025 Patient Outreach [facility] [address] [place] [address] Paola Vanegas, RN 03/05/2025 Patient Outreach [facility] [address] [place] [address] Paola Vanegas, RN 02/11/2025 3:40 PM EDT Routine [facility] OBGYN [address] [place] [address] Shant Bond MD GA: 20w5d 02/11/2025 3:00 PM EDT Ancillary Procedure [facility] OBGYN [address] [place] [place] [address] 17 weeks gestation of 02/11/2025 Travel 01/25/2025 Telephone [facility] OBGYN [address] [place] [address] Shant Bond MD RETURN TO WORK NOTE 01/21/2025 3:30 PM EDT Routine [facility] OBGYN [address] [place] [place] [address] Shnat Bond MD GA: 17w5d 01/21/2025 3:00 PM EDT Ancillary Procedure [facility] OBGYN [address] [place] [place] [address] Subchorionic hematoma, antepartum, single or unspecified fetus 01/21/2025 Travel 01/16/2025 Referral Triage [facility] [address] [place] [address] Paola Vanegas RN 01/11/2025 8:39 PM EDT - 01/11/2025 9:10 PM EDT Hospital Encounter [facility] [address] [place] [address] Shant Bond MD High, Curtis L, MD Discharge Disposition: Home or Self Care 01/11/2025 Travel from Last 3 Months Family History [...] of Binge Drinking Not on file 11/2019 [place] Depression Scale Answer Date Recorded [place] Depression Scale Total 7 02/24/2021 The thought [...] Pressure 103/68 03/23/2025 6:35 PM EDT Pulse 112 03/16/2025 6:59 PM EDT Temperature 36.6 C (97.8 F) 03/23/2025 6:35 PM EDT Respiratory Rate 18 03/23/2025 6:35 PM EDT Oxygen Saturation 97% 03/16/2025 6:59 PM EDT Inhaled Oxygen Concentration - - Weight 74.8 kg (165 lb) 03/23/2025 6:35 PM EDT Height 162.6 cm (5' 4 ) 03/23/2025 6:35 PM EDT Body Mass Index 28.32 03/23/2025 6:35 PM EDT Plan of Treatment Upcoming Encounters Date Type Department Care Team (Late st Contact Info) Description 04/15/2025 4:20 PM EDT Routine [facility] OBGYN [address] [place] [address] Shant Bond MD [facility] [address] [place] [address] Health Maintenance Due Date Last Done Comments HPV VACCINES (2 - 2-dose series) 08/14/2014 02/11/2014 ANNUAL PHYSICAL 01/21/2020 Pneumococcal Vaccine 0-49 (1 of 2 - PCV) 2020 INFLUENZA VACCINE 02/08/2025 05/12/2020 RSV Vaccine - Adults (1 - Risk 1-dose series) 05/01/2025 Annual Gynecologic Pelvic and Breast Exam 10/20/2025 10/19/2024 CHLAMYDIA SCREENING 11/16/2025 11/16/2024, 10/19/2024, 01/23/2024 PAP SMEAR 01/22/2027 01/23/2024 TDAP/TD VACCINES (5 - Td or Tdap) 08/06/2033 08/06/2023, 03/05/2022, 12/23/2020, Additional history exists HEPATITIS C SCREENING Completed 11/16/2024 , 04/09/2022, 04/09/2022, Additional history exists MENINGOCOCCAL B VACCINE Aged Out No l onger eligible based on patient's age to complete this topic Procedures Procedure Name Priority Date/Time Associated Diagnosis Comments URINALYSIS W/ MICROSCOPIC IF INDICATED (NO CULTURE) STAT 03/23/2025 6:39 PM EDT US OB FOLLOW UP TRANSABDOMINAL APPROACH Routine 03/18/2025 10:53 AM EDT 20 weeks gestation of URINALYSIS, MICROSCOPIC ONLY STAT 03/16/2025 7:05 PM EDT URINALYSIS W/ MICROSCOPIC IF INDICATED (NO CULTURE) STAT 03/16/2025 7:05 PM EDT NONSTRESS TEST Routine 03/16/2025 7:03 PM EDT US OB 14 + WEEKS SINGLE OR FIRST GESTATION Routine 02/11/2025 3:31 PM EDT 17 weeks gestation of POCT URINALYSIS DIPSTICK, MANUAL Routine 02/11/2025 3:11 PM EDT 20 weeks gestation of US OB LIMITED 1 + FETUSES Routine 01/21/2025 3:25 PM EDT Subchorionic hematoma, antepartum, single or unspecified fetus POCT URINALYSIS DIPSTICK, MANUAL Routine 01/21/2025 3:16 PM EDT 17 weeks gestation of CHLAMYDIA TRACHOMATIS, NEISSERIA GONORRHOEAE, PCR Routine 11/16/2024 11:42 AM EDT care in first trimester, unspecified OBSTETRIC PANEL Routine 11/16/2024 11:42 AM EDT care in first trimester, unspecified LIQUID-BASED PAP SMEAR WITH HPV GENOTYPING IF ASCUS, [facility] (COLETTE,COR,MAD) Routine 01/23/2024 3:06 PM EDT Cervical cancer screening from Last 3 Months or Most Recently Relevant to Health Maintenance Results * Urinalysis With Microscopic If Indicated (No Culture) - Urine, Clean Catch (03/23/2025 6:39 PM EDT) Only the most recent of2 resultswithin the time period is included. Color, UA Yellow Yellow, Straw 03/23/2025 6:53 PM EDT [facility] Appearance, UA Clear Clear 03/23/2025 6:53 PM EDT [facility] pH, UA 7.0 5.0 - 8.0 03/23/2025 6:53 PM EDT [facility] Specific [place], UA 1.006 1.005 - 1.030 03/23/2025 6:53 PM EDT [facility] Glucose, UA Negative Negative 03/23/2025 6:53 PM EDT [facility] Ketones, UA Negative Negative 03/23/2025 6:53 PM EDT [facility] Bilirubin, UA Negative Negative 03/23/2025 6:53 PM EDT [facility] Blood, UA Negative Negative 03/23/2025 6:53 PM EDT [facility] Protein, UA Negative Negative 03/23/2025 6:53 PM EDT [facility] Leuk Esterase, UA Negative Negative 03/23/2025 6:53 PM EDT [facility] Nitrite, UA Negative Negative 03/23/2025 6:53 PM EDT [facility] Urobilinogen, UA 0.2 E.U./dL 0.2 - 1.0 E.U./dL 03/23/2025 6:53 PM EDT [facility] Urine Urine specimen obtained by clean catch procedure / Unknown Collection / Unknown 03/23/2025 6:39 PM EDT 03/23/2025 6:48 PM EDT Narrative [facility] - 03/23/2025 6:53 PM EDT Urine microscopic not indicated. us Deyvi Jones DO URINE ORDERABLES Final Resu lt [facility]
[address] [place] [address], * US Ob Follow Up Transabdominal Approach (03/18/2025 10:53 AM EDT) Anatomical Region Laterality Modality Body Ultrasound 03/18/2025 10:2 4 AM EDT Narrative 03/18/2025 11:18 AM EDT PAT NAME: DIOMEDES MCKEON MED REC#: [id number] DA: [id number] PAT GEND: F PAT TYPE: O EXAM NICOLA: [id number] REF PHYS SHANT BOND Indication ======== F/U [...] EFW (oz) 15 oz EFW by: Hadlock (QXE-CJ-PH-FL) Extended Shoe Caser 4.2 mm Extremities / Bony Struc FL [...] Recommendation follow up imaging as clinically indicated Rug Inspector Helper: Brenda Ford RN, RDMS Physician: Shant Bond MD, FACOG Electronically signed by: Shant Bond MD, FACOG at: 11:18 Procedure Note Shant Bond MD - 03/18/2025 PAT NAME: DIOMEDES MCKEON MED REC#: [id number] DA: 2000 PAT GEND: F PAT TYPE: O EXAM NICOLA: [id number] REF PHYS SHANT BOND Indication ======== F/U heart and profile Comparison Studies The findings of this study are compared to the prior ultrasound studydated , 02/11/25 Method ======= Voluson E6, Transabdominal ultrasound examination. View: Suboptimal view:limited by position ========= James . Number of fetuses: 1 Dating ====== Method of dating:based on stated JEAN-CLAUDE GA by prior [id number] w + 5 d JEAN-CLAUDE by prior assessment:06/26/2025 Ultrasound examination on:03/18/2025 GA by U/S based upon:AC, BPD, Femur, HC GA by U/S26 w + 1 d JEAN-CLAUDE by U/S:06/23/2025 Previous dating:based on stated JEAN-CLAUDE, selected on 02/11/2025 Agreed JEAN-CLAUDE of previous datin06/26/2025 Assigned:based on stated JEAN-CLAUDE, selected on 03/18/2025 Assigned GA25 w + 5 d Assigned JEAN-CLAUDE:06/26/2025 [id number] d General Evaluation Cardiac activity present. FHR 149 bpm. movements visualized. Presentation breech. Placenta Placental site: anterior. Umbilical cord Cord vessels: 3 vessel cord. Amniotic fluid Amount of AF: normal. MVP 3.8 cm. Biometry Standard BPD65.2 mm 26w 2d 62% Hadlock HC244.2 mm 26w 4d 55% Hadlock AC214.3 mm 26w 0d 48% Hadlock Femur46.9 mm 25w 4d 33% Hadlock HC / AC1.14 ARO439 g 25w 4d 47% Hadlock EFW (lb)1 lb EFW (oz)15 oz EFW by:Hadlock (DKN-WG-CA-FL) Extended Vp4.2 mm Extremities / Bony Struc FL / BPD0.72 FL / HC0.19 FL / AC0.22 Other Structures [id number] bpm Anatomy Lateral ventricles:Appears normal Choroid plexus:Appears [...] Recommendation follow up imaging as clinically indicated Rug Inspector Helper: Brenda Ford RN, RDMS Physician: Shant Bond MD, FACOG Electronically signed by: Shant Bond MD, FACOG at: 11:[address] [facility] US ORDERABLES Final Result * (ABNORMAL) Urinalysis, Microscopic Only - Urine, Clean Catch (03/16/2025 7:05 PM EDT) RBC, UA 0-2 None Seen, 0-2 /HPF 03/16/2025 7:29 PM EDT [facility] WBC, UA 3-5(A) None Seen, 0-2 /HPF 03/16/2025 7:29 PM EDT [facility] Bacteria, UA Trace(A) None Seen /HPF 03/16/2025 7:29 PM EDT [facility] Squamous Epithelial Cells, UA 7-12(A) None Seen, 0-2 /HPF 03/16/2025 7:29 PM EDT [facility] Hyaline Casts, UA None Seen None Seen /LPF 03/16/2025 7:29 PM EDT [facility] Methodology Automated Microscopy 03/16/2025 7:29 PM EDT [facility] Urine Urine specimen obtained by clean catch procedure / Unknown Collection / Unknown 03/16/2025 7:05 PM EDT 03/16/2025 7:23 PM EDT Abdelrahman Barragan MD URINE ORDERABLES Final Result [facility]
[address] [place] [address], * US Ob 14 + Weeks Single or First Gestation (02/11/2025 3:31 PM EDT) Anatomical Region Laterality Modality Body Ultrasound 02/11/2025 2:51 PM EDT Narrative 02/11/2025 3:45 PM EDT PAT NAME: DIOMEDES MCKEON MED REC#: [id number] DA: 2000 PAT GEND: F PAT TYPE: O EXAM NICOLA: [id number] REF PHYS SHANT BOND Rug Inspector Helper Comments heart and profile suboptimal; needs f/u [...] of previous datin06/26/2025 Assigned: based on stated JEAN-CALUDE, selected on 02/11/2025 Assigned GA 20 w [...] EFW (oz) 12 oz EFW by: Hadlock (ORR-AS-ZL-FL) Extended Shoe Caser 5.1 mm CM 4.9 mm 41% Nicolaides [...] normal Heart / Thorax 3-vessel view: suboptimal 5-mzvvyd-gkisanh view: suboptimal Diaphragm: Appears normal Diaphragm: Intact [...] in 1 month to complete anatomical survey Rug Inspector Helper: Brenda Ford RN, RDMS Physician: Shant Bond MD, FACOG Electronically signed by: Shant Bond MD, FACOG at: 15:45 Procedure Note Shant Bond MD - 02/11/2025 PAT NAME: DIOMEDES MCKEON MED REC#: [id number] DA: 2000 PAT GEND: F PAT TYPE: O EXAM NICOLA: [id number] REF PHYS SHANT BOND Rug Inspector Helper Comments heart and profile suboptimal; needs f/u due to position. Indication ======== anatomy survey Comparison Studies There are no relevant prior studies to which this study is beingcompared Method ======= Voluson E6, Transabdominal ultrasound examination. View: Sufficient view;positional ========= James . Number of fetuses: 1 Dating ====== Method of dating:based on stated JEAN-CLAUDE GA by prior [id number] w + 5 d JEAN-CLAUDE by prior assessment:06/26/2025 Ultrasound examination on:02/11/2025 GA by U/S based upon:AC, BPD, Femur, HC GA by U/S20 w + 2 d JEAN-CLAUDE by U/S:06/29/2025 Previous dating:based on stated JEAN-CLAUDE, selected on 01/21/2025 Agreed JEAN-CLAUDE of previous datin06/26/2025 Assigned:based on stated JEAN-CLAUDE, selected on 02/11/2025 Assigned GA20 w + 5 d Assigned JEAN-CLAUDE:06/26/2025 [id number] d General Evaluation Cardiac activity present. FHR [...] 31% Hadlock HC / AC1.18 66% Hadlock VKH783 g 20w 2d 28% Hadlock EFW (lb)0 lb EFW (oz)12 oz EFW by:Hadlock (VLI-OY-MC-FL) Extended Vp5.1 mm CM4.9 mm 41% Nicolaides Extremities / Bony Struc FL / BPD0.71 45% Hadlock FL / HC0.19 48% Hadlock FL / AC0.22 46% Hadlock Other Structures LWM984 bpm Anatomy Cranium:Appears normal Lateral ventricles:Appears normal Choroid plexus:Appears normal Midline falx:Appears normal Cavum septi pellucidi:Appears normal Cerebellum:Appears normal Cisterna magna:Appears normal Lips:Appear normal Profile:suboptimal Nose:Appears normal 4-chamber view:Appears normal RVOT view:suboptimal LVOT view:Appears normal Heart / Thorax 3-vessel view:suboptimal 2-yeovfk-awmdvjt view:suboptimal Diaphragm:Appears normal Diaphragm:Intact Cord insertion:Appears normal [...] Structures Uterus / Cervix Uterus:Visualized Cervix:Visualized Cervical qrkulj53.0 mm Ovaries / Tubes / Adnexa Rt ovary:Visualized Lt ovary:Visualized Impression Single viable intrauterine with normal cardiac activity andbiometry consistent with clinical dates. No structural abnormalities are seen on today's scan. Anatomicsurvey is incomplete. Recommendation Repeat imaging in 1 month to complete anatomical survey Rug Inspector Helper: Brenda Ford RN, RDMS Physician: Shant Bond MD, FACOG Electronically signed by: Shant Bond MD, FACOG at: 15:[address] [facility] US ORDERABLES Final Result * POC Urinalysis Dipstick (02/11/2025 3:11 PM EDT) Only the most recent of2 resultswithin the time period is included. Glucose, UA Negative Negative mg/dL [facility] Protein, POC Negative Negative mg/dL [facility] Urine 02/11/2025 3:11 PM EDT Shant Bond MD POINT OF CARE TEST ORDER MICHELLE Final Result [facility]
[address] [place] [address], * US Ob Limited 1 + Fetuses (01/21/2025 3:25 PM EDT) Anatomical Region Laterality Modality Body Ultrasound 01/21/2025 2:58 PM EDT Narrative 01/21/2025 4:06 PM EDT PAT NAME: DIOMEDES MCKEON MED REC#: [id number] DA: 2000 PAT GEND: F PAT TYPE: O EXAM NICOLA: [id number] REF PHYS SHANT BOND Rug Inspector Helper Comments Appears to be female. Double check [...] EFW (oz) 7 oz EFW by: Hadlock (DZF-JO-CO-FL) Extremities / Bony Struc FL / BPD [...] in 3-4 weeks to complete anatomical survey Rug Inspector Helper: Brenda Ford RN, RDMS Physician: Shant Bond MD, JORDYOG Electronically signed by: Shant Bond MD, EFRAIN at: 16:06 Procedure Note Shant Bond MD - 01/21/2025 PAT NAME: DIOMEDES MCKEON [facility] REC#: [id number] DA: 2000 PAT GEND: F PAT TYPE: O EXAM NICOLA: [id number] REF PHYS SHANT BOND Rug Inspector Helper Comments Appears to be female. Double check at anatomy scan Indication ======== F/U Placental SEVERINO Comparison Studies The findings of this study are compared to the prior ultrasound studydated , 12/21/24 Method ======= Transabdominal ultrasound examination. View: Adequate view ========= James . Number of fetuses: 1 Dating ====== Method of dating:based on stated JEAN-CLAUDE GA by prior [id number] w + 5 d JEAN-CLAUDE by prior assessment:06/26/2025 Ultrasound examination on:01/21/2025 GA by U/S based upon:AC, BPD, Femur, HC GA by U/S17 w + 5 d JEAN-CLAUDE by U/S:06/26/2025 Previous dating:based on stated JEAN-CLAUDE, selected on 12/21/2024 Agreed JEAN-CLAUDE of previous datin06/26/2025 Assigned:based on stated JEAN-CLAUDE, selected on 01/21/2025 Assigned GA17 w + 5 d Assigned JEAN-CLAUDE:06/26/2025 [id number] d General Evaluation Cardiac activity present. FHR [...] 39% Hadlock HC / AC1.19 52% Hadlock YNQ846 g 17w 4d 39% Hadlock EFW (lb)0 lb EFW (oz)7 oz EFW by:Hadlock (YPV-JJ-RB-FL) Extremities / Bony Struc FL / BPD0.65 50% Hadlock FL / HC0.18 76% Hadlock FL / AC0.21 56% Hadlock Other Structures VBK162 bpm Anatomy Cavum septi pellucidi:Appears normal Cerebellum:Appears normal Cisterna magna:Appears normal Profile:Appears normal Cord insertion:Appears normal Stomach:Appears normal Kidneys:Appears normal Bladder:Appears normal Cervical spine:Appears normal Thoracic spine:Appears normal Lumbar spine:Appears normal Sacral spine:Appears normal Maternal Structures Uterus / Cervix Cervix:Visualized Approach:Transvaginal Cervical vxuecy42.8 mm Impression Single viable intrauterine with normal cardiac activity andbiometry consistent with clinical dates. No structural abnormalities are seen on today's scan. Anatomicsurvey is incomplete. There is appropriate interval growth & normal amniotic fluidquantity no evidence of SEVERINO on today's exam Recommendation Repeat imaging in 3-4 weeks to complete anatomical survey Rug Inspector Helper: Brenda Ford RN, [facility] Physician: Shant Bond MD, FACOG Electronically signed by: Shant Bond MD, FACOG at: 16:06 Shant Bond MD [facility] ORDERABLES Final Result * Chlamydia trachomatis, Neisseria gonorrhoeae, PCR - Urine, Urine, Clean Catch (11/16/2024 11:42 AM EDT) Chlamydia trachomatis, AMADA Negative Negative [facility] Neisseria gonorrhoeae, AMADA Negative Negative [facility] Urine Urine specimen obtained by clean catch procedure / Unknown 11/16/2024 11:42 AM EDT 11/16/2024 Comment:[facility]- [phone] Narrative [facility] ([facility]AT[facility]) - 11/19/2024 8:09 PM EDT Performed at: - [address] [id number] Civil Rights Attorney: Leidy Bejarano MD, Phone: [phone] Shant Bond MD MICROBIOLOGY - GENERAL O RDERABLES Final Result [facility] ([facility]) [address] [place] [address], [facility] [address] [place] [address], * Obstetric Panel (11/16/2024 11:42 AM EDT) [...] - 11/17/2024 9:10 AM EDT Performed at: [address] [place] [id number] Civil Rights Attorney: Sabino Valentin PhD, Phone: [phone] us Shant Bond MD LAB BLOOD ORDERABLES Fin al Result [facility] ([facility]BULATORY) [address] [place] [id number], [facility] [address] [place], [place] [id number], * LIQUID-BASED PAP SMEAR WITH HPV GENOTYPING IF ASCUS (COLETTE,COR,MAD) (01/23/2024 3:06 PM EDT) Pathologist [facility] Reference Lab Report [facility] [address] [place] [address] or [phone] Fly Magana M.D., [employer] PATIENT NAME LABORATORY NO. 65DIOMEDES HOPE [id number] AGE SEX SSN CLIENT REF # [facility] ([facility]) 22 2000 F [id number] Jasmina GRANADOS REQUESTING Michael ATTENDING [place] [address] SHANT BOND DATE COLLECTED DATE RECEIVED DATE REPORTED 01/23/2024 01/23/2024 01/31/2024 ThinPrep Pap with Cytyc Imaging DIAGNOSIS: Negative for intraepithelial lesion or malignancy Multiple factors can influence accuracy of Pap tests; therefore, screening at regular intervals is necessary for early cancer detection. Professional interpretation rendered by Fly Magana M.D., F.C.A.P. at [facility], [address] [place] [address]. RECOMMENDATION: Follow up as clinically appropriate SPECIMEN [...] of chlamydial and gonococcal disease using the [place] system. [employer]: JOSE RUSS (ASCP) REVIEWED, DIAGNOSED AND ELECTRONICALLY SIGNED BY: Fly Magana M.D., F.C.A.P. CPT CODES: [id number], [id number], [id number], [id number] 01/31/2024 9:01 AM EDT [facility] ThinPrep Vial Collection / Unknown 01/23/2024 3:06 PM EDT 01/23/2024 3:06 PM EDT Shant Bond MD PATHOLOGY/CYTOLOGY ORDER MICHELLE Final Result [facility]
[address] [place] [address], from Last 3 Months or Most Recently Relevant to Health Maintenance Insurance [employer] [facility] Advance Directives * CPR (Attempt to [...] pulse or is breathing): Full Care Teams Beekeeper Relationship Specialty Start Date End Date Malka Espinal APRN [address] [place] [address] PCP - General Family Medicine 01/21/25
--- OUTSIDE RECORDS SUMMARY | 2025-04-10 10:34 | XMS_ITS | Encounter Summary ---
[facility] Address [address] [place] [address] Care Team Providers Care Certified Medical Coding Specialist Name Role Phone Malka Espinal APRN Primary Care Provider [phone] Encounter Details Date Type Department Care Team (Late st Contact Info) Description 11/28/2024 Results Follow-Up [facility] [address] [address] Lalo Jorge MD [address] [place] [address] Social History Tobacco Use Types Packs/Day Years [...] of Binge Drinking Not on file 11/2019 [place] Depression Scale Answer Date Recorded [place] Depression Scale Total 7 02/24/2021 The thought [...] Info) Description 04/15/2025 4:20 PM EDT Routine [facility] [address] [place] [address] Lalo Jorge MD [address] [facility] [address] [place] [id number] documented as of this encounter Visit Diagnoses Not on filedocumented in this encounter Care Teams Certified Medical Coding Specialist Relationship Specialty Start Date End Date Malka Espinal APRN [address] [place] [address] PCP - General Family Medicine 01/21/25 documented as of this encounter
--- OUTSIDE RECORDS SUMMARY | 2025-04-10 10:34 | XMS_ITS | Encounter Summary ---
[facility] Organization [facility] Address [address] [place] [address] Care Team Providers Care Vp Project Name Role Phone Malka Espinal APRN Primary Care Provider [phone] Encounter Details Date Type Department Care Team (Late st Contact Info) Description 03/22/2025 Telephone [facility] OBGYN [address] [facility] [address] [place] [phone] Lalo Jorge MD [address] [facility] [address] [place] [address] Social History Tobacco Use Types Packs/Day Years [...] of Binge Drinking Not on file 11/2019 [place] Depression Scale Answer Date Recorded [place] Depression Scale Total 7 02/24/2021 The thought [...] encounter Miscellaneous Notes * Telephone Encounter - Adry Echavarria RN - 03/22/2025 3:01 PM EDT pt. 27w2d. Reports that she has been having ctx. Reports that she doesn't know how frequent the ctx are but she states it is less than six per hour. Pt denies burning with urination. Reports+ movement. Instructed pt to hydrate, rest, take a warm bath, and tylenol. If ctx do not improve or worsen report to LDR. Verbalize understanding. * Telephone Encounter - Darlyn Lipscomb RegSched Rep - 03/22/2025 2:45 PM EDT Pt is having contraction and is needing to discuss steps she is 26 weeks documented in this encounter Plan of Treatment Upcoming Encounters Date Type Department Care Team (Late st Contact Info) Description 04/15/2025 4:20 PM EDT Routine [facility] OBGYN [address] [place] [address] Lalo Jorge MD [address] [facility] [address] [place] [address] documented as of this encounter Visit Diagnoses Not on filedocumented in this encounter Care Teams Vp Project Relationship Specialty Start Date End Date Malka Espinal APRN [address] [place] [address] PCP - General Family Medicine 01/21/25 documented as of this encounter
--- OUTSIDE RECORDS SUMMARY | 2025-04-10 10:34 | XMS_ITS | Encounter Summary ---
[facility] Organization [facility] Address [address] [place] [address] Care Team Providers Care Polishing Machine Tender Name Role Phone Malka Espinal APRN Primary Care Provider [phone] Reason for Visit * Reason Onset Date Comments Med Refill 03/18/2025 Encounter Details Date Type Department Care Team (Late st Contact Info) Description 03/18/2025 Telephone [facility] OBGYN [address] [facility] [address] [place] [phone] Lalo Jorge MD [address] [facility] [address] [place] [address] Med Refill Social History Tobacco Use Types Packs/Day Years [...] of Binge Drinking Not on file 11/2019 [place] Depression Scale Answer Date Recorded [place] Depression Scale Total 7 02/24/2021 The thought [...] encounter Miscellaneous Notes * Telephone Encounter - Lalo Jorge MD - 03/18/2025 4:46 PM EDT done * Telephone Encounter - Consuelo Rosas RegSched Rep - 03/18/2025 1:28 PM EDT Caller: Kathryn Mckeon Relationship: Self Best call back number: [phone] Requested Prescriptions: [facility] Pharmacy where request should be sent: Pharmacy: [id number] - [place], [place] - [address] [address] [address] & [facility] - [phone] [facility] [phone] FX Last office visit with prescribing clinician: 10/19/2024 Next office visit with prescribing clinician: 04/15/2025 Additional details provided by patient: PT IS 25 WEEKS AND EXPERIENCING [facility] Does the patient have less than a 3 day supply: [x] Yes [] No Would you like a call back once the refill request has been completed: [x] Yes [] No If the office needs to give you a call back, can they leave a voicemail: [x] Yes [] No documented in this encounter Plan of Treatment Upcoming Encounters Date Type Department Care Team (Late st Contact Info) Description 04/15/2025 4:20 PM EDT Routine [facility] OBGYN [address] [place] [address] Lalo Jorge MD [address] [facility] [address] [place] [address] documented as of this encounter Visit Diagnoses Not on filedocumented in this encounter Care Teams Polishing Machine Tender Relationship Specialty Start Date End Date Malka Espinal APRN [address] [place] [address] PCP - General Family Medicine 01/21/25 documented as of this encounter
--- OUTSIDE RECORDS SUMMARY | 2025-04-10 10:34 | XMS_ITS | Encounter Summary ---
Author Organization [facility] Address [address] [place] [address] Care Team Providers Care Concessions Manager Name Role Phone Malka Espinal APRN Primary Care Provider [phone] Encounter Details Date Type Department Care Team [...] of Binge Drinking Not on file 11/2019 [place] Depression Scale Answer Date Recorded [place] Depression Scale Total 7 02/24/2021 The thought [...] Info) Description 04/15/2025 4:20 PM EDT Routine [facility] OBGYN [address] [place] [address] Lalo Jorge MD [address] [id number] documented as of this encounter Visit Diagnoses Not on filedocumented in this encounter Care Teams Concessions Manager Relationship Specialty Start Date End Date Malka Espinal APRN [address] [place] [address] PCP - General Family Medicine 01/21/25 documented as of this encounter
--- OUTSIDE RECORDS SUMMARY | 2025-04-10 10:34 | XMS_ITS | Encounter Summary ---
[facility] Address [address] [place] [address] Care Team Providers Care Bleacher Lard Name Role Phone Malka Espinal APRN Primary Care Provider [phone] Encounter Details Date Type Department Care Team (Late st Contact Info) Description 03/12/2025 Patient Outreach [facility] [address] [place] [phone] Eduardo Vanegas, RN Social History Tobacco Use [...] of Binge Drinking Not on file 11/2019 [place] Depression Scale Answer Date Recorded [place] Depression Scale Total 7 02/24/2021 The thought [...] patient after two phone calls and one MyChart message which appears to have not been read. Contact info provided, encouraged to call if she has any questions, concerns, or needs assistance with resources. EDUARDO Hussein bowling ball patcher Nurse Navigator 03/12/2025, 17:18 EDT documented in this encounter Plan of Treatment Upcoming Encounters Date Type Department Care Team (Late st Contact Info) Description 04/15/2025 4:20 PM EDT Routine [facility] OBGYN [address] [place] [address] Lalo Jorge MD [address] [facility] [address] [place] [address] documented as of this encounter Visit Diagnoses Not on filedocumented in this encounter Care Teams Bleacher Lard Relationship Specialty Start Date End Date Malka Espinal APRN [address] [place] [address] PCP - General Family Medicine 01/21/25 documented as of this encounter
--- OUTSIDE RECORDS SUMMARY | 2025-04-10 10:34 | XMS_ITS | Encounter Summary ---
Author Organization [facility] Address [address] [place] [address] Care Team Providers Care Healthcare Analyst Name Role Phone Malka Espinal APRN Primary Care Provider [phone] Encounter Details Date Type Department Care Team (Latest Contact Info) Description 03/16/2025 Travel Social History Tobacco Use Types Packs/Day [...] of Binge Drinking Not on file 11/2019 [place] Depression Scale Answer Date Recorded [place] Depression Scale Total 7 02/24/2021 The thought [...] Month) No 025 6:59 PM EDT Ruth Aquino, GRISELDA 2. Non-Specific Active Suici roselia Thoughts (Past 1 Month) No 03/16/2025 6:59 PM EDT William Aquino RN * Calculated C-SSRS Risk Score (Lifetime/Recent) Answer Date of Assessment Author No Risk Indicated 03/16/2025 6:59 PM EDT Ruth Aquino, GRISELDA * [place] Suicide Severity Rating Scale (Screener/Recent Self-Report) Question Answer Date of Assessment Author 6. Suicidal Behavior (Lifetime) No 6:59 PM EDT Ruth Aquino, RN documented as of this encounter Plan of Treatment Upcoming Encounters Date Type Department Care Team (Late st Contact Info) Description 04/15/2025 4:20 PM EDT Routine [facility] OBGYN [address] [place] [address] Lalo Jorge MD [address] [facility] [address] [place] [address] documented as of this encounter Visit Diagnoses Not on filedocumented in this encounter Care Teams Healthcare Analyst Relationship Specialty Start Date End Date Malka Espinal APRN [address] [place] [address] PCP - General Family Medicine 01/21/25 documented as of this encounter
--- OUTSIDE RECORDS SUMMARY | 2025-04-10 10:34 | XMS_ITS | Encounter Summary ---
Author Organization [facility] Address [address] [place] [address] Care Team Providers Care Automotive Light Mechanic Name Role Phone Malka Espinal APRN Primary Care Provider [phone] Encounter Details Date Type Department Care Team (Latest Contact Info) Description 03/18/2025 Travel Social History Tobacco Use Types Packs/Day [...] of Binge Drinking Not on file 11/2019 [place] Depression Scale Answer Date Recorded [place] Depression Scale Total 7 02/24/2021 The thought [...] Info) Description 04/15/2025 4:20 PM EDT Routine [facility] OBGYN [address] [place] [address] Lalo Jorge MD [address] [facility] [address] [place] [address] documented as of this encounter Visit Diagnoses Not on filedocumented in this encounter Care Teams Automotive Light Mechanic Relationship Specialty Start Date End Date Malka Espinal APRN [address] [place] [address] PCP - General Family Medicine 01/21/25 documented as of this encounter
[2025-04-10 10:36] VITALS: BMI 26.4
[2025-04-10 10:59] LABS: Bilirubin,Urine Negative (Negative); Color,Urine YELLOW (Yellow); Glucose,Urine (UA) Negative (Negative); Ketones,Urine Negative (Negative); Leukocyte Esterase,Urine Negative (Negative); PH,Urine 8.0 (5.0-8.5); Protein,Urine Negative (Negative); Specific Gravity, Urine 1.015 (1.005-1.030); Urobilinogen,Urine 0.2 EU/dl (0.2)
[2025-04-10 11:20] LABS: Bacteria,Urine Trace /lpf
== END 2025-04-10 11:15 | disposition home or self-care (01) ==
LOC: OBOUT 10:00 → OB 10:02
PROVIDERS: PCP Family Medicine; Visit Provider Nurse Practitioner Obstetrics & Gynecology
DX: O47.03 False labor before 37 completed weeks of gestation, third trimester (principal); Z3A.29 29 weeks gestation of pregnancy
CPT/HCPCS: 59025; 81001; 99212; G0463